=== PATIENT | female | born 1980 | race Caucasian/White ===

== ENCOUNTER 2017-03-02 16:25 | Emergency (ER) | payer MEDICAID ==
[2017-03-02 18:39] LABS: BILIRUBIN,URINE NEGATIVE (NEGATIVE)
[2017-03-02 18:41] LABS: UA w/ MICROSCOPIC CHARGE YES
[2017-03-02 19:00] LABS: UR CULTURE IF IND NOT INDICATED; WBC,URINE 0-3 /HPF (0-5)
[2017-03-02 19:14] LABS: BASOPHILS # (AUTO) 0.1 10^3/uL (0.0-0.1); EOSINOPHILS # (AUTO) 0.2 10^3/uL (0.0-0.7); EOSINOPHILS % (AUTO) 1.5 %; HCT - HEMATOCRIT 46.2 % (37.0-47.0); HGB - HEMOGLOBIN 15.8 g/dL (12.0-16.0); LYMPHOCYTES # (AUTO) 3.7 10^3/uL (1.5-3.5); LYMPHOCYTES % (AUTO) 28.9 %; MEAN CORPUSCULAR HEMOGLOBIN 30.5 pg (27.0-31.0); MEAN CORPUSCULAR HGB CONC 34.2 g/dL (32.0-36.0); MEAN CORPUSCULAR VOLUME 88.9 fL (81.0-99.0); MEAN PLATELET VOLUME 9.4 fL (7.9-10.8); MONOCYTES # (AUTO) 0.6 10^3/uL (0.0-1.0); MONOCYTES % (AUTO) 5.1 %; NEUTROPHILS # (AUTO) 8.1 10^3/uL (1.5-6.6); NEUTROPHILS % (AUTO) 63.5 %; NUCLEATED RED BLOOD CELLS AUTO 0.1 /100WBC; RED CELL DISTRIBUTION WIDTH 12.4 % (12.0-15.0); UNCORRECTED WHITE BLOOD COUNT 12.7 x10^3/uL; WHITE BLOOD COUNT 12.7 x10^3/uL (4.8-10.8)
[2017-03-02 19:30] LABS: ALBUMIN/GLOBULIN RATIO 1.4 (1.0-2.2); BILIRUBIN,TOTAL 0.6 mg/dL (0.2-1.0); CALCIUM 9.1 mg/dL (8.5-10.3); CREATININE 0.6 mg/dL (0.4-1.0); POTASSIUM 3.8 mmol/L (3.5-5.0); TOTAL PROTEIN 7.6 g/dL (6.7-8.2)
[2017-03-02] MEDS ORDERED: INSULIN REGULAR HUMAN 100 UNIT/1 ML 10 ML MDV SUBQ STA (19:45)
--- NOTE | 2017-03-02 20:02 | XRAY Preliminary Report ---
Exam: XR Chest 2 View PA/LAT IMPRESSION: 1. Bronchial wall thickening could represent bronchitis or reactive airways disease. 2. No consolidation. [facility] SITE ID: [id number]
--- NOTE | 2017-03-02 20:10 | ED Physician Documentation ---
History of Present Illness - Stated complaint Stated Complaint: DIZZINESS - Chief complaint Chief Complaint: Neuro - History obtained from History obtained from: Patient, Family - History of Present Illness Timing: How many weeks ago (2) Pain level max: 0 Pain level now: 0 Improved by: nothing Worsened by: nothing - Additonal information Additional information: Patient is a 36-year-old female who states that she has not been feeling well for the past 2 weeks. States that she feels like she is "underwater". States occasionally feels dizzy and lightheaded. She is a diabetic, but quit taking her medications several years ago because she could not afford them. States that her blood sugar is normally in the 300s. She denies any fevers, nausea, vomiting. Denies any focal weakness or numbness. No headache. Review of Systems Ten Systems: 10 systems reviewed and negative Constitutional: denies: Fever, Chills Ears: denies: Ear pain Nose: denies: Rhinorrhea / runny nose, Congestion Throat: denies: Sore throat Cardiac: denies: Chest pain / pressure Respiratory: denies: Cough : denies: Dysuria, Now EGA Skin: denies: Rash Musculoskeletal: denies: Neck pain, Back pain Neurologic: denies: Focal weakness, Numbness, Confused, Altered mental status, Headache PD PAST MEDICAL HISTORY - Past Medical History Past Medical History: Yes Endocrine/Autoimmune: Type 2 diabetes - Past Surgical History Past Surgical History: Yes 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 - Present Medications Home Medications: Ambulatory Orders Medication Instructions Recorded Confirmed Amox/Clav 875/125 [Augmentin] 1 each PO Q12H #14 tablet 08/31/16 Glipizide 5 mg PO DAILY #30 tablet 03/02/17 - Allergies Allergies/Adverse Reactions: Allergies Allergy/AdvReac Type Severity Reaction Status Date / Time acetaminophen [From Vicodin] Allergy Intermediate Hives Verified 03/02/17 16:50 hydrocodone bitartrate * Allergy Intermediate Hives Verified 03/02/17 16:50 [From Vicodin] oxycodone HCl * Allergy Intermediate Hives Verified 03/02/17 16:50 [From Percocet] - Social History Does the pt smoke?: Yes Smoking Status: Current every day smoker Does the pt drink ETOH?: No Does the pt have substance abuse?: Yes Substance Use and Type: Marijuana - Immunizations Immunizations are current?: Yes PD ED PE NORMAL - Vitals Vital signs reviewed: Yes - General General: Alert and oriented X 3, No acute distress, Well developed/nourished - HEENT HEENT: PERRL, EOMI, Ears normal, Moist mucous membranes, Other (no nystagmus) - Neck Neck: Supple, no meningeal sign - Cardiac Cardiac: RRR, Strong equal pulses - Respiratory Respiratory: No respiratory distress, Clear bilaterally - Abdomen Abdomen: Soft, Non tender, Non distended - Back Back: No CVA TTP - Derm Derm: Warm and dry, No rash - Extremities Extremities: No edema - Neuro Neuro: Alert and oriented X 3, 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, No motor deficit, No sensory deficit, Normal speech, Other (normal cerebellar tests) - Psych Psych: Normal mood, Normal affect Results - Vitals Vitals: Oxygen O2 Source Room air - Labs Labs: Laboratory Tests 03/02/17 03/02/17 03/02/17 18:20 19:06 19:06 WBC 12.7 H RBC 5.20 Hgb 15.8 Hct 46.2 MCV 88.9 MCH 30.5 MCHC 34.2 RDW 12.4 Plt Count 208 MPV 9.4 Neut # 8.1 H Lymph # 3.7 H [place] # 0.6 Eos # 0.2 Baso # 0.1 Absolute Nucleated RBC 0.01 Nucleated RBCs 0.1 Sodium 134 L Potassium 3.8 Chloride 99 L Carbon Dioxide 26 Anion Gap 9.0 BUN 13 Creatinine 0.6 Estimated GFR (MDRD) 112 Glucose 311 H POC Whole Bld Glucose Calcium 9.1 Total Bilirubin 0.6 AST 15 ALT 17 Alkaline Phosphatase 75 Total Protein 7.6 Albumin 4.4 Globulin 3.2 Albumin/Globulin Ratio 1.4 Lipase 30 Urine Color YELLOW Urine Clarity HAZY Urine pH 6.0 Ur Specific [place] 1.010 Urine Protein NEGATIVE Urine Glucose (UA) >=1000 H Urine Ketones 15 H Urine Occult Blood NEGATIVE Urine Nitrite NEGATIVE Urine Bilirubin NEGATIVE Urine Urobilinogen 0.2 (NORMAL) Ur Leukocyte Esterase NEGATIVE Urine RBC 0-5 Urine WBC 0-3 Ur Squamous Epith Cells MANY Squamous H Urine Bacteria Few Ur Microscopic Review INDICATED Urine Culture Comments NOT INDICATED 03/02/17 03/02/17 20:17 20:58 WBC RBC Hgb Hct MCV MCH MCHC RDW Plt Count MPV Neut # Lymph # [place] # Eos # Baso # Absolute Nucleated RBC Nucleated RBCs Sodium Potassium Chloride Carbon Dioxide Anion Gap BUN Creatinine Estimated GFR (MDRD) Glucose POC Whole Bld Glucose 341 H 313 H Calcium Total Bilirubin AST ALT Alkaline Phosphatase Total Protein Albumin Globulin Albumin/Globulin Ratio Lipase Urine Color Urine Clarity Urine pH Ur Specific [place] Urine Protein Urine Glucose (UA) Urine Ketones Urine Occult Blood Urine Nitrite Urine Bilirubin Urine Urobilinogen Ur Leukocyte Esterase Urine RBC Urine WBC Ur Squamous Epith Cells Urine Bacteria Ur Microscopic Review Urine Culture Comments PD MEDICAL DECISION MAKING - ED course Complexity details: reviewed results, re-evaluated patient, considered differential, d/w patient, d/w family ED course: Patient is a 36-year-old female who presents to the emergency department with a feeling of being "underwater". She also feels like sometimes she is off balance. She is found to be hyperglycemic without ketosis or acidosis. Given insulin and her blood sugar decreased. Will restart her on her diabetic medications see how this affects her symptoms. No evidence of tumor, stroke, vertigo. Normal neurological examinations. Normal cerebellar test. Normal gait. Patient and family counseled regarding signs and symptoms for which I believe and urgent re-evaluation would be necessary. Patient with good understanding of and agreement to plan and is comfortable going home at this time This document was made in part using voice recognition software. While efforts are made to proofread this document, sound alike and grammatical errors may occur. Departure - Departure Disposition: 01 Home, Self Care Clinical Impression: Hyperglycemia without ketosis Condition: Good Instructions: ED Hyperglycemia Diabetic Follow-Up: Nickie Jerome ARNP [Primary Care Provider] - Within 3 Days Prescriptions: Glipizide 5 mg PO DAILY #30 tablet Comments: Start the glipizide. It is very important that you follow-up with and to obtain better control of your glucose. You should be referred to a family life educator as well, there is one available at the hospital here. There are programs to help you afford her medications. Discharge Date/Time: 03/02/17 21:11
[2017-03-02] MEDS ORDERED: INSULIN REGULAR HUMAN 100 UNIT/1 ML 10 ML MDV ONE (20:18)
--- NOTE | 2017-03-02 20:44 | XRAY Report ---
EXAM: CHEST RADIOGRAPHY EXAM DATE: 03/02/2017 07:50 PM. CLINICAL HISTORY: Cough. COMPARISON: None. TECHNIQUE: 2 views. FINDINGS: Lungs/Pleura: No focal opacities evident. No pleural effusion. No pneumothorax. Normal volumes. Mild left hilar bronchial wall thickening. Mediastinum: Heart and mediastinal contours are unremarkable. Other: None. IMPRESSION: 1. Bronchial wall thickening could represent bronchitis or reactive airways disease. 2. No consolidation. [facility] Referring Provider Line: [phone] SITE ID: [id number]
[2017-03-02 21:12] VITALS: BP 123/70
== END 2017-03-02 21:11 | disposition home or self-care (01) ==
LOC: ED 16:25
DX: E11.65 Type 2 diabetes mellitus with hyperglycemia (principal); F17.200 Nicotine dependence, unspecified, uncomplicated
CPT/HCPCS: 36415; 71020; 80053; 81001; 83690; 85025; 99283; 99284; J1815; 81003; 87086

== ENCOUNTER 2017-06-20 13:08 | Emergency (ER) | payer OTHER, MEDICAID ==
[2017-06-20 13:51] VITALS: BP 143/81
--- NOTE | 2017-06-20 14:15 | ED Physician Documentation ---
PD HPI LOWER EXT INJURY - Stated complaint Stated Complaint: LEFT KNEE INJ - Chief complaint Chief Complaint: Ext Problem - History obtained from History obtained from: Patient, Family - History of Present Illness PD HPI LOW EXT INJURY LOCATION: Left, Knee Type of injury: Twist Where injury occurred: Work Timing - onset: How many hours ago (2) Timing - duration: Hours (2) Timing - details: Abrupt onset Pain level max: 8 Pain level now: 5 Improved by: Rest, Ice, Immobilization Worsened by: Moving, Palpating Associated symptoms: Swelling. 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 - Present Medications Home Medications: Ambulatory Orders Medication Instructions Recorded Confirmed Amox/Clav 875/125 [Augmentin] 1 each PO Q12H #14 tablet 08/31/16 Glipizide 5 mg PO DAILY #30 tablet 03/02/17 - Allergies Allergies/Adverse Reactions: Allergies Allergy/AdvReac Type Severity Reaction Status Date / Time acetaminophen [From Vicodin] Allergy Intermediate Hives Verified 03/02/17 16:50 hydrocodone bitartrate * Allergy Intermediate Hives Verified 03/02/17 16:50 [From Vicodin] oxycodone HCl * Allergy Intermediate Hives Verified 03/02/17 16:50 [From Percocet] oxycodone Allergy Hives Verified 06/20/17 13:52 - Social History Does the pt smoke?: Yes Smoking Status: Current every day smoker Does the pt drink ETOH?: No Does the pt have substance abuse?: Yes Substance Use and Type: Marijuana - Immunizations Immunizations are current?: Yes - POLST Patient has POLST: No PD ED PE NORMAL - Vitals Vital signs reviewed: Yes - General General: Alert and oriented X 3, No acute distress - Derm Derm: Warm and dry - Extremities Extremities: Other (L knee - TTP along the medial joint line. laxity with posterior drawer and MCL, LCL testing. NVI. No joint effusion. ) - Neuro Neuro: Alert and oriented X 3 Results - Vitals Vitals: Vital Signs - 24 hr 06/20/17 13:45 Temperature 36.7 C Heart Rate 107 H Respiratory 18 Rate Blood Pressure 143/81 H O2 Saturation 98 Oxygen O2 Source Room air - Rads (name of study) L knee xray Radiology: Prelim report reviewed, EMP read contemporaneously (No acute bony abnormality or joint effusion. Stable degenerative spurring of the lateral compartment. ) PD MEDICAL DECISION MAKING - ED course Complexity details: reviewed results, re-evaluated patient, considered differential, d/w patient ED course: Patient is a 36-year-old female who injured her knee today at work. Likely ligamentous sprain. Difficult exam secondary to pain. We will have her placed into an articulating knee brace from 0-45, crutches and follow-up with her doctor. Patient counseled regarding signs and symptoms for which I believe and urgent re-evaluation would be necessary. Patient with good understanding of and agreement to plan and is comfortable going home at this time This document was made in part using voice recognition software. While efforts are made to proofread this document, sound alike and grammatical errors may occur. Departure - Departure Disposition: 01 Home, Self Care Clinical Impression: Knee sprain Qualifiers: Encounter type: initial encounter Involved ligament of knee: unspecified ligament Laterality: left Qualified Code(s): S83.92XA - Sprain of unspecified site of left knee, initial encounter Condition: Good Instructions: ED Sprain Knee Follow-Up: Nickie Jerome ARNP [Primary Care Provider] - Within 1 week Comments: Wear the brace until released by your doctor. Return if you worsen. You may bear weight as tolerated. Forms: Activity restrictions Discharge Date/Time: 06/20/17 16:02
--- NOTE | 2017-06-20 15:32 | XRAY Report ---
EXAM: LEFT KNEE RADIOGRAPHY EXAM DATE: 06/20/2017 03:10 PM. CLINICAL HISTORY: Twisting injury. [place] a pop. Pain. COMPARISON: 06/18/2013. TECHNIQUE: 4 views. FINDINGS: Bones: Normal. No fractures or bone lesions. Joints: Stable spurring of the lateral compartment. No effusion. No subluxations. Soft Tissues: Normal. No soft tissue swelling. IMPRESSION: 1. No acute bony abnormality or joint effusion. 2. Stable degenerative spurring of the lateral compartment. [facility] Referring Provider Line: [phone] SITE ID: [id number]
== END 2017-06-20 16:02 | disposition home or self-care (01) ==
LOC: ED 13:08
DX: S83.92XA Sprain of unspecified site of left knee, initial encounter (principal); X50.1XXA Overexertion from prolonged static or awkward postures, initial encounter; Y93.02 Activity, running; Y92.89 Other specified places as the place of occurrence of the external cause; Y99.0 Civilian activity done for income or pay; E11.9 Type 2 diabetes mellitus without complications; Z79.84 Long term (current) use of oral hypoglycemic drugs; F17.200 Nicotine dependence, unspecified, uncomplicated
CPT/HCPCS: 99283

== ENCOUNTER 2017-08-01 15:52 | Outpatient (CLI) | payer OTHER ==
--- NOTE | 2017-08-02 10:21 | MRI Report ---
EXAM: LEFT KNEE MRI WITHOUT CONTRAST EXAM DATE: 08/01/2017 04:33 PM. CLINICAL HISTORY: Left knee pain going up and down stairs, buckling. History of meniscus tear and art hroscopy in 2005. COMPARISON: Radiographs 06/20/2017. TECHNIQUE: Multiplanar, multisequence T1-weighted and fluid-sensitive sequences of the knee without c ontrast. Other: None. FINDINGS: Cruciate Ligaments: The anterior and posterior cruciate ligaments appear intact. Medial Meniscus: Intact. No tear is identified. Lateral Meniscus: Intact. No tear is identified. Collateral Ligaments: The medial and fibular collateral ligaments appear intact. Bones and Articular Surfaces: Severe cartilage thinning, fissuring and irregularity at the central as pect of the patella with subchondral edema. Abnormal 2.1 x 1.5 x 0.4 cm ossification abutting the low er medial aspect of the patella within the patellofemoral joint space. This may represent an old avul trevin injury or a chronically displaced osteochondral fragment. Lateral tracking of the patella. Mild cartilage thinning and superficial irregularity in the medial and lateral compartments. Small foci of patchy subchondral edema at the lateral femoral condyle. Tricompartmental marginal osteophytes most pronounced in the lateral compartment. Extensor Mechanism: The patellar tendon and quadriceps insertion appear intact. IMPRESSION: 1. Abnormal well-corticated ossification abutting the lower medial margin of the patella which may re present old displaced osteochondral fragment or loose body versus old ununited avulsion fracture. 2. Moderate patellofemoral osteoarthritis. 3. Mild medial and lateral compartment osteoarthritis. [facility] MUSCULOSKELET[facility] SECTION Referring Provider Line: [phone] SITE ID: [id number]
== END 2017-08-01 15:53 | disposition home or self-care (01) ==
LOC: DI 15:52
PROVIDERS: ATTEND Family Medicine
DX: M17.12 Unilateral primary osteoarthritis, left knee (principal)

== ENCOUNTER 2017-10-18 04:11 | Emergency (ER) | payer MEDICAID ==
[2017-10-18] MEDS ORDERED: LORazepam 0.5 MG TABLET PO STA (04:24)
--- NOTE | 2017-10-18 04:27 | ED Physician Documentation ---
PD HPI CHEST PAIN - Stated complaint Stated Complaint: CHEST PAIN,NAUSEA - Chief complaint Chief Complaint: Cardiac - History obtained from History obtained from: Patient - History of Present Illness Timing - onset: Today Timing - onset during: Rest Timing - details: Gradual onset, Intermittant Quality: Aching, Sharp Location: Left chest, Left shoulder/arm Worsened by: No: Inspiration Associated symptoms: Nausea Similar symptoms before: No diagnosis Recently seen: Not recently seen - Additional information Additional information: Patient is a 37 year old female with a history of panic attacks who is presenting to the emergency department for chest pain. Patient states that it started at rest this evening and was in the left side of her chest near her armpit and it moved down into her right breast. Patient states she was nauseated with the event. Patient reports that that she has had panic attacks in the past but states that this was different. Patient drank 4 energy drinks during her shift tonight at work. Patient denies any recent travel, family history of blood clots or early cardiac disease. Review of Systems Ten Systems: 10 systems reviewed and negative Constitutional: denies: Fever, Chills Cardiac: reports: Chest pain / pressure. denies: Pedal edema Respiratory: denies: Dyspnea, Cough GI: reports: Nausea. 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 - Present Medications Home Medications: Ambulatory Orders Medication Instructions Recorded Confirmed Amox/Clav 875/125 [Augmentin] 1 each PO Q12H #14 tablet 08/31/16 Glipizide 5 mg PO DAILY #30 tablet 03/02/17 - Allergies Allergies/Adverse Reactions: Allergies Allergy/AdvReac Type Severity Reaction Status Date / Time acetaminophen [From Vicodin] Allergy Intermediate Hives Verified 10/18/17 04:22 hydrocodone bitartrate * Allergy Intermediate Hives Verified 10/18/17 04:22 [From Vicodin] oxycodone HCl * Allergy Intermediate Hives Verified 10/18/17 04:22 [From Percocet] oxycodone Allergy Hives Verified 10/18/17 04:22 - Social History Does the pt smoke?: Yes Smoking Status: Current every day smoker Does the pt drink ETOH?: No Does the pt have substance abuse?: Yes - Immunizations Immunizations are current?: Yes - POLST Patient has POLST: No PD ED PE NORMAL - Vitals Vital signs reviewed: Yes - General General: Alert and oriented X 3 - HEENT HEENT: Atraumatic - Cardiac Cardiac: RRR, No murmur - Respiratory Respiratory: No respiratory distress, Clear bilaterally - Abdomen Abdomen: Soft, Non tender, Non distended - Derm Derm: Normal color, Warm and dry, No rash - Extremities Extremities: No deformity, No edema, No calf tenderness / cord - Neuro Neuro: Alert and oriented X 3, No motor deficit Eye Opening: Spontaneous Motor: Obeys Commands - Psych Psych: Normal mood PD ED PE EXPANDED - General General: Alert, Anxious Results - Vitals Vitals: Vital Signs - 24 hr 10/18/17 10/18/17 04:19 04:38 Temperature 36.6 C Heart Rate 96 95 Respiratory 16 19 Rate Blood Pressure 153/107 H 146/91 H O2 Saturation 98 100 Oxygen O2 Source Room air - EKG (time done) 0424 Rate: Rate (enter#) (97) Rhythm: NSR [place]: Normal Intervals: Normal HI QRS: LVH Ischemia: Normal ST segments Compare to prior EKG: Changed from prior EKG - Labs Labs: Laboratory Tests 10/18/17 10/18/17 04:33 04:45 Troponin I < 0.04 Urine Color YELLOW Urine Clarity CLEAR Urine pH 7.0 Ur Specific [place] 1.015 Urine Protein NEGATIVE Urine Glucose (UA) >=1000 H Urine Ketones TRACE Urine Occult Blood LARGE H Urine Nitrite NEGATIVE Urine Bilirubin NEGATIVE Urine Urobilinogen 0.2 (NORMAL) Ur Leukocyte Esterase NEGATIVE Urine RBC TNTC H Urine WBC 0-3 Ur Squamous Epith Cells MOD Squamous H Urine Bacteria Rare Ur Microscopic Review INDICATED Urine Culture Comments NOT INDICATED Urine HCG, Qual NEGATIVE PD MEDICAL DECISION MAKING - ED course Complexity details: reviewed old records, reviewed results, re-evaluated patient , considered differential, d/w patient ED course: Patient was seen and examined at bedside. patient was in no distress. ekg was performed and was within normal limits. urine was collected as well as the troponin. Patient was treated with ativan 0.5mg. Patient's diagnostics were all within normal limits. Patient had a HEART score of 1 and PERC score of 0. Patient required no further inpatient work up at this time and was stable for discharge with outpatient follow up. Departure - Departure Disposition: 01 Home, Self Care Clinical Impression: Atypical chest pain Condition: Good Instructions: ED Chest Pain Atypical Unkn Cause Follow-Up: Donta Velasquez MD [Primary Care Provider] - Comments: Your diagnostics today were within normal limits. While it is difficult to say exactly what is causing your pain it is less likely cardiac in nature. You should refrain from excessive caffeine/energy drinks. You will also need to monitor your blood glucose a bit more closely. You should follow up with your doctor for further care and may return to the emergency department at any time for new, worsening or uncontrollable symptoms.
[2017-10-18 04:38] LABS: BILIRUBIN,URINE NEGATIVE (NEGATIVE); GLUCOSE, URINE (UA) >=1000 mg/dL (NEGATIVE); KETONES,URINE (UA) TRACE mg/dL (NEGATIVE); LEUKOCYTE ESTERASE, URINE NEGATIVE (NEGATIVE); NITRITE,URINE NEGATIVE (NEGATIVE); OCCULT BLOOD,URINE LARGE (NEGATIVE); PROTEIN,URINE NEGATIVE (NEGATIVE); UROBILINOGEN,URINE 0.2 (NORMAL) E.U./dL (NORMAL)
[2017-10-18 04:39] LABS: CLARITY,URINE CLEAR (CLEAR); HCG UR QUAL NEGATIVE
[2017-10-18 04:47] LABS: BACTERIA,URINE Rare /HPF (None Seen); RBC,URINE TNTC /HPF (0-5); SQUAMOUS EPITHELIAL CELL,UR MOD Squamous (<= Few)
[2017-10-18 05:23] VITALS: BP 129/83
== END 2017-10-18 05:25 | disposition home or self-care (01) ==
LOC: ED 04:11
DX: R07.89 Other chest pain (principal); E11.9 Type 2 diabetes mellitus without complications; F17.200 Nicotine dependence, unspecified, uncomplicated
CPT/HCPCS: 36415; 81001; 81025; 84484; 93005; 99283; 99284; A9270; 81003; 87086

== ENCOUNTER 2017-11-08 17:12 | Outpatient (CLI) | payer MEDICAID ==
[2017-11-08 17:37] LABS: BASOPHILS # (AUTO) 0.1 10^3/uL (0.0-0.1); BASOPHILS % (AUTO) 1.1 %; EOSINOPHILS # (AUTO) 0.2 10^3/uL (0.0-0.7); EOSINOPHILS % (AUTO) 1.6 %; HGB - HEMOGLOBIN 16.3 g/dL (12.0-16.0); LYMPHOCYTES # (AUTO) 3.5 10^3/uL (1.5-3.5); LYMPHOCYTES % (AUTO) 29.5 %; MEAN CORPUSCULAR HEMOGLOBIN 29.1 pg (27.0-31.0); MEAN CORPUSCULAR HGB CONC 32.9 g/dL (32.0-36.0); MEAN CORPUSCULAR VOLUME 88.5 fL (81.0-99.0); MEAN PLATELET VOLUME 8.8 fL (7.9-10.8); MONOCYTES # (AUTO) 0.8 10^3/uL (0.0-1.0); MONOCYTES % (AUTO) 6.4 %; NEUTROPHILS # (AUTO) 7.3 10^3/uL (1.5-6.6); NEUTROPHILS % (AUTO) 61.4 %; PLT - PLATELET COUNT 224 10^3/uL (130-450); RED BLOOD COUNT 5.58 10^6/uL (4.20-5.40); RED CELL DISTRIBUTION WIDTH 12.6 % (12.0-15.0)
[2017-11-08 17:51] LABS: ALBUMIN 4.4 g/dL (3.2-5.5); ALBUMIN/GLOBULIN RATIO 1.2 (1.0-2.2); BILIRUBIN,TOTAL 0.5 mg/dL (0.2-1.0); CREATININE 0.7 mg/dL (0.4-1.0)
[2017-11-08 18:18] LABS: HB2 TOTAL 18.3 g/dL; HEMOGLOBIN A1C 2.47 g/dL; HEMOGLOBIN A1C % 14.5 % (4.6-6.2)
== END 2017-11-08 17:13 | disposition home or self-care (01) ==
LOC: LAB 17:12
PROVIDERS: ATTEND Internal Medicine
DX: E11.9 Type 2 diabetes mellitus without complications (principal)
CPT/HCPCS: 36415; 80053; 82043; 83036; 84443; 85025

== ENCOUNTER 2019-02-25 18:32 | Emergency (ER) | payer MEDICAID ==
[2019-02-25] MEDS ORDERED: cephALEXin 250 MG CAPSULE PO STA (19:08)
[2019-02-25] MEDS ORDERED: SULFAMETH/TRIMETH DS 800/160 MG TABLET PO STA (19:08)
--- NOTE | 2019-02-25 19:10 | ED Physician Documentation ---
PD HPI LOWER EXT INJURY - Stated complaint Stated Complaint: L FOOT INJURY - Chief complaint Chief Complaint: Ext Problem - History obtained from History obtained from: Patient - History of Present Illness PD HPI LOW EXT INJURY LOCATION: Left, Toe (great toe) Type of injury: Fall (going over a chair) Timing - onset: Last night Timing - duration: Days (1) Timing - details: Gradual onset Pain level max: 5 Pain level now: 4 Improved by: Rest, Ice, Immobilization Worsened by: Moving, Palpating Associated symptoms: Swelling, Discolored (redness). 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 : None HEENT: None Psych: None Musculoskeletal: None Derm: None - Past Surgical History Past Surgical History: Yes Ortho: Arthroscopic surgery /UTILITY WORKER FILM PROCESSING: Dilation and currettage - Present Medications Home Medications: Ambulatory Orders Medication Instructions Recorded Confirmed Amox/Clav 875/125 [Augmentin] 1 each PO Q12H #14 tablet 08/31/16 Glipizide 5 mg PO DAILY #30 tablet 03/02/17 Cephalexin [Keflex] 500 mg PO Q6H #28 capsule 02/25/19 Sulfamethox/Trimeth 800/160 1 each PO BID #14 tablet 02/25/19 [Bactrim Ds 800/160] - Allergies Allergies/Adverse Reactions: Allergies Allergy/AdvReac Type Severity Reaction Status Date / Time acetaminophen [From Vicodin] Allergy Intermediate Hives Verified 10/18/17 04:22 hydrocodone bitartrate * Allergy Intermediate Hives Verified 10/18/17 04:22 [From Vicodin] oxycodone HCl * Allergy Intermediate Hives Verified 10/18/17 04:22 [From Percocet] oxycodone Allergy Hives Verified 10/18/17 04:22 - Social History Does the pt smoke?: Yes Smoking Status: Current every day smoker Does the pt drink ETOH?: No Does the pt have substance abuse?: Yes Substance Use and Type: Marijuana - Immunizations Immunizations are current?: Yes - POLST Patient has POLST: No PD ED PE NORMAL - Vitals Vital signs reviewed: Yes - General General: Alert and oriented X 3, No acute distress - HEENT HEENT: Moist mucous membranes - Neck Neck: Supple, no meningeal sign - Cardiac Cardiac: RRR - Derm Derm: Warm and dry - Extremities Extremities: Other (L foot - Erythema and swelling to the left great toe with a small pustule. There is erythema that expands approximately one third of the way up the foot on the dorsum of the foot. No pain with range of motion of the joints. Tenderness to palpation over the distal end of the first metatarsal. Otherwise normal examination of the foot and ankle) - Neuro Neuro: Alert and oriented X 3 Results - Vitals Vitals: Vital Signs - 24 hr 02/25/19 02/25/19 18:40 20:10 Temperature 36.5 C 36.8 C Heart Rate 85 80 Respiratory 18 18 Rate Blood Pressure 147/85 H 151/83 H O2 Saturation 99 99 Oxygen O2 Source Room air - Rads (name of study) L toes xray Radiology: Prelim report reviewed, EMP read contemporaneously, See rad report (normal) PD MEDICAL DECISION MAKING - ED course Complexity details: reviewed results, re-evaluated patient, considered differential, d/w patient, d/w family ED course: L great toe sprain, but more importantly cellulitis of the foot in a diabetic patient. Will place on antibiotics for home. Pt will follow-up with your doctor for further care. Patient counseled regarding signs and symptoms for which I believe and urgent re-evaluation would be necessary. Patient with good understanding of and agreement to plan and is comfortable going home at this time This document was made in part using voice recognition software. While efforts are made to proofread this document, sound alike and grammatical errors may occur. Departure - Departure Disposition: 01 Home, Self Care Clinical Impression: Cellulitis Qualifiers: Site of cellulitis: extremity Site of cellulitis of extremity: lower extremity Laterality: left Qualified Code(s): L03.116 - Cellulitis of left lower limb Toe sprain Qualifiers: Encounter type: initial encounter Qualified Code(s): S93.509A - Unspecified sprain of unspecified toe(s), initial encounter Condition: Good Instructions: ED Infec Skin Cellulitis Follow-Up: Singh Jacobs MD [Primary Care Provider] - Within 3 Days (for wound check) Prescriptions: Cephalexin [Keflex] 500 mg PO Q6H #28 capsule Sulfamethox/Trimeth 800/160 [Bactrim Ds 800/160] 1 each PO BID #14 tablet Comments: Take all antibiotics until gone. Return if you worsen. Follow-up with your doctor in 3 days for a wound check. This should improve over the next 24 hours. Discharge Date/Time: 02/25/19 20:12
--- NOTE | 2019-02-25 19:53 | XRAY Report ---
Reason: L 1st toe pain Procedure Date: 02/25/2019 Accession Number: [id number] / [id number] Procedure: XR - Toe(s) LT CPT Code: FULL RESULT: EXAM: LEFT GREAT TOE RADIOGRAPHY EXAM DATE: 02/25/2019 07:15 PM. CLINICAL HISTORY: Left 1st toe pain. COMPARISON: None. TECHNIQUE: 3 views. FINDINGS: Bones: Normal. No fracture or bone lesion. Joints: Normal. No subluxations. Soft Tissues: Unremarkable. IMPRESSION: Normal great toe radiography. [facility]
[2019-02-25 20:11] VITALS: BP 151/83
== END 2019-02-25 20:12 | disposition home or self-care (01) ==
LOC: ED 18:32
DX: S93.512A Sprain of interphalangeal joint of left great toe, initial encounter (principal); W18.09XA Striking against other object with subsequent fall, initial encounter; L03.032 Cellulitis of left toe; E11.9 Type 2 diabetes mellitus without complications; Z79.84 Long term (current) use of oral hypoglycemic drugs; F17.200 Nicotine dependence, unspecified, uncomplicated
CPT/HCPCS: 73660; 99283; 99284; A9270

== ENCOUNTER 2020-03-23 18:33 | Emergency (ER) | payer MEDICAID ==
[2020-03-23] MEDS ORDERED: cephALEXin 250 MG CAPSULE PO STA (19:12)
[2020-03-23] MEDS ORDERED: SULFAMETH/TRIMETH DS 800/160 MG TABLET PO STA (19:12)
--- NOTE | 2020-03-23 19:15 | ED Physician Documentation ---
History of Present Illness - Stated complaint Stated Complaint: RT FT PX - Chief complaint Chief Complaint: Ext Problem - History obtained from History obtained from: Patient - History of Present Illness Timing: How many days ago (3) Pain level max: 3 Pain level now: 3 - Additonal information Additional information: 39-year-old female states that she is a diabetic. She states that she has had a wart/corn on the plantar aspect of the right foot for the past several years. Started to become painful and swollen 2 days ago. Worse with walking, better with rest. No drainage. No fevers. 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 : None HEENT: None Psych: None Musculoskeletal: None Derm: None - Past Surgical History Past Surgical History: Yes Ortho: Arthroscopic surgery /REFRIGERATION PERSON: Dilation and currettage - Present Medications Home Medications: Ambulatory Orders Medication Instructions Recorded Confirmed Amox/Clav 875/125 [Augmentin] 1 each PO Q12H #14 tablet 08/31/16 Glipizide 5 mg PO DAILY #30 tablet 03/02/17 Cephalexin [Keflex] 500 mg PO Q6H #28 capsule 02/25/19 Sulfamethox/Trimeth 800/160 1 each PO BID #14 tablet 02/25/19 [Bactrim Ds 800/160] Cephalexin [Keflex] 500 mg PO Q6H #28 capsule 03/23/20 Sulfamethox/Trimeth 800/160 1 each PO BID #14 tablet 03/23/20 [Bactrim Ds 800/160] - Allergies Allergies/Adverse Reactions: Allergies Allergy/AdvReac Type Severity Reaction Status Date / Time acetaminophen [From Vicodin] Allergy Intermediate Hives Verified 03/23/20 18:39 hydrocodone bitartrate * Allergy Intermediate Hives Verified 03/23/20 18:39 [From Vicodin] oxycodone HCl * Allergy Intermediate Hives Verified 03/23/20 18:39 [From Percocet] oxycodone Allergy Hives Verified 03/23/20 18:39 - Social History Does the pt smoke?: Yes Smoking Status: Current every day smoker Does the pt drink ETOH?: No Does the pt have substance abuse?: Yes - Immunizations Immunizations are current?: Yes - POLST Patient has POLST: No PD ED PE NORMAL - Vitals Vital signs reviewed: Yes - General General: Alert and oriented X 3, No acute distress - HEENT HEENT: Moist mucous membranes - Neck Neck: Supple, no meningeal sign - Derm Derm: Warm and dry - Extremities Extremities: Other (R foot- small corn with white edges, TTP. no drainage.) - Neuro Neuro: Alert and oriented X 3 Results - Vitals Vitals: Vital Signs - 24 hr 03/23/20 03/23/20 03/23/20 18:40 18:46 19:23 Temperature 36.5 C 36.5 C 36.5 C Heart Rate 113 H 110 H 98 Respiratory 16 16 16 Rate Blood Pressure 171/91 H 171/91 H 155/82 H O2 Saturation 96 96 98 Oxygen O2 Source Room air PD MEDICAL DECISION MAKING - ED course Complexity details: considered differential, d/w patient ED course: Bedside ultrasound does not reveal any drainable abscess. Will place her on antibiotics. Patient is well-appearing, nontoxic. Afebrile. No cellulitis over the remainder of the foot. No evidence of osteomyelitis. No evidence of foreign body. Patient counseled regarding signs and symptoms for which I believe and urgent re-evaluation would be necessary. Patient with good understanding of and agreement to plan and is comfortable going home at this time This document was made in part using voice recognition software. While efforts are made to proofread this document, sound alike and grammatical errors may occur. Departure - Departure Disposition: 01 Home, Self Care Clinical Impression: Cellulitis Qualifiers: Site of cellulitis: extremity Site of cellulitis of extremity: lower extremity Laterality: right Qualified Code(s): L03.115 - Cellulitis of right lower limb Condition: Good Instructions: ED Infec Skin Cellulitis Follow-Up: your,doctor in 3 days for recheck [Other] Prescriptions: Sulfamethox/Trimeth 800/160 [Bactrim Ds 800/160] 1 each PO BID #14 tablet Cephalexin [Keflex] 500 mg PO Q6H #28 capsule Comments: Take all antibiotics until gone. Return if you worsen. Follow-up with your doctor in 3 days for wound check. You should soak your foot 3-4 times daily in warm water as well. Discharge Date/Time: 03/23/20 19:23
[2020-03-23 19:25] VITALS: BP 155/82
== END 2020-03-23 19:23 | disposition home or self-care (01) ==
LOC: ED 18:33
DX: L03.115 Cellulitis of right lower limb (principal); E11.9 Type 2 diabetes mellitus without complications; Z79.84 Long term (current) use of oral hypoglycemic drugs; F17.200 Nicotine dependence, unspecified, uncomplicated
CPT/HCPCS: 99282; 99284; A9270

== ENCOUNTER 2020-03-28 11:13 | Outpatient (CLI) | payer MEDICAID ==
[2020-03-28 11:26] LABS: BASOPHILS # (AUTO) 0.1 10^3/uL (0.0-0.1); EOSINOPHILS # (AUTO) 0.2 10^3/uL (0.0-0.7); EOSINOPHILS % (AUTO) 2.8 %; HGB - HEMOGLOBIN 15.1 g/dL (12.0-16.0); LYMPHOCYTES # (AUTO) 2.7 10^3/uL (1.5-3.5); LYMPHOCYTES % (AUTO) 34.8 %; MEAN CORPUSCULAR HEMOGLOBIN 30.4 pg (27.0-31.0); MEAN CORPUSCULAR HGB CONC 34.2 g/dL (32.0-36.0); MEAN CORPUSCULAR VOLUME 88.7 fL (81.0-99.0); MEAN PLATELET VOLUME 11.1 fL (7.9-10.8); MONOCYTES # (AUTO) 0.8 10^3/uL (0.0-1.0); MONOCYTES % (AUTO) 10.6 %; NEUTROPHILS # (AUTO) 3.9 10^3/uL (1.5-6.6); NEUTROPHILS % (AUTO) 50.4 %; PLT - PLATELET COUNT 247 10^3/uL (130-450); RED BLOOD COUNT 4.97 10^6/uL (4.20-5.40); RED CELL DISTRIBUTION WIDTH 12.5 % (12.0-15.0); WHITE BLOOD COUNT 7.8 x10^3/uL (4.8-10.8)
[2020-03-28 11:45] LABS: ALBUMIN 4.1 g/dL (3.2-5.5); ALBUMIN/GLOBULIN RATIO 1.3 (1.0-2.2); ALKALINE PHOSPHATASE 71 IU/L (42-121); ALT ALANINE AMINOTRANSFERASE 14 IU/L (10-60); AST ASPARTATE AMINOTRANSFERASE 13 IU/L (10-42); BILIRUBIN,TOTAL 0.5 mg/dL (0.2-1.0); BUN - BLOOD UREA NITROGEN 21 mg/dL (6-20); CALCIUM 9.6 mg/dL (8.5-10.3); CARBON DIOXIDE - CO2 25 mmol/L (21-32); CHLORIDE 96 mmol/L (101-111); CHOL/HDL RATIO 5.1 (<4.4); CHOLESTEROL 239 mg/dL; GLUCOSE 377 mg/dL (70-100); HDL CHOLESTEROL 47 mg/dL; LDL CHOLESTEROL,CALCULATED 166 mg/dL; LDL/HDL RATIO 3.5 (<4.4); SODIUM 135 mmol/L (135-145); TOTAL PROTEIN 7.3 g/dL (6.7-8.2); VLDL CHOLESTEROL 26 mg/dL
[2020-03-28 12:30] LABS: HEMOGLOBIN A1c% 13.1 % (4.27-6.07)
[2020-03-28 16:10] LABS: MICROALBUMIN,URINE 126.2 mg/dL (0-300.0)
[2020-03-28 16:11] LABS: CREATININE,URINE 134.1 mg/dL; MICROALBUM/CREATININE RATIO,UR 941.1 ug/mg (<30.0)
== END 2020-03-28 11:14 | disposition home or self-care (01) ==
LOC: LAB 11:13
PROVIDERS: ATTEND Physician Assistant
DX: E11.9 Type 2 diabetes mellitus without complications (principal); L03.90 Cellulitis, unspecified; Z79.899 Other long term (current) drug therapy
CPT/HCPCS: 36415; 80053; 80061; 82043; 82570; 83036; 83721; 84443; 85025

== ENCOUNTER 2020-04-19 11:43 | Emergency (ER) | payer MEDICAID ==
[2020-04-19 11:58] VITALS: BP 134/84
[2020-04-19 12:17] LABS: MUDS CUTOFF CONCENTRATIONS CUTOFF CONC BELOW:
[2020-04-19 12:19] LABS: BILIRUBIN,URINE NEGATIVE (NEGATIVE); GLUCOSE, URINE (UA) >=1000 mg/dL (NEGATIVE); KETONES,URINE (UA) 15 mg/dL (NEGATIVE); LEUKOCYTE ESTERASE, URINE NEGATIVE (NEGATIVE); NITRITE,URINE NEGATIVE (NEGATIVE); OCCULT BLOOD,URINE SMALL (NEGATIVE); PROTEIN,URINE 100 mg/dL (NEGATIVE); UROBILINOGEN,URINE 0.2 (NORMAL) E.U./dL (NORMAL)
[2020-04-19 12:22] LABS: CLARITY,URINE HAZY (CLEAR); HCG UR QUAL NEGATIVE
[2020-04-19 12:37] LABS: AMPHETAMINE SCREEN,URINE NEGATIVE (NEGATIVE); BACTERIA,URINE Many /HPF (None Seen); BENZODIAZEPINES SCREEN, URINE NEGATIVE (NEGATIVE); COCAINE SCREEN URINE NEGATIVE (NEGATIVE); METHADONE SCREEN, URINE NEGATIVE (NEGATIVE); METHAMPHETAMINES SCREEN, URINE NEGATIVE (NEGATIVE); OPIATE SCREEN, URINE NEGATIVE (NEGATIVE); OXYCODONE SCREEN, URINE NEGATIVE (NEGATIVE); PROPOXYPHENE SCREEN, URINE NEGATIVE (NEGATIVE); RBC,URINE 0-5 /HPF (0-5); SQUAMOUS EPITHELIAL CELL,UR MANY Squamous (<= Few); TRICYCLIC ANTIDEPRESSANT,URINE NEGATIVE (NEGATIVE)
--- NOTE | 2020-04-19 13:02 | ED Physician Documentation ---
PD HPI MHE - Stated complaint Stated Complaint: MHE - Chief complaint Chief Complaint: MHE - History obtained from History obtained from: Patient - History of Present Illness Primary symptom: Psychosis Timing - onset: How many weeks ago Pain level max: 0 Pain level now: 0 Contributing factors: Substance abuse - drugs (marijuana) Similar symptoms before: Diagnosis (bipolar) Recently seen: Not recently seen - Additional information Additional information: Patient reports the she feels like celebrities are talking directly to her on TV and the trailers for [employer] are about her life. 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 : None HEENT: None Psych: None Musculoskeletal: None Derm: None - Past Surgical History Past Surgical History: Yes Ortho: Arthroscopic surgery /AUTHORIZATION SPECIALIST: Dilation and currettage - Present Medications Home Medications: Ambulatory Orders Medication Instructions Recorded Confirmed Amox/Clav 875/125 [Augmentin] 1 each PO Q12H #14 tablet 08/31/16 Glipizide 5 mg PO DAILY #30 tablet 03/02/17 Cephalexin [Keflex] 500 mg PO Q6H #28 capsule 02/25/19 Sulfamethox/Trimeth 800/160 1 each PO BID #14 tablet 02/25/19 [Bactrim Ds 800/160] Cephalexin [Keflex] 500 mg PO Q6H #28 capsule 03/23/20 Sulfamethox/Trimeth 800/160 1 each PO BID #14 tablet 03/23/20 [Bactrim Ds 800/160] - Allergies Allergies/Adverse Reactions: Allergies Allergy/AdvReac Type Severity Reaction Status Date / Time acetaminophen [From Vicodin] Allergy Intermediate Hives Verified 03/23/20 18:39 hydrocodone bitartrate * Allergy Intermediate Hives Verified 03/23/20 18:39 [From Vicodin] oxycodone HCl * Allergy Intermediate Hives Verified 03/23/20 18:39 [From Percocet] oxycodone Allergy Hives Verified 03/23/20 18:39 metformin AdvReac Unknown Verified 04/19/20 11:59 Opiods Allergy Unknown Uncoded 04/19/20 11:59 - Social History Does the pt smoke?: Yes Smoking Status: Current every day smoker Does the pt drink ETOH?: No Does the pt have substance abuse?: Yes - Immunizations Immunizations are current?: Yes - POLST Patient has POLST: No PD ED PE NORMAL - Vitals Vital signs reviewed: Yes - General General: Alert and oriented X 3, No acute distress - HEENT HEENT: Moist mucous membranes - Neck Neck: Supple, no meningeal sign - Cardiac Cardiac: RRR - Respiratory Respiratory: No respiratory distress, Clear bilaterally - Abdomen Abdomen: Soft, Non tender, Non distended - Back Back: No spinal TTP - Derm Derm: Warm and dry - Extremities Extremities: No edema, No calf tenderness / cord - Neuro Neuro: Alert and oriented X 3 - Psych Psych: Normal mood, Normal affect Results - Vitals Vitals: Vital Signs - 24 hr 04/19/20 04/19/20 11:51 11:58 Temperature 37 C 37.0 C Heart Rate 107 H 107 H Respiratory 17 17 Rate Blood Pressure 134/84 H 134/84 H O2 Saturation 99 99 Oxygen O2 Source Room air - Labs Labs: Laboratory Tests 04/19/20 04/19/20 04/19/20 12:09 12:59 12:59 WBC 7.8 RBC 4.68 Hgb 14.1 Hct 41.4 MCV 88.5 MCH 30.1 MCHC 34.1 RDW 12.1 Plt Count 271 MPV 10.8 Neut # (Auto) 5.0 Lymph # (Auto) 2.3 Dewey # (Auto) 0.4 Eos # (Auto) 0.1 Baso # (Auto) 0.1 Absolute Nucleated RBC 0.00 Nucleated RBC % 0.0 Sodium 133 L Potassium 4.2 Chloride 95 L Carbon Dioxide 25 Anion Gap 13.0 BUN 14 Creatinine 0.7 Estimated GFR (MDRD) 93 Glucose 383 H POC Whole Bld Glucose Calcium 9.1 Total Bilirubin 0.9 AST 13 ALT 16 Alkaline Phosphatase 75 Total Protein 7.2 Albumin 3.7 Globulin 3.5 Albumin/Globulin Ratio 1.1 Lipase 22 TSH Urine Color YELLOW Urine Clarity HAZY Urine pH 6.0 Ur Specific Mccune 1.020 Urine Protein 100 H Urine Glucose (UA) >=1000 H Urine Ketones 15 H Urine Occult Blood SMALL H Urine Nitrite NEGATIVE Urine Bilirubin NEGATIVE Urine Urobilinogen 0.2 (NORMAL) Ur Leukocyte Esterase NEGATIVE Urine RBC 0-5 Urine WBC 0-3 Ur Squamous Epith Cells MANY Squamous H Urine Bacteria Many H Ur Microscopic Review INDICATED Urine Culture Comments NOT INDICATED Urine HCG, Qual NEGATIVE Salicylates < 6.0 Urine Opiates Screen NEGATIVE Ur Oxycodone Screen NEGATIVE Urine Methadone Screen NEGATIVE Ur Propoxyphene Screen NEGATIVE Acetaminophen < 10 L Ur Barbiturates Screen NEGATIVE Ur Tricyclics Screen NEGATIVE Ur Phencyclidine Scrn NEGATIVE Ur Amphetamine Screen NEGATIVE U Methamphetamines Scrn NEGATIVE U Benzodiazepines Scrn NEGATIVE Urine Cocaine Screen NEGATIVE U Cannabinoids Screen POSITIVE H Ethyl Alcohol < 5.0 SARS-CoV-2 (PCR) 04/19/20 04/19/20 04/19/20 12:59 13:57 15:11 WBC RBC Hgb Hct MCV MCH MCHC RDW Plt Count MPV Neut # (Auto) Lymph # (Auto) Dewey # (Auto) Eos # (Auto) Baso # (Auto) Absolute Nucleated RBC Nucleated RBC % Sodium Potassium Chloride Carbon Dioxide Anion Gap BUN Creatinine Estimated GFR (MDRD) Glucose POC Whole Bld Glucose 297 H Calcium Total Bilirubin AST ALT Alkaline Phosphatase Total Protein Albumin Globulin Albumin/Globulin Ratio Lipase TSH 0.95 Urine Color Urine Clarity Urine pH Ur Specific Mccune Urine Protein Urine Glucose (UA) Urine Ketones Urine Occult Blood Urine Nitrite Urine Bilirubin Urine Urobilinogen Ur Leukocyte Esterase Urine RBC Urine WBC Ur Squamous Epith Cells Urine Bacteria Ur Microscopic Review Urine Culture Comments Urine HCG, Qual Salicylates Urine Opiates Screen Ur Oxycodone Screen Urine Methadone Screen Ur Propoxyphene Screen Acetaminophen Ur Barbiturates Screen Ur Tricyclics Screen Ur Phencyclidine Scrn Ur Amphetamine Screen U Methamphetamines Scrn U Benzodiazepines Scrn Urine Cocaine Screen U Cannabinoids Screen Ethyl Alcohol SARS-CoV-2 (PCR) NOT DETECTED - Rads (name of study) Ct head Radiology: Prelim report reviewed, EMP read contemporaneously, See rad report (no acute abnormality) PD MEDICAL DECISION MAKING - ED course Complexity details: reviewed results, re-evaluated patient, considered differential, d/w patient ED course: 39-year-old female with a history of bipolar disorder, appears to be having psychotic features, possible schizophrenia versus schizoaffective disorder? She is medically clear for psychiatric care. No significant findings on laboratory testing or head CT. Insulin given for her hyperglycemia. Social work co nsulted. Patient is voluntary for inpatient psychiatric admission. Dr. Schaefer at [facility] graciously accepts in transfer. COBRA forms completed. This document was made in part using voice recognition software. While efforts are made to proofread this document, sound alike and grammatical errors may occur. Departure - Departure Disposition: 65 Psych Hosp/Unit DC/Xfer Clinical Impression: Psychosis Qualifiers: Psychosis type: unspecified psychosis type Qualified Code(s): F29 - Unspecified psychosis not due to a substance or known physiological condition Condition: Stable
--- NOTE | 2020-04-19 13:11 | CT Report ---
PROCEDURE: HEAD WO INDICATIONS: aloc TECHNIQUE: Noncontrast 4.5 mm thick angled axial sections acquired from the foramen magnum to the vertex. For r adiation dose reduction, the following was used: automated exposure control, adjustment of mA and/or kV according to patient size. COMPARISON: None. FINDINGS: Image quality: Mild image degradation secondary to beam hardening artifact at the skull base and temp oral region. CSF spaces: Basal cisterns are patent. No extra-axial fluid collections. Ventricles are normal in size and shape. Brain: No midline shift. No intracranial masses or hemorrhage. Molina-white matter interface is norm al. Faint, punctate hyperdensities along the posterolateral margin of the left temporal lobe (image 9 , series 3) are artifactual. Skull and face: Calvarium and visualized facial bones are intact, without suspicious lesions. Sinuses: Visualized sinuses and mastoids are clear. IMPRESSION: CT head without acute intracranial abnormalities. No evidence for mass or mass effect. Reviewed by: Eloy Yeboah MD on 04/19/2020 12:10 PM [facility] Approved by: Eloy Yeboah MD on 04/19/2020 12:10 PM [facility] Station ID: [id number]
[2020-04-19 13:13] LABS: BASOPHILS # (AUTO) 0.1 10^3/uL (0.0-0.1); BASOPHILS % (AUTO) 0.8 %; EOSINOPHILS # (AUTO) 0.1 10^3/uL (0.0-0.7); EOSINOPHILS % (AUTO) 1.5 %; HGB - HEMOGLOBIN 14.1 g/dL (12.0-16.0); LYMPHOCYTES # (AUTO) 2.3 10^3/uL (1.5-3.5); LYMPHOCYTES % (AUTO) 28.9 %; MEAN CORPUSCULAR HEMOGLOBIN 30.1 pg (27.0-31.0); MEAN CORPUSCULAR HGB CONC 34.1 g/dL (32.0-36.0); MEAN CORPUSCULAR VOLUME 88.5 fL (81.0-99.0); MEAN PLATELET VOLUME 10.8 fL (7.9-10.8); MONOCYTES # (AUTO) 0.4 10^3/uL (0.0-1.0); MONOCYTES % (AUTO) 5.1 %; NEUTROPHILS % (AUTO) 63.4 %; PLT - PLATELET COUNT 271 10^3/uL (130-450); RED BLOOD COUNT 4.68 10^6/uL (4.20-5.40); RED CELL DISTRIBUTION WIDTH 12.1 % (12.0-15.0); WHITE BLOOD COUNT 7.8 x10^3/uL (4.8-10.8)
[2020-04-19 13:21] LABS: ACETAMINOPHEN < 10 ug/mL (10-30); ALBUMIN 3.7 g/dL (3.2-5.5); ALBUMIN/GLOBULIN RATIO 1.1 (1.0-2.2); ALKALINE PHOSPHATASE 75 IU/L (42-121); ALT ALANINE AMINOTRANSFERASE 16 IU/L (10-60); AST ASPARTATE AMINOTRANSFERASE 13 IU/L (10-42); BILIRUBIN,TOTAL 0.9 mg/dL (0.2-1.0); BUN - BLOOD UREA NITROGEN 14 mg/dL (6-20); CALCIUM 9.1 mg/dL (8.5-10.3); CARBON DIOXIDE - CO2 25 mmol/L (21-32); CHLORIDE 95 mmol/L (101-111); CREATININE 0.7 mg/dL (0.4-1.0); GLUCOSE 383 mg/dL (70-100); LIPASE 22 U/L (22-51); SALICYLATE < 6.0 mg/dL; SODIUM 133 mmol/L (135-145); TOTAL PROTEIN 7.2 g/dL (6.7-8.2)
[2020-04-19] MEDS ORDERED: INSULIN REGULAR HUMAN 100 UNIT/1 ML 10 ML MDV SUBQ STA (13:38)
--- NOTE | 2020-04-19 17:49 | ED Physician Documentation ---
ED Addendum - Addendum Addendum: 04/19/20 17:48 Patient had been arranged to go to [facility] for psychiatric care after signout from Dr. Camara. I was told by the social human services assistants that the patient was now unwilling to go because we had given her the wrong diet and because she was upset about her mom not being able to come and go due to current visitation policies. Social work does not think she needs to be involuntarily detained and there is no indication for that.
== END 2020-04-19 18:09 | disposition left against medical advice (07) ==
LOC: ED 11:43
DX: F12.150 Cannabis abuse with psychotic disorder with delusions (principal); F31.9 Bipolar disorder, unspecified; E11.9 Type 2 diabetes mellitus without complications; Z79.84 Long term (current) use of oral hypoglycemic drugs; F17.200 Nicotine dependence, unspecified, uncomplicated; Z20.828 Contact with and (suspected) exposure to other viral communicable diseases
CPT/HCPCS: 36415; 70450; 80053; 80306; 80307; 80320; 80329; 81001; 81025; 83690; 84443; 85025; 87635; 99283; 99284; J1815; 81003; 87086

== ENCOUNTER 2020-12-03 12:11 | Emergency (ER) | payer MEDICAID ==
[2020-12-03] MEDS ORDERED: IBUPROFEN 600 MG TABLET PO STA (16:24)
[2020-12-03] MEDS ORDERED: BUFFERED LIDOCAINE 10 ML SYRINGE IU ONE (16:40)
[2020-12-03] MEDS ORDERED: SULFAMETH/TRIMETH DS 800/160 MG TABLET PO STA (19:04)
--- NOTE | 2020-12-03 19:05 | ED Physician Documentation ---
PD HPI SKIN - Stated complaint Stated Complaint: FEMALE - Chief complaint Chief Complaint: Wound - History obtained from History obtained from: Patient - Additional information Additional information: Patient comes emergency department for chief complaint of swelling and pain in her vaginal area. She states that this has been going on for the last several days has been getting worse and worse. Patient denies any drainage. No vaginal discharge or bleeding. No dysuria. No difficulty with defecation. She states it mainly hurts to wipe when she urinates. Patient denies symptoms like this be fore. No other complaints at this time. Review of Systems Ten Systems: 10 systems reviewed and negative Constitutional: reports: Reviewed and negative Eyes: reports: Reviewed and negative Ears: reports: Reviewed and negative Nose: reports: Reviewed and negative Throat: reports: Reviewed and negative Cardiac: reports: Reviewed and negative Respiratory: reports: Reviewed and negative GI: reports: Reviewed and negative : reports: Other (Painful Swelling and lesion) Skin: reports: Reviewed and negative Musculoskeletal: reports: Reviewed and negative Neurologic: reports: Reviewed and negative Psychiatric: reports: Reviewed and negative Endocrine: reports: Reviewed and negative Immunocompromised: reports: Reviewed and negative PD PAST MEDICAL HISTORY - Past Medical History Past Medical History: Yes Cardiovascular: None Respiratory: None Neuro: None Endocrine/Autoimmune: Type 2 diabetes GI: None 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 TIME OPERATOR: 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 : None HEENT: None Psych: None Musculoskeletal: None Derm: None - Past Surgical History Past Surgical History: Yes Ortho: Arthroscopic surgery /REAL TIME OPERATOR: Dilation and currettage - Present Medications Home Medications: Ambulatory Orders Medication Instructions Recorded Confirmed Amox/Clav 875/125 [Augmentin] 1 each PO Q12H #14 tablet 08/31/16 glipiZIDE [Glipizide] 5 mg PO DAILY #30 tablet 03/02/17 Sulfamethox/Trimeth 800/160 1 each PO BID #14 tablet 02/25/19 [Bactrim Ds 800/160] cephALEXin [Keflex] 500 mg PO Q6H #28 capsule 02/25/19 Sulfamethox/Trimeth 800/160 1 each PO BID #14 tablet 03/23/20 [Bactrim Ds 800/160] cephALEXin [Keflex] 500 mg PO Q6H #28 capsule 03/23/20 Sulfamethox/Trimeth 800/160 1 each PO BID #14 tablet 12/03/20 [Bactrim Ds 800/160] - Allergies Allergies/Adverse Reactions: Allergies Allergy/AdvReac Type Severity Reaction Status Date / Time hydrocodone bitartrate * Allergy Intermediate Hives Verified 12/03/20 12:24 [From Vicodin] Opioids - Morphine Analogues Allergy Intermediate Hives Verified 12/03/20 18:43 oxycodone HCl * Allergy Intermediate Hives Verified 12/03/20 12:24 [From Percocet] metformin AdvReac Unknown Verified 12/03/20 12:24 - Social History Does the pt smoke?: Yes Smoking Status: Current every day smoker Does the pt drink ETOH?: No Does the pt have substance abuse?: Yes - Immunizations Immunizations are current?: Yes - POLST Patient has POLST: No PD ED PE NORMAL - Vitals Vital signs reviewed: Yes - General General: Alert and oriented X 3, No acute distress - HEENT HEENT: Atraumatic, PERRL, EOMI, Moist mucous membranes - Neck Neck: Supple, no meningeal sign - Respiratory Respiratory: No respiratory distress - Female Female : Other (Abscess with 3 cm radius of erythema located just to the right of the vaginal introitus. No perianal involvement. No vulvar or labial invol vement. No drainage.) - Derm Derm: Warm and dry, No rash - Extremities Extremities: No deformity - Neuro Neuro: Alert and oriented X 3 - Psych Psych: Normal mood, Normal affect Results - Vitals Vitals: Vital Signs - 24 hr 12/03/20 12/03/20 12:20 19:17 Temperature 36.3 C L 36.5 C Heart Rate 115 H 88 Respiratory 18 14 Rate Blood Pressure 151/97 H 138/88 H O2 Saturation 100 100 Oxygen O2 Source Room air Procedures - Abscess I&D (location) Perineal Preparation: Betadine, Lidocaine 1% Incision: Incised with scalpel, Purulent drainage, Irrigated, Other (Word catheter placed) Other: Pt tolerated well, Antibiotic prescribed PD MEDICAL DECISION MAKING - ED course Complexity details: considered differential, d/w patient ED course: Abscess was incised and drained as above with Word catheter placed. Patient wanted only ibuprofen for pain and was given a dose of Bactrim, as well. She has been given a prescription for Bactrim and advised regarding the Word catheter. We have discussed the usual indications for return and the need for follow-up in women's health. Departure - Departure Disposition: Home, Self Care Clinical Impression: Perineal abscess Condition: Stable Instructions: Bartholin Cyst Abscess, ED Abscess IandD Prescriptions: Sulfamethox/Trimeth 800/160 [Bactrim Ds 800/160] 1 each PO BID #14 tablet Comments: Your findings are most consistent with an abscess around your vaginal area that most likely originated with either a gland or a hair follicle. The location is not indicative of a Bartholin gland cyst or abscess, but we have given you instructions related to this because the care will be similar to the care of a Bartholin gland abscess that is been lanced. Some pus was expressed from the abscess cavity and the abscess cavity has been rinsed out with saline solution. We have placed a rubber Word catheter, which is meant to keep the wound open and draining until the wound edges retracted and the wound is able to stay open on its own. At this point in time, the catheter will fall out on its own, usually 3 or 4 days after placement. You should take the antibiotics every day as directed to help get rid of the infection. You may take ibuprofen as needed for the pain. You may wash your self as usual though just take care around the catheter not to develop dislodged prematurely. You may sit as tolerated though it may be easier to use the donut pillow. Please follow-up with [facility] for recheck if needed. If in 5 or 6 days you do not notice significant improvement in symptoms, you will need to have the area rechecked Discharge Date/Time: 12/03/20 19:18
[2020-12-03 19:19] VITALS: BP 138/88
== END 2020-12-03 19:18 | disposition home or self-care (01) ==
LOC: ED 12:11
DX: L02.215 Cutaneous abscess of perineum (principal); E11.9 Type 2 diabetes mellitus without complications; Z79.84 Long term (current) use of oral hypoglycemic drugs; F17.200 Nicotine dependence, unspecified, uncomplicated
CPT/HCPCS: 56405; 99282; 99284; A9270

== ENCOUNTER 2020-12-05 14:22 | Outpatient (CLI) | payer MEDICAID | END 2020-12-05 14:23 | disposition critical access hospital (66) | LOC: EMS 14:22 | DX: R10.30 Lower abdominal pain, unspecified (principal); R22.2 Localized swelling, mass and lump, trunk | CPT/HCPCS: A0425; A0429; A0999 ==

== ENCOUNTER 2020-12-05 14:40 | Emergency (ER) | payer MEDICAID ==
[2020-12-05 15:20] LABS: BASOPHILS % (AUTO) 0.6 %; EOSINOPHILS % (AUTO) 0.5 %; HCT - HEMATOCRIT 31.6 % (37.0-47.0); HGB - HEMOGLOBIN 10.6 g/dL (12.0-16.0); LYMPHOCYTES % (AUTO) 4.6 %; MEAN CORPUSCULAR HGB CONC 33.5 g/dL (32.0-36.0); MEAN CORPUSCULAR VOLUME 86.6 fL (81.0-99.0); MEAN PLATELET VOLUME 11.1 fL (7.9-10.8); NEUTROPHILS % (AUTO) 87.3 %; PLT - PLATELET COUNT 236 10^3/uL (130-450); RED BLOOD COUNT 3.65 10^6/uL (4.20-5.40); RED CELL DISTRIBUTION WIDTH 12.4 % (12.0-15.0); WHITE BLOOD COUNT 21.9 x10^3/uL (4.8-10.8)
[2020-12-05] MEDS ORDERED: KETOROLAC 30 MG/ML VIAL IVP STA (15:22)
--- NOTE | 2020-12-05 15:23 | ED Physician Documentation ---
PD HPI WOUND RECHECK - Stated complaint Stated Complaint: Thigh swelling - Chief complaint Chief Complaint: Wound - Histroy obtained from History obtained from: Patient - Additional information Additional information: She developed vaginal pain 5 days ago. Was seen here 2 days ago for Bartholin cyst which was incised and drained with a Word catheter placed. Since then she feels like she is not improving and has swelling in that general area with chills. Review of Systems Ten Systems: 10 systems reviewed and negative Constitutional: reports: Chills, Myalgias, Fatigue Neurologic: reports: Headache PD PAST MEDICAL HISTORY - Past Medical History Cardiovascular: None Respiratory: None Neuro: None Endocrine/Autoimmune: Type 2 diabetes GI: None TRAPPER ANIMAL: None : None HEENT: None Psych: None Musculoskeletal: None Derm: None - Past Surgical History Past Surgical History: Yes Ortho: Arthroscopic surgery /TRAPPER ANIMAL: Dilation and currettage - Present Medications Home Medications: Ambulatory Orders Medication Instructions Recorded Confirmed Sulfamethox/Trimeth 800/160 1 each PO BID #14 tablet 12/03/20 12/05/20 [Bactrim Ds 800/160] Ibuprofen [Motrin] 1 tab PO BID 12/05/20 12/05/20 - Allergies Allergies/Adverse Reactions: Allergies Allergy/AdvReac Type Severity Reaction Status Date / Time hydrocodone bitartrate * Allergy Intermediate Hives Verified 12/05/20 14:49 [From Vicodin] Opioids - Morphine Analogues Allergy Intermediate Hives Verified 12/05/20 14:49 oxycodone HCl * Allergy Intermediate Hives Verified 12/05/20 14:49 [From Percocet] metformin AdvReac Unknown Verified 12/05/20 14:49 - Social History Does the pt smoke?: Yes Smoking Status: Current every day smoker Does the pt drink ETOH?: No Does the pt have substance abuse?: Yes - Immunizations Immunizations are current?: Yes - POLST Patient has POLST: No PD ED PE NORMAL - Vitals Vital signs reviewed: Yes - General General: Alert and oriented X 3, No acute distress - HEENT HEENT: PERRL, EOMI - Neck Neck: Supple, no meningeal sign, No bony TTP - Cardiac Cardiac: RRR, No murmur - Respiratory Respiratory: No respiratory distress, Clear bilaterally - Abdomen Abdomen: Soft, Non tender - Female Female : Other (Exam done with Peyton CASTELLANOS present and chaperoning. There is a Word catheter coming out of the inferior right buttock. There is swelling that extends throughout the right buttock and up to the right vulva. Quite tender in that area. No active drainage.) - Back Back: No CVA TTP, No spinal TTP - Extremities Extremities: No edema, No calf tenderness / cord - Neuro Neuro: Alert and oriented X 3, Normal speech - Psych Psych: Normal mood, Normal affect Results - Vitals Vitals: Vital Signs - 24 hr 12/05/20 12/05/20 12/05/20 14:40 16:04 16:21 Temperature 37.7 C Heart Rate 102 H 96 101 H Respiratory 16 16 18 Rate Blood Pressure 117/44 L 138/78 H 138/78 H O2 Saturation 97 100 98 12/05/20 17:37 Temperature Heart Rate Respiratory 16 Rate Blood Pressure 105/64 O2 Saturation 95 Oxygen O2 Source Room air - Labs Labs: Laboratory Tests 12/05/20 12/05/20 12/05/20 15:05 15:05 15:05 WBC 21.9 H RBC 3.65 L Hgb 10.6 L Hct 31.6 L MCV 86.6 MCH 29.0 MCHC 33.5 RDW 12.4 Plt Count 236 MPV 11.1 H Neut # (Auto) Not Reportable Lymph # (Auto) Not Reportable [place] # (Auto) Not Reportable Eos # (Auto) Not Reportable Baso # (Auto) Not Reportable Absolute Nucleated RBC Not Reportable Total Counted 100 Band Neuts % (Manual) 6 Abnorm Lymph % (Manual) 0 Nucleated RBC % Not Reportable Neutrophils # (Manual) 20.4 H Lymphocytes # (Manual) 0.9 L Monocytes # (Manual) 0.7 Eosinophils # (Manual) 0.0 Basophils # (Manual) 0.0 Differential Comment MANUAL DIFFERENTIAL WBC Morphology NORMAL APPEARANCE Platelet Estimate NORMAL (130-450,000) Platelet Morphology NORMAL APPEARANCE RBC Morph Micro Appear NORMAL APPEARANCE Sodium 124 L Potassium 4.5 Chloride 90 L Carbon Dioxide 23 Anion Gap 11.0 BUN 26 H Creatinine 1.3 H Estimated GFR (MDRD) 45 L Glucose 456 H Lactic Acid Calcium 8.2 L Serum HCG, Qual NEGATIVE Nasal Adenovirus (PCR) Nasal B. parapertussis DNA (PCR) Nasal Coronavir 229E PCR Nasal Coronavir HKU1 PCR Nasal Coronavir NL63 PCR Nasal Coronavir OC43 PCR Nasal Enterovir/Rhinovir PCR Nasal Influenza B PCR Nasal Influenza A PCR Nasal Parainfluen 1 PCR Nasal Parainfluen 2 PCR Nasal Parainfluen 3 PCR Nasal Parainfluen 4 PCR Nasal RSV (PCR) Nasal B.pertussis DNA PCR Nasal C.pneumoniae (PCR) Luis Human Metapneumo PCR Nasal M.pneumoniae (PCR) Nasal SARS-CoV-2 (PCR) 12/05/20 12/05/20 15:47 16:11 WBC RBC Hgb Hct MCV MCH MCHC RDW Plt Count MPV Neut # (Auto) Lymph # (Auto) [place] # (Auto) Eos # (Auto) Baso # (Auto) Absolute Nucleated RBC Total Counted Band Neuts % (Manual) Abnorm Lymph % (Manual) Nucleated RBC % Neutrophils # (Manual) Lymphocytes # (Manual) Monocytes # (Manual) Eosinophils # (Manual) Basophils # (Manual) Differential Comment WBC Morphology Platelet Estimate Platelet Morphology RBC Morph Micro Appear Sodium Potassium Chloride Carbon Dioxide Anion Gap BUN Creatinine Estimated GFR (MDRD) Glucose Lactic Acid 1.3 Calcium Serum HCG, Qual Nasal Adenovirus (PCR) NOT DETECTED Nasal B. parapertussis DNA (PCR) NOT DETECTED Nasal Coronavir 229E PCR NOT DETECTED Nasal Coronavir HKU1 PCR NOT DETECTED Nasal Coronavir NL63 PCR NOT DETECTED Nasal Coronavir OC43 PCR NOT DETECTED Nasal Enterovir/Rhinovir PCR NOT DETECTED Nasal Influenza B PCR NOT DETECTED Nasal Influenza A PCR NOT DETECTED Nasal Parainfluen 1 PCR NOT DETECTED Nasal Parainfluen 2 PCR NOT DETECTED Nasal Parainfluen 3 PCR NOT DETECTED Nasal Parainfluen 4 PCR NOT DETECTED Nasal RSV (PCR) NOT DETECTED Nasal B.pertussis DNA PCR NOT DETECTED Nasal C.pneumoniae (PCR) NOT DETECTED Luis Human Metapneumo PCR NOT DETECTED Nasal M.pneumoniae (PCR) NOT DETECTED Nasal SARS-CoV-2 (PCR) NOT DETECTED PD MEDICAL DECISION MAKING - ED course ED course: 40-year-old woman presents with progressive pain and swelling in the area of a prior I&D. She is found to have significant leukocytosis, hyperglycemia, acute kidney injury. CT was done to evaluate for potential necrotizing soft tissue infection and on my initial view of the CT she probably has exactly that. Blood cultures were ordered as well as Zosyn, clindamycin, vancomycin. I spoke with our on-call surgeon, Dr. Cline at approximately 4:08 PM and he will be in to see the patient. The surgeon expeditiously came in and saw the patient, the OR here does not have current capacity and recommends transfer to [place] for further evaluation and treatment. He assisted with obtaining an accepting physician there, Dr. Cancino. CT Pelvis: IMPRESSION: 1. Extensive cellulitis involving right perineum extending to medial right upper thigh. No discrete drainable abscess collection is identified on the current study. 2. Extensive perineal subcutaneous emphysema which may be due to recent abscess drainage procedure suggest clinical correlation. 3. No pelvic free fluid or free air. No abnormal bowel wall thickening. No bladder wall thickening. Nonspecific borderline prominent right inguinal lymph node as above. - Critical Care Time(min): 45 Time Includes: Direct patient care, Review records, Reassess patient, Document care, Coordinate care, Medical consult Data interpretation: Labs Procedures included in critical care time: Peripheral IV Departure - Departure Disposition: 02 Transfer Acute Care Hosp Clinical Impression: Necrotizing fasciitis, CONOR (acute kidney injury) Uncontrolled diabetes mellitus Qualifiers: Diabetes mellitus type: type 2 Glycemic state: with hypoglycemia Coma presence: without coma Qualified Code(s): E11.649 - Type 2 diabetes mellitus with hypoglycemia without coma Condition: Critical
[2020-12-05 15:26] LABS: ABNORMAL LYMPHS % (MANUAL) 0 %
[2020-12-05 15:32] LABS: CALCIUM 8.2 mg/dL (8.5-10.3); CREATININE 1.3 mg/dL (0.4-1.0); POTASSIUM 4.5 mmol/L (3.5-5.0)
[2020-12-05] MEDS ORDERED: PIPERACILLIN/TAZOBACTAM 3.375 GM in SODIUM CHLORIDE 0.9% MINIBAG 100 ML IV STA (15:35)
[2020-12-05] MEDS ORDERED: CLINDAMYCIN 900 MG/50 ML 50 ML IV ONE (15:35)
[2020-12-05] MEDS ORDERED: SODIUM CHLORIDE 0.9% 1,000 ML IV STA (15:35)
[2020-12-05] MEDS ORDERED: VANCOMYCIN INJ 1.5 GM in SODIUM CHLORIDE 0.9% 500 ML IV STA (15:35)
[2020-12-05] MEDS ORDERED: IOVERSOL 320 100 ML VIAL IVP ONE ×2 (15:42→17:41)
[2020-12-05] MEDS ORDERED: ONDANSETRON 4 MG/2 ML VIAL IVP STA (15:55)
[2020-12-05] MEDS ORDERED: fentaNYL 100 MCG/2 ML VIAL IVP STA (15:55)
[2020-12-05 16:06] LABS: BAND NEUTROPHILS % (MANUAL) 6 %; LYMPHOCYTES # (MANUAL) 0.9 10^3/uL (1.5-3.5); LYMPHOCYTES % (MANUAL) 4 %; MONOCYTES # (MANUAL) 0.7 10^3/uL (0.0-1.0); NEUTROPHILS # (MANUAL) 20.4 10^3/uL (1.5-6.6); PLATELET MORPHOLOGY NORMAL APPEARANCE (NORMAL); RBC MORPHOLOGY (MULTIPLE) NORMAL APPEARANCE (NORMAL)
[2020-12-05 16:07] LABS: DIFFERENTIAL COMMENT MANUAL DIFFERENTIAL; PLATELET ESTIMATE, MANUAL NORMAL (130-450,000) (NORMAL); WBC MORPHOLOGY (MULTIPLE) NORMAL APPEARANCE (NORMAL)
[2020-12-05] MEDS ORDERED: INSULIN REGULAR HUMAN 100 UNIT/1 ML 10 ML MDV IVP STA (16:15)
[2020-12-05 16:29] LABS: HCG,QUALITATIVE BLOOD NEGATIVE
--- NOTE | 2020-12-05 16:31 | CT Report ---
PROCEDURE: PELVIS W INDICATIONS: Pelvic/buttock infection CONTRAST: IV CONTRAST: Optiray 320 ml: 100 PO CONTRAST: *NO PO CONTRAST TECHNIQUE: After the administration of IV contrast, 5 mm thick sections acquired from the iliac crests to the sy mphysis. 5 mm thick coronal and sagittal reformats were acquired. For radiation dose reduction, the following was used: automated exposure control, adjustment of mA and/or kV according to patient siz e. COMPARISON: None. FINDINGS: Image quality: Excellent. Peritoneum and bowel: Contrast enhanced bowel loops demonstrate normal wall thickness and caliber. No free fluid or air. Genitourinary: Bladder wall thickness is normal. Uterus and bilateral adnexa shows no gross abnorma lity. Nodes and vessels: Iliac or pelvic lymphadenopathy. Mildly prominent bilateral inguinal nodes are see n measures up to 8 mm in short axis diameter in right inguinal region. Iliac vessels demonstrate norm al size and enhancement. Bones: No suspicious bony lesions. Miscellaneous: No inguinal hernias. There is extensive subcutaneous emphysema within right peritone um which may represent postsurgical changes. Extensive subcutaneous fat stranding and overlying soft tissue swelling involving right perineum and medial upper thigh is seen suggestive of extensive cellu litis. No discrete drainable abscess collection is seen on the current study. IMPRESSION: 1. Extensive cellulitis involving right perineum extending to medial right upper thigh. No discrete d rainable abscess collection is identified on the current study. 2. Extensive perineal subcutaneous emphysema which may be due to recent abscess drainage procedure zamora ggest clinical correlation. 3. No pelvic free fluid or free air. No abnormal bowel wall thickening. No bladder wall thickening. N onspecific borderline prominent right inguinal lymph node as above. Reviewed by: Jovani Hale MD on 12/05/2020 4:29 PM PDT Approved by: Jovani Hale MD on 12/05/2020 4:29 PM PDT Station ID: [id number]
--- NOTE | 2020-12-05 16:50 | CONSULTATION NOTE ---
Referring Provider Name of Referring Provider:: arturo Consult Date: 12/05/20 Chief Complaint - Chief Complaint Chief Complaint: infection History of Present Illness - History of Present Illness HPI Comment/Other: Patient presented to the ER approximately 2 days prior with complaints of swelling and pain on her right vulva that been present for 2-3 days prior to evaluation. Patient was diagnosed with a potential Bartholin cyst which was incised and started on oral antibiotics with catheter placement. However this time she returned to the emergency room with worsening pain swelling. Her work- up in the emergency room consisted of a CT scan and labs which revealed the following that were pertinent positives/negative: #1 White blood cell count 22 #2 sodium 124 #3 creatinine 1.3 #4 glucose >400 #5 CT scan showing extensive soft tissue edema and multiple gas-filled regions of the right perineum. #6 Normal lactate Pt had clx sent and started on appropriate antibiotics Pt was seen and examined within 15minutes of phone call discussion with Dr. Ledezma. 11point ROS positive for CHILLS/MYAGLIA/HEADACHE/PERINEAL PAIN At this time there was no immediate OR available at [facility]. I contacted [facility] for transfer and arrange this through [facility]. She has a soft tissue necrotic infection with uncontrolled diabetes and requires emergent debridement. I discussed this with the patient as well as the emergency room physician and the accepting surgeon at [facility]. 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 : reports: None HEENT: reports: None Psych: reports: None Musculoskeletal: reports: None Derm: reports: None MRSA Hx?: No - Past Surgical History Ortho: reports: Arthroscopic surgery /FIRE TECHNOLOGY INSTRUCTOR: reports: Dilation and currettage - POLST Patient has POLST: No Meds/Allgy - Home Medications Home Medications: Ambulatory Orders Medication Instructions Recorded Confirmed Sulfamethox/Trimeth 800/160 1 each PO BID #14 tablet 12/03/20 12/05/20 [Bactrim Ds 800/160] Ibuprofen [Motrin] 1 tab PO BID 12/05/20 12/05/20 - Allergies Allergies/Adverse Reactions: Allergies Allergy/AdvReac Type Severity Reaction Status Date / Time hydrocodone bitartrate * Allergy Intermediate Hives Verified 12/05/20 14:49 [From Vicodin] Opioids - Morphine Analogues Allergy Intermediate Hives Verified 12/05/20 14:49 oxycodone HCl * Allergy Intermediate Hives Verified 12/05/20 14:49 [From Percocet] metformin AdvReac Unknown Verified 12/05/20 14:49 Exam - Vital Signs Vital Signs: Vital Signs x48h Temp Pulse Resp BP Pulse Ox 12/05/20 16:21 101 H 18 138/78 H 98 12/05/20 16:04 96 16 138/78 H 100 12/05/20 14:40 37.7 C 102 H 16 117/44 L 97 - Physical Exam General Appearance: positive: Mild distress Eyes Bilateral: positive: Normal inspection, PERRL ENT: positive: No signs of dehydration Neck: positive: Nml inspection, Trachea midline Respiratory: positive: No respiratory distress Cardiovascular: positive: Regular rate & rhythm, Tachycardia Peripheral Pulses: positive: 2+ Abdomen: positive: Non-tender Skin: positive: Color nml Extremities: positive: Full ROM, Nml appearance Neurologic/Psychiatric: positive: Oriented x3 Comments/Other: Right labia and perineum with induration and exquisite tenderness, no draining. slight erythema Conclusion and Plan - Lab Results Laboratory Results 12/05/20 15:47: Lactic Acid 1.3 12/05/20 15:05: Serum HCG, Qual NEGATIVE 12/05/20 15:05: Sodium 124 L, Potassium 4.5, Chloride 90 L, Carbon Dioxide 23, Anion Gap 11.0, BUN 26 H, Creatinine 1.3 H, Estimated GFR (MDRD) 45 L, Glucose 456 H, Calcium 8.2 L 12/05/20 15:05: WBC 21.9 H, RBC 3.65 L, Hgb 10.6 L, Hct 31.6 L, MCV 86.6, MCH 29.0, MCHC 33.5, RDW 12.4, Plt Count 236, MPV 11.1 H, Neut # (Auto) Not Reportable, Lymph # (Auto) Not Reportable, [place] # (Auto) Not Reportable, Eos # (Auto) Not Reportable, Baso # (Auto) Not Reportable, Absolute Nucleated RBC Not Reportable, Total Counted 100, Band Neuts % (Manual) 6, Abnorm Lymph % (Manual) 0, Nucleated RBC % Not Reportable, Neutrophils # (Manual) 20.4 H, Lymphocytes # (Manual) 0.9 L, Monocytes # (Manual) 0.7, Eosinophils # (Manual) 0.0, Basophils # (Manual) 0.0, Differential Comment MANUAL DIFFERENTIAL, WBC Morphology NORMAL APPEARANCE, Platelet Estimate NORMAL (130-450,000), Platelet Morphology NORMAL APPEARANCE, RBC Morph Micro Appear NORMAL APPEARANCE - Diagnostic Imaging Results Diagnostic Imaging Results: positive: Final report reviewed, See rad report, Read independently - Consultation Note Consultation Note: Necrotizing soft tissue infection with SIRS. [place] [facility] [place]
[2020-12-05 17:15] LABS: B. PARAPERTUSSIS- RESP PCR PAN NOT DETECTED; B. PERTUSSIS- RESP PCR PANEL NOT DETECTED; C. PNEUMONIAE- RESP PCR PANEL NOT DETECTED; CORONAVIRUS 229E-RESP PCR NOT DETECTED; CORONAVIRUS HKU1-RESP PCR NOT DETECTED; CORONAVIRUS NL63-RESP PCR NOT DETECTED; CORONAVIRUS OC43-RESP PCR NOT DETECTED; HUMAN METAPNEUMOVIRUS NOT DETECTED; INFLUENZA A- RESP PCR PANEL NOT DETECTED; INFLUENZA B - RESP PCR PANEL NOT DETECTED; M. PNEUMONIAE- RESP PCR PANEL NOT DETECTED; PARAINFLUENZA VIRUS 1 NOT DETECTED; PARAINFLUENZA VIRUS 2 NOT DETECTED; PARAINFLUENZA VIRUS 3 NOT DETECTED; PARAINFLUENZA VIRUS 4 NOT DETECTED; RHINOVIRUS/ENTEROVIRUS NOT DETECTED; RSV- RESP PCR PANEL NOT DETECTED; SARS-CoV-2 -RESP PCR PANEL NOT DETECTED
[2020-12-05 17:40] VITALS: BP 105/64
== END 2020-12-05 17:58 | disposition short-term general hospital (02) ==
LOC: EDUNIT# → ED 14:40
DX: M72.6 Necrotizing fasciitis (principal); R65.11 Systemic inflammatory response syndrome (SIRS) of non-infectious origin with acute organ dysfunction; N17.9 Acute kidney failure, unspecified; F17.200 Nicotine dependence, unspecified, uncomplicated; E11.649 Type 2 diabetes mellitus with hypoglycemia without coma; Z20.822 Contact with and (suspected) exposure to COVID-19
CPT/HCPCS: 0202U; 36415; 72193; 80048; 83605; 84703; 85025; 87040; 96365; 96366; 96368; 96375; 99285; 99291; J1815; J3370; Q9967

== ENCOUNTER 2020-12-17 12:07 | Emergency (ER) | payer MEDICAID ==
--- NOTE | 2020-12-17 13:33 | ED Physician Documentation ---
History of Present Illness - Stated complaint Stated Complaint: FEMALE - Chief complaint Chief Complaint: Wound - History obtained from History obtained from: Patient - History of Present Illness Timing: Today Pain level max: 0 Pain level now: 0 - Additonal information Additional information: Patient is a 40-year-old female who was recently treated for necrotizing fasciitis. She states that the seal on her wound VAC has come loose and she now hears a whistling sound She had 4 surgeries while at [facility] in [place]. She is having no fevers. No chills. Nothing makes it better or worse. She states she is not currently on antibiotics. Review of Systems Ten Systems: 10 systems reviewed and negative Constitutional: denies: Fever, Chills Nose: denies: Rhinorrhea / runny nose, Congestion GI: denies: Vomiting, Diarrhea Skin: denies: Rash Musculoskeletal: denies: Neck pain, Back pain Neurologic: denies: Headache PD PAST MEDICAL HISTORY - Past Medical History Past Medical History: Yes Cardiovascular: None Respiratory: None Neuro: None Endocrine/Autoimmune: Type 2 diabetes GI: None YARD SUPERVISOR: None : None HEENT: None Psych: None Musculoskeletal: None Derm: None - Past Surgical History Past Surgical History: Yes Ortho: Arthroscopic surgery /YARD SUPERVISOR: Dilation and currettage - Present Medications Home Medications: Ambulatory Orders Medication Instructions Recorded Confirmed Ibuprofen [Motrin] 1 tab PO BID 12/05/20 12/17/20 Docusate Sodium [Dss] 250 mg PO DAILY PRN 12/17/20 12/17/20 Ferrous Sulfate 325 mg PO DAILY 12/17/20 12/17/20 Insulin Glargine [Lantus Solostar] 12 - 16 unit SQ BID 12/17/20 12/17/20 Insulin Lispro [Humalog Kwikpen 3 - 6 unit SQ AC 12/17/20 12/17/20 U-100] - Allergies Allergies/Adverse Reactions: Allergies Allergy/AdvReac Type Severity Reaction Status Date / Time hydrocodone bitartrate * Allergy Intermediate Hives Verified 12/17/20 12:30 [From Vicodin] Opioids - Morphine Analogues Allergy Intermediate Hives Verified 12/17/20 12:30 oxycodone HCl * Allergy Intermediate Hives Verified 12/17/20 12:30 [From Percocet] metformin AdvReac Unknown Verified 12/17/20 12:30 - Social History Does the pt smoke?: Yes Smoking Status: Current every day smoker Does the pt drink ETOH?: No Does the pt have substance abuse?: Yes Substance Use and Type: Marijuana - Immunizations Immunizations are current?: Yes - POLST Patient has POLST: No PD ED PE NORMAL - Vitals Vital signs reviewed: Yes - General General: Alert and oriented X 3, No acute distress - HEENT HEENT: Moist mucous membranes - Neck Neck: Supple, no meningeal sign - Cardiac Cardiac: RRR, Strong equal pulses - Respiratory Respiratory: No respiratory distress, Clear bilaterally - Abdomen Abdomen: Soft, Non tender, Non distended - Derm Derm: Warm and dry - Extremities Extremities: Other (large wound to the R labia with wound vac in place. no drainage. minimal erythema. ) - Neuro Neuro: Alert and oriented X 3 - Psych Psych: Normal mood, Normal affect Results - Vitals Vitals: Vital Signs - 24 hr 12/17/20 12/17/20 12/17/20 12:23 14:37 16:54 Temperature 36.8 C 36.9 C 36.8 C Heart Rate 107 H 88 86 Respiratory 18 16 18 Rate Blood Pressure 170/96 H 160/68 H 156/73 H O2 Saturation 97 96 98 Oxygen O2 Source Room air PD MEDICAL DECISION MAKING - ED course Complexity details: reviewed results, re-evaluated patient, considered differential, d/w patient, d/w retirement consultant ED course: Patient is a 40-year-old female with a wound VAC to the right labia after necrotizing fasciitis. Consulted gynecology, Dr. Reyna. She came and evaluated the patient. Social work was also consulted. We were able to eventually obtain authorization an appointment for wound care tomorrow. Her insurance was able to be adjusted to be able to see a primary care provider [place]. As that will not be arranged for several weeks, Dr. Reyna will take the patient as a primary patient. She will follow her wound care. The wound VAC was also changed in the emergency department. This was done by Madiha Waller. Patient will follow up with Dr. Reyna as an outpatient and the wound care clinic for further care. Patient counseled regarding signs and symptoms for which I believe and urgent re-evaluation would be necessary. Patient with good understanding of and agreement to plan and is comfortable going home at this time This document was made in part using voice recognition software. While efforts are made to proofread this document, sound alike and grammatical errors may occur. Departure - Departure Disposition: 01 Home, Self Care Clinical Impression: Encounter for management of wound VAC Condition: Good Instructions: ED Wound Care Follow-Up: Aria Reyna MD [Provider Admit Priv/Credential] - Within 1 week Comments: You have an appointment at the wound care clinic tomorrow at 1130. The phone number is [phone]. Dr. Reyna will be handling your care until a PCP can be established. Please follow-up closely with her as well. Return if you worsen. Discharge Date/Time: 12/17/20 16:55
[2020-12-17 16:55] VITALS: BP 156/73
--- NOTE | 2020-12-21 14:36 | CONSULTATION NOTE ---
Referring Provider Name of Referring Provider:: Dr. Camara Consult Date: 12/17/20 Chief Complaint - Chief Complaint Chief Complaint: wound vac dysfunction History of Present Illness - History of Present Illness HPI Comment/Other: ID: Patient is a 40 yo here with wound vac malfunction. HPI: Patient had been diagnosed with necrotizing fasciitis of the vulvo-inguinal area on approximately 12/05/20. She was transported to [place] where she underwent 4 wound debridements and had been in-patient with IV antibiotics. No current antibiotics. There has been some disorganization with her postop care as she was told she would have Home Health set up for her for Q3 day dressing changes. She was assigned to [facility], but was told she needed a referral from her PCP and that they were too understaffed for new patients at this time. This is further complicated by the absence of a PCP. She has Derrek and ritesh garrett able to find a provider on [place]. She was assigned to Dr. Onofre Jj in [place]. Dr Jj is not able to see her until 12/31/20. As such, she has not had any aftercare since her discharge from [place]. She reports she also has DM diagnosed at age 18. No recent oversight of her blood sugars other than during her inpatient stay. She is unable to recall an insult that led to the necrotizing fasciitis. Has a swelling immediately outside the labia majora that was drained. It worsened within the next 24 hours prompting tranport. Today she felt air near her labia and suspects that her wound vac is malfunctioning. No fever/chills/ pain/drainage. She is planning on obtaining a She Wee device to avoid saturating hte wound VAC overlay with urine as this has threatened the seal. Records from [place] are not available at the time of this writing. PMH: Diabetes diagnosed at age 17 with BG 900+ Psoriasis/arthritis Myopia PSH: Debridement of vulvar inguinal area x4 2020 D&C for incomplete SAB 2003 Meniscectomy 2006 [place] teeth extraction OB HX: with SAB x4; no pole on US. 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 (Avoiding opioids due to partner's 2/2 overdose) Safe at home FH: Mother with DM and CVD with pacemaker Father: 2/2 HIV PCM: ovarian cancer History - Past Medical History Cardiovascular: reports: None Respiratory: reports: None Neuro: reports: None Endocrine/Autoimmune: reports: Type 2 diabetes GI: reports: None COUNTY ASSESSOR: reports: None : reports: None HEENT: reports: None Psych: reports: None Musculoskeletal: reports: None Derm: reports: None MRSA Hx?: No - Past Surgical History Ortho: reports: Arthroscopic surgery /COUNTY ASSESSOR: reports: Dilation and currettage - POLST Patient has POLST: No Meds/Allgy - Home Medications Home Medications: Ambulatory Orders Medication Instructions Recorded Confirmed Ibuprofen [Motrin] 1 tab PO BID 12/05/20 12/20/20 Docusate Sodium [Dss] 250 mg PO DAILY PRN 12/17/20 12/20/20 Ferrous Sulfate 325 mg PO DAILY 12/17/20 12/20/20 Insulin Glargine [Lantus Solostar] 12 - 16 unit SQ BID 12/17/20 12/20/20 Insulin Lispro [Humalog Kwikpen 3 - 6 unit SQ AC 12/17/20 12/20/20 U-100] traMADol [Ultram] 50 mg PO DAILY 12/18/20 12/20/20 - Allergies Allergies/Adverse Reactions: Allergies Allergy/AdvReac Type Severity Reaction Status Date / Time hydrocodone bitartrate * Allergy Intermediate Hives Verified 12/18/20 19:07 [From Vicodin] oxycodone HCl * Allergy Intermediate Hives Verified 12/18/20 19:07 [From Percocet] metformin AdvReac Unknown Verified 12/18/20 19:07 Review of Systems - Other Findings Other Findings: As per HPI, otherwise remaining systems are negative Exam - Vital Signs Reviewed Vital Signs: Yes Vital Signs: 98.2 86 156/73 18 98 - Physical Exam General Appearance: positive: No acute distress Respiratory: positive: No respiratory distress Cardiovascular: positive: Other (RR) Abdomen: positive: Non-tender, No distention Skin: positive: Color nml, Warm, Dry Extremities: positive: Non-tender Neurologic/Psychiatric: positive: Oriented x3, Other (alert, appropriate affect) Comments/Other: COUNTY ASSESSOR: Wound vac in place in right lateral aspect of vulva. Foam is compressed with no evidence of active leakage. The edge of teguderm dressing extends to labial edge and has lost adhesiveness 2/2 moisture. No active air leak observed. No active fluid drainage in tubing. Surrounding tissue is non-erythematous and non-tender to palp. No foul odor. Conclusion/Plan - Diagnosis Diagnosis: S/p debridement with complex wound. Wound VAC in place. Hx necrotizing fasciitis. - Other Other Results/Comments: Patient is a 40 to with recent admission and multiple debridements of vulvar- inguinal area for nec fasc here with c/f wound VAC dysfunction. WOUND: -Suction mechanism appears to be in place with no active leakage. -Area near labial edge with lost adhesiveness 2/2 moisture. Can replace with strips of Teguderm but patient is overdue for complete wound assessment/management/dressing change -Recommend assessment from skilled wound pediatric clinical dietician given complexity of wound and high risk nature of initial insult -ED Attending arranging for assessment from mission support specialist while patient is present in ED. Social Work in process of changing insurance so that patient can be seen by Primary Care [place] -Insurance will not changeover until January 11. -Please refer to for more information I had an extensive discussion with Isauro Jewell, manager fiber of [employer] -Was informed that patient can be seen in Wound Clinic tomorrow and will be granted retro-authorization -I was instructed to submit referral accordingly and did so through [facility] RN -Was informed that Home Health can be arranged through [facility] . Referral to be submitted via fax to [phone] -I have information to connect with Mr Jewell directly if further assistance is needed -Will arrange for referral with in the am. Will continue to work with establishing primary care provider Will fu with patient in clinic accordingly Thank you for including me in the care of this patient.
== END 2020-12-17 16:55 | disposition home or self-care (01) ==
LOC: ED 12:07
DX: Z46.89 Encounter for fitting and adjustment of other specified devices (principal); Z87.39 Personal history of other diseases of the musculoskeletal system and connective tissue; E11.9 Type 2 diabetes mellitus without complications; Z79.4 Long term (current) use of insulin; F17.200 Nicotine dependence, unspecified, uncomplicated
CPT/HCPCS: 99281; 99284

== ENCOUNTER 2020-12-18 18:52 | Outpatient (CLI) | payer MEDICAID | END 2020-12-18 18:53 | disposition critical access hospital (66) | LOC: EMS 18:52 | DX: Z46.89 Encounter for fitting and adjustment of other specified devices (principal) | CPT/HCPCS: A0425; A0429; A0999 ==

== ENCOUNTER 2020-12-18 19:06 | Emergency (ER) | payer MEDICAID ==
--- NOTE | 2020-12-18 20:31 | ED Physician Documentation ---
History of Present Illness - Stated complaint Stated Complaint: DRESSING CHANGE - Chief complaint Chief Complaint: Ext Problem - History obtained from History obtained from: Patient - Additonal information Additional information: 40-year-old woman with recent inpatient stay at [facility] for necrotizing fasciitis. Her wound VAC developed a leak tonight and she cannot change it herself. 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 : None HEENT: None Psych: None Musculoskeletal: None Derm: None - Past Surgical History Past Surgical History: Yes Ortho: Arthroscopic surgery /SHEET METAL DUCT WORKER SUPERVISOR: Dilation and currettage - Present Medications Home Medications: Ambulatory Orders Medication Instructions Recorded Confirmed Ibuprofen [Motrin] 1 tab PO BID 12/05/20 12/18/20 Docusate Sodium [Dss] 250 mg PO DAILY PRN 12/17/20 12/18/20 Ferrous Sulfate 325 mg PO DAILY 12/17/20 12/18/20 Insulin Glargine [Lantus Solostar] 12 - 16 unit SQ BID 12/17/20 12/18/20 Insulin Lispro [Humalog Kwikpen 3 - 6 unit SQ AC 12/17/20 12/18/20 U-100] traMADol [Ultram] 50 mg PO DAILY 12/18/20 12/18/20 - Allergies Allergies/Adverse Reactions: Allergies Allergy/AdvReac Type Severity Reaction Status Date / Time hydrocodone bitartrate * Allergy Intermediate Hives Verified 12/18/20 19:07 [From Vicodin] Opioids - Morphine Analogues Allergy Intermediate Hives Verified 12/18/20 19:07 oxycodone HCl * Allergy Intermediate Hives Verified 12/18/20 19:07 [From Percocet] metformin AdvReac Unknown Verified 12/18/20 19:07 - Social History Does the pt smoke?: Yes Smoking Status: Current every day smoker Does the pt drink ETOH?: No Does the pt have substance abuse?: Yes - Immunizations Immunizations are current?: Yes - POLST Patient has POLST: No PD ED PE NORMAL - Vitals Vital signs reviewed: Yes - General General: Alert and oriented X 3, No acute distress - Extremities Extremities: No edema, No calf tenderness / cord - Neuro Neuro: Alert and oriented X 3, Normal speech Results - Vitals Vitals: Vital Signs - 24 hr 12/18/20 12/18/20 19:07 19:17 Temperature 37.0 C 37 C Heart Rate 89 89 Respiratory 18 18 Rate Blood Pressure 167/99 H 167/99 H O2 Saturation 98 98 Oxygen O2 Source Room air PD MEDICAL DECISION MAKING - ED course ED course: The RN was able to change and seal the wound VAC with good suction. I will email the social research assistant on tomorrow to reach out to her as she may need SNF. Departure - Departure Disposition: 01 Home, Self Care Clinical Impression: Encounter for management of wound VAC Condition: Good Record reviewed to determine appropriate education?: Yes Comments: Mayte Valiente is our social research assistant that is on tomorrow. I am emailing her to reach out to you to see what else we can do to help with wound care, including even up to SNF placement. Return as needed for new or worsening symptoms.
[2020-12-18 21:02] VITALS: BP 155/89
== END 2020-12-18 21:01 | disposition home or self-care (01) ==
LOC: EDUNIT# → ED 19:06
DX: Z46.89 Encounter for fitting and adjustment of other specified devices (principal); Z87.39 Personal history of other diseases of the musculoskeletal system and connective tissue; E11.9 Type 2 diabetes mellitus without complications; Z79.4 Long term (current) use of insulin; F17.200 Nicotine dependence, unspecified, uncomplicated
CPT/HCPCS: 99282; 99283

== ENCOUNTER 2020-12-20 19:01 | Inpatient (IN) | payer MEDICAID ==
[2020-12-20 20:06] LABS: BASOPHILS # (AUTO) 0.1 10^3/uL (0.0-0.1); BASOPHILS % (AUTO) 0.7 %; EOSINOPHILS # (AUTO) 0.3 10^3/uL (0.0-0.7); EOSINOPHILS % (AUTO) 2.6 %; HCT - HEMATOCRIT 27.5 % (37.0-47.0); HGB - HEMOGLOBIN 9.1 g/dL (12.0-16.0); LYMPHOCYTES % (AUTO) 20.4 %; MEAN CORPUSCULAR HEMOGLOBIN 30.4 pg (27.0-31.0); MEAN CORPUSCULAR HGB CONC 33.1 g/dL (32.0-36.0); MEAN PLATELET VOLUME 9.1 fL (7.9-10.8); MONOCYTES # (AUTO) 0.8 10^3/uL (0.0-1.0); NEUTROPHILS # (AUTO) 6.7 10^3/uL (1.5-6.6); PLT - PLATELET COUNT 512 10^3/uL (130-450); RED BLOOD COUNT 2.99 10^6/uL (4.20-5.40); RED CELL DISTRIBUTION WIDTH 14.3 % (12.0-15.0); WHITE BLOOD COUNT 9.8 x10^3/uL (4.8-10.8)
--- NOTE | 2020-12-20 20:10 | ED Physician Documentation ---
History of Present Illness - Stated complaint Stated Complaint: WOUND LEAKAGE - Chief complaint Chief Complaint: General - History obtained from History obtained from: Patient - Additonal information Additional information: 40-year-old woman originally diagnosed with necrotizing fasciitis late last month and was sent down to [facility] where she had multiple debridements. She was sent home with some wound care, but no PCP or formal wound care orders. She been in this emergency department 3 times over 4 days for wound care issues, mostly wound VAC seal failures. I had the social contact worker call her yesterday, but the patient was sleeping and did not return the call after a voicemail was left by the social contact worker. Today she is worried because there is some purulent drainage in the wound VAC. No increase in pain or fevers. 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 : None HEENT: None Psych: None Musculoskeletal: None Derm: None - Past Surgical History Past Surgical History: Yes Ortho: Arthroscopic surgery /PLASTIC DOLLS MOLD FILLER: Dilation and currettage - Present Medications Home Medications: Ambulatory Orders Medication Instructions Recorded Confirmed Ibuprofen [Motrin] 1 tab PO BID 12/05/20 12/20/20 Docusate Sodium [Dss] 250 mg PO DAILY PRN 12/17/20 12/20/20 Ferrous Sulfate 325 mg PO DAILY 12/17/20 12/20/20 Insulin Glargine [Lantus Solostar] 12 - 16 unit SQ BID 12/17/20 12/20/20 Insulin Lispro [Humalog Kwikpen 3 - 6 unit SQ AC 12/17/20 12/20/20 U-100] traMADol [Ultram] 50 mg PO DAILY 12/18/20 12/20/20 - Allergies Allergies/Adverse Reactions: Allergies Allergy/AdvReac Type Severity Reaction Status Date / Time hydrocodone bitartrate * Allergy Intermediate Hives Verified 12/18/20 19:07 [From Vicodin] oxycodone HCl * Allergy Intermediate Hives Verified 12/18/20 19:07 [From Percocet] metformin AdvReac Unknown Verified 12/18/20 19:07 - Social History Does the pt smoke?: Yes Smoking Status: Current every day smoker Does the pt drink ETOH?: No Does the pt have substance abuse?: Yes - Immunizations Immunizations are current?: Yes - POLST Patient has POLST: No PD ED PE NORMAL - Vitals Vital signs reviewed: Yes - General General: Alert and oriented X 3, No acute distress - HEENT HEENT: PERRL, EOMI - Neck Neck: Supple, no meningeal sign, No bony TTP - Abdomen Abdomen: Soft, Non tender - Female Female : Noise Abatement Engineer present (MILE RN), Other (The wound VAC was taken down, on the medial side there was already a failure of the seal. There is some fibrinous exudate especially posteriorly.) - Back Back: No CVA TTP, No spinal TTP - Derm Derm: Normal color, Warm and dry - Extremities Extremities: No edema, No calf tenderness / cord - Neuro Neuro: Alert and oriented X 3, Normal speech Results - Vitals Vitals: Vital Signs - 24 hr 12/20/20 12/20/20 12/20/20 19:04 19:08 21:08 Temperature 37.1 C 37.1 C Heart Rate 103 H 103 H 99 Respiratory 16 16 16 Rate Blood Pressure 183/93 H 183/93 H 160/89 H O2 Saturation 96 96 97 Oxygen O2 Source Room air - Labs Labs: Laboratory Tests 12/20/20 12/20/20 19:59 19:59 WBC 9.8 RBC 2.99 L Hgb 9.1 L Hct 27.5 L MCV 92.0 MCH 30.4 MCHC 33.1 RDW 14.3 Plt Count 512 H MPV 9.1 Neut # (Auto) 6.7 H Lymph # (Auto) 2.0 Gregory # (Auto) 0.8 Eos # (Auto) 0.3 Baso # (Auto) 0.1 Absolute Nucleated RBC 0.00 Nucleated RBC % 0.0 Sodium 135 Potassium 4.4 Chloride 102 Carbon Dioxide 25 Anion Gap 8.0 BUN 30 H Creatinine 0.8 Estimated GFR (MDRD) 79 L Glucose 275 H Calcium 8.7 PD MEDICAL DECISION MAKING - ED course ED course: 40-year-old woman presents with concerns for wound infection status post an STI with debridements. The surgeon did come and look at her and felt that she was infected again and would likely need to go to the OR tomorrow for debridement and recommends broad-spectrum antibiotics for NSTI coverage in the interim. Defers to Dr. Khoury for admission who was hesitant albeit agreeable. Departure - Departure Disposition: 66 [facility] DC/[facility] Clinical Impression: Necrotizing fasciitis Condition: Serious
[2020-12-20 20:12] LABS: CALCIUM 8.7 mg/dL (8.5-10.3); CREATININE 0.8 mg/dL (0.4-1.0); POTASSIUM 4.4 mmol/L (3.5-5.0)
[2020-12-20] MEDS ORDERED: VANCOMYCIN INJ 2 GM in SODIUM CHLORIDE 0.9% 500 ML IV STA (21:15)
[2020-12-20] MEDS ORDERED: PIPERACILLIN/TAZOBACTAM 3.375 GM in SODIUM CHLORIDE 0.9% MINIBAG 100 ML IV STA (21:15)
[2020-12-20] MEDS: CLINDAMYCIN 900 MG/50 ML 50 ML IV SCH (21:41)
[2020-12-20] MEDS ORDERED: VANCOMYCIN 1 GM VIAL ONE (22:20)
[2020-12-20] MEDS ORDERED: ONDANSETRON ODT 4 MG TABLET TL PRN (22:38)
[2020-12-20] MEDS ORDERED: ONDANSETRON 4 MG/2 ML VIAL IVP PRN (22:38)
[2020-12-20] MEDS ORDERED: oxyCODONE 5 MG TABLET PO PRN (22:38)
[2020-12-20] MEDS ORDERED: LACTATED RINGERS 1,000 ML IV SCH (23:00)
[2020-12-20 23:11] LABS: B. PARAPERTUSSIS- RESP PCR PAN NOT DETECTED; B. PERTUSSIS- RESP PCR PANEL NOT DETECTED; C. PNEUMONIAE- RESP PCR PANEL NOT DETECTED; CORONAVIRUS 229E-RESP PCR NOT DETECTED; CORONAVIRUS HKU1-RESP PCR NOT DETECTED; CORONAVIRUS NL63-RESP PCR NOT DETECTED; CORONAVIRUS OC43-RESP PCR NOT DETECTED; HUMAN METAPNEUMOVIRUS NOT DETECTED; INFLUENZA A- RESP PCR PANEL NOT DETECTED; INFLUENZA B - RESP PCR PANEL NOT DETECTED; M. PNEUMONIAE- RESP PCR PANEL NOT DETECTED; PARAINFLUENZA VIRUS 1 NOT DETECTED; PARAINFLUENZA VIRUS 2 NOT DETECTED; PARAINFLUENZA VIRUS 3 NOT DETECTED; PARAINFLUENZA VIRUS 4 NOT DETECTED; RHINOVIRUS/ENTEROVIRUS NOT DETECTED; RSV- RESP PCR PANEL NOT DETECTED; SARS-CoV-2 -RESP PCR PANEL NOT DETECTED
--- NOTE | 2020-12-20 23:51 | HISTORY & PHYSICAL EXAMINATION ---
Chief Complaint - Chief Complaint Chief Complaint: From wound and perineum/labia History of Present Illness - Admitted From Admitted From:: Home via private vehicle - History Obtained From Records Reviewed: [facility] History obtained from: Dr. Ledezma and patient Exam Limitations: None - History of Present Illness HPI Comment/Other: This unfortunate female had pain and swelling of her right vulva approximately November 30. She was seen in the emergency room December 03 and was diagnosed with a Bartholin cyst which was incised, started on oral antibiotics with catheter placement. She returned to the emergency room December 05 with worsening pain and swelling, and CT scan and labs showed a white cell count of 22,000, a glucose gr eater than 400, and a CT scan showing extensive soft tissue edema and multiple gas-filled regions of the right perineum. She was felt to have necrotizing fasciitis and transferred to [facility]. She is described as having 4 surgeries at [facility], and discharged with a wound VAC. The patient has had several visits to the emergency room because the wound VAC is coming loose. With those visits in the emergency room December 17 and December 18, there is no fever or chills. Although social work has tried to contact the patient to see if they could smooth out referrals and wound care follow-up, patient did not return phone calls. The patient returns today because there is yellow drainage from the wo und VAC. She denies fever, chills, new or worsening perineal pain. Appetite has been okay. In the emergency room temperature was 37.1. Heart rate 103. Respiration rate 16. Blood pressure 183/93. She is 96% saturated on room air. Physical exam showed an alert oriented female, with a soft nontender abdomen, with a large extensive skin and labial deficits that is labeled as 20 cm. The wound VAC is not adequately sealing this area. There is surrounding redness, heat. Random glucose was 275. BUN/creatinine potassium were normal. White cell count is normal at 9.8. When she was initially seen for necrotizing fasciitis she was 21.9. Extensive consultation was performed by general surgery, Dr. Andrew. He feels that in order for this wound to heal, she will need an ileostomy to divert stool and will need an indwelling Schaffer catheter. He would like a medicine service to admit the patient and he will consult. He will follow up with his complex wound patient while in the hospital. History - Past Medical History Cardiovascular: reports: None Respiratory: reports: None Neuro: reports: None Endocrine/Autoimmune: reports: Type 2 diabetes (dx age 18. On lantus 12 am, 16 pm, humalog SS. Severe PN) GI: reports: None MUSTANGER: reports: Other (, extensive condyloma acuminatum tx 2017 of vulva, abdom, R thigh, L thigh) : reports: None HEENT: reports: None Psych: reports: Other (hallucination/delusion w ER visit 04/2020) Musculoskeletal: reports: None Derm: reports: None MRSA Hx?: No - Past Surgical History Ortho: reports: Arthroscopic surgery (L knee meniscus) /MUSTANGER: reports: Dilation and currettage - Family & Social History Family History Comment/Other: Mom 73 w CAD, HTN, HPL, stoke, has a pacer. Dad age 59 of HIV. no siblings. no children Living arrangement: At home Living Situation: With family (she lives w mom and takes care of her) Social History Notes: Lives w mom. Smoked 1 ppd for 7 years but the hospitalization now down to 3-4 cigs/day. No alcohol abuse hx. Cannibus daily. No other recreational substances. 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 - Substance History Use: Uses substance without health or social issues: Tobacco - POLST Patient has POLST: No POLST Status: Full Code Meds/Allgy - Home Medications Home Medications: Ambulatory Orders Medication Instructions Recorded Confirmed Ibuprofen [Motrin] 1 tab PO BID 12/05/20 12/20/20 Docusate Sodium [Dss] 250 mg PO DAILY PRN 12/17/20 12/20/20 Ferrous Sulfate 325 mg PO DAILY 12/17/20 12/20/20 Insulin Glargine [Lantus Solostar] 12 - 16 unit SQ BID 12/17/20 12/20/20 Insulin Lispro [Humalog Kwikpen 3 - 6 unit SQ AC 12/17/20 12/20/20 U-100] traMADol [Ultram] 50 mg PO DAILY 12/18/20 12/20/20 - Allergies Allergies/Adverse Reactions: Allergies Allergy/AdvReac Type Severity Reaction Status Date / Time hydrocodone bitartrate * Allergy Intermediate Hives Verified 12/18/20 19:07 [From Vicodin] oxycodone HCl * Allergy Intermediate Hives Verified 12/18/20 19:07 [From Percocet] metformin AdvReac Unknown Verified 12/18/20 19:07 Review of Systems - Constitutional Constitutional: reports: Fatigue, Poor appetite. denies: Fever, Chills - Eyes Eyes: denies: Pain, Vision loss, Dipolpia - Ears, Nose & Throat Ears, Nose & Throat: denies: Ear pain, Hearing loss, Hearing aids, Sore throat, Hoarseness - Cardiovascular Cariovascular: reports: Edema (legs since she had the 4 surgeries. Really likes SCD to compress them), Decr. exercise tolerance (since surgeries). denies: Irregular heart rate, Palpitations, Chest pain, Exertional dyspnea - Respiratory Respiratory: denies: Cough, Sputum production, Wheezing, Hemoptysis, Orthopnea, SOB at rest - Gastrointestinal Gastrointestinal: reports: Change in bowel habits (since they gave her daily stool softeners), Nausea. denies: Abdominal pain, Abdominal distention, Constipation, Diarrhea, Black stools, Bloody stools, Vomiting - Genitourinary Genitourinary: reports: Incontinence. denies: Dysuria, Frequency, Urgency - Musculoskeletal Musculoskeletal: reports: Muscle aches. denies: Muscle pain, Back pain - Integumentary Integumentary: denies: Rash - Neurological Neurological: reports: Pre-existing deficit (severe neuropathy). denies: General weakness, Focal weakness, Headache, Dizziness, Memory problems - Psychiatric Psychiatric: reports: Depression, Anxiety - Endocrine Endocrine: reports: Intolerance to cold. denies: Polyuria, Polydypsia, Polyphagia Prior Level of Functionality: Prior to her illness she was completely independent with activities of daily living. Drive a car. Paid goals. Took care of her mom. Clean house. Cook. Since the surgery she needs a lot of help mainly to keep that wound VAC in place. So movement is limited. But still able to get up and take care of her self. Exam - Vital Signs Reviewed Vital Signs: Yes Vital Signs: Vital Signs x48h Temp Pulse Resp BP Pulse Ox 12/20/20 21:08 99 16 160/89 H 97 12/20/20 19:08 37.1 C 103 H 16 183/93 H 96 12/20/20 19:04 37.1 C 103 H 16 183/93 H 96 - Physical Exam General Appearance: positive: No acute distress, Alert, Other (She has brought her own pillow, hat, blanket to be comfortable. She is so cold here.) Eyes Bilateral: positive: PERRL, EOMI ENT: positive: Pharynx nml, Other (Frenulum piercing.) Neck: positive: No JVD. negative: Stiff neck Respiratory: positive: No respiratory distress. negative: Wheezes, Rales, Rhonchi Cardiovascular: positive: Regular rate & rhythm, No murmur. negative: Gallop/S4 , Friction rub Peripheral Pulses: positive: 1+ Abdomen: positive: Non-tender, No organomegaly, Nml bowel sounds, No distention Skin: positive: No rash, Warm Extremities: positive: Full ROM, Pedal edema (Both legs appear to have the appearance of lymphedema that is minimal around the thighs and increases in density by the time he gets to the shins. But no skin breakdown, redness, bruising.) Neurologic/Psychiatric: positive: Oriented x3, CN's nml (2-12), Motor nml. negative: Sensation nml Conclusion/Plan - Problem List (1) Wound cellulitis after surgery Conclusion/Plan: This is in the area of previous necrotizing fasciitis. General surgery does not feel she has necrotizing fasciitis at this time but the wound has become infected again. It is also difficult to keep the wound clean and dry due to defecation and urination. Photos in the EMR provided by nursing. The plan is to admit her inpatient to our service. General surgery will consult. He plans on taking her to the operating room tomorrow for debridement of the infected area, possible colostomy for diversion.We will also continue Zosyn and vancomycin for IV antibiotics to control the cellulitis Patient was able to repeat back to me in her own words what general surgery described, and she says that if this will get her healed she is willing to do it. She feels relieved that the problem is going to be addressed. (2) Pain Conclusion/Plan: She is very specific about what she would like for her pain. After being at [facility] she says that Dilaudid IV for severe pain worked the best, and tramadol p.o. for moderate pain. She states that she is allergic to hydrocodone and oxycodone. Medications we ordered at her request. (3) Type 2 diabetes mellitus, uncontrolled, with neuropathy Conclusion/Plan: A1c in the last year has been as high as 13%. At home she takes 12 units of Lantus in the morning, 16 units at night. She then does Humalog sliding scale. At this time I will giving her only 10 units Lantus since she will be n.p.o. after midnight. No Lantus tomorrow morning with sliding scale until after she is operated on and can start eating. (4) Anemia Conclusion/Plan: Back dietary causes. This woman was in the hospital for quite some time and really does not like the food there, and since she has been home she has been able to start eating better. She also may have acute blood loss anemia from the postoperative setting. She gives no symptoms of GI bleed. Plan: Multivitamin and iron after surgery as well as Vitamin C Qualifiers: Anemia type: unspecified type Qualified Code(s): D64.9 - Anemia, unspecified - Lab Results Lab results reviewed: Yes Fish Bones: 12/20/20 19:59 12/20/20 19:59 Core Measures - Anticipated LOS I expect patient to be DC'd or transferred within 96 hours.: Yes - DVT/VTE - Prophylaxis VTE/DVT Device ordered at admit?: Yes
[2020-12-21] MEDS ORDERED: traMADol 50 MG TABLET PO PRN (00:33)
[2020-12-21] MEDS: ACETAMINOPHEN 325 MG TABLET PO PRN (00:37)
[2020-12-21] MEDS: SODIUM CHLORIDE FLUSH 0.9% 10 ML SYRINGE IVP SCH ×4 (00:40→17:14)
[2020-12-21] MEDS: PIPERACILLIN/TAZOBACTAM 3.375 GM in SODIUM CHLORIDE 0.9% MINIBAG 100 ML IV SCH ×4 (03:30→21:32)
[2020-12-21] MEDS: HYDROmorphone 0.5 MG/0.5 ML SYRINGE IVP PRN ×3 (04:48→21:32)
[2020-12-21] MEDS: CLINDAMYCIN 900 MG/50 ML 50 ML IV SCH (05:46)
[2020-12-21] MEDS ORDERED: INSULIN ASPART 300 UNIT/3 ML PEN SUBQ SCH (08:00)
[2020-12-21 08:41] LABS: BASOPHILS # (AUTO) 0.1 10^3/uL (0.0-0.1); BASOPHILS % (AUTO) 0.8 %; EOSINOPHILS # (AUTO) 0.3 10^3/uL (0.0-0.7); EOSINOPHILS % (AUTO) 3.2 %; HCT - HEMATOCRIT 24.7 % (37.0-47.0); HGB - HEMOGLOBIN 8.1 g/dL (12.0-16.0); LYMPHOCYTES # (AUTO) 2.4 10^3/uL (1.5-3.5); LYMPHOCYTES % (AUTO) 26.8 %; MEAN CORPUSCULAR HEMOGLOBIN 29.9 pg (27.0-31.0); MEAN CORPUSCULAR HGB CONC 32.8 g/dL (32.0-36.0); MEAN CORPUSCULAR VOLUME 91.1 fL (81.0-99.0); MEAN PLATELET VOLUME 9.2 fL (7.9-10.8); MONOCYTES # (AUTO) 0.7 10^3/uL (0.0-1.0); NEUTROPHILS # (AUTO) 5.4 10^3/uL (1.5-6.6); NEUTROPHILS % (AUTO) 60.9 %; PLT - PLATELET COUNT 438 10^3/uL (130-450); RED BLOOD COUNT 2.71 10^6/uL (4.20-5.40); RED CELL DISTRIBUTION WIDTH 14.5 % (12.0-15.0); WHITE BLOOD COUNT 8.8 x10^3/uL (4.8-10.8)
[2020-12-21 08:50] LABS: CALCIUM 8.1 mg/dL (8.5-10.3); CREATININE 0.7 mg/dL (0.4-1.0); MAGNESIUM 1.6 mg/dL (1.7-2.8); POTASSIUM 4.3 mmol/L (3.5-5.0)
[2020-12-21] MEDS ORDERED: VANCOMYCIN INJ 1.25 GM in SODIUM CHLORIDE 0.9% 250 ML IV SCH (09:00)
[2020-12-21] MEDS: INSULIN REGULAR HUMAN 300 UNIT/3 ML VIAL SUBQ SCH ×2 (09:05→11:38)
--- NOTE | 2020-12-21 10:03 | ANESTHESIA ---
Pre-Anesthesia VS, & Labs - Diagnosis wound infection, labia - Procedure I and D of labia, possible wound vac placement Vital Signs: Temp Pulse Resp BP Pulse Ox 36.9 C 89 18 127/71 98 12/21/20 08:00 12/21/20 08:00 12/21/20 08:00 12/21/20 08:00 12/21/20 08:00 Height: 5 ft 5 in Weight (kg): 71 kg Body Mass Index: 26.0 BMI Classification: Overweight - NPO >8 hours - Is Patient ?: No (patient states no potential as had not had sex in 4 years) - Lab Results Current Lab Results: Laboratory Tests 12/21/20 08:37: POC Whole Bld Glucose 187 H 12/21/20 08:36: Sodium 136, Potassium 4.3, Chloride 105, Carbon Dioxide 24, Anion Gap 7.0, BUN 21 H, Creatinine 0.7, Estimated GFR (MDRD) 92, Glucose 196 H, Calcium 8.1 L, Magnesium 1.6 L 12/21/20 08:36: WBC 8.8, RBC 2.71 L, Hgb 8.1 L, Hct 24.7 L, MCV 91.1, MCH 29.9, MCHC 32.8, RDW 14.5, Plt Count 438, MPV 9.2, Neut # (Auto) 5.4, Lymph # (Auto) 2.4, Towns # (Auto) 0.7, Eos # (Auto) 0.3, Baso # (Auto) 0.1, Absolute Nucleated RBC 0.00, Nucleated RBC % 0.0 12/20/20 19:59: Sodium 135, Potassium 4.4, Chloride 102, Carbon Dioxide 25, Anion Gap 8.0, BUN 30 H, Creatinine 0.8, Estimated GFR (MDRD) 79 L, Glucose 275 H, Calcium 8.7 12/20/20 19:59: WBC 9.8, RBC 2.99 L, Hgb 9.1 L, Hct 27.5 L, MCV 92.0, MCH 30.4, MCHC 33.1, RDW 14.3, Plt Count 512 H, MPV 9.1, Neut # (Auto) 6.7 H, Lymph # (Auto) 2.0, Towns # (Auto) 0.8, Eos # (Auto) 0.3, Baso # (Auto) 0.1, Absolute Nucleated RBC 0.00, Nucleated RBC % 0.0 Fish Bones: 12/21/20 08:36 12/21/20 08:36 Home Medications and Allergies Active Medications Acetaminophen (Acetaminophen 325 Mg Tablet) 650 mg PO Q4HR PRN PRN Reason: Pain 1 to 4 Last Admin: 12/21/20 00:37 Dose: 650 mg Documented by: Hydromorphone HCl (Hydromorphone 0.5 Mg/0.5 Ml Syringe) 0.5 mg IVP Q2H PRN PRN Reason: PAIN Last Admin: 12/21/20 04:48 Dose: 0.5 mg Documented by: Clindamycin Phosphate (Cleocin 900 Mg/50 Ml) 50 mls @ 50 mls/hr IV Q8HR [facility] Last Infusion: 12/21/20 06:52 Dose: Infused Documented by: Lactated Ringer's (Lr) 1,000 mls @ 100 mls/hr IV .Q10H [facility] Last Infusion: 12/21/20 09:31 Dose: 0 mls/hr Documented by: Piperacillin Sod/Tazobactam (Sod 3.375 gm/ Sodium Chloride) 100 mls @ 200 mls/hr IV Q6H [facility] Last Admin: 12/21/20 09:15 Dose: 200 mls/hr Documented by: Vancomycin HCl 1 gm/Vancomycin HCl 250 mg/ Sodium Chloride 250 mls @ 167 mls/hr IV Q12H [facility] Insulin Glargine (Insulin Glargine 300 Unit/3 Ml Pen) 10 unit SUBQ QPM [facility] Insulin Human Regular (Insulin Regular Human 300 Unit/3 Ml Vial) 1 - 5 unit SUBQ Q6HR [facility]; Protocol Last Admin: 12/21/20 09:05 Dose: 2 unit Documented by: Ondansetron HCl (Ondansetron Odt 4 Mg Tablet) 4 mg TL Q6HR PRN PRN Reason: Nausea / Vomiting Ondansetron HCl (Ondansetron 4 Mg/2 Ml Vial) 4 mg IVP Q6HR PRN PRN Reason: Nausea / Vomiting Sodium Chloride (Sodium Chloride Flush 0.9% 10 Ml Syringe) 10 ml IVP PRN PRN PRN Reason: NEEDED PER PROVIDER ORDERS Sodium Chloride (Sodium Chloride Flush 0.9% 10 Ml Syringe) 10 ml IVP 0100,0900,1700 [facility] Last Admin: 12/21/20 09:15 Dose: 10 ml Documented by: Tramadol HCl (Tramadol 50 Mg Tablet) 50 mg PO Q4HR PRN PRN Reason: PAIN Ibuprofen [Motrin] 1 tab PO BID 12/05/20 Docusate Sodium [Dss] 250 mg PO DAILY PRN 12/17/20 Ferrous Sulfate 325 mg PO DAILY 12/17/20 Insulin Glargine [Lantus Solostar] 12 - 16 unit SQ BID 12/17/20 Insulin Lispro [Humalog Kwikpen U-100] 3 - 6 unit SQ AC 12/17/20 traMADol [Ultram] 50 mg PO DAILY 12/18/20 Allergies/Adverse Reactions: Allergies Allergy/AdvReac Type Severity Reaction Status Date / Time hydrocodone bitartrate * Allergy Intermediate Hives Verified 12/18/20 19:07 [From Vicodin] oxycodone HCl * Allergy Intermediate Hives Verified 12/18/20 19:07 [From Percocet] metformin AdvReac Unknown Verified 12/18/20 19:07 Anes History & Medical History - Anesthetic History Anesthesia Complications: reports: No previous complications - Medical History Cardiovascular: reports: None Pulmonary: reports: None Gastrointestinal: reports: None Urinary: reports: None Neuro: reports: None Musculoskeletal: reports: None Endocrine/Autoimmune: reports: Type 2 diabetes Blood Disorders: reports: None Skin: reports: None Smoking Status: Current every day smoker - Surgical History Gynecologic: reports: Dilation and currettage Orthopedic: reports: Arthroscopic surgery Exam General: Alert, Oriented x3 Dental: WNL Mouth Opening: Greater than 4 Fingerbreadths Neck Mobility: Normal Mallampati classification: II Thyromental Distance: greater than 6 cm Respiratory: Lungs clear Cardiovascular: Regular rate Plan Anesthesia Type: General Consent for Procedure(s) Verified and Reviewed: Yes Code Status: Attempt Resuscitation ASA classification: 3-Severe systemic disease (poorly controlled DM) Is this case an emergency?: Yes
[2020-12-21] MEDS: VANCOMYCIN INJ 1 GM, VANCOMYCIN INJ 250 MG in SODIUM CHLORIDE 0.9% 250 ML IV SCH ×2 (10:28→22:14)
--- NOTE | 2020-12-21 10:52 | CONSULTATION NOTE ---
Surgery Consult - Admit Date Hospital Admission Date: 12/20/20 - Consult Date Consult Date: 12/21/20 Requesting Provider: Dr. Richard Fragoso - Chief Complaint Chief Complaint: Perineal Wound/Hx Necrotizing Fasciitis - Home Meds/Allergies Home Medications: Patient History Medication Instructions Recorded Confirmed Ibuprofen [Motrin] 1 tab PO BID 12/05/20 12/20/20 Docusate Sodium [Dss] 250 mg PO DAILY PRN 12/17/20 12/20/20 Ferrous Sulfate 325 mg PO DAILY 12/17/20 12/20/20 Insulin Glargine [Lantus Solostar] 12 - 16 unit SQ BID 12/17/20 12/20/20 Insulin Lispro [Humalog Kwikpen 3 - 6 unit SQ AC 12/17/20 12/20/20 U-100] traMADol [Ultram] 50 mg PO DAILY 12/18/20 12/20/20 Allergies/Adverse Reactions: Allergies Allergy/AdvReac Type Severity Reaction Status Date / Time hydrocodone bitartrate * Allergy Intermediate Hives Verified 12/18/20 19:07 [From Vicodin] oxycodone HCl * Allergy Intermediate Hives Verified 12/18/20 19:07 [From Percocet] metformin AdvReac Unknown Verified 12/18/20 19:07 - Vital Signs Vital Signs: Last Vital Signs Temp 36.9 C 12/21/20 08:00 Pulse 89 12/21/20 08:00 Resp 18 12/21/20 08:00 BP 127/71 12/21/20 08:00 Pulse Ox 98 12/21/20 08:00 Intake & Output: Intake & Output 12/18/20 12/19/20 12/20/20 12/21/20 23:59 23:59 23:59 23:59 Intake Total 150 1635 Output Total 700 Balance 150 935 - Lab Results Result Diagrams: 12/22/20 05:09 12/22/20 05:09 - Consultation Note Consultation Note: Subjective 40-year-old female with history of necrotizing fasciitis of the perineum involving the labia and buttock who was transferred for higher level of care. Outpatient follow-up and wound care has been suboptimal. Recurrent difficulties with wound VAC that had been placed. Presented to ER with significant drainage. Concern for persistent infectious process. Objective Afebrile hemodynamically acceptable General Appearance: positive: No acute distress Eyes Bilateral: positive: Normal inspection ENT: positive: ENT inspection nml Neck: positive: Nml inspection Respiratory: positive: Chest non-tender, No respiratory distress, Breath sounds nml. negative: Wheezes, Rales, Rhonchi Cardiovascular: positive: Regular rate & rhythm Abdomen: positive: No distention, Other. negative: Guarding, Rebound Extremities: positive: Non-tender, Full ROM, Nml appearance Neurologic/Psychiatric: positive: Oriented x3, CN's nml (2-12) Perineal wound with purulent drainage and clear evidence of continued suppurative process. Impression/Plan 40-year-old female with necrotizing fasciitis incompletely resected. Proceed with exam under anesthesia, wide local excision, reattempt at wound VAC placement. Patient was advised there might be indication to proceed with fecal diversion given the proximity of the wound to the anus. Diabetic will need cont inued close fingerstick monitoring and blood glucose control. Antibiotics based on intraoperative cultures. Please note that voice recognition software was used to transcribe this note and inadvertent errors might persist in spite of review and editing. I am obliged to you for your attention. I am thankful to you for allowing me to participate with you in this care of this patient.
--- NOTE | 2020-12-21 10:55 | PHARMACY PROGRESS NOTE ---
- Best Possible Medication History Admit Date and Time: 12/20/20 2238 Processed by: Nursing Medication History completed: Yes Patient Interview: Completed Secondary Source(s): Pharmacy records, Insurance records As the person ultimately responsible for medication therapy, providers are able to order a medication from an existing home medication list in [facility] via the "Reconcile Routine" prior to Confirmation of that medication by net application support specialist. Such practice is discouraged except when the physician, in their clinical judgment, deems that a medical need exists for a medication without regard to previous use.
[2020-12-21] MEDS: SODIUM CHLORIDE 0.9% 1,000 ML IV SCH ×2 (11:41→21:32)
--- NOTE | 2020-12-21 13:21 | PROVIDER PROGRESS NOTE ---
Subjective - Prog Note Date Prog Note Date: 12/21/20 - Subjective Subjective: She reports that her pain is well controlled. Denies nausea or vomiting. She does feel quite hungry. Current Medications - Current Medications Current Medications: Active Medications Acetaminophen (Acetaminophen 325 Mg Tablet) 650 mg PO Q4HR PRN PRN Reason: Pain 1 to 4 Last Admin: 12/21/20 00:37 Dose: 650 mg Documented by: Hydromorphone HCl (Hydromorphone 0.5 Mg/0.5 Ml Syringe) 0.5 mg IVP Q2H PRN PRN Reason: PAIN Last Admin: 12/21/20 12:45 Dose: 0.5 mg Documented by: Piperacillin Sod/Tazobactam (Sod 3.375 gm/ Sodium Chloride) 100 mls @ 200 mls/hr IV Q6H [facility] Last Infusion: 12/21/20 10:28 Dose: Infused Documented by: Vancomycin HCl 1 gm/Vancomycin HCl 250 mg/ Sodium Chloride 250 mls @ 167 mls/hr IV Q12H [facility] Last Infusion: 12/21/20 12:02 Dose: Infused Documented by: Sodium Chloride (Normal Saline 0.9%) 1,000 mls @ 100 mls/hr IV .Q10H [facility] Last Admin: 12/21/20 11:41 Dose: 100 mls/hr Documented by: Insulin Glargine (Insulin Glargine 300 Unit/3 Ml Pen) 10 unit SUBQ QPM [facility] Insulin Human Regular (Insulin Regular Human 300 Unit/3 Ml Vial) 1 - 5 unit SUBQ Q6HR [facility]; Protocol Last Admin: 12/21/20 11:38 Dose: 1 unit Documented by: Ondansetron HCl (Ondansetron Odt 4 Mg Tablet) 4 mg TL Q6HR PRN PRN Reason: Nausea / Vomiting Ondansetron HCl (Ondansetron 4 Mg/2 Ml Vial) 4 mg IVP Q6HR PRN PRN Reason: Nausea / Vomiting Sodium Chloride (Sodium Chloride Flush 0.9% 10 Ml Syringe) 10 ml IVP PRN PRN PRN Reason: NEEDED PER PROVIDER ORDERS Sodium Chloride (Sodium Chloride Flush 0.9% 10 Ml Syringe) 10 ml IVP 0100,0900,1700 [facility] Last Admin: 12/21/20 09:15 Dose: 10 ml Documented by: Tramadol HCl (Tramadol 50 Mg Tablet) 50 mg PO Q4HR PRN PRN Reason: PAIN Ibuprofen [Motrin] 1 tab PO BID 12/05/20 Docusate Sodium [Dss] 250 mg PO DAILY PRN 12/17/20 Ferrous Sulfate 325 mg PO DAILY 12/17/20 Insulin Glargine [Lantus Solostar] 12 - 16 unit SQ BID 12/17/20 Insulin Lispro [Humalog Kwikpen U-100] 3 - 6 unit SQ AC 12/17/20 traMADol [Ultram] 50 mg PO DAILY 12/18/20 Objective - Vital Signs/Intake & Output Reviewed Vital Signs: Yes Vital Signs: Vital Signs x48h Temp Pulse Pulse Resp BP Pulse Ox 12/21/20 08:00 36.9 C 89 18 127/71 98 12/21/20 05:32 37.1 C 99 16 97 Intake & Output: Intake & Output 12/18/20 12/19/20 12/20/20 12/21/20 23:59 23:59 23:59 23:59 Intake Total 150 1885 Output Total 1300 Balance 150 585 - Objective General Appearance: positive: No acute distress, Alert, Mild distress Eyes Bilateral: positive: Conjunctivae nml ENT: positive: ENT inspection nml Neck: positive: Nml inspection Respiratory: positive: No respiratory distress. negative: Wheezes, Rales Cardiovascular: positive: Regular rate & rhythm, No murmur. negative: Tachycardia Abdomen: positive: Non-tender, No distention Skin: positive: Other (Dressing is in place over the wound in her right groin. With the dressing removed, there is exposed muscle and tissue. There is surrounding cellulitis and purulent drainage. This is just lateral to the labia.) Extremities: positive: Pedal edema (She has +1 edema in her bilateral feet) Neurologic/Psychiatric: negative: Disoriented to person, Disoriented to place - Lab Results Fish Bones: 12/21/20 08:36 12/21/20 08:36 Other Labs: Lab Results x24hrs 12/21/20 12/21/20 12/21/20 Range/Units 11:27 08:37 08:36 WBC (4.8-10.8) x10^3/uL RBC (4.20-5.40) 10^6/uL Hgb (12.0-16.0) g/dL Hct (37.0-47.0) % MCV (81.0-99.0) fL MCH (27.0-31.0) pg MCHC (32.0-36.0) g/dL RDW (12.0-15.0) % Plt Count (130-450) 10^3/uL MPV (7.9-10.8) fL Neut # (Auto) (1.5-6.6) 10^3/uL Lymph # (Auto) (1.5-3.5) 10^3/uL [place] # (Auto) (0.0-1.0) 10^3/uL Eos # (Auto) (0.0-0.7) 10^3/uL Baso # (Auto) (0.0-0.1) 10^3/uL Absolute Nucleated RBC x10^3/uL Nucleated RBC % /100WBC Sodium 136 (135-145) mmol/L Potassium 4.3 (3.5-5.0) mmol/L Chloride 105 (101-111) mmol/L Carbon Dioxide 24 (21-32) mmol/L Anion Gap 7.0 (6-13) BUN 21 H (6-20) mg/dL Creatinine 0.7 (0.4-1.0) mg/dL Estimated GFR (MDRD) 92 (>89) Glucose 196 H (70-100) mg/dL POC Whole Bld Glucose 166 H 187 H (70 - 100) mg/dL Calcium 8.1 L (8.5-10.3) mg/dL Magnesium 1.6 L (1.7-2.8) mg/dL Nasal Adenovirus (PCR) Nasal B. parapertussis DNA (PCR) Nasal Coronavir 229E PCR Nasal Coronavir HKU1 PCR Nasal Coronavir NL63 PCR Nasal Coronavir OC43 PCR Nasal Enterovir/Rhinovir PCR Nasal Influenza B PCR Nasal Influenza A PCR Nasal Parainfluen 1 PCR Nasal Parainfluen 2 PCR Nasal Parainfluen 3 PCR Nasal Parainfluen 4 PCR Nasal RSV (PCR) Nasal B.pertussis DNA PCR Nasal C.pneumoniae (PCR) Luis Human Metapneumo PCR Nasal M.pneumoniae (PCR) Nasal SARS-CoV-2 (PCR) 12/21/20 12/20/20 12/20/20 Range/Units 08:36 22:14 19:59 WBC 8.8 (4.8-10.8) x10^3/uL RBC 2.71 L (4.20-5.40) 10^6/uL Hgb 8.1 L (12.0-16.0) g/dL Hct 24.7 L (37.0-47.0) % MCV 91.1 (81.0-99.0) fL MCH 29.9 (27.0-31.0) pg MCHC 32.8 (32.0-36.0) g/dL RDW 14.5 (12.0-15.0) % Plt Count 438 (130-450) 10^3/uL MPV 9.2 (7.9-10.8) fL Neut # (Auto) 5.4 (1.5-6.6) 10^3/uL Lymph # (Auto) 2.4 (1.5-3.5) 10^3/uL [place] # (Auto) 0.7 (0.0-1.0) 10^3/uL Eos # (Auto) 0.3 (0.0-0.7) 10^3/uL Baso # (Auto) 0.1 (0.0-0.1) 10^3/uL Absolute Nucleated RBC 0.00 x10^3/uL Nucleated RBC % 0.0 /100WBC Sodium 135 (135-145) mmol/L Potassium 4.4 (3.5-5.0) mmol/L Chloride 102 (101-111) mmol/L Carbon Dioxide 25 (21-32) mmol/L Anion Gap 8.0 (6-13) BUN 30 H (6-20) mg/dL Creatinine 0.8 (0.4-1.0) mg/dL Estimated GFR (MDRD) 79 L (>89) Glucose 275 H (70-100) mg/dL POC Whole Bld Glucose (70 - 100) mg/dL Calcium 8.7 (8.5-10.3) mg/dL Magnesium (1.7-2.8) mg/dL Nasal Adenovirus (PCR) NOT DETECTED Nasal B. parapertussis DNA (PCR) NOT DETECTED Nasal Coronavir 229E PCR NOT DETECTED Nasal Coronavir HKU1 PCR NOT DETECTED Nasal Coronavir NL63 PCR NOT DETECTED Nasal Coronavir OC43 PCR NOT DETECTED Nasal Enterovir/Rhinovir PCR NOT DETECTED Nasal Influenza B PCR NOT DETECTED Nasal Influenza A PCR NOT DETECTED Nasal Parainfluen 1 PCR NOT DETECTED Nasal Parainfluen 2 PCR NOT DETECTED Nasal Parainfluen 3 PCR NOT DETECTED Nasal Parainfluen 4 PCR NOT DETECTED Nasal RSV (PCR) NOT DETECTED Nasal B.pertussis DNA PCR NOT DETECTED Nasal C.pneumoniae (PCR) NOT DETECTED Luis Human Metapneumo PCR NOT DETECTED Nasal M.pneumoniae (PCR) NOT DETECTED Nasal SARS-CoV-2 (PCR) NOT DETECTED 12/20/20 Range/Units 19:59 WBC 9.8 (4.8-10.8) x10^3/uL RBC 2.99 L (4.20-5.40) 10^6/uL Hgb 9.1 L (12.0-16.0) g/dL Hct 27.5 L (37.0-47.0) % MCV 92.0 (81.0-99.0) fL MCH 30.4 (27.0-31.0) pg MCHC 33.1 (32.0-36.0) g/dL RDW 14.3 (12.0-15.0) % Plt Count 512 H (130-450) 10^3/uL MPV 9.1 (7.9-10.8) fL Neut # (Auto) 6.7 H (1.5-6.6) 10^3/uL Lymph # (Auto) 2.0 (1.5-3.5) 10^3/uL [place] # (Auto) 0.8 (0.0-1.0) 10^3/uL Eos # (Auto) 0.3 (0.0-0.7) 10^3/uL Baso # (Auto) 0.1 (0.0-0.1) 10^3/uL Absolute Nucleated RBC 0.00 x10^3/uL Nucleated RBC % 0.0 /100WBC Sodium (135-145) mmol/L Potassium (3.5-5.0) mmol/L Chloride (101-111) mmol/L Carbon Dioxide (21-32) mmol/L Anion Gap (6-13) BUN (6-20) mg/dL Creatinine (0.4-1.0) mg/dL Estimated GFR (MDRD) (>89) Glucose (70-100) mg/dL POC Whole Bld Glucose (70 - 100) mg/dL Calcium (8.5-10.3) mg/dL Magnesium (1.7-2.8) mg/dL Nasal Adenovirus (PCR) Nasal B. parapertussis DNA (PCR) Nasal Coronavir 229E PCR Nasal Coronavir HKU1 PCR Nasal Coronavir NL63 PCR Nasal Coronavir OC43 PCR Nasal Enterovir/Rhinovir PCR Nasal Influenza B PCR Nasal Influenza A PCR Nasal Parainfluen 1 PCR Nasal Parainfluen 2 PCR Nasal Parainfluen 3 PCR Nasal Parainfluen 4 PCR Nasal RSV (PCR) Nasal B.pertussis DNA PCR Nasal C.pneumoniae (PCR) Luis Human Metapneumo PCR Nasal M.pneumoniae (PCR) Nasal SARS-CoV-2 (PCR) ABX Reporting Has patient been on IV antibiotics over the past 48 hours?: Yes Assessment/Plan - Problem List (1) Wound cellulitis after surgery Impression: This wound does appear infected given the surrounding cellulitis and purulent drainage. We do not feel that she has necrotizing fasciitis at this time. She also does not appear septic. We will keep her on vancomycin and Zosyn. The plan will be to take her to the OR for debridement and new wound VAC placement. We did consider colostomy for diversion but given she has not received adequate wound care since discharge from [place], I feel that we should hold off on this for the time being. I also spoke with ELECTROCARDIOGRAPH OPERATOR will also feel that we should attempt wound care before going to diverting colostomy. I did discuss this with general surgery who are in agreement. She will likely need a few days of IV antibiotics and we will look to discharge her with a wound VAC and have her follow-up with the [facility] clinic for a wound care. (2) Anemia Impression: Her anemia is likely multifactorial. This is likely postoperative anemia as well as anemia related to her acute illness. We will check iron studies to evaluate for iron deficiency. At this point time, there is no indication for transfusion. We will continue to monitor. (3) Type 2 diabetes mellitus, uncontrolled, with neuropathy Impression: Her A1c is 11.6%. Her blood glucose has been controlled since this hospitalization. She will need tight glycemic control to help assist with wound healing and to decrease her risk of worsening infection. We will ask the nurses educator to see her tomorrow and she would benefit from outpatient follow-up with them as well. We will continue her evening dose of Lantus given should be n.p.o. at midnight for intervention tomorrow. Continue sliding scale.
[2020-12-21 13:32] LABS: ESTIMATED AVERAGE GLUCOSE 286 mg/dL (70-100); HEMOGLOBIN A1c% 11.6 % (4.27-6.07)
[2020-12-21] MEDS: INSULIN ASPART 300 UNIT/3 ML PEN SUBQ SCH ×2 (17:14→21:35)
[2020-12-21] MEDS ORDERED: INSULIN GLARGINE 300 UNIT/3 ML PEN SUBQ SCH (21:00)
[2020-12-22] MEDS: HYDROmorphone 0.5 MG/0.5 ML SYRINGE IVP PRN ×7 (00:19→23:31)
[2020-12-22] MEDS: PIPERACILLIN/TAZOBACTAM 3.375 GM in SODIUM CHLORIDE 0.9% MINIBAG 100 ML IV SCH ×4 (03:54→21:02)
[2020-12-22] MEDS: SODIUM CHLORIDE FLUSH 0.9% 10 ML SYRINGE IVP SCH ×3 (03:57→17:15)
[2020-12-22 05:53] LABS: BASOPHILS # (AUTO) 0.1 10^3/uL (0.0-0.1); BASOPHILS % (AUTO) 1.3 %; EOSINOPHILS # (AUTO) 0.3 10^3/uL (0.0-0.7); EOSINOPHILS % (AUTO) 4.5 %; HCT - HEMATOCRIT 25.6 % (37.0-47.0); LYMPHOCYTES # (AUTO) 2.5 10^3/uL (1.5-3.5); LYMPHOCYTES % (AUTO) 32.7 %; MEAN CORPUSCULAR HEMOGLOBIN 29.4 pg (27.0-31.0); MEAN CORPUSCULAR HGB CONC 31.3 g/dL (32.0-36.0); MEAN CORPUSCULAR VOLUME 94.1 fL (81.0-99.0); MEAN PLATELET VOLUME 10.8 fL (7.9-10.8); MONOCYTES # (AUTO) 0.6 10^3/uL (0.0-1.0); MONOCYTES % (AUTO) 7.3 %; NEUTROPHILS # (AUTO) 4.1 10^3/uL (1.5-6.6); NEUTROPHILS % (AUTO) 53.9 %; PLT - PLATELET COUNT 360 10^3/uL (130-450); RED BLOOD COUNT 2.72 10^6/uL (4.20-5.40); RED CELL DISTRIBUTION WIDTH 14.5 % (12.0-15.0); WHITE BLOOD COUNT 7.6 x10^3/uL (4.8-10.8)
[2020-12-22 06:14] LABS: CALCIUM 7.9 mg/dL (8.5-10.3); CREATININE 0.7 mg/dL (0.4-1.0); MAGNESIUM 1.8 mg/dL (1.7-2.8); POTASSIUM 4.1 mmol/L (3.5-5.0)
--- NOTE | 2020-12-22 07:31 | PROVIDER PROGRESS NOTE ---
Subjective - Prog Note Date Prog Note Date: 12/22/20 - Subjective Subjective: She reports her pain is controlled at this time. She is hungry and looking forward to going to surgery today so she can eat after. Current Medications - Current Medications Current Medications: Active Medications Acetaminophen (Acetaminophen 325 Mg Tablet) 650 mg PO Q4HR PRN PRN Reason: Pain 1 to 4 Last Admin: 12/21/20 00:37 Dose: 650 mg Documented by: Atropine Sulfate (Atropine Abboject 1 Mg/10 Ml Syringe) 0.5 mg IVP Q5M PRN PRN Reason: Bradycardia Stop: 12/23/20 16:59 Fentanyl (Fentanyl 100 Mcg/2 Ml Vial) 25 - 50 mcg IVP Q5M PRN PRN Reason: BREAKTHROUGH PAIN (2nd Choice) Stop: 12/23/20 16:59 Hydromorphone HCl (Hydromorphone 0.5 Mg/0.5 Ml Syringe) 0.5 mg IVP Q2H PRN PRN Reason: PAIN Last Admin: 12/22/20 10:52 Dose: 0.5 mg Documented by: Hydromorphone HCl (Hydromorphone 0.5 Mg/0.5 Ml Syringe) 0.2 - 0.6 mg IVP Q5M PRN PRN Reason: PAIN (First Choice) Stop: 12/23/20 16:59 Piperacillin Sod/Tazobactam (Sod 3.375 gm/ Sodium Chloride) 100 mls @ 200 mls/hr IV Q6H [facility] Last Admin: 12/22/20 15:56 Dose: Not Given Documented by: Vancomycin HCl 1 gm/Vancomycin HCl 250 mg/ Sodium Chloride 250 mls @ 167 mls/hr IV Q12H [facility] Last Infusion: 12/22/20 14:00 Dose: Infused Documented by: Sodium Chloride (Normal Saline 0.9%) 1,000 mls @ 100 mls/hr IV .Q10H [facility] Last Admin: 12/22/20 10:56 Dose: 100 mls/hr Documented by: Lactated Ringer's (Lr) 1,000 mls @ 100 mls/hr IV .Q10H [facility] Stop: 12/23/20 02:59 Insulin Glargine (Insulin Glargine 300 Unit/3 Ml Pen) 10 unit SUBQ QPM [facility] Last Admin: 12/21/20 21:33 Dose: 10 unit Documented by: Insulin Human Regular (Insulin Regular Human 300 Unit/3 Ml Vial) 1 - 9 unit SUBQ Q6HR [facility]; Protocol Last Admin: 12/22/20 13:37 Dose: Not Given Documented by: Morphine Sulfate (Morphine 2 Mg/Ml Carpuject) 2 - 4 mg IVP Q5M PRN PRN Reason: PAIN (3rd Choice) Stop: 12/23/20 16:59 Naloxone HCl (Naloxone 0.4 Mg/Ml Vial) 0.1 mg IVP Q2M PRN PRN Reason: RESP RATE <8 Stop: 12/23/20 16:59 Ondansetron HCl (Ondansetron Odt 4 Mg Tablet) 4 mg TL Q6HR PRN PRN Reason: Nausea / Vomiting Ondansetron HCl (Ondansetron 4 Mg/2 Ml Vial) 4 mg IVP Q6HR PRN PRN Reason: Nausea / Vomiting Ondansetron HCl (Ondansetron 4 Mg/2 Ml Vial) 4 mg IVP ONCE PRN PRN Reason: N/V (First Choice) Stop: 12/23/20 16:59 Sodium Chloride (Sodium Chloride Flush 0.9% 10 Ml Syringe) 10 ml IVP PRN PRN PRN Reason: NEEDED PER PROVIDER ORDERS Sodium Chloride (Sodium Chloride Flush 0.9% 10 Ml Syringe) 10 ml IVP 0100,0900,1700 [facility] Last Admin: 12/22/20 09:10 Dose: Not Given Documented by: Tramadol HCl (Tramadol 50 Mg Tablet) 50 mg PO Q4HR PRN PRN Reason: PAIN Ibuprofen [Motrin] 1 tab PO BID 12/05/20 Docusate Sodium [Dss] 250 mg PO DAILY PRN 12/17/20 Ferrous Sulfate 325 mg PO DAILY 12/17/20 Insulin Glargine [Lantus Solostar] 12 - 16 unit SQ BID 12/17/20 Insulin Lispro [Humalog Kwikpen U-100] 3 - 6 unit SQ AC 12/17/20 traMADol [Ultram] 50 mg PO DAILY 12/18/20 Objective - Vital Signs/Intake & Output Reviewed Vital Signs: Yes Vital Signs: Vital Signs x48h Temp Pulse Resp BP Pulse Ox 12/22/20 00:23 36.6 C 90 20 142/74 H 98 Intake & Output: Intake & Output 12/19/20 12/20/20 12/21/20 12/22/20 23:59 23:59 23:59 23:59 Intake Total 150 4293.334 100 Output Total 2700 1200 Balance 150 1593.334 -1100 - Objective General Appearance: positive: No acute distress, Alert Eyes Bilateral: positive: Normal inspection, Conjunctivae nml ENT: positive: ENT inspection nml Neck: positive: Nml inspection Respiratory: positive: No respiratory distress Skin: positive: Other (Dressing is in place over the wound in her right groin. There is exposed tendon and muscle after removal of the dressing. There is still surrounding erythema and occasional purulent drainage.) Neurologic/Psychiatric: negative: Disoriented to person, Disoriented to place - Lab Results Fish Bones: 12/22/20 05:09 12/22/20 05:09 Other Labs: Lab Results x24hrs 12/22/20 12/22/20 12/22/20 Range/Units 05:09 05:09 05:09 WBC 7.6 (4.8-10.8) x10^3/uL RBC 2.72 L (4.20-5.40) 10^6/uL Hgb 8.0 L (12.0-16.0) g/dL Hct 25.6 L (37.0-47.0) % MCV 94.1 (81.0-99.0) fL MCH 29.4 (27.0-31.0) pg MCHC 31.3 L (32.0-36.0) g/dL RDW 14.5 (12.0-15.0) % Plt Count 360 (130-450) 10^3/uL MPV 10.8 (7.9-10.8) fL Neut # (Auto) 4.1 (1.5-6.6) 10^3/uL Lymph # (Auto) 2.5 (1.5-3.5) 10^3/uL [place] # (Auto) 0.6 (0.0-1.0) 10^3/uL Eos # (Auto) 0.3 (0.0-0.7) 10^3/uL Baso # (Auto) 0.1 (0.0-0.1) 10^3/uL Absolute Nucleated RBC 0.00 x10^3/uL Nucleated RBC % 0.0 /100WBC Sodium 134 L (135-145) mmol/L Potassium 4.1 (3.5-5.0) mmol/L Chloride 104 (101-111) mmol/L Carbon Dioxide 25 (21-32) mmol/L Anion Gap 5.0 L (6-13) BUN 17 (6-20) mg/dL Creatinine 0.7 (0.4-1.0) mg/dL Estimated GFR (MDRD) 92 (>89) Glucose 191 H (70-100) mg/dL POC Whole Bld Glucose (70 - 100) mg/dL Estimat Average Glucose (70-100) mg/dL Hemoglobin A1c % (4.27-6.07) % Calcium 7.9 L (8.5-10.3) mg/dL Magnesium 1.8 (1.7-2.8) mg/dL Iron 33 (28-170) ug/dL TIBC 220 L (250-450) ug/dL % Saturation 15 L (20-50) % Transferrin 157 L (192-382) mg/dL Ferritin 156.8 (11.0-306.8) ng/mL 12/21/20 12/21/20 12/21/20 Range/Units 21:02 16:42 11:27 WBC (4.8-10.8) x10^3/uL RBC (4.20-5.40) 10^6/uL Hgb (12.0-16.0) g/dL Hct (37.0-47.0) % MCV (81.0-99.0) fL MCH (27.0-31.0) pg MCHC (32.0-36.0) g/dL RDW (12.0-15.0) % Plt Count (130-450) 10^3/uL MPV (7.9-10.8) fL Neut # (Auto) (1.5-6.6) 10^3/uL Lymph # (Auto) (1.5-3.5) 10^3/uL [place] # (Auto) (0.0-1.0) 10^3/uL Eos # (Auto) (0.0-0.7) 10^3/uL Baso # (Auto) (0.0-0.1) 10^3/uL Absolute Nucleated RBC x10^3/uL Nucleated RBC % /100WBC Sodium (135-145) mmol/L Potassium (3.5-5.0) mmol/L Chloride (101-111) mmol/L Carbon Dioxide (21-32) mmol/L Anion Gap (6-13) BUN (6-20) mg/dL Creatinine (0.4-1.0) mg/dL Estimated GFR (MDRD) (>89) Glucose (70-100) mg/dL POC Whole Bld Glucose 248 H 206 H 166 H (70 - 100) mg/dL Estimat Average Glucose (70-100) mg/dL Hemoglobin A1c % (4.27-6.07) % Calcium (8.5-10.3) mg/dL Magnesium (1.7-2.8) mg/dL Iron (28-170) ug/dL TIBC (250-450) ug/dL % Saturation (20-50) % Transferrin (192-382) mg/dL Ferritin (11.0-306.8) ng/mL 12/21/20 12/21/20 12/21/20 Range/Units 08:37 08:36 08:36 WBC 8.8 (4.8-10.8) x10^3/uL RBC 2.71 L (4.20-5.40) 10^6/uL Hgb 8.1 L (12.0-16.0) g/dL Hct 24.7 L (37.0-47.0) % MCV 91.1 (81.0-99.0) fL MCH 29.9 (27.0-31.0) pg MCHC 32.8 (32.0-36.0) g/dL RDW 14.5 (12.0-15.0) % Plt Count 438 (130-450) 10^3/uL MPV 9.2 (7.9-10.8) fL Neut # (Auto) 5.4 (1.5-6.6) 10^3/uL Lymph # (Auto) 2.4 (1.5-3.5) 10^3/uL [place] # (Auto) 0.7 (0.0-1.0) 10^3/uL Eos # (Auto) 0.3 (0.0-0.7) 10^3/uL Baso # (Auto) 0.1 (0.0-0.1) 10^3/uL Absolute Nucleated RBC 0.00 x10^3/uL Nucleated RBC % 0.0 /100WBC Sodium 136 (135-145) mmol/L Potassium 4.3 (3.5-5.0) mmol/L Chloride 105 (101-111) mmol/L Carbon Dioxide 24 (21-32) mmol/L Anion Gap 7.0 (6-13) BUN 21 H (6-20) mg/dL Creatinine 0.7 (0.4-1.0) mg/dL Estimated GFR (MDRD) 92 (>89) Glucose 196 H (70-100) mg/dL POC Whole Bld Glucose 187 H (70 - 100) mg/dL Estimat Average Glucose (70-100) mg/dL Hemoglobin A1c % (4.27-6.07) % Calcium 8.1 L (8.5-10.3) mg/dL Magnesium 1.6 L (1.7-2.8) mg/dL Iron (28-170) ug/dL TIBC (250-450) ug/dL % Saturation (20-50) % Transferrin (192-382) mg/dL Ferritin (11.0-306.8) ng/mL 12/21/20 Range/Units 04:30 WBC (4.8-10.8) x10^3/uL RBC (4.20-5.40) 10^6/uL Hgb (12.0-16.0) g/dL Hct (37.0-47.0) % MCV (81.0-99.0) fL MCH (27.0-31.0) pg MCHC (32.0-36.0) g/dL RDW (12.0-15.0) % Plt Count (130-450) 10^3/uL MPV (7.9-10.8) fL Neut # (Auto) (1.5-6.6) 10^3/uL Lymph # (Auto) (1.5-3.5) 10^3/uL [place] # (Auto) (0.0-1.0) 10^3/uL Eos # (Auto) (0.0-0.7) 10^3/uL Baso # (Auto) (0.0-0.1) 10^3/uL Absolute Nucleated RBC x10^3/uL Nucleated RBC % /100WBC Sodium (135-145) mmol/L Potassium (3.5-5.0) mmol/L Chloride (101-111) mmol/L Carbon Dioxide (21-32) mmol/L Anion Gap (6-13) BUN (6-20) mg/dL Creatinine (0.4-1.0) mg/dL Estimated GFR (MDRD) (>89) Glucose (70-100) mg/dL POC Whole Bld Glucose (70 - 100) mg/dL Estimat Average Glucose 286 H (70-100) mg/dL Hemoglobin A1c % 11.6 H (4.27-6.07) % Calcium (8.5-10.3) mg/dL Magnesium (1.7-2.8) mg/dL Iron (28-170) ug/dL TIBC (250-450) ug/dL % Saturation (20-50) % Transferrin (192-382) mg/dL Ferritin (11.0-306.8) ng/mL ABX Reporting Has patient been on IV antibiotics over the past 48 hours?: Yes Assessment/Plan - Problem List (1) Wound cellulitis after surgery Impression: The wound does appear improved with IV antibiotics. She will require debridement with general surgeons as planned for today. We have low suspicion for necrotizing fasciitis at this time and she does not appear septic. We will keep her on vancomycin and Zosyn and the plan is for wound VAC to be placed in the OR. She will likely need another 24 to 48 hours of IV antibiotics before she can be discharged and follow-up with wound care. (2) Anemia Impression: Her iron studies were suggestive of anemia of chronic disease. Her hemoglobin has been stable without evidence of bleeding. We will continue to monitor. No indication for transfusion at this time. (3) Type 2 diabetes mellitus, uncontrolled, with neuropathy Impression: Her blood glucose has been elevated in the 200s. We will increase her Lantus to her home dose of 12 units twice daily given she will be eating postoperatively. We will place her on a carb controlled diet and sliding scale.
[2020-12-22] MEDS: INSULIN REGULAR HUMAN 300 UNIT/3 ML VIAL SUBQ SCH ×4 (09:09→21:13)
[2020-12-22] MEDS: VANCOMYCIN INJ 1 GM, VANCOMYCIN INJ 250 MG in SODIUM CHLORIDE 0.9% 250 ML IV SCH ×2 (10:37→21:16)
[2020-12-22] MEDS: SODIUM CHLORIDE 0.9% 1,000 ML IV SCH ×2 (10:56→17:15)
[2020-12-22] MEDS ORDERED: PROPOFOL 200 MG/20 ML VIAL IVP ONE (15:08)
[2020-12-22] MEDS ORDERED: LIDOCAINE-MPF 2% 5 ML VIAL ONE (15:08)
[2020-12-22] MEDS ORDERED: MIDAZOLAM 2 MG/2 ML VIAL ONE (15:08)
[2020-12-22] MEDS ORDERED: fentaNYL 100 MCG/2 ML VIAL ONE (15:08)
[2020-12-22] MEDS ORDERED: BUPIVACAINE 0.5%-EPI 1:200000 PF 30 ML VIAL ONE (15:09)
[2020-12-22] MEDS ORDERED: LIDOCAINE-MPF 1% 30 ML VIAL ONE (15:09)
[2020-12-22] MEDS ORDERED: HYDROmorphone 1 MG/ML CARPUJECT ONE (16:31)
[2020-12-22] MEDS ORDERED: LACTATED RINGERS 1,000 ML IV ONE (16:55)
[2020-12-22] MEDS ORDERED: ONDANSETRON 4 MG/2 ML VIAL IVP PRN (16:59)
[2020-12-22] MEDS ORDERED: HYDROmorphone 0.5 MG/0.5 ML SYRINGE IVP PRN (16:59)
[2020-12-22] MEDS ORDERED: NALOXONE 0.4 MG/ML VIAL IVP PRN (16:59)
[2020-12-22] MEDS ORDERED: MORPHINE 2 MG/ML CARPUJECT IVP PRN (16:59)
[2020-12-22] MEDS ORDERED: ATROPINE ABBOJECT 1 MG/10 ML SYRINGE IVP PRN (16:59)
[2020-12-22] MEDS ORDERED: fentaNYL 100 MCG/2 ML VIAL IVP PRN (16:59)
[2020-12-22] MEDS ORDERED: LACTATED RINGERS 1,000 ML IV SCH (17:00)
[2020-12-22] MEDS: HYDROmorphone 1 MG/ML CARPUJECT ONE ×2 (17:05→17:10)
--- NOTE | 2020-12-22 17:10 | ANESTHESIA POST OP EVALUATION ---
Anesthesia Post Eval - Post Anesthesia Eval Vitals: Last Vital Signs Temp 36.5 C 12/22/20 17:05 Pulse 74 12/22/20 17:05 Resp 13 12/22/20 17:05 BP 169/83 H 12/22/20 17:05 Pulse Ox 100 12/22/20 17:05 CV Function Including HR & BP: Stable Pain Control: Satisfactory Nausea & Vomiting: Negative Mental Status: Baseline Respiratory Status: Airway Patent Hydration Status: Satisfactory Anesthesia Complications: None
--- NOTE | 2020-12-22 17:14 | OPERATIVE REPORT ---
Operative Report - General Admit Date: 12/20/20 Procedure Date: 12/22/20 Planned Procedure: 1. Exam under esthesia 2. Wide local excision 3. Pulse lavage with debridement 4. Wound VAC placement 5. Tissue culture Pre-Op Diagnosis: Necrotizing fasciitis; wound complication; persistent skin and soft tissue Procedure Performed: 1. Exam under esthesia 2. Wide local excision 3. Pulse lavage with debridement 4. Wound VAC placement 5. Tissue culture Post Op Diagnosis: Same; debrided to viable bleeding edges. - Procedure Note Primary Surgeon: Kamran Secondary Surgeon: Lurdes Anesthesia Provider: Herbert Anesthesia Technique: General LMA Pathology: 1. Skin and subcutaneous tissue for culture and sensitivity 2. Skin and subcutaneous tissue for pathology Estimated Blood Loss (mL): 20 Drain/Tube Type: Other (Wound VAC with 3 sponges within the wound bed stapled in place and single "tongue" of sponge leading to suction button over the thigh.) Indications: See EMR Findings: 1. Indurated tissue within the inferior aspect, posterior buttock performed for wide local excision of additional 5 cm to normal healthy tissue. No other areas of fluctuance appreciated. 2. Anorectal exam without any fistulous communication. 3. Healthy bleeding edges. Wound VAC placed with 3 sponges of various sizes within the wound bed seal achieved with stoma paste around the wound edges. 4. Disimpacted the rectum. Schaffer catheter remained in place. Complications: NONE - Other Other Information/Narrative: OPERATIVE REPORT: Patient was taken to the operating room placed supine on the operating table. Patient was positioned in lithotomy. Schaffer catheter was in place. General anesthesia was induced. Informed consent was already obtained. Timeout was called and agreed to by all of the room. Patient was already on scheduled antibiotics. Side and site was already confirmed and marked preoperatively. Historic dressing was removed. Wound was prepped with Betadine. We proceeded with exam under anesthesia. The patient was digitally disimpacted carefully to avoid any trauma, which patient tolerated well. Having aided in additional descent, additional maneuvers were made to further digitally disimpact the patient, which allowed for anorectal exam. Patient tolerated the procedure well for which there was no complication. No areas of trauma. No bleeding noted. Findings are as per below: Anorectal exam: Inspection: External Hemorrhoids -none Fissure in ano -none Erythema (perianal) -diffuse favoring the right Other -large skin and soft tissue defect involving Rt perirectal region extending posterior to the level of the coccyx and anteriorly to pubis Palpation: Fluctuance -positive Palpable cord -none Scar tissue -extensive Induration -extensive Digital Rectal Exam: Rectal Tone -appropriate Fluctuance -none within the perirectal space Sphincter -intact Masses -none Anoscopy: Hemorrhoids - Grade II Bleeding -none Distal proctitis -none Other -no evidence of internal opening for fistula There was no evidence of any fistulous communication from anus as a etiology for patient's presenting symptomatology and necrotizing fasciitis At this time, having undergone the examined anesthesia we proceeded as intended with the followin. Wide local excision 2. Pulse lavage with debridement 3. Wound VAC placement 4. Tissue culture We proceeded to perform wide local excision of this large skin and soft tissue defect from the patient's historic necrotizing fasciitis. Reportedly the patient had presented to the hospital with a right vulvar lesion was drained and returned with significant worsening and was transferred for higher level of care. Patient underwent multiple interventions in the interim. Patient was discharged with wound VAC. Patient had persistent purulence and failure of outpatient wound VAC therapy. Patient was admitted for IV antibiotics and further debridement of obvious infected tissue. All margins were necessarily excised to healthy bleeding tissue to include at least 2 cm around the historic wound and 3 cm posteriorly; this area was indurated and suppurative. This was sent for both permanent pathology as well as culture. Once this was complete pleated we achieved hemostasis without any complication. We thereafter pulse lavage the entirety of the wound with several liters of warm sterile saline. Thereafter, we proceeded to dress the wound, with multiple pieces of black foam. Intraoperative findings are as follows: 1. Indurated tissue within the inferior aspect, posterior buttock performed for wide local excision of additional 5 cm to normal healthy tissue. No other areas of fluctuance appreciated. 2. Anorectal exam without any fistulous communication. 3. Healthy bleeding edges. Wound VAC placed with 3 sponges of various sizes within the wound bed seal achieved with stoma paste around the wound edges. 4. Disimpacted the rectum. Schaffer catheter remained in place. Wound VAC was intact with no leak, tongue a sponge was used to offset the suction button to the right inguinal region, there was undermining at the top aspect of the wound revealing tendon tissue. Patient tolerated procedure well which is no complication. Plan would be to return to the operating room for additional debridement. Please note that voice recognition software was used to transcribe this note and inadvertent errors might persist in spite of review and editing. I am obliged to you for your attention. I am thankful to you for allowing me to participate with you in this care of this patient.
--- NOTE | 2020-12-22 17:20 | PROVIDER PROGRESS NOTE ---
Progress Note BRIEF Operative Report - General Admit Date: 12/20/20 Procedure Date: 12/22/20 Planned Procedure: 1. Exam under esthesia 2. Wide local excision 3. Pulse lavage with debridement 4. Wound VAC placement 5. Tissue culture Pre-Op Diagnosis: Necrotizing fasciitis; wound complication; persistent skin and soft tissue Procedure Performed: 1. Exam under esthesia 2. Wide local excision 3. Pulse lavage with debridement 4. Wound VAC placement 5. Tissue culture Post Op Diagnosis: Same; debrided to viable bleeding edges. - Procedure Note Primary Surgeon: Kamran Secondary Surgeon: Lurdes Anesthesia Provider: Herbert Anesthesia Technique: General LMA Pathology: 1. Skin and subcutaneous tissue for culture and sensitivity 2. Skin and subcutaneous tissue for pathology Estimated Blood Loss (mL): 20 Drain/Tube Type: Other (Wound VAC with 3 sponges within the wound bed stapled in place and single "tongue" of sponge leading to suction button over the thigh.) Indications: See EMR Findings: 1. Indurated tissue within the inferior aspect, posterior buttock performed for wide local excision of additional 5 cm to normal healthy tissue. No other areas of fluctuance appreciated. 2. Anorectal exam without any fistulous communication. 3. Healthy bleeding edges. Wound VAC placed with 3 sponges of various sizes within the wound bed seal achieved with stoma paste around the wound edges. 4. Disimpacted the rectum. Schaffer catheter remained in place. 5. Wound dimensions, 19cm X 8cm X 4cm Complications: NONE
[2020-12-22] MEDS: SODIUM CHLORIDE FLUSH 0.9% 10 ML SYRINGE IVP PRN (19:05)
[2020-12-22] MEDS: SODIUM CHLORIDE 0.9% 500 ML IV PRN (21:02)
[2020-12-22] MEDS: INSULIN GLARGINE 300 UNIT/3 ML PEN SUBQ SCH (21:13)
[2020-12-23] MEDS: HYDROmorphone 0.5 MG/0.5 ML SYRINGE IVP PRN ×7 (01:51→21:52)
[2020-12-23] MEDS: SODIUM CHLORIDE FLUSH 0.9% 10 ML SYRINGE IVP SCH ×3 (01:55→17:12)
[2020-12-23] MEDS: PIPERACILLIN/TAZOBACTAM 3.375 GM in SODIUM CHLORIDE 0.9% MINIBAG 100 ML IV SCH ×4 (03:17→21:58)
[2020-12-23 05:31] LABS: BASOPHILS # (AUTO) 0.1 10^3/uL (0.0-0.1); BASOPHILS % (AUTO) 0.8 %; EOSINOPHILS # (AUTO) 0.3 10^3/uL (0.0-0.7); HGB - HEMOGLOBIN 8.4 g/dL (12.0-16.0); LYMPHOCYTES % (AUTO) 22.5 %; MEAN CORPUSCULAR HEMOGLOBIN 30.4 pg (27.0-31.0); MEAN CORPUSCULAR HGB CONC 33.6 g/dL (32.0-36.0); MEAN CORPUSCULAR VOLUME 90.6 fL (81.0-99.0); MEAN PLATELET VOLUME 9.7 fL (7.9-10.8); MONOCYTES # (AUTO) 0.5 10^3/uL (0.0-1.0); MONOCYTES % (AUTO) 5.6 %; NEUTROPHILS # (AUTO) 6.1 10^3/uL (1.5-6.6); NEUTROPHILS % (AUTO) 67.9 %; PLT - PLATELET COUNT 415 10^3/uL (130-450); RED BLOOD COUNT 2.76 10^6/uL (4.20-5.40)
[2020-12-23 05:42] LABS: CALCIUM 7.8 mg/dL (8.5-10.3); CREATININE 0.6 mg/dL (0.4-1.0); MAGNESIUM 1.7 mg/dL (1.7-2.8); POTASSIUM 3.6 mmol/L (3.5-5.0)
[2020-12-23] MEDS: INSULIN REGULAR HUMAN 300 UNIT/3 ML VIAL SUBQ SCH (06:47)
[2020-12-23] MEDS: INSULIN GLARGINE 300 UNIT/3 ML PEN SUBQ SCH ×2 (08:56→21:54)
[2020-12-23] MEDS: DOCUSATE SODIUM 250 MG CAPSULE PO SCH (08:56)
[2020-12-23] MEDS: polyethylene glycoL 3350 17 GM PACKET PO SCH (09:01)
[2020-12-23 09:55] LABS: VANCOMYCIN,TROUGH 19.7 ug/mL (10.0-20.0)
[2020-12-23] MEDS: VANCOMYCIN INJ 1 GM, VANCOMYCIN INJ 250 MG in SODIUM CHLORIDE 0.9% 250 ML IV SCH ×2 (11:12→22:35)
[2020-12-23] MEDS: CHOLECALCIFEROL 25 MCG TABLET PO SCH (11:16)
[2020-12-23] MEDS: ASCORBIC ACID CHEW 500 MG TABLET PO SCH (11:16)
[2020-12-23] MEDS: ZINC SULFATE 220 MG CAPSULE PO SCH (11:16)
[2020-12-23] MEDS: INSULIN ASPART 300 UNIT/3 ML PEN SUBQ SCH ×4 (11:58→21:55)
[2020-12-23] MEDS ORDERED: INSULIN ASPART 300 UNIT/3 ML PEN SUBQ SCH (12:00)
--- NOTE | 2020-12-23 19:13 | PROVIDER PROGRESS NOTE ---
Assessment/Plan - Problem List (1) Wound cellulitis after surgery Assessment/Plan: The wound is improving with IV antibiotics. She will require repeat debridement with general surgeons, unknown which day. We have low suspicion for necrotizing fasciitis at this time and she does not appear septic. Continue iv vancomycin and Zosyn and the OR. she can be discharged and follow-up with wound care. (2) Anemia Qualifiers: Anemia type: unspecified type Qualified Code(s): D64.9 - Anemia, unspecified Assessment/Plan: Her iron studies were suggestive of anemia of chronic disease. Her hemoglobin has been stable without evidence of bleeding. We will continue to monitor. No indication for transfusion at this time. (3) Type 2 diabetes mellitus, uncontrolled, with neuropathy Assessment/Plan: Her blood glucose has been elevated in the 200s. We will increase her Lantus to her home dose of 12 units twice daily given she will be eating postoperatively. We will place her on a carb controlled diet and sliding scale. - Current Meds Current Meds: Current Medications Generic Name Dose Route Start Last Admin Trade Name Dorothy PRN Reason Stop Dose Admin Acetaminophen 650 mg 12/20/20 22:38 12/21/20 00:37 Acetaminophen 325 Mg Tablet PO 650 mg Q4HR PRN Administration Pain 1 to 4 Ascorbic Acid 500 mg 12/23/20 11:00 12/23/20 11:16 Ascorbic Acid Chew 500 Mg Tablet PO 500 mg DAILY KAREN Administration Cholecalciferol 50 mcg 12/23/20 11:00 12/23/20 11:16 Cholecalciferol 25 Mcg Tablet PO 50 mcg DAILY KAREN Administration Docusate Sodium 250 - 500 mg 12/23/20 09:00 12/23/20 08:56 Docusate Sodium 250 Mg Capsule PO 250 mg DAILY KAREN Administration Hydromorphone HCl 0.5 mg 12/21/20 00:33 12/23/20 18:12 Hydromorphone 0.5 Mg/0.5 Ml Syringe IVP 0.5 mg Q2H PRN Administration PAIN Piperacillin Sod/Tazobactam 100 mls @ 200 mls/hr 12/21/20 03:00 12/23/20 14:45 Sod 3.375 gm/ Sodium Chloride IV Infused Q6H KAREN Infusion Vancomycin HCl 1 gm/ 250 mls @ 167 mls/hr 12/21/20 10:00 12/23/20 12:45 Vancomycin HCl 250 mg/ Sodium IV Infused Chloride Q12H KAREN Infusion Sodium Chloride 500 mls @ 20 mls/hr 12/22/20 20:33 12/22/20 21:02 Normal Saline 0.9% IV 20 mls/hr Q24H PRN Administration TKO RATE Insulin Aspart 3 unit 12/23/20 17:00 12/23/20 17:13 Insulin Aspart 300 Unit/3 Ml Pen SUBQ 3 unit TIDWM KAREN Administration Insulin Glargine 12 unit 12/22/20 21:00 12/23/20 08:56 Insulin Glargine 300 Unit/3 Ml Pen SUBQ 12 unit BID KAREN Administration Polyethylene Glycol 17 gm 12/23/20 09:00 12/23/20 09:01 Polyethylene Glycol 3350 17 Gm Packet PO Not Given DAILY KAREN Sodium Chloride 10 ml 12/20/20 22:38 12/22/20 19:05 Sodium Chloride Flush 0.9% 10 Ml Syringe IVP 10 ml PRN PRN Administration NEEDED PER PROVIDER ORDERS Sodium Chloride 10 ml 12/21/20 01:00 12/23/20 17:12 Sodium Chloride Flush 0.9% 10 Ml Syringe IVP Not Given 0100,0900,1700 KAREN Zinc Sulfate 220 mg 12/23/20 11:00 12/23/20 11:16 Zinc Sulfate 220 Mg Capsule PO 220 mg DAILY KAREN Administration - Lab Result Fish Bone Diagrams: 12/26/20 04:35 12/26/20 04:35 - Additional Planning My Orders: My Active Orders 12/23/20 11:00 Ascorbic Acid Chew [Vitamin C] 500 mg PO DAILY Cholecalciferol [Vitamin D3] 50 mcg PO DAILY Zinc Sulfate 220 mg PO DAILY 12/23/20 Lunch Carb-controlled Diet [DIET] 12/23/20 17:00 Insulin Aspart [NovoLOG] 3 unit SUBQ TIDWM 12/23/20 21:00 Insulin Aspart [NovoLOG] 1 - 9 unit SUBQ 0800,1200,1700,2100 Subjective - Subjective Patient Reports: Feeling Better, Resting Comfortably, Other (Concerned about what her neck surgery will be in which day, concerned about her elevated glucose levels) Objective Vital Signs: Vital Signs - 24 hr 12/22/20 12/23/20 12/23/20 21:09 01:48 05:17 Temperature 37.1 C 37.2 C 37.0 C Heart Rate [ 92 96 90 Brachial] Respiratory 16 17 16 Rate Blood Pressure 162/73 H 165/87 H 164/81 H [Right Brachial artery] O2 Saturation 94 92 98 12/23/20 12/23/20 11:30 15:39 Temperature 36.8 C 36.8 C Heart Rate [ 89 95 Brachial] Respiratory 20 16 Rate Blood Pressure 154/65 H 146/83 H [Right Brachial artery] O2 Saturation 98 97 Oxygen O2 Source Room air I&O (Last 24 Hrs): Intake and Output Totals x24h 12/21/20 12/22/20 12/23/20 23:59 23:59 23:59 Intake Total 4293.334 3010 1270 Output Total 2700 2100 3100 Balance 1593.334 910 -1830 General: Alert, Oriented x3 HEENT: Mucous membr. moist/pink Neck: Supple, No JVD Neuro: Alert, Non Focal Cardiovascular: Regular rate Respiratory: No respiratory distress Abdomen: Soft Extremities: No edema - Results Results: Laboratory Results WBC 9.0 x10^3/uL (4.8-10.8) 12/23/20 04:40 RBC 2.76 10^6/uL (4.20-5.40) L 12/23/20 04:40 Hgb 8.4 g/dL (12.0-16.0) L 12/23/20 04:40 Hct 25.0 % (37.0-47.0) L 12/23/20 04:40 MCV 90.6 fL (81.0-99.0) 12/23/20 04:40 MCH 30.4 pg (27.0-31.0) 12/23/20 04:40 MCHC 33.6 g/dL (32.0-36.0) 12/23/20 04:40 RDW 14.0 % (12.0-15.0) 12/23/20 04:40 Plt Count 415 10^3/uL (130-450) 12/23/20 04:40 MPV 9.7 fL (7.9-10.8) 12/23/20 04:40 Neut # (Auto) 6.1 10^3/uL (1.5-6.6) 12/23/20 04:40 Lymph # (Auto) 2.0 10^3/uL (1.5-3.5) 12/23/20 04:40 [place] # (Auto) 0.5 10^3/uL (0.0-1.0) 12/23/20 04:40 Eos # (Auto) 0.3 10^3/uL (0.0-0.7) 12/23/20 04:40 Baso # (Auto) 0.1 10^3/uL (0.0-0.1) 12/23/20 04:40 Absolute Nucleated RBC 0.00 x10^3/uL 12/23/20 04:40 Nucleated RBC % 0.0 /100WBC 12/23/20 04:40 Sodium 134 mmol/L (135-145) L 12/23/20 04:40 Potassium 3.6 mmol/L (3.5-5.0) 12/23/20 04:40 Chloride 102 mmol/L (101-111) 12/23/20 04:40 Carbon Dioxide 25 mmol/L (21-32) 12/23/20 04:40 Anion Gap 7.0 (6-13) 12/23/20 04:40 BUN 13 mg/dL (6-20) 12/23/20 04:40 Creatinine 0.6 mg/dL (0.4-1.0) 12/23/20 04:40 Estimated GFR (MDRD) 110 (>89) 12/23/20 04:40 Glucose 146 mg/dL (70-100) H 12/23/20 04:40 POC Whole Bld Glucose 219 mg/dL (70 - 100) H 12/23/20 16:45 Estimat Average Glucose 286 mg/dL (70-100) H 12/21/20 04:30 Hemoglobin A1c % 11.6 % (4.27-6.07) H 12/21/20 04:30 Calcium 7.8 mg/dL (8.5-10.3) L 12/23/20 04:40 Magnesium 1.7 mg/dL (1.7-2.8) 12/23/20 04:40 Iron 33 ug/dL (28-170) 12/22/20 05:09 TIBC 220 ug/dL (250-450) L 12/22/20 05:09 % Saturation 15 % (20-50) L 12/22/20 05:09 Transferrin 157 mg/dL (192-382) L 12/22/20 05:09 Ferritin 156.8 ng/mL (11.0-306.8) 12/22/20 05:09 Nasal Adenovirus (PCR) NOT DETECTED 12/20/20 22:14 Nasal B. parapertussis DNA (PCR) NOT DETECTED 12/20/20 22:14 Nasal Coronavir 229E PCR NOT DETECTED 12/20/20 22:14 Nasal Coronavir HKU1 PCR NOT DETECTED 12/20/20 22:14 Nasal Coronavir NL63 PCR NOT DETECTED 12/20/20 22:14 Nasal Coronavir OC43 PCR NOT DETECTED 12/20/20 22:14 Nasal Enterovir/Rhinovir PCR NOT DETECTED 12/20/20 22:14 Nasal Influenza B PCR NOT DETECTED 12/20/20 22:14 Nasal Influenza A PCR NOT DETECTED 12/20/20 22:14 Nasal Parainfluen 1 PCR NOT DETECTED 12/20/20 22:14 Nasal Parainfluen 2 PCR NOT DETECTED 12/20/20 22:14 Nasal Parainfluen 3 PCR NOT DETECTED 12/20/20 22:14 Nasal Parainfluen 4 PCR NOT DETECTED 12/20/20 22:14 Nasal RSV (PCR) NOT DETECTED 12/20/20 22:14 Nasal B.pertussis DNA PCR NOT DETECTED 12/20/20 22:14 Nasal C.pneumoniae (PCR) NOT DETECTED 12/20/20 22:14 Luis Human Metapneumo PCR NOT DETECTED 12/20/20 22:14 Nasal M.pneumoniae (PCR) NOT DETECTED 12/20/20 22:14 Nasal SARS-CoV-2 (PCR) NOT DETECTED 12/20/20 22:14 Last Dose Date UNK 12/23/20 09:40 Last Dose Time UNK 12/23/20 09:40 Vancomycin Trough 19.7 ug/mL (10.0-20.0) 12/23/20 09:40 Blood Type A NEGATIVE 12/22/20 10:35 Blood Type Recheck A NEGATIVE 12/22/20 05:09 Antibody Screen NEGATIVE 12/22/20 10:35
[2020-12-23] MEDS: SODIUM CHLORIDE 0.9% 500 ML IV PRN (22:01)
[2020-12-24] MEDS: SODIUM CHLORIDE FLUSH 0.9% 10 ML SYRINGE IVP SCH ×3 (00:21→17:13)
[2020-12-24] MEDS: HYDROmorphone 0.5 MG/0.5 ML SYRINGE IVP PRN ×9 (00:21→21:21)
[2020-12-24] MEDS: PIPERACILLIN/TAZOBACTAM 3.375 GM in SODIUM CHLORIDE 0.9% MINIBAG 100 ML IV SCH ×4 (02:45→21:20)
[2020-12-24 05:52] LABS: BASOPHILS # (AUTO) 0.1 10^3/uL (0.0-0.1); BASOPHILS % (AUTO) 1.2 %; EOSINOPHILS # (AUTO) 0.5 10^3/uL (0.0-0.7); EOSINOPHILS % (AUTO) 6.3 %; HCT - HEMATOCRIT 25.3 % (37.0-47.0); HGB - HEMOGLOBIN 8.3 g/dL (12.0-16.0); LYMPHOCYTES # (AUTO) 2.1 10^3/uL (1.5-3.5); LYMPHOCYTES % (AUTO) 26.5 %; MEAN CORPUSCULAR HEMOGLOBIN 29.6 pg (27.0-31.0); MEAN CORPUSCULAR HGB CONC 32.8 g/dL (32.0-36.0); MEAN CORPUSCULAR VOLUME 90.4 fL (81.0-99.0); MEAN PLATELET VOLUME 9.2 fL (7.9-10.8); MONOCYTES # (AUTO) 0.7 10^3/uL (0.0-1.0); MONOCYTES % (AUTO) 8.4 %; NEUTROPHILS # (AUTO) 4.4 10^3/uL (1.5-6.6); NEUTROPHILS % (AUTO) 57.3 %; PLT - PLATELET COUNT 374 10^3/uL (130-450); RED CELL DISTRIBUTION WIDTH 13.8 % (12.0-15.0); WHITE BLOOD COUNT 7.7 x10^3/uL (4.8-10.8)
[2020-12-24 06:02] LABS: CALCIUM 8.1 mg/dL (8.5-10.3); CREATININE 0.7 mg/dL (0.4-1.0); MAGNESIUM 1.8 mg/dL (1.7-2.8); POTASSIUM 3.9 mmol/L (3.5-5.0)
[2020-12-24] MEDS: INSULIN ASPART 300 UNIT/3 ML PEN SUBQ SCH ×6 (08:00→21:25)
[2020-12-24] MEDS: INSULIN GLARGINE 300 UNIT/3 ML PEN SUBQ SCH ×2 (08:02→21:24)
[2020-12-24] MEDS: ZINC SULFATE 220 MG CAPSULE PO SCH (08:03)
[2020-12-24] MEDS: ASCORBIC ACID CHEW 500 MG TABLET PO SCH (08:03)
[2020-12-24] MEDS: CHOLECALCIFEROL 25 MCG TABLET PO SCH (08:03)
[2020-12-24] MEDS: DOCUSATE SODIUM 250 MG CAPSULE PO SCH (08:47)
[2020-12-24] MEDS: polyethylene glycoL 3350 17 GM PACKET PO SCH (09:23)
[2020-12-24] MEDS: VANCOMYCIN INJ 1 GM, VANCOMYCIN INJ 250 MG in SODIUM CHLORIDE 0.9% 250 ML IV SCH ×2 (09:24→22:07)
[2020-12-24] MEDS ORDERED: INSULIN REGULAR HUMAN 300 UNIT/3 ML VIAL SUBQ SCH (12:00)
--- NOTE | 2020-12-24 21:03 | PROVIDER PROGRESS NOTE ---
Assessment/Plan - Problem List (1) Wound cellulitis after surgery Assessment/Plan: Is to by general surgery, Dr. Andrew, appreciate assistance. Plans for surgery today were removed to tomorrow due to scheduling and availability. Patient is otherwise clinically stable with no fever, leukocytosis, or evidence of worsening infection. Plan is for return to surgery tomorrow for further debridement of wound. (2) Anemia Qualifiers: Anemia type: unspecified type Qualified Code(s): D64.9 - Anemia, unspecified Assessment/Plan: Patient carries diagnosis of anemia of chronic disease. H&H stable with no evidence of active bleeding with the exception of modest amount of wound VAC drainage, to be expected with current wound. No evidence of hemodynamic compromise or symptoms. Continue to monitor H&H. (3) Type 2 diabetes mellitus Qualifiers: Diabetes mellitus skilled nursing insulin use: unspecified skilled nursing insulin use status Diabetes mellitus complication status: with other specified complication Qualified Code(s): E11.69 - Type 2 diabetes mellitus with other specified complication Assessment/Plan: Blood sugar is well controlled. Discussed at length carb controlled diet as patient has expressed frustration that she has been told to take more responsibility of her dietary choices while our food services have been providing which she considers to be suboptimal diabetic meals such as high proportion of pasta and rice. Reiterated with patient that I do commend her for doing an excellent job and we understand that blood sugars will fluctuate in the setting of infection and acce pted her criticism that we need to improve our dietary choices and will pass this along as feedback. - Current Meds Current Meds: Current Medications Generic Name Dose Route Start Last Admin Trade Name Dorothy PRN Reason Stop Dose Admin Acetaminophen 650 mg 12/20/20 22:38 12/21/20 00:37 Acetaminophen 325 Mg Tablet PO 650 mg Q4HR PRN Administration Pain 1 to 4 Ascorbic Acid 500 mg 12/23/20 11:00 12/24/20 08:03 Ascorbic Acid Chew 500 Mg Tablet PO 500 mg DAILY KAREN Administration Cholecalciferol 50 mcg 12/23/20 11:00 12/24/20 08:03 Cholecalciferol 25 Mcg Tablet PO 50 mcg DAILY KAREN Administration Docusate Sodium 250 - 500 mg 12/23/20 09:00 12/24/20 08:47 Docusate Sodium 250 Mg Capsule PO 250 mg DAILY KAREN Administration Hydromorphone HCl 0.5 mg 12/21/20 00:33 12/24/20 17:50 Hydromorphone 0.5 Mg/0.5 Ml Syringe IVP 0.5 mg Q2H PRN Administration PAIN Piperacillin Sod/Tazobactam 100 mls @ 200 mls/hr 12/21/20 03:00 12/24/20 15:45 Sod 3.375 gm/ Sodium Chloride IV Infused Q6H KAREN Infusion Vancomycin HCl 1 gm/ 250 mls @ 167 mls/hr 12/21/20 10:00 12/24/20 11:13 Vancomycin HCl 250 mg/ Sodium IV Infused Chloride Q12H KAREN Infusion Sodium Chloride 500 mls @ 20 mls/hr 12/22/20 20:33 12/23/20 22:01 Normal Saline 0.9% IV 20 mls/hr Q24H PRN Administration TKO RATE Insulin Aspart 3 unit 12/23/20 17:00 12/24/20 17:10 Insulin Aspart 300 Unit/3 Ml Pen SUBQ 3 unit TIDWM KAREN Administration Insulin Aspart 1 - 9 unit 12/24/20 17:00 12/24/20 17:13 Insulin Aspart 300 Unit/3 Ml Pen SUBQ Not Given 0800,1200,1700,2100 [facility] Protocol Insulin Glargine 12 unit 12/22/20 21:00 12/24/20 08:02 Insulin Glargine 300 Unit/3 Ml Pen SUBQ 12 unit BID KAREN Administration Polyethylene Glycol 17 gm 12/23/20 09:00 12/24/20 09:23 Polyethylene Glycol 3350 17 Gm Packet PO Not Given DAILY KRAEN Sodium Chloride 10 ml 12/20/20 22:38 12/22/20 19:05 Sodium Chloride Flush 0.9% 10 Ml Syringe IVP 10 ml PRN PRN Administration NEEDED PER PROVIDER ORDERS Sodium Chloride 10 ml 12/21/20 01:00 12/24/20 17:13 Sodium Chloride Flush 0.9% 10 Ml Syringe IVP Not Given 0100,0900,1700 KAREN Zinc Sulfate 220 mg 12/23/20 11:00 12/24/20 08:03 Zinc Sulfate 220 Mg Capsule PO 220 mg DAILY KAREN Administration - Lab Result Lab results reviewed: Yes Fish Bone Diagrams: 12/24/20 05:35 12/24/20 05:35 - Diagnostic Imaging Results Diagnostic Imaging Results: Final report reviewed - Additional Planning Condition/Complexity: Stable Consult/Specialty: Surgery Plan Discussed with:: Patient Time Spent: 15-30 minutes Subjective - Subjective Patient Reports: Resting Comfortably, No Complaints Objective Vital Signs: Vital Signs - 24 hr 12/23/20 12/24/20 12/24/20 21:22 03:25 06:00 Temperature 37 C 36.7 C 36.8 C Heart Rate [ 96 83 95 Brachial] Respiratory 16 18 16 Rate Blood Pressure 155/88 H 147/74 H 144/81 H [Right Brachial artery] O2 Saturation 97 97 97 12/24/20 12/24/20 07:43 16:00 Temperature 36.9 C 36.8 C Heart Rate [ 91 92 Brachial] Respiratory 18 18 Rate Blood Pressure 150/75 H 158/74 H [Right Brachial artery] O2 Saturation 96 98 Oxygen O2 Source Room air I&O (Last 24 Hrs): Intake and Output Totals x24h 12/22/20 12/23/20 12/24/20 23:59 23:59 23:59 Intake Total 3010 1170.058 7115 Output Total 2100 4150 1400 Balance 910 -2280.333 -120 General: Alert, Oriented x3 - Results Results: Laboratory Results WBC 7.7 x10^3/uL (4.8-10.8) 12/24/20 05:35 RBC 2.80 10^6/uL (4.20-5.40) L 12/24/20 05:35 Hgb 8.3 g/dL (12.0-16.0) L 12/24/20 05:35 Hct 25.3 % (37.0-47.0) L 12/24/20 05:35 MCV 90.4 fL (81.0-99.0) 12/24/20 05:35 MCH 29.6 pg (27.0-31.0) 12/24/20 05:35 MCHC 32.8 g/dL (32.0-36.0) 12/24/20 05:35 RDW 13.8 % (12.0-15.0) 12/24/20 05:35 Plt Count 374 10^3/uL (130-450) 12/24/20 05:35 MPV 9.2 fL (7.9-10.8) 12/24/20 05:35 Neut # (Auto) 4.4 10^3/uL (1.5-6.6) 12/24/20 05:35 Lymph # (Auto) 2.1 10^3/uL (1.5-3.5) 12/24/20 05:35 [place] # (Auto) 0.7 10^3/uL (0.0-1.0) 12/24/20 05:35 Eos # (Auto) 0.5 10^3/uL (0.0-0.7) 12/24/20 05:35 Baso # (Auto) 0.1 10^3/uL (0.0-0.1) 12/24/20 05:35 Absolute Nucleated RBC 0.00 x10^3/uL 12/24/20 05:35 Nucleated RBC % 0.0 /100WBC 12/24/20 05:35 Sodium 133 mmol/L (135-145) L 12/24/20 05:35 Potassium 3.9 mmol/L (3.5-5.0) 12/24/20 05:35 Chloride 98 mmol/L (101-111) L 12/24/20 05:35 Carbon Dioxide 27 mmol/L (21-32) 12/24/20 05:35 Anion Gap 8.0 (6-13) 12/24/20 05:35 BUN 21 mg/dL (6-20) H 12/24/20 05:35 Creatinine 0.7 mg/dL (0.4-1.0) 12/24/20 05:35 Estimated GFR (MDRD) 92 (>89) 12/24/20 05:35 Glucose 188 mg/dL (70-100) H 12/24/20 05:35 POC Whole Bld Glucose 166 mg/dL (70 - 100) H 12/24/20 20:31 Estimat Average Glucose 286 mg/dL (70-100) H 12/21/20 04:30 Hemoglobin A1c % 11.6 % (4.27-6.07) H 12/21/20 04:30 Calcium 8.1 mg/dL (8.5-10.3) L 12/24/20 05:35 Magnesium 1.8 mg/dL (1.7-2.8) 12/24/20 05:35 Iron 33 ug/dL (28-170) 12/22/20 05:09 TIBC 220 ug/dL (250-450) L 12/22/20 05:09 % Saturation 15 % (20-50) L 12/22/20 05:09 Transferrin 157 mg/dL (192-382) L 12/22/20 05:09 Ferritin 156.8 ng/mL (11.0-306.8) 12/22/20 05:09 Nasal Adenovirus (PCR) NOT DETECTED 12/20/20 22:14 Nasal B. parapertussis DNA (PCR) NOT DETECTED 12/20/20 22:14 Nasal Coronavir 229E PCR NOT DETECTED 12/20/20 22:14 Nasal Coronavir HKU1 PCR NOT DETECTED 12/20/20 22:14 Nasal Coronavir NL63 PCR NOT DETECTED 12/20/20 22:14 Nasal Coronavir OC43 PCR NOT DETECTED 12/20/20 22:14 Nasal Enterovir/Rhinovir PCR NOT DETECTED 12/20/20 22:14 Nasal Influenza B PCR NOT DETECTED 12/20/20 22:14 Nasal Influenza A PCR NOT DETECTED 12/20/20 22:14 Nasal Parainfluen 1 PCR NOT DETECTED 12/20/20 22:14 Nasal Parainfluen 2 PCR NOT DETECTED 12/20/20 22:14 Nasal Parainfluen 3 PCR NOT DETECTED 12/20/20 22:14 Nasal Parainfluen 4 PCR NOT DETECTED 12/20/20 22:14 Nasal RSV (PCR) NOT DETECTED 12/20/20 22:14 Nasal B.pertussis DNA PCR NOT DETECTED 12/20/20 22:14 Nasal C.pneumoniae (PCR) NOT DETECTED 12/20/20 22:14 Luis Human Metapneumo PCR NOT DETECTED 12/20/20 22:14 Nasal M.pneumoniae (PCR) NOT DETECTED 12/20/20 22:14 Nasal SARS-CoV-2 (PCR) NOT DETECTED 12/20/20 22:14 Last Dose Date UNK 12/23/20 09:40 Last Dose Time UNK 12/23/20 09:40 Vancomycin Trough 19.7 ug/mL (10.0-20.0) 12/23/20 09:40 Blood Type A NEGATIVE 12/22/20 10:35 Blood Type Recheck A NEGATIVE 12/22/20 05:09 Antibody Screen NEGATIVE 12/22/20 10:35 ABX Reporting Has patient been on IV antibiotics over the past 48 hours?: Yes Current Medications - Current Medications Current Medications: Current Medications Generic Name Dose Route Start Last Admin Trade Name Freq PRN Reason Stop Dose Admin Acetaminophen 650 mg 12/20/20 22:38 12/21/20 00:37 Acetaminophen 325 Mg Tablet PO 650 mg Q4HR PRN Administration Pain 1 to 4 Ascorbic Acid 500 mg 12/23/20 11:00 12/24/20 08:03 Ascorbic Acid Chew 500 Mg Tablet PO 500 mg DAILY KAREN Administration Cholecalciferol 50 mcg 12/23/20 11:00 12/24/20 08:03 Cholecalciferol 25 Mcg Tablet PO 50 mcg DAILY KAREN Administration Docusate Sodium 250 - 500 mg 12/23/20 09:00 12/24/20 08:47 Docusate Sodium 250 Mg Capsule PO 250 mg DAILY KAREN Administration Hydromorphone HCl 0.5 mg 12/21/20 00:33 12/24/20 17:50 Hydromorphone 0.5 Mg/0.5 Ml Syringe IVP 0.5 mg Q2H PRN Administration PAIN Piperacillin Sod/Tazobactam 100 mls @ 200 mls/hr 12/21/20 03:00 12/24/20 15:45 Sod 3.375 gm/ Sodium Chloride IV Infused Q6H KAREN Infusion Vancomycin HCl 1 gm/ 250 mls @ 167 mls/hr 12/21/20 10:00 12/24/20 11:13 Vancomycin HCl 250 mg/ Sodium IV Infused Chloride Q12H KAREN Infusion Sodium Chloride 500 mls @ 20 mls/hr 12/22/20 20:33 12/23/20 22:01 Normal Saline 0.9% IV 20 mls/hr Q24H PRN Administration TKO RATE Insulin Aspart 3 unit 12/23/20 17:00 12/24/20 17:10 Insulin Aspart 300 Unit/3 Ml Pen SUBQ 3 unit TIDWM [facility] Administration Insulin Aspart 1 - 9 unit 12/24/20 17:00 12/24/20 17:13 Insulin Aspart 300 Unit/3 Ml Pen SUBQ Not Given 0800,1200,1700,2100 [facility] Protocol Insulin Glargine 12 unit 12/22/20 21:00 12/24/20 08:02 Insulin Glargine 300 Unit/3 Ml Pen SUBQ 12 unit BID KAREN Administration Polyethylene Glycol 17 gm 12/23/20 09:00 12/24/20 09:23 Polyethylene Glycol 3350 17 Gm Packet PO Not Given DAILY KAREN Sodium Chloride 10 ml 12/20/20 22:38 12/22/20 19:05 Sodium Chloride Flush 0.9% 10 Ml Syringe IVP 10 ml PRN PRN Administration NEEDED PER PROVIDER ORDERS Sodium Chloride 10 ml 12/21/20 01:00 12/24/20 17:13 Sodium Chloride Flush 0.9% 10 Ml Syringe IVP Not Given 0100,0900,1700 KAREN Zinc Sulfate 220 mg 12/23/20 11:00 12/24/20 08:03 Zinc Sulfate 220 Mg Capsule PO 220 mg DAILY KAREN Administration
[2020-12-25] MEDS: HYDROmorphone 0.5 MG/0.5 ML SYRINGE IVP PRN ×7 (00:16→22:19)
[2020-12-25] MEDS: SODIUM CHLORIDE FLUSH 0.9% 10 ML SYRINGE IVP SCH ×3 (01:28→16:42)
[2020-12-25] MEDS: PIPERACILLIN/TAZOBACTAM 3.375 GM in SODIUM CHLORIDE 0.9% MINIBAG 100 ML IV SCH ×4 (03:31→21:04)
[2020-12-25] MEDS: SODIUM CHLORIDE FLUSH 0.9% 10 ML SYRINGE IVP PRN (04:55)
[2020-12-25 05:27] LABS: BASOPHILS # (AUTO) 0.1 10^3/uL (0.0-0.1); EOSINOPHILS # (AUTO) 0.5 10^3/uL (0.0-0.7); EOSINOPHILS % (AUTO) 6.6 %; HCT - HEMATOCRIT 25.1 % (37.0-47.0); HGB - HEMOGLOBIN 8.2 g/dL (12.0-16.0); LYMPHOCYTES # (AUTO) 2.2 10^3/uL (1.5-3.5); LYMPHOCYTES % (AUTO) 27.7 %; MEAN CORPUSCULAR HEMOGLOBIN 29.8 pg (27.0-31.0); MEAN CORPUSCULAR HGB CONC 32.7 g/dL (32.0-36.0); MEAN CORPUSCULAR VOLUME 91.3 fL (81.0-99.0); MEAN PLATELET VOLUME 9.9 fL (7.9-10.8); MONOCYTES # (AUTO) 0.5 10^3/uL (0.0-1.0); MONOCYTES % (AUTO) 6.9 %; NEUTROPHILS # (AUTO) 4.5 10^3/uL (1.5-6.6); NEUTROPHILS % (AUTO) 57.5 %; PLT - PLATELET COUNT 338 10^3/uL (130-450); RED BLOOD COUNT 2.75 10^6/uL (4.20-5.40); WHITE BLOOD COUNT 7.8 x10^3/uL (4.8-10.8)
[2020-12-25 05:35] LABS: CALCIUM 8.3 mg/dL (8.5-10.3); MAGNESIUM 1.8 mg/dL (1.7-2.8); POTASSIUM 4.1 mmol/L (3.5-5.0)
--- NOTE | 2020-12-25 10:33 | ANESTHESIA ---
Pre-Anesthesia VS, & Labs - Diagnosis necrotizing fasciitis, wound complication - Procedure wound vac change Vital Signs: Temp Pulse Resp BP Pulse Ox 36.9 C 90 18 156/81 H 92 12/25/20 07:40 12/25/20 07:40 12/25/20 07:40 12/25/20 07:40 12/25/20 07:40 Height: 5 ft 5 in Weight (kg): 71 kg Body Mass Index: 26.0 BMI Classification: Overweight - NPO >8 hours - Is Patient ?: No - Lab Results Current Lab Results: Laboratory Tests 12/25/20 07:47: POC Whole Bld Glucose 192 H 12/25/20 04:30: Sodium 135, Potassium 4.1, Chloride 102, Carbon Dioxide 27, Anion Gap 6.0, BUN 28 H, Creatinine 1.0, Estimated GFR (MDRD) 61 L, Glucose 208 H, Calcium 8.3 L, Magnesium 1.8 12/25/20 04:30: WBC 7.8, RBC 2.75 L, Hgb 8.2 L, Hct 25.1 L, MCV 91.3, MCH 29.8, MCHC 32.7, RDW 14.0, Plt Count 338, MPV 9.9, Neut # (Auto) 4.5, Lymph # (Auto) 2.2, [place] # (Auto) 0.5, Eos # (Auto) 0.5, Baso # (Auto) 0.1, Absolute Nucleated RBC 0.00, Nucleated RBC % 0.0 12/24/20 20:31: POC Whole Bld Glucose 166 H 12/24/20 16:46: POC Whole Bld Glucose 90 12/24/20 11:55: POC Whole Bld Glucose 202 H 12/24/20 07:44: POC Whole Bld Glucose 179 H 12/24/20 05:35: Sodium 133 L, Potassium 3.9, Chloride 98 L, Carbon Dioxide 27, Anion Gap 8.0, BUN 21 H, Creatinine 0.7, Estimated GFR (MDRD) 92, Glucose 188 H, Calcium 8.1 L, Magnesium 1.8 12/24/20 05:35: WBC 7.7, RBC 2.80 L, Hgb 8.3 L, Hct 25.3 L, MCV 90.4, MCH 29.6, MCHC 32.8, RDW 13.8, Plt Count 374, MPV 9.2, Neut # (Auto) 4.4, Lymph # (Auto) 2.1, [place] # (Auto) 0.7, Eos # (Auto) 0.5, Baso # (Auto) 0.1, Absolute Nucleated RBC 0.00, Nucleated RBC % 0.0 12/23/20 20:44: POC Whole Bld Glucose 266 H 12/23/20 16:45: POC Whole Bld Glucose 219 H 12/23/20 11:22: POC Whole Bld Glucose 223 H 12/23/20 09:40: Last Dose Date UNK, Last Dose Time UNK, Vancomycin Trough 19.7 12/23/20 06:46: POC Whole Bld Glucose 124 H 12/23/20 04:40: Sodium 134 L, Potassium 3.6, Chloride 102, Carbon Dioxide 25, Anion Gap 7.0, BUN 13, Creatinine 0.6, Estimated GFR (MDRD) 110, Glucose 146 H, Calcium 7.8 L, Magnesium 1.7 12/23/20 04:40: WBC 9.0, RBC 2.76 L, Hgb 8.4 L, Hct 25.0 L, MCV 90.6, MCH 30.4, MCHC 33.6, RDW 14.0, Plt Count 415, MPV 9.7, Neut # (Auto) 6.1, Lymph # (Auto) 2.0, [place] # (Auto) 0.5, Eos # (Auto) 0.3, Baso # (Auto) 0.1, Absolute Nucleated RBC 0.00, Nucleated RBC % 0.0 12/22/20 20:32: POC Whole Bld Glucose 158 H 12/22/20 17:48: POC Whole Bld Glucose 154 H 12/22/20 11:29: POC Whole Bld Glucose 149 H 12/22/20 10:35: Blood Type A NEGATIVE, Antibody Screen NEGATIVE 12/22/20 08:32: POC Whole Bld Glucose 192 H 12/22/20 05:09: Blood Type Recheck A NEGATIVE 12/22/20 05:09: Ferritin 156.8 12/22/20 05:09: Sodium 134 L, Potassium 4.1, Chloride 104, Carbon Dioxide 25, Anion Gap 5.0 L, BUN 17, Creatinine 0.7, Estimated GFR (MDRD) 92, Glucose 191 H, Calcium 7.9 L, Magnesium 1.8, Iron 33, TIBC 220 L, % Saturation 15 L, Transferrin 157 L 12/22/20 05:09: WBC 7.6, RBC 2.72 L, Hgb 8.0 L, Hct 25.6 L, MCV 94.1, MCH 29.4, MCHC 31.3 L, RDW 14.5, Plt Count 360, MPV 10.8, Neut # (Auto) 4.1, Lymph # (Auto) 2.5, [place] # (Auto) 0.6, Eos # (Auto) 0.3, Baso # (Auto) 0.1, Absolute Nucleated RBC 0.00, Nucleated RBC % 0.0 12/21/20 21:02: POC Whole Bld Glucose 248 H 12/21/20 16:42: POC Whole Bld Glucose 206 H 12/21/20 11:27: POC Whole Bld Glucose 166 H 12/21/20 08:37: POC Whole Bld Glucose 187 H 12/21/20 08:36: Sodium 136, Potassium 4.3, Chloride 105, Carbon Dioxide 24, Anion Gap 7.0, BUN 21 H, Creatinine 0.7, Estimated GFR (MDRD) 92, Glucose 196 H, Calcium 8.1 L, Magnesium 1.6 L 12/21/20 08:36: WBC 8.8, RBC 2.71 L, Hgb 8.1 L, Hct 24.7 L, MCV 91.1, MCH 29.9, MCHC 32.8, RDW 14.5, Plt Count 438, MPV 9.2, Neut # (Auto) 5.4, Lymph # (Auto) 2.4, [place] # (Auto) 0.7, Eos # (Auto) 0.3, Baso # (Auto) 0.1, Absolute Nucleated RBC 0.00, Nucleated RBC % 0.0 12/21/20 04:30: Estimat Average Glucose 286 H, Hemoglobin A1c % 11.6 H 12/20/20 19:59: Sodium 135, Potassium 4.4, Chloride 102, Carbon Dioxide 25, Anion Gap 8.0, BUN 30 H, Creatinine 0.8, Estimated GFR (MDRD) 79 L, Glucose 275 H, Calcium 8.7 12/20/20 19:59: WBC 9.8, RBC 2.99 L, Hgb 9.1 L, Hct 27.5 L, MCV 92.0, MCH 30.4, MCHC 33.1, RDW 14.3, Plt Count 512 H, MPV 9.1, Neut # (Auto) 6.7 H, Lymph # (Auto) 2.0, [place] # (Auto) 0.8, Eos # (Auto) 0.3, Baso # (Auto) 0.1, Absolute Nucleated RBC 0.00, Nucleated RBC % 0.0 Fish Bones: 12/25/20 04:30 12/25/20 04:30 Home Medications and Allergies Active Medications Acetaminophen (Acetaminophen 325 Mg Tablet) 650 mg PO Q4HR PRN PRN Reason: Pain 1 to 4 Last Admin: 12/21/20 00:37 Dose: 650 mg Documented by: Ascorbic Acid (Ascorbic Acid Chew 500 Mg Tablet) 500 mg PO DAILY [facility] Last Admin: 12/24/20 08:03 Dose: 500 mg Documented by: Cholecalciferol (Cholecalciferol 25 Mcg Tablet) 50 mcg PO DAILY [facility] Last Admin: 12/24/20 08:03 Dose: 50 mcg Documented by: Docusate Sodium (Docusate Sodium 250 Mg Capsule) 250 - 500 mg PO DAILY [facility] Last Admin: 12/24/20 08:47 Dose: 250 mg Documented by: Hydromorphone HCl (Hydromorphone 0.5 Mg/0.5 Ml Syringe) 0.5 mg IVP Q2H PRN PRN Reason: PAIN Last Admin: 12/25/20 08:16 Dose: 0.5 mg Documented by: Piperacillin Sod/Tazobactam (Sod 3.375 gm/ Sodium Chloride) 100 mls @ 200 mls/ hr IV Q6H [facility] Last Infusion: 12/25/20 07:30 Dose: Infused Documented by: Vancomycin HCl 1 gm/Vancomycin HCl 250 mg/ Sodium Chloride 250 mls @ 167 mls/hr IV Q12H [facility] Last Infusion: 12/24/20 23:37 Dose: Infused Documented by: Sodium Chloride (Normal Saline 0.9%) 500 mls @ 20 mls/hr IV Q24H PRN PRN Reason: TKO RATE Last Admin: 12/23/20 22:01 Dose: 20 mls/hr Documented by: Insulin Aspart (Insulin Aspart 300 Unit/3 Ml Pen) 3 unit SUBQ TIDWM [facility] Last Admin: 12/24/20 17:10 Dose: 3 unit Documented by: Insulin Aspart (Insulin Aspart 300 Unit/3 Ml Pen) 1 - 9 unit SUBQ 0800,1200,1700,2100 [facility]; Protocol Last Admin: 12/24/20 21:25 Dose: 1 unit Documented by: Insulin Glargine (Insulin Glargine 300 Unit/3 Ml Pen) 12 unit SUBQ BID [facility] Last Admin: 12/24/20 21:24 Dose: 12 unit Documented by: Ondansetron HCl (Ondansetron Odt 4 Mg Tablet) 4 mg TL Q6HR PRN PRN Reason: Nausea / Vomiting Ondansetron HCl (Ondansetron 4 Mg/2 Ml Vial) 4 mg IVP Q6HR PRN PRN Reason: Nausea / Vomiting Polyethylene Glycol (Polyethylene Glycol 3350 17 Gm Packet) 17 gm PO DAILY [facility] Last Admin: 12/24/20 09:23 Dose: Not Given Documented by: Sodium Chloride (Sodium Chloride Flush 0.9% 10 Ml Syringe) 10 ml IVP PRN PRN PRN Reason: NEEDED PER PROVIDER ORDERS Last Admin: 12/25/20 04:55 Dose: 10 ml Documented by: Sodium Chloride (Sodium Chloride Flush 0.9% 10 Ml Syringe) 10 ml IVP 0100 ,0900,1700 [facility] Last Admin: 12/25/20 01:28 Dose: Not Given Documented by: Tramadol HCl (Tramadol 50 Mg Tablet) 50 mg PO Q4HR PRN PRN Reason: PAIN Zinc Sulfate (Zinc Sulfate 220 Mg Capsule) 220 mg PO DAILY [facility] Last Admin: 12/24/20 08:03 Dose: 220 mg Documented by: Ibuprofen [Motrin] 1 tab PO BID 12/05/20 Docusate Sodium [Dss] 250 mg PO DAILY PRN 12/17/20 Ferrous Sulfate 325 mg PO DAILY 12/17/20 Insulin Glargine [Lantus Solostar] 12 - 16 unit SQ BID 12/17/20 Insulin Lispro [Humalog Kwikpen U-100] 3 - 6 unit SQ AC 12/17/20 traMADol [Ultram] 50 mg PO DAILY 12/18/20 Allergies/Adverse Reactions: Allergies Allergy/AdvReac Type Severity Reaction Status Date / Time hydrocodone bitartrate * Allergy Intermediate Hives Verified 12/18/20 19:07 [From Vicodin] oxycodone HCl * Allergy Intermediate Hives Verified 12/18/20 19:07 [From Percocet] metformin AdvReac Unknown Verified 12/18/20 19:07 Anes History & Medical History - Anesthetic History Family history of Anesthesia Complications: Denies Family history of Malignant Hyperthermia: Denies - Medical History Cardiovascular: reports: None Pulmonary: reports: None Gastrointestinal: reports: None Urinary: reports: None Neuro: reports: None Musculoskeletal: reports: None Endocrine/Autoimmune: reports: Type 2 diabetes Blood Disorders: reports: None Skin: reports: None Smoking Status: Current every day smoker - Surgical History Gynecologic: reports: Dilation and currettage Orthopedic: reports: Arthroscopic surgery Exam General: Alert, Oriented x3, Cooperative Dental: WNL Mouth Openin Fingerbreadth Neck Mobility: Normal Mallampati classification: II Thyromental Distance: 4-6 cm Respiratory: Lungs clear, Normal breath sounds, No respiratory distress Cardiovascular: Regular rate Neurological: Normal speech Mental/Cognitive Status: Alert/Oriented X3, Normal for patient Cognitive Status: Within normal limits Plan Anesthesia Type: General, MAC, Total IV Consent for Procedure(s) Verified and Reviewed: Yes Code Status: Attempt Resuscitation ASA classification: 3-Severe systemic disease (poorly controlled DM) Is this case an emergency?: Yes
[2020-12-25] MEDS ORDERED: MIDAZOLAM 2 MG/2 ML VIAL ONE (10:46)
[2020-12-25] MEDS ORDERED: KETAMINE 500 MG/10 ML VIAL ONE (10:46)
[2020-12-25] MEDS ORDERED: SODIUM CHLORIDE 0.9% 10 ML VIAL IVP ONE (10:47)
[2020-12-25] MEDS ORDERED: GLYCOPYRROLATE 1 MG/5 ML VIAL ONE (10:48)
[2020-12-25] MEDS: VANCOMYCIN INJ 1 GM, VANCOMYCIN INJ 250 MG in SODIUM CHLORIDE 0.9% 250 ML IV SCH ×2 (10:55→22:19)
[2020-12-25] MEDS: INSULIN ASPART 300 UNIT/3 ML PEN SUBQ SCH ×7 (11:29→21:11)
[2020-12-25] MEDS: ASCORBIC ACID CHEW 500 MG TABLET PO SCH (11:30)
[2020-12-25] MEDS: CHOLECALCIFEROL 25 MCG TABLET PO SCH (11:31)
[2020-12-25] MEDS: INSULIN GLARGINE 300 UNIT/3 ML PEN SUBQ SCH ×2 (11:31→21:11)
[2020-12-25] MEDS: DOCUSATE SODIUM 250 MG CAPSULE PO SCH (11:31)
[2020-12-25] MEDS: polyethylene glycoL 3350 17 GM PACKET PO SCH (11:31)
[2020-12-25] MEDS: ZINC SULFATE 220 MG CAPSULE PO SCH (11:32)
[2020-12-25] MEDS ORDERED: LIDOCAINE-MPF 2% 5 ML VIAL ONE (12:26)
--- NOTE | 2020-12-25 12:26 | PROVIDER PROGRESS NOTE ---
Progress Note Subjective 40-year-old female with necrotizing fasciitis of the perineum. Repeated trips to the operating room. Represented with suppurative and persistent purulence. Underwent repeat wide local excision. Objective Afebrile hemodynamically acceptable General Appearance: positive: No acute distress Eyes Bilateral: positive: Normal inspection ENT: positive: ENT inspection nml Neck: positive: Nml inspection Respiratory: positive: Chest non-tender, No respiratory distress, Breath sounds nml. negative: Wheezes, Rales, Rhonchi Cardiovascular: positive: Regular rate & rhythm Abdomen: positive: No distention, Other. negative: Guarding, Rebound Extremities: positive: Non-tender, Full ROM, Nml appearance Neurologic/Psychiatric: positive: Oriented x3, CN's nml (2-12) Wound VAC in place Impression/Plan Continue antibiotics for Enterococcus infection of the perineum. Defer loop colostomy for diversion at this time. Proceed with n.p.o. and exam under anesthesia with washout and wide local excision. Replace wound VAC. Patient likely home tomorrow. DC planning and continued home wound VAC therapy. Please note that voice recognition software was used to transcribe this note and inadvertent errors might persist in spite of review and editing. I am obliged to you for your attention. I am thankful to you for allowing me to participate with you in this care of this patient.
[2020-12-25] MEDS ORDERED: PROPOFOL 200 MG/20 ML VIAL IVP ONE ×4 (12:31→13:49)
[2020-12-25] MEDS ORDERED: BUPIVACAINE 0.5% PF 30 ML VIAL ONE (12:41)
[2020-12-25] MEDS ORDERED: LIDOCAINE 2%-EPI 1:100000 20 ML MDV ONE (12:41)
[2020-12-25] MEDS ORDERED: ONDANSETRON 4 MG/2 ML VIAL IVP PRN (12:45)
[2020-12-25] MEDS ORDERED: METOCLOPRAMIDE 10 MG/2 ML VIAL IVP PRN (12:45)
[2020-12-25] MEDS ORDERED: HYDROmorphone 0.5 MG/0.5 ML SYRINGE IVP PRN (12:45)
[2020-12-25] MEDS ORDERED: ePHEDrine 50 MG/ML VIAL IVP PRN (12:45)
[2020-12-25] MEDS ORDERED: MORPHINE 2 MG/ML CARPUJECT IVP PRN (12:45)
[2020-12-25] MEDS ORDERED: ATROPINE ABBOJECT 1 MG/10 ML SYRINGE IVP PRN (12:45)
[2020-12-25] MEDS ORDERED: fentaNYL 100 MCG/2 ML VIAL IVP PRN (12:45)
[2020-12-25] MEDS ORDERED: NALOXONE 0.4 MG/ML VIAL IVP PRN (12:45)
[2020-12-25] MEDS ORDERED: BUPIVACAINE 0.5% PF 30 ML VIAL INFIL ONE (12:51)
[2020-12-25] MEDS ORDERED: LIDOCAINE 2%-EPI 1:100000 20 ML MDV SUBQ ONE (12:55)
[2020-12-25] MEDS ORDERED: LACTATED RINGERS 1,000 ML IV SCH (13:00)
[2020-12-25] MEDS ORDERED: fentaNYL 100 MCG/2 ML VIAL ONE (13:09)
[2020-12-25] MEDS ORDERED: METOPROLOL 5 MG/5 ML VIAL IVP ONE (13:14)
[2020-12-25] MEDS ORDERED: LACTATED RINGERS 1,000 ML IV ONE ×2 (14:04→14:45)
--- NOTE | 2020-12-25 14:51 | PROVIDER PROGRESS NOTE ---
Progress Note BRIEF OP NOTE: Planned Procedure: 1. Exam under esthesia 2. Wide local excision 3. Pulse lavage with debridement 4. Wound VAC placement 5. Tissue culture Pre-Op Diagnosis: Necrotizing fasciitis; wound complication; persistent skin and soft tissue Procedure Performed: 1. Exam under anesthsia 2. Wide local excision 3. Pulse lavage with debridement 4. Wound VAC placement 5. Tissue culture 6. Complex Wound Closure 7. Pudental block Post Op Diagnosis: Same; debrided to viable bleeding edges. - Procedure Note Primary Surgeon: Kamran Secondary Surgeon: Lurdes Anesthesia Provider: Herbert Anesthesia Technique: General LMA Pathology: 1. Skin and subcutaneous tissue for culture and sensitivity 2. Skin and subcutaneous tissue for pathology
--- NOTE | 2020-12-25 14:51 | OPERATIVE REPORT ---
Operative Report - General Admit Date: 12/20/20 Procedure Date: 12/25/20 Planned Procedure: 1. Exam under esthesia 2. Wide local excision 3. Pulse lavage with debridement 4. Wound VAC placement 5. Tissue culture Pre-Op Diagnosis: Necrotizing fasciitis; wound complication; persistent skin and soft tissue Procedure Performed: 1. Exam under anesthsia 2. Wide local excision 3. Pulse lavage with debridement 4. Wound VAC placement 5. Tissue culture 6. Complex Wound Closure 7. Pudental block Post Op Diagnosis: Same; debrided to viable bleeding edges; partial closure - Procedure Note Primary Surgeon: Kamran Secondary Surgeon: Lurdes Anesthesia Provider: Og Anesthesia Technique: Local, MAC Pathology: Pathology: 1. Skin and subcutaneous tissue for culture and sensitivity 2. Skin and subcutaneous tissue for pathology Estimated Blood Loss (mL): 25 Drain/Tube Type: Other (1. Wound VAC to -125 mmHg continuous 2. Packing strips to posterior aspect of right partially closed gluteal wound) Indications: See EMR Findings: Intraoperative findings are as follows: 1. Anorectal exam without any fistulous communication. 2. Healthy bleeding edges. Wound VAC placed the wound bed seal achieved with stoma paste around the wound edges. 3. Posterior aspect of the gluteal wound was closed with vertical mattresses of 0 PDS after aggressively debriding the underlying tissue sharply and with Bovie scratch pad for mechanical debridement. 4. Schaffer catheter remained in place. 5. Posterior apex of the gluteal wound was packed with packing strip in order to maintain drainage in the interim's till reevaluation in the operating room 6. Please note that the gluteal wound was historically at the time of my first encounter with this patient near 50 to 70% tissue loss on the right (Negligible with regard to today's excision) with complete tissue loss of the right perineum as well as the inguinal portion of the right perivulvar tissue Complications: NONE - Other Other Information/Narrative: OPERATIVE REPORT: Patient was taken to the operating room placed supine on the operating table. Patient was positioned in lithotomy. Schaffer catheter was in place. Monitored anesthesia care was induced. Informed consent was already obtained. Timeout was called and agreed to by all of the room. Patient was already on scheduled antibiotics. Side and site was already confirmed and marked preoperatively. Historic dressing was removed. Wound was prepped with Betadine. We proceeded with exam under anesthesia. Findings are as per below: Anorectal exam: Inspection: External Hemorrhoids -none Fissure in ano -none Erythema (perianal) -diffuse favoring the right, however improved Other -large skin and soft tissue defect involving Rt perirectal region extending posterior to the level of the coccyx and anteriorly to pubis Palpation: Fluctuance -none Palpable cord -none Scar tissue -extensive Induration -improved Digital Rectal Exam: Rectal Tone -appropriate Fluctuance -none within the perirectal space Sphincter -intact Masses -none Anoscopy: Hemorrhoids - Grade II Bleeding -none Distal proctitis -none Other -no evidence of internal opening for fistula There was no evidence of any fistulous communication from anus as a etiology for patient's presenting symptomatology and necrotizing fasciitis At this time, having undergone the examined anesthesia we proceeded as intended with the followin. Wide local excision 2. Pulse lavage with debridement 3. Wound VAC placement 4. Tissue culture We proceeded to perform wide local excision of this large skin and soft tissue defect from the patient's historic necrotizing fasciitis. Reportedly the patient had presented to the hospital with a right vulvar lesion was drained and returned with significant worsening and was transferred for higher level of care. Patient underwent multiple interventions in the interim. Patient was discharged with wound VAC from referral center. Patient had persistent purulence and failure of outpatient wound VAC therapy during this admission; seen in the emergency room (there was no definitive follow up). Patient was admitted for IV antibiotics and further debridement of obvious infected tissue. She underwent local debridement several days prior with wound vac placement. Today we reexplored. The majority of the tissue including the perivulvar margins were healthy and intact. Less indurated. Posteriorly at the level of the buttock there was still significant induration. This area was additionally debrided for greater than 5 cm of tissue. Again this was a massive skin and soft tissue defect that she represented with after discharge from outside facility. Wound was additionally debrided historically to healthy bleeding edges. Additional debridement as per above was performed. Upon reevaluation it appeared that this wound could potentially be candidate for partial closure. A great deal of time was spent talking to the patient about the possibility of necessary fecal diversion. The only way we could consider maintenance of intestinal continuity was by avoiding the portion of the wound adjacent to the anus. This would only be achieved by partial closure of this area and diverting the VAC anteriorly in the perineum. Thus my plan today was to proceed as follows; in addition to of the above listed plan: 1. Partial closure of the posterior aspect of the gluteal wound 2. Packing of the apex of the gluteal wound 3. Outpatient follow-up with continued antibiotics and reevaluation for penultimate closure of this aspect of the wound 4. Maintain Schaffer catheter as an outpatient 5. Apply stoma paste especially along the vulva in the inferior aspect of the perivulvar wound to assist with healing. We thereafter pulse lavage the entirety of the wound with several liters of warm sterile saline. Hemostasis was achieved without complication using electrocautery. Thereafter, we proceeded to dress the wound, with multiple pieces of black foam. Intraoperative findings are as follows: 1. Anorectal exam without any fistulous communication. 2. Healthy bleeding edges. Wound VAC placed the wound bed seal achieved with stoma paste around the wound edges. 3. Posterior aspect of the gluteal wound was closed with vertical mattresses of 0 PDS after aggressively debriding the underlying tissue sharply and with Bovie scratch pad for mechanical debridement. 4. Schaffer catheter remained in place. 5. Posterior apex of the gluteal wound was packed with packing strip in order to maintain drainage in the interim's till reevaluation in the operating room Wound VAC was intact with no leak, tongue a sponge was used to offset the suction button to the right inguinal region, there was undermining at the top aspect of the wound revealing tendon tissue. Patient tolerated procedure well which is no complication. Plan would be to return to the operating room for additional debridement. Please note that voice recognition software was used to transcribe this note and inadvertent errors might persist in spite of review and editing. I am obliged to you for your attention. I am thankful to you for allowing me to participate with you in this care of this patient.
--- NOTE | 2020-12-25 15:27 | ANESTHESIA POST OP EVALUATION ---
Anesthesia Post Eval - Post Anesthesia Eval Vitals: Last Vital Signs Temp 36.6 C 12/25/20 15:00 Pulse 81 12/25/20 15:00 Resp 16 12/25/20 15:00 BP 168/90 H 12/25/20 15:00 Pulse Ox 93 12/25/20 15:00 CV Function Including HR & BP: Stable Pain Control: Satisfactory Nausea & Vomiting: Negative Mental Status: Baseline Respiratory Status: Airway Patent Hydration Status: Satisfactory Anesthesia Complications: None
--- NOTE | 2020-12-25 20:20 | PROVIDER PROGRESS NOTE ---
Assessment/Plan - Problem List (1) Wound cellulitis after surgery Assessment/Plan: Post op day 0, second trip to OR on admission, for Further debridement. Currently, doing fairly well postoperatively. Passing gas. Feels like she is about to have bowel movement soon. Tolerating p.o. Pain relatively well controlled, patient requesting to transition to tramadol in preparation for anticipated discharge tomorrow. She does have some concerns and fears with regards to discharge planning: States that she is currently living with her mom but her mom is not in a great state provide much help so essentially we need to assume she is on her own. So far has not had much luck apparently with Home wound care. Would be a good candidate for outpatient wound care if transportation can be arranged however this is currently a limitation for her as they do not want a car and has had problems with paratransit. If this can be resolved, consider discharge with home health nursing with outpatient wound care follow-up and also Follow-up with Dr. Andrew for possible outpatient revision of wound VAC next week. (2) Anemia Qualifiers: Anemia type: unspecified type Qualified Code(s): D64.9 - Anemia, unspecified Assessment/Plan: Patient carries diagnosis of anemia of chronic disease. H&H stable with no evidence of active bleeding with the exception of modest amount of wound VAC drainage, to be expected with current wound. No evidence of hemodynamic compromise or symptoms. Continue to monitor H&H. 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 Pt optimistic will have better control at home given improved control of her diet. - Current Meds Current Meds: Current Medications Generic Name Dose Route Start Last Admin Trade Name Freq PRN Reason Stop Dose Admin Acetaminophen 650 mg 12/20/20 22:38 12/21/20 00:37 Acetaminophen 325 Mg Tablet PO 650 mg Q4HR PRN Administration Pain 1 to 4 Ascorbic Acid 500 mg 12/23/20 11:00 12/25/20 11:30 Ascorbic Acid Chew 500 Mg Tablet PO Not Given DAILY [facility] Cholecalciferol 50 mcg 12/23/20 11:00 12/25/20 11:31 Cholecalciferol 25 Mcg Tablet PO Not Given DAILY [facility] Docusate Sodium 250 - 500 mg 12/23/20 09:00 12/25/20 11:31 Docusate Sodium 250 Mg Capsule PO Not Given DAILY [facility] Hydromorphone HCl 0.5 mg 12/21/20 00:33 12/25/20 18:41 Hydromorphone 0.5 Mg/0.5 Ml Syringe IVP 0.5 mg Q2H PRN Administration PAIN Piperacillin Sod/Tazobactam 100 mls @ 200 mls/hr 12/21/20 03:00 12/25/20 16:41 Sod 3.375 gm/ Sodium Chloride IV Infused Q6H KAREN Infusion Vancomycin HCl 1 gm/ 250 mls @ 167 mls/hr 12/21/20 10:00 12/25/20 12:57 Vancomycin HCl 250 mg/ Sodium IV Infused Chloride Q12H KAREN Infusion Sodium Chloride 500 mls @ 20 mls/hr 12/22/20 20:33 12/25/20 14:02 Normal Saline 0.9% IV Infused Q24H PRN Infusion TKO RATE Insulin Aspart 3 unit 12/23/20 17:00 12/25/20 17:57 Insulin Aspart 300 Unit/3 Ml Pen SUBQ 3 unit TIDWM [facility] Administration Insulin Aspart 1 - 9 unit 12/24/20 17:00 12/25/20 17:57 Insulin Aspart 300 Unit/3 Ml Pen SUBQ 3 unit 0800,1200,1700,2100 [facility] Administration Protocol Insulin Glargine 12 unit 12/22/20 21:00 12/25/20 11:31 Insulin Glargine 300 Unit/3 Ml Pen SUBQ Not Given BID [facility] Polyethylene Glycol 17 gm 12/23/20 09:00 12/25/20 11:31 Polyethylene Glycol 3350 17 Gm Packet PO Not Given DAILY [facility] Sodium Chloride 10 ml 12/20/20 22:38 12/25/20 04:55 Sodium Chloride Flush 0.9% 10 Ml Syringe IVP 10 ml PRN PRN Administration NEEDED PER PROVIDER ORDERS Sodium Chloride 10 ml 12/21/20 01:00 12/25/20 16:42 Sodium Chloride Flush 0.9% 10 Ml Syringe IVP Not Given 0100,0900,1700 [facility] Zinc Sulfate 220 mg 12/23/20 11:00 12/25/20 11:32 Zinc Sulfate 220 Mg Capsule PO Not Given DAILY [facility]AR[facility] - Lab Result Lab results reviewed: Yes Fish Bone Diagrams: 12/25/20 04:30 12/25/20 04:30 Subjective - Subjective Patient Reports: Resting Comfortably, Abdominal Pain Objective Vital Signs: Vital Signs - 24 hr 12/25/20 12/25/20 12/25/20 00:00 07:40 11:33 Temperature 37.4 C 36.9 C 36.9 C Heart Rate Heart Rate [ 94 90 80 Brachial] Respiratory 16 18 15 Rate Blood Pressure Blood Pressure 161/80 H [Left Brachial artery] Blood Pressure 156/81 H 158/86 H [Right Brachial artery] O2 Saturation 95 92 96 12/25/20 12/25/20 12/25/20 14:05 14:10 14:15 Temperature 36.7 C 36.7 C 36.7 C Heart Rate 84 85 86 Heart Rate [ Brachial] Respiratory 20 16 20 Rate Blood Pressure 152/84 H 182/97 H 190/96 H Blood Pressure [Left Brachial artery] Blood Pressure [Right Brachial artery] O2 Saturation 100 100 100 12/25/20 12/25/20 12/25/20 14:20 14:25 14:30 Temperature 36.7 C 36.7 C Heart Rate 84 83 83 Heart Rate [ Brachial] Respiratory 15 14 18 Rate Blood Pressure 191/99 H 179/93 H 184/92 H Blood Pressure [Left Brachial artery] Blood Pressure [Right Brachial artery] O2 Saturation 100 94 94 12/25/20 12/25/20 12/25/20 14:35 14:45 15:00 Temperature 36.7 C 36.6 C 36.6 C Heart Rate 89 Heart Rate [ 80 81 Brachial] Respiratory 14 16 16 Rate Blood Pressure 184/93 H Blood Pressure [Left Brachial artery] Blood Pressure 193/89 H 168/90 H [Right Brachial artery] O2 Saturation 93 96 93 12/25/20 12/25/20 12/25/20 15:46 16:01 16:31 Temperature 36.6 C 36.6 C 36.7 C Heart Rate Heart Rate [ 89 85 88 Brachial] Respiratory 20 18 18 Rate Blood Pressure Blood Pressure [Left Brachial artery] Blood Pressure 169/85 H 173/78 H 176/76 H [Right Brachial artery] O2 Saturation 98 97 99 12/25/20 12/25/20 17:25 17:52 Temperature 36.7 C Heart Rate Heart Rate [ 89 89 Brachial] Respiratory 19 Rate Blood Pressure Blood Pressure [Left Brachial artery] Blood Pressure 156/88 H 163/77 H [Right Brachial artery] O2 Saturation 99 Oxygen O2 Source Room air I&O (Last 24 Hrs): Intake and Output Totals x24h 12/23/20 12/24/20 12/25/20 23:59 23:59 23:59 Intake Total 9527.491 8471 1290 Output Total 4150 2250 1425 Balance -2280.333 420 -135 General: Alert, Oriented x3 HEENT: Atraumatic Neck: No JVD, No thyromegaly Neuro: Alert Cardiovascular: Regular rate, Normal S1, Normal S2 Respiratory: Chest non-tender, No respiratory distress, Breath sounds nml Abdomen: Normal bowel sounds Extremities: No clubbing, No edema Skin: No rashes - Results Results: Laboratory Results WBC 7.8 x10^3/uL (4.8-10.8) 12/25/20 04:30 RBC 2.75 10^6/uL (4.20-5.40) L 12/25/20 04:30 Hgb 8.2 g/dL (12.0-16.0) L 12/25/20 04:30 Hct 25.1 % (37.0-47.0) L 12/25/20 04:30 MCV 91.3 fL (81.0-99.0) 12/25/20 04:30 MCH 29.8 pg (27.0-31.0) 12/25/20 04:30 MCHC 32.7 g/dL (32.0-36.0) 12/25/20 04:30 RDW 14.0 % (12.0-15.0) 12/25/20 04:30 Plt Count 338 10^3/uL (130-450) 12/25/20 04:30 MPV 9.9 fL (7.9-10.8) 12/25/20 04:30 Neut # (Auto) 4.5 10^3/uL (1.5-6.6) 12/25/20 04:30 Lymph # (Auto) 2.2 10^3/uL (1.5-3.5) 12/25/20 04:30 [place] # (Auto) 0.5 10^3/uL (0.0-1.0) 12/25/20 04:30 Eos # (Auto) 0.5 10^3/uL (0.0-0.7) 12/25/20 04:30 Baso # (Auto) 0.1 10^3/uL (0.0-0.1) 12/25/20 04:30 Absolute Nucleated RBC 0.00 x10^3/uL 12/25/20 04:30 Nucleated RBC % 0.0 /100WBC 12/25/20 04:30 Sodium 135 mmol/L (135-145) 12/25/20 04:30 Potassium 4.1 mmol/L (3.5-5.0) 12/25/20 04:30 Chloride 102 mmol/L (101-111) 12/25/20 04:30 Carbon Dioxide 27 mmol/L (21-32) 12/25/20 04:30 Anion Gap 6.0 (6-13) 12/25/20 04:30 BUN 28 mg/dL (6-20) H 12/25/20 04:30 Creatinine 1.0 mg/dL (0.4-1.0) 12/25/20 04:30 Estimated GFR (MDRD) 61 (>89) L 12/25/20 04:30 Glucose 208 mg/dL (70-100) H 12/25/20 04:30 POC Whole Bld Glucose 192 mg/dL (70 - 100) H 12/25/20 16:50 Estimat Average Glucose 286 mg/dL (70-100) H 12/21/20 04:30 Hemoglobin A1c % 11.6 % (4.27-6.07) H 12/21/20 04:30 Calcium 8.3 mg/dL (8.5-10.3) L 12/25/20 04:30 Magnesium 1.8 mg/dL (1.7-2.8) 12/25/20 04:30 Iron 33 ug/dL (28-170) 12/22/20 05:09 TIBC 220 ug/dL (250-450) L 12/22/20 05:09 % Saturation 15 % (20-50) L 12/22/20 05:09 Transferrin 157 mg/dL (192-382) L 12/22/20 05:09 Ferritin 156.8 ng/mL (11.0-306.8) 12/22/20 05:09 Nasal Adenovirus (PCR) NOT DETECTED 12/20/20 22:14 Nasal B. parapertussis DNA (PCR) NOT DETECTED 12/20/20 22:14 Nasal Coronavir 229E PCR NOT DETECTED 12/20/20 22:14 Nasal Coronavir HKU1 PCR NOT DETECTED 12/20/20 22:14 Nasal Coronavir NL63 PCR NOT DETECTED 12/20/20 22:14 Nasal Coronavir OC43 PCR NOT DETECTED 12/20/20 22:14 Nasal Enterovir/Rhinovir PCR NOT DETECTED 12/20/20 22:14 Nasal Influenza B PCR NOT DETECTED 12/20/20 22:14 Nasal Influenza A PCR NOT DETECTED 12/20/20 22:14 Nasal Parainfluen 1 PCR NOT DETECTED 12/20/20 22:14 Nasal Parainfluen 2 PCR NOT DETECTED 12/20/20 22:14 Nasal Parainfluen 3 PCR NOT DETECTED 12/20/20 22:14 Nasal Parainfluen 4 PCR NOT DETECTED 12/20/20 22:14 Nasal RSV (PCR) NOT DETECTED 12/20/20 22:14 Nasal B.pertussis DNA PCR NOT DETECTED 12/20/20 22:14 Nasal C.pneumoniae (PCR) NOT DETECTED 12/20/20 22:14 Luis Human Metapneumo PCR NOT DETECTED 12/20/20 22:14 Nasal M.pneumoniae (PCR) NOT DETECTED 12/20/20 22:14 Nasal SARS-CoV-2 (PCR) NOT DETECTED 12/20/20 22:14 Last Dose Date K 12/23/20 09:40 Last Dose Time K 12/23/20 09:40 Vancomycin Trough 19.7 ug/mL (10.0-20.0) 12/23/20 09:40 Blood Type A NEGATIVE 12/22/20 10:35 Blood Type Recheck A NEGATIVE 12/22/20 05:09 Antibody Screen NEGATIVE 12/22/20 10:35 ABX Reporting Has patient been on IV antibiotics over the past 48 hours?: Yes Current Medications - Current Medications Current Medications: Current Medications Generic Name Dose Route Start Last Admin Trade Name Freq PRN Reason Stop Dose Admin Acetaminophen 650 mg 12/20/20 22:38 12/21/20 00:37 Acetaminophen 325 Mg Tablet PO 650 mg Q4HR PRN Administration Pain 1 to 4 Ascorbic Acid 500 mg 12/23/20 11:00 12/25/20 11:30 Ascorbic Acid Chew 500 Mg Tablet PO Not Given DAILY [facility] Cholecalciferol 50 mcg 12/23/20 11:00 12/25/20 11:31 Cholecalciferol 25 Mcg Tablet PO Not Given DAILY [facility] Docusate Sodium 250 - 500 mg 12/23/20 09:00 12/25/20 11:31 Docusate Sodium 250 Mg Capsule PO Not Given DAILY [facility] Hydromorphone HCl 0.5 mg 12/21/20 00:33 12/25/20 18:41 Hydromorphone 0.5 Mg/0.5 Ml Syringe IVP 0.5 mg Q2H PRN Administration PAIN Piperacillin Sod/Tazobactam 100 mls @ 200 mls/hr 12/21/20 03:00 12/25/20 1 6:41 Sod 3.375 gm/ Sodium Chloride IV Infused Q6H [facility] Infusion Vancomycin HCl 1 gm/ 250 mls @ 167 mls/hr 12/21/20 10:00 12/25/20 12:57 Vancomycin HCl 250 mg/ Sodium IV Infused Chloride Q12H [facility] Infusion Sodium Chloride 500 mls @ 20 mls/hr 12/22/20 20:33 12/25/20 14:02 Normal Saline 0.9% IV Infused Q24H PRN Infusion TKO RATE Insulin Aspart 3 unit 12/23/20 17:00 12/25/20 17:57 Insulin Aspart 300 Unit/3 Ml Pen SUBQ 3 unit TIDWM [facility] Administration Insulin Aspart 1 - 9 unit 12/24/20 17:00 12/25/20 17:57 Insulin Aspart 300 Unit/3 Ml Pen SUBQ 3 unit 0800,1200,1700,2100 [facility] Administration Protocol Insulin Glargine 12 unit 12/22/20 21:00 12/25/20 11:31 Insulin Glargine 300 Unit/3 Ml Pen SUBQ Not Given BID [facility] Polyethylene Glycol 17 gm 12/23/20 09:00 12/25/20 11:31 Polyethylene Glycol 3350 17 Gm Packet PO Not Given DAILY [facility] Sodium Chloride 10 ml 12/20/20 22:38 12/25/20 04:55 Sodium Chloride Flush 0.9% 10 Ml Syringe IVP 10 ml PRN PRN Administration NEEDED PER PROVIDER ORDERS Sodium Chloride 10 ml 12/21/20 01:00 12/25/20 16:42 Sodium Chloride Flush 0.9% 10 Ml Syringe IVP Not Given 0100,0900,1700 [facility] Tramadol HCl 50 mg 12/21/20 00:33 12/25/20 20:22 Tramadol 50 Mg Tablet PO 50 mg Q4HR PRN Administration PAIN Zinc Sulfate 220 mg 12/23/20 11:00 12/25/20 11:32 Zinc Sulfate 220 Mg Capsule PO Not Given DAILY [facility]
[2020-12-26] MEDS: SODIUM CHLORIDE FLUSH 0.9% 10 ML SYRINGE IVP SCH ×3 (00:12→17:42)
[2020-12-26] MEDS: HYDROmorphone 0.5 MG/0.5 ML SYRINGE IVP PRN ×5 (00:13→10:07)
[2020-12-26] MEDS: PIPERACILLIN/TAZOBACTAM 3.375 GM in SODIUM CHLORIDE 0.9% MINIBAG 100 ML IV SCH ×4 (02:26→21:03)
[2020-12-26] MEDS: SODIUM CHLORIDE FLUSH 0.9% 10 ML SYRINGE IVP PRN ×4 (04:48→14:45)
[2020-12-26 04:56] LABS: BASOPHILS # (AUTO) 0.1 10^3/uL (0.0-0.1); BASOPHILS % (AUTO) 0.7 %; EOSINOPHILS # (AUTO) 0.5 10^3/uL (0.0-0.7); EOSINOPHILS % (AUTO) 4.7 %; HCT - HEMATOCRIT 25.8 % (37.0-47.0); HGB - HEMOGLOBIN 8.7 g/dL (12.0-16.0); LYMPHOCYTES # (AUTO) 2.2 10^3/uL (1.5-3.5); LYMPHOCYTES % (AUTO) 21.3 %; MEAN CORPUSCULAR HEMOGLOBIN 29.9 pg (27.0-31.0); MEAN CORPUSCULAR HGB CONC 33.7 g/dL (32.0-36.0); MEAN CORPUSCULAR VOLUME 88.7 fL (81.0-99.0); MEAN PLATELET VOLUME 9.7 fL (7.9-10.8); MONOCYTES # (AUTO) 0.6 10^3/uL (0.0-1.0); MONOCYTES % (AUTO) 6.3 %; NEUTROPHILS # (AUTO) 6.8 10^3/uL (1.5-6.6); NEUTROPHILS % (AUTO) 66.7 %; PLT - PLATELET COUNT 354 10^3/uL (130-450); RED BLOOD COUNT 2.91 10^6/uL (4.20-5.40); RED CELL DISTRIBUTION WIDTH 13.6 % (12.0-15.0); WHITE BLOOD COUNT 10.2 x10^3/uL (4.8-10.8)
[2020-12-26 05:06] LABS: CALCIUM 8.6 mg/dL (8.5-10.3); MAGNESIUM 1.7 mg/dL (1.7-2.8); POTASSIUM 3.9 mmol/L (3.5-5.0)
[2020-12-26] MEDS: INSULIN ASPART 300 UNIT/3 ML PEN SUBQ SCH ×7 (08:06→21:05)
[2020-12-26] MEDS: INSULIN GLARGINE 300 UNIT/3 ML PEN SUBQ SCH ×2 (08:09→21:04)
[2020-12-26] MEDS: CHOLECALCIFEROL 25 MCG TABLET PO SCH (08:14)
[2020-12-26] MEDS: ZINC SULFATE 220 MG CAPSULE PO SCH (08:15)
[2020-12-26] MEDS: ACETAMINOPHEN 325 MG TABLET PO PRN (08:15)
[2020-12-26] MEDS: DOCUSATE SODIUM 250 MG CAPSULE PO SCH (08:16)
[2020-12-26] MEDS: polyethylene glycoL 3350 17 GM PACKET PO SCH ×2 (08:17→08:23)
[2020-12-26] MEDS: ASCORBIC ACID CHEW 500 MG TABLET PO SCH (08:21)
--- NOTE | 2020-12-26 09:09 | Discharge Plan ---
Discharge Plan Problem Reviewed?: Yes Diet: Diabetic Activity Restrictions: Activity as Tolerated Follow-Up Care: [facility] - Wound/Ostomy No Smoking: If you smoke, Please STOP! Call for help. <Erendira Tafoya - Last Filed: 12/27/20 09:27> Problem Reviewed?: Yes Diet: Diabetic Activity Restrictions: Activity as Tolerated Shower Restrictions: Yes Driving Restrictions: Yes (no driving while taking narcotic pain medications) No Smoking: If you smoke, Please STOP! Call for help. <Bayron Andrew - Last Filed: 12/27/20 13:11> Disposition: 01 Home, Self Care Condition: Stable Prescriptions: HYDROmorphone [Dilaudid] 1 - 2 mg PO Q6HR PRN #30 tablet PRN Reason: Severe Pain L. Acidophilus/Pectin, [place] [Acidophilus Capsule] 1 each PO DAILY #7 cap Ciprofloxacin HCl 1 tablet PO BID 14 Days #28 tablet Docusate Sodium 250Mg Capsule [Colace 250Mg Capsule] 250 - 500 mg PO DAILY #30 cap Fluconazole [Diflucan] 100 mg PO DAILY 14 Days #14 tablet metroNIDAZOLE [Flagyl] 500 mg PO BID 14 Days #42 tablet Nystatin Cream [Mycostatin Cream] 1 applic TOP BID #1 tu Instruction Topics: Closure Wound Vacuum Assisted Health Concerns: You were hospitalized for managing an infection and needed iv antibiotics and surgery and pain meds. You are being discharged with the wound vac, new prescription for pain medications and 1 more week of several antibiotics plus a probiotic. Please follow the scheduled appointments for further management of the wound, that have been explained to you by our quality improvement manager. Resume all your usual medications and diet, as you did before hospitalization. The Insulin doses were advised to be increased slightly while you have an infection. All prescriptions were electronically sent to your [facility] pharmacy. Plan of Treatment: As above. Care Goals: Improvement in symptoms and stabilization are the goals. Assessment: The patient understands and is agreeable with the plan. Additional Instructions or Follow Up instructions: If you get a fever, or have new or worsening symptoms, call your PCP or the Surgical Clinic at [phone], for advice, or come to the ER. Impression/Plan 1. Dilaudid every 4-6 hours as needed for pain 2. Take Colace twice daily and MiraLAX daily as per above while taking narcotics and if no bowel function 3. Avoid nonsteroidals and continue with acetaminophen 650 mg every 6 hours not to exceed 4 g daily 4. Patient to return for OR wound VAC change and debridement and additional partial closure. This is December 30 at 1:30 PM. 5. Patient to call or return to the hospital through ER for fevers, nausea, vomiting, abdominal pain or any other worrisome symptoms or concerns. 6. Patient not to return to any work capacity until seen in clinic. 7. No heavy lifting, pushing, or pulling. Stairs are allowed, no strenuous/exer tional activities. 5-10lbs weight carrying limit (i.e. gallon of milk) 8. Call or proceed to clinic/ER for fevers, severe pain, nausea, vomiting, inability to pass flatus/stool, bleeding, wound redness/discharge, weakness, excessively loose stool/diarrhea, or for any other reasonably worrisome symptom or concern. 9. Soft diet, no raw vegetables, avoid high fiber foods. 10. No driving while taking narcotic pain medications. 11. Patient not allowed to drive self today or within 24 hours of surgery. 12. Patient to continue wound VAC therapy and leave packing strips in place in the posterior right buttock 13. Patient to be discharged with Schaffer catheter in place. Follow-up with: Aria Reyna MD [Primary Care Provider] - Bayron Andrew MD [Provider Admit Priv/Credential] -
[2020-12-26] MEDS: IBUPROFEN 600 MG TABLET PO SCH ×3 (10:07→19:37)
[2020-12-26] MEDS: VANCOMYCIN INJ 1 GM, VANCOMYCIN INJ 250 MG in SODIUM CHLORIDE 0.9% 250 ML IV SCH ×2 (10:44→22:13)
[2020-12-26] MEDS: HYDROmorphone 2 MG TABLET PO PRN ×2 (13:18→19:37)
[2020-12-26] MEDS: LOSARTAN 50 MG TABLET PO SCH (13:18)
[2020-12-26] MEDS ORDERED: HYDROmorphone 0.5 MG/0.5 ML SYRINGE IVP ONE (16:50)
[2020-12-26] MEDS: LACTOBACILLUS RHAMNOSUS GG CAPSULE PO SCH (17:40)
--- NOTE | 2020-12-26 19:36 | PROVIDER PROGRESS NOTE ---
Assessment/Plan - Problem List (1) Wound cellulitis after surgery Assessment/Plan: Post op day 1, second trip to OR on admission, for Further debridement. Currently, doing fairly well postoperatively. Passing gas. Had BM today in am Tolerating p.o. Had packing changed today by Dr Kamran Ye is d/c in am and f/u w/ outpt surgery by Dr Andrew Tuesday of next week [facility] Tuesday next week Outpt abx selection per Dr Andrew (2) Anemia Qualifiers: Anemia type: unspecified type Qualified Code(s): D64.9 - Anemia, unspecified Assessment/Plan: Patient carries diagnosis of anemia of chronic disease. H&H stable with no evidence of active bleeding with the exception of modest amount of wound VAC drainage, to be expected with current wound. No evidence of hemodynamic compromise or symptoms of anemia. Continue to monitor H&H. (3) Type 2 diabetes mellitus Qualifiers: Diabetes mellitus usp insulin use: unspecified manager terminal insulin use status Diabetes mellitus complication status: with other specified complication Qualified Code(s): E11.69 - Type 2 diabetes mellitus with other specified complication Assessment/Plan: BS elevated Novolog changed from 3 to 5 U TIDWM Lantus changed from 12 U BID to 14 U BID Cont diabetic diet Monitor BS - Current Meds Current Meds: Current Medications Generic Name Dose Route Start Last Admin Trade Name Freq PRN Reason Stop Dose Admin Acetaminophen 650 mg 12/20/20 22:38 12/26/20 08:15 Acetaminophen 325 Mg Tablet PO 650 mg Q4HR PRN Administration Pain 1 to 4 Ascorbic Acid 500 mg 12/23/20 11:00 12/26/20 08:21 Ascorbic Acid Chew 500 Mg Tablet PO 500 mg DAILY KAREN Administration Cholecalciferol 50 mcg 12/23/20 11:00 12/26/20 08:14 Cholecalciferol 25 Mcg Tablet PO 50 mcg DAILY KAREN Administration Docusate Sodium 250 - 500 mg 12/23/20 09:00 12/26/20 08:16 Docusate Sodium 250 Mg Capsule PO 250 mg DAILY KAREN Administration Hydromorphone HCl 2 mg 12/26/20 08:22 12/26/20 13:18 Hydromorphone 2 Mg Tablet PO 2 mg Q6HR PRN Administration Severe Pain Piperacillin Sod/Tazobactam 100 mls @ 200 mls/hr 12/21/20 03:00 12/26/20 15:16 Sod 3.375 gm/ Sodium Chloride IV Infused Q6H KAREN Infusion Vancomycin HCl 1 gm/ 250 mls @ 167 mls/hr 12/21/20 10:00 12/26/20 15:12 Vancomycin HCl 250 mg/ Sodium IV Infused Chloride Q12H KAREN Infusion Sodium Chloride 500 mls @ 20 mls/hr 12/22/20 20:33 12/25/20 14:02 Normal Saline 0.9% IV Infused Q24H PRN Infusion TKO RATE Ibuprofen 600 mg 12/26/20 09:00 12/26/20 13:18 Ibuprofen 600 Mg Tablet PO 600 mg Q6HR KAREN Administration Insulin Aspart 1 - 9 unit 12/24/20 17:00 12/26/20 17:41 Insulin Aspart 300 Unit/3 Ml Pen SUBQ 7 unit 0800,1200,1700,2100 KAREN Administration Protocol Insulin Aspart 5 unit 12/26/20 17:00 12/26/20 17:41 Insulin Aspart 300 Unit/3 Ml Pen SUBQ 5 unit TIDWM KAREN Administration Lactobacillus Rhamnosus 1 cap 12/26/20 17:00 12/26/20 17:40 Lactobacillus Rhamnosus Gg Capsule PO 1 cap DAILY KAREN Administration Losartan Potassium 50 mg 12/26/20 12:00 12/26/20 13:18 Losartan 50 Mg Tablet PO 50 mg DAILY KAREN Administration Polyethylene Glycol 17 gm 12/23/20 09:00 12/26/20 08:23 Polyethylene Glycol 3350 17 Gm Packet PO Not Given DAILY KAREN Sodium Chloride 10 ml 12/20/20 22:38 12/26/20 14:45 Sodium Chloride Flush 0.9% 10 Ml Syringe IVP 10 ml PRN PRN Administration NEEDED PER PROVIDER ORDERS Sodium Chloride 10 ml 12/21/20 01:00 12/26/20 17:42 Sodium Chloride Flush 0.9% 10 Ml Syringe IVP 10 ml 0100,0900,1700 KAREN Administration Tramadol HCl 50 mg 12/21/20 00:33 12/25/20 20:22 Tramadol 50 Mg Tablet PO 50 mg Q4HR PRN Administration PAIN Zinc Sulfate 220 mg 12/23/20 11:00 12/26/20 08:15 Zinc Sulfate 220 Mg Capsule PO 220 mg DAILY KAREN Administration - Lab Result Lab results reviewed: Yes Fish Bone Diagrams: 12/26/20 04:35 07/16/21 04:35 - Additional Planning Plan Discussed with:: Patient Subjective - Subjective Patient Reports: Feeling Better, Resting Comfortably, No Complaints Objective Vital Signs: Vital Signs - 24 hr 12/25/20 12/25/20 12/26/20 21:00 23:30 04:55 Temperature 37.1 C 37.1 C 37.2 C Heart Rate [ 98 100 102 H Brachial] Respiratory 18 20 20 Rate Blood Pressure 176/85 H 169/82 H 158/88 H [Right Brachial artery] O2 Saturation 99 94 93 12/26/20 12/26/20 12/26/20 07:50 11:40 17:00 Temperature 36.8 C 36.9 C 36.7 C Heart Rate [ 102 H 95 94 Brachial] Respiratory 18 20 16 Rate Blood Pressure 168/81 H 141/77 H 156/75 H [Right Brachial artery] O2 Saturation 94 94 95 Oxygen O2 Source Room air I&O (Last 24 Hrs): Intake and Output Totals x24h 12/24/20 12/25/20 12/26/20 23:59 23:59 23:59 Intake Total 1830 1690 2650 Output Total 2250 2175 4100 Balance -420 -485 -1450 General: Alert, Oriented x3, Cooperative HEENT: Atraumatic Neck: Supple Neuro: Alert Cardiovascular: Regular rate, Normal S1, Normal S2 Respiratory: Chest non-tender, No respiratory distress, Breath sounds nml Abdomen: Normal bowel sounds, Soft Extremities: No edema Skin: No rashes - Results Results: Laboratory Results WBC 10.2 x10^3/uL (4.8-10.8) 12/26/20 04:35 RBC 2.91 10^6/uL (4.20-5.40) L 12/26/20 04:35 Hgb 8.7 g/dL (12.0-16.0) L 12/26/20 04:35 Hct 25.8 % (37.0-47.0) L 12/26/20 04:35 MCV 88.7 fL (81.0-99.0) 12/26/20 04:35 MCH 29.9 pg (27.0-31.0) 12/26/20 04:35 MCHC 33.7 g/dL (32.0-36.0) 12/26/20 04:35 RDW 13.6 % (12.0-15.0) 12/26/20 04:35 Plt Count 354 10^3/uL (130-450) 12/26/20 04:35 MPV 9.7 fL (7.9-10.8) 12/26/20 04:35 Neut # (Auto) 6.8 10^3/uL (1.5-6.6) H 12/26/20 04:35 Lymph # (Auto) 2.2 10^3/uL (1.5-3.5) 12/26/20 04:35 Sampson # (Auto) 0.6 10^3/uL (0.0-1.0) 12/26/20 04:35 Eos # (Auto) 0.5 10^3/uL (0.0-0.7) 12/26/20 04:35 Baso # (Auto) 0.1 10^3/uL (0.0-0.1) 12/26/20 04:35 Absolute Nucleated RBC 0.00 x10^3/uL 12/26/20 04:35 Nucleated RBC % 0.0 /100WBC 12/26/20 04:35 Sodium 132 mmol/L (135-145) L 12/26/20 04:35 Potassium 3.9 mmol/L (3.5-5.0) 12/26/20 04:35 Chloride 99 mmol/L (101-111) L 12/26/20 04:35 Carbon Dioxide 27 mmol/L (21-32) 12/26/20 04:35 Anion Gap 6.0 (6-13) 12/26/20 04:35 BUN 24 mg/dL (6-20) H 12/26/20 04:35 Creatinine 1.0 mg/dL (0.4-1.0) 12/26/20 04:35 Estimated GFR (MDRD) 61 (>89) L 12/26/20 04:35 Glucose 253 mg/dL (70-100) H 12/26/20 04:35 POC Whole Bld Glucose 282 mg/dL (70 - 100) H 12/26/20 17:39 Estimat Average Glucose 286 mg/dL (70-100) H 12/21/20 04:30 Hemoglobin A1c % 11.6 % (4.27-6.07) H 12/21/20 04:30 Calcium 8.6 mg/dL (8.5-10.3) 12/26/20 04:35 Magnesium 1.7 mg/dL (1.7-2.8) 12/26/20 04:35 Iron 33 ug/dL (28-170) 12/22/20 05:09 TIBC 220 ug/dL (250-450) L 12/22/20 05:09 % Saturation 15 % (20-50) L 12/22/20 05:09 Transferrin 157 mg/dL (192-382) L 12/22/20 05:09 Ferritin 156.8 ng/mL (11.0-306.8) 12/22/20 05:09 Nasal Adenovirus (PCR) NOT DETECTED 12/20/20 22:14 Nasal B. parapertussis DNA (PCR) NOT DETECTED 12/20/20 22:14 Nasal Coronavir 229E PCR NOT DETECTED 12/20/20 22:14 Nasal Coronavir HKU1 PCR NOT DETECTED 12/20/20 22:14 Nasal Coronavir NL63 PCR NOT DETECTED 12/20/20 22:14 Nasal Coronavir OC43 PCR NOT DETECTED 12/20/20 22:14 Nasal Enterovir/Rhinovir PCR NOT DETECTED 12/20/20 22:14 Nasal Influenza B PCR NOT DETECTED 12/20/20 22:14 Nasal Influenza A PCR NOT DETECTED 12/20/20 22:14 Nasal Parainfluen 1 PCR NOT DETECTED 12/20/20 22:14 Nasal Parainfluen 2 PCR NOT DETECTED 12/20/20 22:14 Nasal Parainfluen 3 PCR NOT DETECTED 12/20/20 22:14 Nasal Parainfluen 4 PCR NOT DETECTED 12/20/20 22:14 Nasal RSV (PCR) NOT DETECTED 12/20/20 22:14 Nasal B.pertussis DNA PCR NOT DETECTED 12/20/20 22:14 Nasal C.pneumoniae (PCR) NOT DETECTED 12/20/20 22:14 Luis Human Metapneumo PCR NOT DETECTED 12/20/20 22:14 Nasal M.pneumoniae (PCR) NOT DETECTED 12/20/20 22:14 Nasal SARS-CoV-2 (PCR) NOT DETECTED 12/20/20 22:14 Last Dose Date K 12/23/20 09:40 Last Dose Time K 12/23/20 09:40 Vancomycin Trough 19.7 ug/mL (10.0-20.0) 12/23/20 09:40 Blood Type A NEGATIVE 12/22/20 10:35 Blood Type Recheck A NEGATIVE 12/22/20 05:09 Antibody Screen NEGATIVE 12/22/20 10:35 ABX Reporting Has patient been on IV antibiotics over the past 48 hours?: Yes Current Medications - Current Medications Current Medications: Current Medications Generic Name Dose Route Start Last Admin Trade Name Freq PRN Reason Stop Dose Admin Acetaminophen 650 mg 12/20/20 22:38 12/26/20 08:15 Acetaminophen 325 Mg Tablet PO 650 mg Q4HR PRN Administration Pain 1 to 4 Ascorbic Acid 500 mg 12/23/20 11:00 12/26/20 08:21 Ascorbic Acid Chew 500 Mg Tablet PO 500 mg DAILY KAREN Administration Cholecalciferol 50 mcg 12/23/20 11:00 12/26/20 08:14 Cholecalciferol 25 Mcg Tablet PO 50 mcg DAILY KAREN Administration Docusate Sodium 250 - 500 mg 12/23/20 09:00 12/26/20 08:16 Docusate Sodium 250 Mg Capsule PO 250 mg DAILY KAREN Administration Hydromorphone HCl 2 mg 12/26/20 08:22 12/26/20 19:37 Hydromorphone 2 Mg Tablet PO 2 mg Q6HR PRN Administration Severe Pain Piperacillin Sod/Tazobactam 100 mls @ 200 mls/hr 12/21/20 03:00 12/26/20 15:16 Sod 3.375 gm/ Sodium Chloride IV Infused Q6H KAREN Infusion Vancomycin HCl 1 gm/ 250 mls @ 167 mls/hr 12/21/20 10:00 12/26/20 15:12 Vancomycin HCl 250 mg/ Sodium IV Infused Chloride Q12H KAREN Infusion Sodium Chloride 500 mls @ 20 mls/hr 12/22/20 20:33 12/25/20 14:02 Normal Saline 0.9% IV Infused Q24H PRN Infusion TKO RATE Ibuprofen 600 mg 12/26/20 09:00 12/26/20 19:37 Ibuprofen 600 Mg Tablet PO 600 mg Q6HR KAREN Administration Insulin Aspart 1 - 9 unit 12/24/20 17:00 12/26/20 17:41 Insulin Aspart 300 Unit/3 Ml Pen SUBQ 7 unit 0800,1200,1700,2100 KAREN Administration Protocol Insulin Aspart 5 unit 12/26/20 17:00 12/26/20 17:41 Insulin Aspart 300 Unit/3 Ml Pen SUBQ 5 unit TIDWM KAREN Administration Lactobacillus Rhamnosus 1 cap 12/26/20 17:00 12/26/20 17:40 Lactobacillus Rhamnosus Gg Capsule PO 1 cap DAILY KAREN Administration Losartan Potassium 50 mg 12/26/20 12:00 12/26/20 13:18 Losartan 50 Mg Tablet PO 50 mg DAILY KAREN Administration Polyethylene Glycol 17 gm 12/23/20 09:00 12/26/20 08:23 Polyethylene Glycol 3350 17 Gm Packet PO Not Given DAILY KAREN Sodium Chloride 10 ml 12/20/20 22:38 12/26/20 14:45 Sodium Chloride Flush 0.9% 10 Ml Syringe IVP 10 ml PRN PRN Administration NEEDED PER PROVIDER ORDERS Sodium Chloride 10 ml 12/21/20 01:00 12/26/20 17:42 Sodium Chloride Flush 0.9% 10 Ml Syringe IVP 10 ml 0100,0900,1700 KAREN Administration Tramadol HCl 50 mg 12/21/20 00:33 12/25/20 20:22 Tramadol 50 Mg Tablet PO 50 mg Q4HR PRN Administration PAIN Zinc Sulfate 220 mg 12/23/20 11:00 12/26/20 08:15 Zinc Sulfate 220 Mg Capsule PO 220 mg DAILY KAREN Administration
[2020-12-26] MEDS: NYSTATIN CREAM 15 GM TUBE TOP SCH (21:06)
[2020-12-27] MEDS: IBUPROFEN 600 MG TABLET PO SCH ×2 (02:19→09:00)
[2020-12-27] MEDS: HYDROmorphone 2 MG TABLET PO PRN ×2 (02:20→09:00)
[2020-12-27] MEDS: SODIUM CHLORIDE FLUSH 0.9% 10 ML SYRINGE IVP SCH ×2 (07:42→10:08)
[2020-12-27] MEDS: PIPERACILLIN/TAZOBACTAM 3.375 GM in SODIUM CHLORIDE 0.9% MINIBAG 100 ML IV SCH ×2 (07:45→10:09)
[2020-12-27] MEDS: ASCORBIC ACID CHEW 500 MG TABLET PO SCH (09:00)
[2020-12-27] MEDS: DOCUSATE SODIUM 250 MG CAPSULE PO SCH (09:00)
[2020-12-27] MEDS: LOSARTAN 50 MG TABLET PO SCH (09:00)
[2020-12-27] MEDS: polyethylene glycoL 3350 17 GM PACKET PO SCH (09:08)
[2020-12-27] MEDS: INSULIN ASPART 300 UNIT/3 ML PEN SUBQ SCH ×2 (09:25)
[2020-12-27] MEDS: LACTOBACILLUS RHAMNOSUS GG CAPSULE PO SCH (09:30)
[2020-12-27] MEDS: CHOLECALCIFEROL 25 MCG TABLET PO SCH (09:30)
[2020-12-27] MEDS: ZINC SULFATE 220 MG CAPSULE PO SCH (09:30)
[2020-12-27] MEDS: INSULIN GLARGINE 300 UNIT/3 ML PEN SUBQ SCH (09:32)
[2020-12-27] MEDS: NYSTATIN CREAM 15 GM TUBE TOP SCH (10:07)
[2020-12-27] MEDS: VANCOMYCIN INJ 1 GM, VANCOMYCIN INJ 250 MG in SODIUM CHLORIDE 0.9% 250 ML IV SCH (10:30)
--- NOTE | 2020-12-27 13:12 | DISCHARGE SUMMARY ---
Discharge Summary Admit Date: 12/20/20 Discharge Date: 12/27/20 Discharging Provider: Kamran Code Status: Attempt Resuscitation Condition at Discharge: Stable Discharge Disposition: 01 Home, Self Care - DIAGNOSES Admission Diagnoses: 1. Refractory diabetes 2. Necrotizing fasciitis of the right buttock and perineum 3. Persistent suppurative skin and subcutaneous infection 4. Active cellulitis 5. Wound complication 6. Large skin and subcutaneous tissue defect reflecting 60-70% of the right buttock and perineum Discharge Diagnoses with Status of Each Condition: 1. Refractory diabetes - TREATED 2. Necrotizing fasciitis of the right buttock and perineum - TREATED 3. Persistent suppurative skin and subcutaneous infection - TREATED 4. Active cellulitis - TREATED 5. Wound complication - TREATED 6. Large skin and subcutaneous tissue defect reflecting 60-70% of the right buttock and perineum - ONGOING - HPI History of Present Illness: 40-year-old female with diabetes with the following interval history: 1. Right vulvar/perivulvar discomfort since November 30 2. Emergency room visit on December 03 for presumptive Bartholin cyst, incised 3. December 05, return visit to emergency room with SIRS and sepsis concerning for subcutaneous emphysema 4. Transferred to [place] with presumptive diagnosis of necrotizing fasciitis 5. For debridements in the interim at [place] after which the patient was discharged with outpatient wound VAC therapy Patient had limited direction as far as follow-up and in spite of social work and their best efforts patient had wound VAC system failures and presents today with separation and purulent drainage of her already extensively debrided wound with extensive tissue loss amounting to nearly 70% of her right buttock and perivulvar space his unfortunate female had pain and swelling of her right vulva approximately November 30. She was seen in the emergency room December 03 and was diagnosed with a Bartholin cyst which was incised, started on oral antibiotics with catheter placement She is tachycardic. The wound had significant erythema, and patient presented with significant hyperglycemia. 40-year-old female with history of necrotizing fasciitis of the perineum involving the labia and buttock who was transferred for higher level of care. Outpatient follow-up and wound care has been suboptimal. Recurrent difficulties with wound VAC that had been placed. Presented to ER with significant drainage. Concern for persistent infectious process. Discussed with hospitalist and comanagement with their team is primary. Anticipated operative debridement in the near future. Patient also was advised of the possibility of need for fecal diversion. - CONSULTS | PROCEDURES Consultations: Surgery/Hospitalist Procedures: First of Two Operative Interventions: Pre-Op Diagnosis: Necrotizing fasciitis; wound complication; persistent skin and soft tissue Procedure Performed: 1. Exam under esthesia 2. Wide local excision 3. Pulse lavage with debridement 4. Wound VAC placement 5. Tissue culture Post Op Diagnosis: Same; debrided to viable bleeding edges. Second of Two Operative Interventions: Pre-Op Diagnosis: Necrotizing fasciitis; wound complication; persistent skin and soft tissue Procedure Performed: 1. Exam under anesthsia 2. Wide local excision 3. Pulse lavage with debridement 4. Wound VAC placement 5. Tissue culture 6. Complex Wound Closure 7. Pudental block Post Op Diagnosis: Same; debrided to viable bleeding edges; partial closure - HOSPITAL COURSE Hospital Course: 40-year-old female with necrotizing fasciitis incompletely resected. Proceed with exam under anesthesia, wide local excision, reattempt at wound VAC placement. Patient was advised there might be indication to proceed with fecal diversion given the proximity of the wound to the anus. Diabetic management will need continued close fingerstick monitoring and blood glucose control. Antibiotics based on intraoperative cultures. Patient underwent above listed procedure without any complication. Patient underwent operative intervention as listed in the electronic medical record. Tolerated procedure well for which there was no complication. Patient admitted with suppurative remnant skin and soft tissue infection of the right buttock and perineum. This was operatively debrided in place for wound VAC. Given the proximity to the anus significant consideration was given to proceeding with fecal diversion. Patient was amendable. However given this was first failure after outpatient challenge with VAC therapy and after initial discharge from referral center, we opted to defer this as a "last resort". Patient was managed for IV antibiotics based on cultures. Patient was also managed for diabetes and hyperglycemia per the hospital service. Schaffer catheter was maintained for the entirety of this hospitalization for urinary diversion. Patient returned to the operating room per above and was felt appropriate for partial closure of the posterior aspect of the wound. This was placed for packing strips in anticipation of possible continued wound care to to perform additional delayed primary closure as an outpatient. Patient was transitioned to oral antibiotics. Patient was maintained for Schaffer catheter. Patient was managed and transitioned from IV Dilaudid to oral Dilaudid. And the following discharge instructions and plan were advised (see below). Patient was afebrile hemodynamically acceptable normal for white count without any concerns for sepsis or other complication. Postoperatively the patient was managed for postoperative analgesia and resumption of bowel function. Tolerated oral intake without any complication. Denied nausea denied vomiting. Was advanced for diet without any complication. Patient was maintained on a bowel regimen. Patient was tolerating oral analgesia, p.o. nutrition with soft diet, with positive resumption of bowel function. Afebrile hemodynamically acceptable. Electrolytes repleted throughout and blood counts as a relates to risks of anemia in the perioperative setting and leukocytosis as an inflammatory marker were all stable without any concerns. Discharge instructions given. Analgesia with Dilaudid provided at time of discharge. Patient plan for follow-up and will be notified of pathology once returned. Plan 1. Dilaudid every 4-6 hours as needed for pain 2. Take Colace twice daily and MiraLAX daily as per above while taking narcotics and if no bowel function 3. Avoid nonsteroidals and continue with acetaminophen 650 mg every 6 hours not to exceed 4 g daily 4. Patient to return for OR wound VAC change and debridement and additional partial closure. This is December 30 at 1:30 PM. 5. Patient to call or return to the hospital through ER for fevers, nausea, vomiting, abdominal pain or any other worrisome symptoms or concerns. 6. Patient not to return to any work capacity until seen in clinic. 7. No heavy lifting, pushing, or pulling. Stairs are allowed, no strenuous/exertional activities. 5-10lbs weight carrying limit (i.e. gallon of milk) 8. Call or proceed to clinic/ER for fevers, severe pain, nausea, vomiting, inability to pass flatus/stool, bleeding, wound redness/discharge, weakness, excessively loose stool/diarrhea, or for any other reasonably worrisome symptom or concern. 9. Soft diet, no raw vegetables, avoid high fiber foods. 10. No driving while taking narcotic pain medications. 11. Patient not allowed to drive self today or within 24 hours of surgery. 12. Patient to continue wound VAC therapy and leave packing strips in place in the posterior right buttock 13. Patient to be discharged with Schaffer catheter in place. - ALLERGIES Allergies/Adverse Reactions: Allergies Allergy/AdvReac Type Severity Reaction Status Date / Time hydrocodone bitartrate * Allergy Intermediate Hives Verified 12/18/20 19:07 [From Vicodin] oxycodone HCl * Allergy Intermediate Hives Verified 12/18/20 19:07 [From Percocet] metformin AdvReac Unknown Verified 12/18/20 19:07 - MEDICATIONS Home Medications: Ambulatory Orders Medication Instructions Recorded Confirmed Docusate Sodium [Dss] 250 mg PO DAILY PRN 12/17/20 12/29/20 Insulin Glargine [Lantus Solostar] 16 unit SQ QPM 12/17/20 12/29/20 Insulin Lispro [Humalog Kwikpen 3 unit SQ AC 12/17/20 12/29/20 U-100] Ciprofloxacin HCl 1 tablet PO BID 14 Days #28 tablet 12/26/20 12/29/20 Fluconazole [Diflucan] 100 mg PO DAILY 14 Days #14 tablet 12/26/20 12/29/20 metroNIDAZOLE [Flagyl] 500 mg PO BID 14 Days #42 tablet 12/26/20 12/29/20 Ascorbic Acid Chew [Vitamin C] 500 mg PO DAILY tablet 12/27/20 12/29/20 Cholecalciferol [Vitamin D3] 50 mcg PO DAILY tablet 12/27/20 12/29/20 L. Acidophilus/Pectin, [place] 1 each PO DAILY #7 cap 12/27/20 12/29/20 [Acidophilus Capsule] Nystatin Cream [Mycostatin Cream] 1 applic TOP BID #1 tu 12/27/20 12/29/20 Losartan [Cozaar] 50 mg PO DAILY #30 tablet 12/28/20 12/29/20 Docusate Sodium 250Mg Capsule 1 tab PO DAILY 12/29/20 12/29/20 [Colace 250Mg Capsule] HYDROmorphone [Dilaudid] 1 tab ORAL Q6H PRN 12/29/20 12/29/20 Ibuprofen [Motrin] 400 mg PO BID 12/29/20 12/29/20 Insulin Aspart [NovoLOG] 1 unit SUBQ 0800,1200,1700,2100 12/29/20 12/29/20 Insulin Glargine [Lantus Solostar] 14 unit SUBQ AC 12/29/20 12/29/20 - PHYSICAL EXAM AT DISCHARGE Physical Exam Other/Comments: Afebrile hemodynamically acceptable General Appearance: positive: No acute distress Eyes Bilateral: positive: Normal inspection ENT: positive: ENT inspection nml Neck: positive: Nml inspection Respiratory: positive: Chest non-tender, No respiratory distress, Breath sounds nml. negative: Wheezes, Rales, Rhonchi Cardiovascular: positive: Regular rate & rhythm Abdomen: positive: No distention, Other. negative: Guarding, Rebound Extremities: positive: Non-tender, Full ROM, Nml appearance Neurologic/Psychiatric: positive: Oriented x3, CN's nml (2-12) Perineal with wound VAC in place over the right perivulvar region. Repacked the posterior right gluteal wound without complication. Switched the hospital wound vac system to the patient's portable unit without complication. - LABS Result Diagrams: 12/26/20 04:35 12/26/20 04:35 - SEPSIS Current Stage of Sepsis: Sepsis - FOLLOW UP Follow Up: OR next tuesday - TIME SPENT Time Spent in Discharge (Minutes): 90
[2020-12-27 13:52] VITALS: BP 140/74
== END 2020-12-27 14:30 | disposition home or self-care (01) | DRG 464 ==
LOC: ED 19:01 → MS3 22:38 → OBS 12-27 00:08
PROVIDERS: ADMIT Specialist; ATTEND Surgery
PROC: 0JD93ZZ Extraction of Buttock Subcutaneous Tissue and Fascia, Percutaneous Approach (ICD-10-PCS; 2020-12-22)
PROC: 0JDB3ZZ Extraction of Perineum Subcutaneous Tissue and Fascia, Percutaneous Approach (ICD-10-PCS; 2020-12-22)
PROC: 0JB90ZZ Excision of Buttock Subcutaneous Tissue and Fascia, Open Approach (ICD-10-PCS; principal; 2020-12-22 14:45)
PROC: 0JB90ZZ Excision of Buttock Subcutaneous Tissue and Fascia, Open Approach (ICD-10-PCS; 2020-12-25)
PROC: 0YQ Anatomical Regions, Lower Extremities, Repair (ICD-10-PCS; 2020-12-25)
PROC: 0JD93ZZ Extraction of Buttock Subcutaneous Tissue and Fascia, Percutaneous Approach (ICD-10-PCS; 2020-12-25)
PROC: 0JDB3ZZ Extraction of Perineum Subcutaneous Tissue and Fascia, Percutaneous Approach (ICD-10-PCS; 2020-12-25)
DX: M72.6 Necrotizing fasciitis (principal); L03.317 Cellulitis of buttock; L03.315 Cellulitis of perineum; E11.65 Type 2 diabetes mellitus with hyperglycemia; E11.42 Type 2 diabetes mellitus with diabetic polyneuropathy; Z79.4 Long term (current) use of insulin; R00.0 Tachycardia, unspecified; F17.210 Nicotine dependence, cigarettes, uncomplicated; R60.0 Localized edema; D64.9 Anemia, unspecified
CPT/HCPCS: 0202U; 36415; 80048; 80202; 82728; 83036; 83540; 83735; 84466; 85025; 86850; 86900; 86901; 87070; 87077; 87181; 87205; 96365; 96366; 96368; 99283; 99285; A9270; J1170; J1815; J3370; J7120

== ENCOUNTER 2020-12-30 13:09 | Day surgery (SDC) | payer MEDICAID ==
[~2020-12-30 13:09] MED LIST: CIPROFLOXACIN 400 MG/200 ML 400 MG/200 ML BAG IV ONE; metroNIDAZOLE 500 MG/100 ML 500 MG/100 ML BAG ONE
[2020-12-30 14:14] LABS: HCG UR QUAL NEGATIVE
[2020-12-30] MEDS ORDERED: PROPOFOL 200 MG/20 ML VIAL IVP ONE (14:14)
[2020-12-30] MEDS ORDERED: fentaNYL 100 MCG/2 ML VIAL ONE (14:15)
[2020-12-30] MEDS ORDERED: MIDAZOLAM 2 MG/2 ML VIAL ONE (14:15)
[2020-12-30] MEDS ORDERED: LACTATED RINGERS 1,000 ML IV ONE ×2 (14:20→15:49)
--- NOTE | 2020-12-30 14:22 | SURGERY HX AND PHYSICAL(T) ---
Surgical History & Physical - Chief Complaint/HPI Chief Complaint: Right buttock wound with right perineal necrotizing fasciitis History of Present Illness: 40-year-old female presenting for wound care . Recent history to include presentation for perineal/perianal fluctuance initially drained. Patient represented with worsening symptomatology and concerns for necrotizing fasciitis. Patient underwent multiple operative debridements at [facility]. Discharged with wound VAC therapy. Patient ultimately represented to would be emergency room with wound VAC dysfunction and signs of persistent skin and soft tissue infectious process. Patient admitted to the hospital and underwent several operative interventions for reexploration/exam under anesthesia; wide local debridement, washout, and wound VAC placement. She also underwent most recently partial closure. Patient is a known diabetic. Patient presents today for continued local wound care. - PMH/PSH/Social Hx Does the pt have a hx of MRSA?: No Neurological History: None Eyes, Ears, Nose, Throat: Other Cardiovascular: Hypertension Respiratory: None Skin: Psoriasis Endocrine/Autoimmune: Type 2 diabetes Gastrointestinal: None [employer]: Other Urinary: Indwelling catheter Musculoskeletal: Osteoarthritis Blood Disorders: None Psychiatric: Other Orthopedic: Arthroscopic surgery Smoking Status: Current every day smoker Does the pt drink ETOH?: No Does the pt have substance abuse?: Yes Substance Use and Type: Marijuana - Home Meds and Allergies Home Medications: Docusate Sodium [Dss] 250 mg PO DAILY PRN 12/17/20 Insulin Glargine [Lantus Solostar] 16 unit SQ QPM 12/17/20 Insulin Lispro [Humalog Kwikpen U-100] 3 unit SQ AC 12/17/20 Docusate Sodium 250Mg Capsule [Colace 250Mg Capsule] 1 tab PO DAILY 12/29/20 HYDROmorphone [Dilaudid] 1 tab ORAL Q6H PRN 12/29/20 Ibuprofen [Motrin] 400 mg PO BID 12/29/20 Insulin Aspart [NovoLOG] 1 unit SUBQ 0800,1200,1700,2100 12/29/20 Insulin Glargine [Lantus Solostar] 14 unit SUBQ AC 12/29/20 Allergies/Adverse Reactions: Allergies Allergy/AdvReac Type Severity Reaction Status Date / Time hydrocodone bitartrate * Allergy Intermediate Hives Verified 12/18/20 19:07 [From Vicodin] oxycodone HCl * Allergy Intermediate Hives Verified 12/18/20 19:07 [From Percocet] metformin AdvReac Unknown Verified 12/18/20 19:07 - Review of Systems Constitutional: No: Fever, Malaise Gentinourinary: Other (Schaffer catheter in place) - Vital Signs Heart Rate: 88 Blood Pressure: 141/62 Temperature: 36.4 C Respiratory Rate: 12 O2 Saturation: 100 Weight (kg): 72 kg Height: 1.65 m - Physical Exam Comments/Other: General Appearance: positive: No acute distress Eyes Bilateral: positive: Normal inspection ENT: positive: ENT inspection nml Neck: positive: Nml inspection Respiratory: positive: Chest non-tender, No respiratory distress, Breath sounds nml. negative: Wheezes, Rales, Rhonchi Cardiovascular: positive: Regular rate & rhythm Abdomen: positive: No distention, Other. negative: Guarding, Rebound Extremities: positive: Non-tender, Full ROM, Nml appearance Neurologic/Psychiatric: positive: Oriented x3, CN's nml (2-12) - Patient Review Patient Review: Problems were reviewed with the patient during this visit. Medications were reviewed with the patient during this visit. Allergies were reviewed this patient during this visit. Pertinent Tests Reviewed: All pertitent test for this patient were reviewed. - Assessment & Plan Assessment and Plan: 40-year-old female with history of necrotizing fasciitis of the perineum and perianal region who presents today with persistent skin and subcutaneous tissue defect, continues with local wound VAC therapy. Partial closure last operative intervention. Schaffer catheter remains in place. Plan going forward intraoperative is as follows: 1. Exam under anesthesia 2. Wide local debridement 3. Washout 4. Wound VAC reapplication 5. Possible further delayed primary closure 6. Pudendal block 7. Possible replacement of Schaffer catheter. Risk and benefit discussed questions answered informed consent obtained
--- NOTE | 2020-12-30 14:24 | ANESTHESIA ---
Pre-Anesthesia VS, & Labs - Diagnosis open wound perineum - Procedure I&D perineum wound and placement of wound vac Vital Signs: Temp Pulse Resp BP Pulse Ox 36.4 C L 88 12 141/62 H 100 12/30/20 14:22 12/30/20 14:22 12/30/20 14:22 12/30/20 14:22 12/30/20 14:22 Height: 5 ft 5 in Weight (kg): 72 kg Body Mass Index: 26.4 BMI Classification: Overweight - NPO >8 hours - Is Patient ?: No Home Medications and Allergies Home Medications: Ambulatory Orders Docusate Sodium 250Mg Capsule [Colace 250Mg Capsule] 1 tab PO DAILY 12/29/20 HYDROmorphone [Dilaudid] 1 tab ORAL Q6H PRN 12/29/20 Ibuprofen [Motrin] 400 mg PO BID 12/29/20 Insulin Aspart [NovoLOG] 1 unit SUBQ 0800,1200,1700,2100 12/29/20 Insulin Glargine [Lantus Solostar] 14 unit SUBQ AC 12/29/20 Docusate Sodium [Dss] 250 mg PO DAILY PRN 12/17/20 Insulin Glargine [Lantus Solostar] 16 unit SQ QPM 12/17/20 Insulin Lispro [Humalog Kwikpen U-100] 3 unit SQ AC 12/17/20 Docusate Sodium 250Mg Capsule [Colace 250Mg Capsule] 1 tab PO DAILY 12/29/20 HYDROmorphone [Dilaudid] 1 tab ORAL Q6H PRN 12/29/20 Ibuprofen [Motrin] 400 mg PO BID 12/29/20 Insulin Aspart [NovoLOG] 1 unit SUBQ 0800,1200,1700,2100 12/29/20 Insulin Glargine [Lantus Solostar] 14 unit SUBQ AC 12/29/20 Allergies/Adverse Reactions: Allergies Allergy/AdvReac Type Severity Reaction Status Date / Time hydrocodone bitartrate * Allergy Intermediate Hives Verified 12/18/20 19:07 [From Vicodin] oxycodone HCl * Allergy Intermediate Hives Verified 12/18/20 19:07 [From Percocet] metformin AdvReac Unknown Verified 12/18/20 19:07 Anes History & Medical History - Anesthetic History Anesthesia Complications: reports: No previous complications - Medical History Cardiovascular: reports: Hypertension Pulmonary: reports: None Gastrointestinal: reports: None Urinary: reports: Indwelling catheter Neuro: reports: None Musculoskeletal: reports: Osteoarthritis Endocrine/Autoimmune: reports: Type 2 diabetes Blood Disorders: reports: None Skin: reports: Psoriasis Smoking Status: Current every day smoker - Surgical History Gynecologic: reports: Dilation and currettage Orthopedic: reports: Arthroscopic surgery Exam General: Alert, Oriented x3, Cooperative, No acute distress Dental: Poor dentition Mouth Openin Fingerbreadth Neck Mobility: Normal Mallampati classification: II Thyromental Distance: 4-6 cm Mental/Cognitive Status: Alert/Oriented X3, Normal for patient Plan Anesthesia Type: MAC Consent for Procedure(s) Verified and Reviewed: Yes Code Status: Attempt Resuscitation ASA classification: 3-Severe systemic disease Is this case an emergency?: No
[2020-12-30] MEDS ORDERED: HYDROmorphone 1 MG/ML CARPUJECT ONE ×2 (14:55→16:04)
[2020-12-30] MEDS ORDERED: ONDANSETRON 4 MG/2 ML VIAL ONE (14:57)
[2020-12-30] MEDS ORDERED: BUPIVACAINE 0.5% PF 30 ML VIAL INFIL ONE (15:05)
[2020-12-30] MEDS ORDERED: BUPIVACAINE 0.5% PF 30 ML VIAL ONE (15:06)
[2020-12-30] MEDS ORDERED: LIDOCAINE 2%-EPI 1:100000 20 ML MDV SUBQ ONE (15:06)
[2020-12-30] MEDS ORDERED: LIDOCAINE 2%-EPI 1:100000 20 ML MDV ONE (15:06)
[2020-12-30] MEDS ORDERED: BACITRACIN ZINC OINT 1 PACKET TOP ONE (15:33)
[2020-12-30] MEDS ORDERED: fentaNYL 100 MCG/2 ML VIAL IVP PRN (15:53)
[2020-12-30] MEDS ORDERED: HYDROmorphone 0.5 MG/0.5 ML SYRINGE IVP PRN ×2 (15:53→17:32)
[2020-12-30] MEDS ORDERED: NALOXONE 0.4 MG/ML VIAL IVP PRN (15:53)
[2020-12-30] MEDS ORDERED: ATROPINE ABBOJECT 1 MG/10 ML SYRINGE IVP PRN (15:53)
[2020-12-30] MEDS ORDERED: MORPHINE 2 MG/ML CARPUJECT IVP PRN (15:53)
[2020-12-30] MEDS ORDERED: ONDANSETRON 4 MG/2 ML VIAL IVP PRN ×2 (15:53→17:32)
[2020-12-30] MEDS ORDERED: LACTATED RINGERS 1,000 ML IV SCH (16:00)
--- NOTE | 2020-12-30 16:35 | ANESTHESIA POST OP EVALUATION ---
Anesthesia Post Eval - Post Anesthesia Eval Vitals: Last Vital Signs Temp 36.8 C 12/30/20 16:26 Pulse 94 12/30/20 16:26 Resp 16 12/30/20 16:26 BP 143/64 H 12/30/20 16:26 Pulse Ox 97 12/30/20 16:26 CV Function Including HR & BP: Stable Pain Control: Satisfactory Nausea & Vomiting: Negative Mental Status: Baseline Respiratory Status: Airway Patent Hydration Status: Satisfactory Anesthesia Complications: None
--- NOTE | 2020-12-30 17:37 | OPERATIVE REPORT ---
Operative Report - General Procedure Date: 12/30/20 Planned Procedure: Planned Procedure: 1. Exam under esthesia 2. Wide local excision 3. Pulse lavage with debridement 4. Wound VAC placement 5. Partial closure Pre-Op Diagnosis: Necrotizing fasciitis; wound complication; persistent skin and soft tissue Procedure Performed: Procedure Performed: 1. Exam under anesthsia 2. Wide local excision 3. Pulse lavage with debridement 4. Wound VAC placement 5. Tissue culture 6. Complex Wound Closure 7. Pudental block Post Op Diagnosis: Same; debrided to viable bleeding edges. - Procedure Note Primary Surgeon: Kamran Secondary Surgeon: Lurdes Anesthesia Provider: Herbert Anesthesia Technique: General LMA, Local Pathology: 1. Skin and subcutaneous tissue for pathology Indications: See EMR Findings: See below Complications: Right Perineal/Perivulvar 11cm X 7cm X 3cm (DEEP) Superficial opening (same wound post-partial closure) 6cm X 3cm - Other Other Information/Narrative: OPERATIVE REPORT: Patient was taken to the operating room placed supine on the operating table. Patient was positioned in lithotomy. Schaffer catheter was in place. General LMA was induced. Informed consent was already obtained. Timeout was called and agreed to by all of the room. Patient was already on scheduled antibiotics; perioperative abx were dosed as well. Side and site was already confirmed and marked preoperatively. Historic dressing was removed. Wound was prepped with Betadine. We proceeded with exam under anesthesia. Findings are as per below: Anorectal exam: Inspection: External Hemorrhoids -none Fissure in ano -none Erythema (perianal) -diffuse favoring the right, MUCH improved Other -large skin and soft tissue defect involving Rt perineum and Perivulvar skin and soft tissue Palpation: Fluctuance -none Palpable cord -none Scar tissue -extensive Induration -improved Digital Rectal Exam: Rectal Tone -appropriate Fluctuance -none within the perirectal space Sphincter -intact Masses -none Anoscopy: Hemorrhoids - Grade II Bleeding -none Distal proctitis -none Other -no evidence of internal opening for fistula There was no evidence of any fistulous communication from anus as a etiology for patient's presenting symptomatology and necrotizing fasciitis At this time, having undergone the examined anesthesia we proceeded as intended with the followin. Pulse lavage with debridement 2. Wound evaluation 3. Additional partial closure 4. Wound Vac Placement Please see prior operative notes and EMR. Reportedly the patient had presented to the hospital with a right vulvar lesion was drained and returned with significant worsening and was transferred for higher level of care. Patient underwent multiple interventions in the interim. Patient was discharged with wound VAC from referral center. Patient had persistent purulence and failure of outpatient wound VAC therapy during this admission; seen in the emergency room (there was no definitive follow up). Patient was admitted for IV antibiotics and further debridement of obvious infected tissue. She underwent local debridement several days prior with wound vac placement. Thereafter the patient was reexplored/reevaluated; additional tissue was debrided. Patient was considered for fecal diversion; however given her reticence, felt was made to partial closure of the buttock wound to assist given that this was the one area of the wound that had proved challenging with regard to wound VAC placement given its proximity to the anus. Thus we had partially closed the buttock wound with multiple interrupted's of vertical mattress #1 PDS. This was packed as an outpatient. Patient presents today for reevaluation. Wound appears to be healing well. No dehiscence or concerns for fluctuance or worsening infectious process. The majority of the tissue including the perivulvar margins were healthy and intact. Less indurated. Posteriorly at the level of the buttock there was no appreciable induration. Again this was a massive skin and soft tissue defect that she has re-presented with after discharge from outside facility. Wound was additionally debrided historically to healthy bleeding edges. Additional minimal debridement performed sharply as well as with mechanical debridement with Bovie scratch pad. Upon reevaluation it appeared that this wound could potentially be candidate for further partial closure. We thereafter pulse lavage the entirety of the wound with several liters of warm sterile saline. Hemostasis was achieved without complication using electrocaut susy. We reinforced the gluteal wound and closed the remnant of the most caudal apex. These were all performed with PDS given that these should be absorbable however have the necessary tensile strength to afford the appropriate durability. This was performed for the entirety of the gluteal wound extending from the level of the coccyx all the way to the mid perineum. At this time the dimensions of the perivulvar wound was as follows: Right Perineal/perivulvar wound 11cm X 7cm X 3cm (DEEP) We thereafter proceeded to close this aspect of the wound apically at its cranial and caudal aspects with similar vertical mattress sutures of 0 PDS. The final dimensions of the opening were as follows: Superficial opening (same wound post-partial closure) 6cm X 3cm We thereafter proceeded to place wound VAC sponge within the defect. Wound VAC was intact with no leak, tongue a sponge was used to offset the suction button to the right inguinal region, there was undermining at the top aspect of the wound revealing tendon tissue. Patient tolerated procedure well which is no complication. Plan would be to return to the operating room for additional debridement, And/or continued local wound care through the MAC clinic. You will need outpatient general surgery follow-up as well. We also decided to remove the Schaffer catheter pending a trial of void. Please note that voice recognition software was used to transcribe this note and inadvertent errors might persist in spite of review and editing. I am obliged to you for your attention. I am thankful to you for allowing me to participate with you in this care of this patient.
--- NOTE | 2020-12-30 17:39 | PROVIDER PROGRESS NOTE ---
Progress Note BRIEF OP NOTE: Planned Procedure: 1. Exam under esthesia 2. Wide local excision 3. Pulse lavage with debridement 4. Wound VAC placement 5. Partial closure Pre-Op Diagnosis: Necrotizing fasciitis; wound complication; persistent skin and soft tissue Procedure Performed: 1. Exam under anesthsia 2. Wide local excision 3. Pulse lavage with debridement 4. Wound VAC placement 5. Tissue culture 6. Complex Wound Closure 7. Pudental block Post Op Diagnosis: Same; debrided to viable bleeding edges. - Procedure Note Primary Surgeon: Kamran Secondary Surgeon: Lurdes Anesthesia Provider: Herbert Anesthesia Technique: General LMA Pathology: 1. Skin and subcutaneous tissue for pathology Wound dimensions: Right Perineal 11cm X 7cm X 3cm (DEEP) Superficial opening (same wound post-partial closure) 6cm X 3cm
[2020-12-30 17:43] VITALS: BP 142/66
== END 2020-12-30 13:10 | disposition home or self-care (01) ==
LOC: SDS 13:09
PROVIDERS: ATTEND Surgery
PROC: 0DJD8ZZ Inspection of Lower Intestinal Tract, Via Natural or Artificial Opening Endoscopic (ICD-10-PCS; 2020-12-30)
PROC: 0JBB3ZZ Excision of Perineum Subcutaneous Tissue and Fascia, Percutaneous Approach (ICD-10-PCS; principal; 2020-12-30 14:30)
DX: T81.89XA Other complications of procedures, not elsewhere classified, initial encounter (principal); M72.6 Necrotizing fasciitis; Y83.8 Other surgical procedures as the cause of abnormal reaction of the patient, or of later complication, without mention of misadventure at the time of the procedure; E11.9 Type 2 diabetes mellitus without complications; I10 Essential (primary) hypertension; K64.1 Second degree hemorrhoids; F17.200 Nicotine dependence, unspecified, uncomplicated; Z79.4 Long term (current) use of insulin; Z79.899 Other long term (current) drug therapy; Z72.89 Other problems related to lifestyle
CPT/HCPCS: 11004; 46600; 81025; A9270; J1170; J7120

== ENCOUNTER 2021-09-07 16:07 | Observation (INO) | payer MEDICAID ==
[2021-09-07 16:27] LABS: BASOPHILS # (AUTO) 0.1 10^3/uL (0.0-0.1); BASOPHILS % (AUTO) 0.7 %; EOSINOPHILS # (AUTO) 0.3 10^3/uL (0.0-0.7); HGB - HEMOGLOBIN 11.9 g/dL (12.0-16.0); LYMPHOCYTES # (AUTO) 2.9 10^3/uL (1.5-3.5); LYMPHOCYTES % (AUTO) 26.3 %; MEAN CORPUSCULAR HEMOGLOBIN 29.6 pg (27.0-31.0); MEAN CORPUSCULAR VOLUME 84.6 fL (81.0-99.0); MEAN PLATELET VOLUME 10.5 fL (7.9-10.8); MONOCYTES # (AUTO) 0.6 10^3/uL (0.0-1.0); MONOCYTES % (AUTO) 5.5 %; NEUTROPHILS # (AUTO) 7.1 10^3/uL (1.5-6.6); PLT - PLATELET COUNT 358 10^3/uL (130-450); RED BLOOD COUNT 4.02 10^6/uL (4.20-5.40); WHITE BLOOD COUNT 11.1 x10^3/uL (4.8-10.8)
--- NOTE | 2021-09-07 16:28 | ED Physician Documentation ---
PD HPI FOCAL NEURO - Stated complaint Stated Complaint: CODE STROKE - History obtained from History obtained from: Patient, EMS - Additional information Additional information: 41-year-old woman with poorly controlled diabetes and history of perineal necrotizing fasciitis presents for evaluation for potential stroke. 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 At 2:58 PM while there she developed a sensation where everything looked particularly bright and then developed numbness in the left perioral area, left first through third fingers, and word finding difficulties. There is no significant headache associated with this, but she had some mild pain above her eyebrows that she felt was from squinting too hard. In her right eye she felt like her right visual field was obscured and fuzzy. Symptoms are pretty much gone now although she still feels weird. Per EMS she has improved significantly in route. Review of Systems Ten Systems: 10 systems reviewed and negative Constitutional: denies: Fever, Chills Ears: reports: Reviewed and negative Nose: reports: Reviewed and negative Cardiac: reports: Reviewed and negative PD PAST MEDICAL HISTORY - Past Medical History Cardiovascular: Hypertension Respiratory: None Neuro: None Endocrine/Autoimmune: Type 2 diabetes GI: None AREA CLEANER: Other : Indwelling catheter HEENT: Other Psych: Other Musculoskeletal: Osteoarthritis Derm: Psoriasis - Past Surgical History Past Surgical History: Yes Ortho: Arthroscopic surgery /AREA CLEANER: Dilation and currettage - Present Medications Home Medications: Ambulatory Orders Medication Instructions Recorded Confirmed Insulin Glargine [Lantus Solostar] 16 unit SQ QPM 12/17/20 03/04/21 Insulin Lispro [Humalog Kwikpen 3 unit SQ AC 12/17/20 03/04/21 U-100] Ascorbic Acid [Vitamin C] 500 mg PO DAILY tablet 12/27/20 03/04/21 Cholecalciferol [Vitamin D3] 50 mcg PO DAILY tablet 12/27/20 03/04/21 L. Acidophilus/Pectin, [place] 1 each PO DAILY #7 cap 12/27/20 03/04/21 [Acidophilus Capsule] Losartan [Cozaar] 50 mg PO DAILY #30 tablet 12/28/20 03/04/21 Ibuprofen [Motrin] 400 mg PO BID PRN 12/29/20 03/04/21 Insulin Aspart [NovoLOG] 1 unit SUBQ 0800,1200,1700,2100 12/29/20 03/04/21 Insulin Glargine [Lantus Solostar] 14 unit SUBQ AC 12/29/20 03/04/21 Ciprofloxacin HCl 1 tablet PO BID 5 Days #10 tablet 02/27/21 - Allergies Allergies/Adverse Reactions: Allergies Allergy/AdvReac Type Severity Reaction Status Date / Time hydrocodone bitartrate * Allergy Intermediate Hives Verified 09/07/21 16:24 [From Vicodin] oxycodone HCl * Allergy Intermediate Hives Verified 09/07/21 16:24 [From Percocet] metformin AdvReac Unknown Verified 09/07/21 16:24 - Social History Does the pt smoke?: Yes Smoking Status: Current every day smoker Does the pt drink ETOH?: No Does the pt have substance abuse?: Yes - Immunizations Immunizations are current?: Yes - POLST Patient has POLST: No POLST Status: Full Code PD ED PE NORMAL - Vitals Vital signs reviewed: Yes - General General: Alert and oriented X 3, No acute distress, Well developed/nourished - HEENT HEENT: PERRL, EOMI - Neck Neck: Supple, no meningeal sign, No bony TTP - Cardiac Cardiac: RRR, No murmur - Respiratory Respiratory: No respiratory distress, Clear bilaterally - Abdomen Abdomen: Normal bowel sounds, Soft, Non tender - Back Back: No CVA TTP, No spinal TTP - Derm Derm: Normal color, Warm and dry - Extremities Extremities: No edema, No calf tenderness / cord - Neuro Neuro: Alert and oriented X 3, No motor deficit, No sensory deficit, Normal speech Eye Opening: Spontaneous Motor: Obeys Commands Verbal: Oriented GCS Score: 15 NIHSS - Time Time: 16:20 - Level of Consciousness Level of consciousness: (0) Alert, Keenly responsive LOC Questions: (0) Answers both Q's correct LOC Commands: (0) Performs both correctly - Gaze Best Gaze: (0) Normal - Visual Visual: (0) No loss - Facial Palsy Facial Palsy: (0) Normal, symmetrical movement - Motor Arms (both separate) Motor Arm (right): (0) No drift Motor Arm (left): (0) No drift - Motor Legs (both separate) Motor Leg (right): (0) No drift Motor Leg (left): (0) No drift - Limb Ataxia Limb Ataxia: (0) Absent - Sensory Sensory: (0) Normal - Best Language Best Language: (0) No aphasia - Dysarthria Dysarthria: (0) Normal - Extinction and Inattention (formally neg Extinction and inattention: (0) No abnormality - Total Score/Results Total Score/Result: 0 Results - Vitals Vitals: Vital Signs - 24 hr 09/07/21 09/07/21 09/07/21 16:24 16:29 17:02 Temperature 36.8 C 36.8 C 36.6 C Heart Rate 110 H 110 H 99 Respiratory 16 16 12 Rate Blood Pressure 198/99 H 198/99 H 182/102 H O2 Saturation 100 100 100 09/07/21 09/07/21 09/07/21 17:08 17:18 17:31 Temperature Heart Rate 94 97 96 Respiratory 16 18 16 Rate Blood Pressure 188/106 H 186/102 H 122/108 H O2 Saturation 98 96 09/07/21 09/07/21 09/07/21 17:40 17:50 18:00 Temperature Heart Rate 94 87 83 Respiratory 19 Rate Blood Pressure 169/98 H 138/87 H 139/88 H O2 Saturation 98 98 98 09/07/21 09/07/21 18:12 18:13 Temperature 84 C H Heart Rate 84 Respiratory Rate Blood Pressure 149/85 H O2 Saturation 98 Oxygen O2 Source Room air - EKG (time done) 1637 Rate: Rate (enter#) (97) Rhythm: NSR [place]: Normal Intervals: Normal DC QRS: Normal Ischemia: Normal ST segments - Labs Labs: Laboratory Tests 09/07/21 09/07/21 09/07/21 16:14 16:14 16:14 WBC 11.1 H RBC 4.02 L Hgb 11.9 L Hct 34.0 L MCV 84.6 MCH 29.6 MCHC 35.0 RDW 12.0 Plt Count 358 MPV 10.5 Neut # (Auto) 7.1 H Lymph # (Auto) 2.9 [place] # (Auto) 0.6 Eos # (Auto) 0.3 Baso # (Auto) 0.1 Absolute Nucleated RBC 0.00 Nucleated RBC % 0.0 PT 10.0 INR 0.9 Sodium Potassium Chloride Carbon Dioxide Anion Gap BUN Creatinine Estimated GFR (MDRD) Glucose Calcium Total Bilirubin AST ALT Alkaline Phosphatase Total Protein Albumin Globulin Albumin/Globulin Ratio Serum HCG, Qual NEGATIVE 09/07/21 16:46 WBC RBC Hgb Hct MCV MCH MCHC RDW Plt Count MPV Neut # (Auto) Lymph # (Auto) [place] # (Auto) Eos # (Auto) Baso # (Auto) Absolute Nucleated RBC Nucleated RBC % PT INR Sodium 129 L Potassium 4.1 Chloride 96 L Carbon Dioxide 26 Anion Gap 7.0 BUN 24 H Creatinine 1.3 H Estimated GFR (MDRD) 45 L Glucose 397 H Calcium 8.5 Total Bilirubin 0.3 AST 13 ALT 18 Alkaline Phosphatase 79 Total Protein 5.8 L Albumin 2.7 L Globulin 3.1 Albumin/Globulin Ratio 0.9 L Serum HCG, Qual - Rads (name of study) CT Head Radiology: EMP read contemporaneously (No acute findings. Mild chronic white matter small vessel ischemic change and volume loss) CTA Head/neck Radiology: EMP read contemporaneously (CT angiography of the head and neck was notable for intracranial atherosclerosis producing mild narrowing, no extra cranial carotid stenosis.) PD MEDICAL DECISION MAKING - ED course ED course: 41-year-old woman presents for evaluation of strokelike symptoms which are all but recall resolved on arrival. I spoke with Dr. Stevens, telestroke neurologist who will see her. Plain CT negative. Dr. Stevens did recommend starting something for blood pressure in the interim in case they did decide on TPA. Dr. Stevens saw the patient and feels this is most likely complicated migraine. Recommends admission for MRI brain, if positive For stroke then eventually Echo with bubble, Although we discussed that I do not have this availability in the hospital now and she did not think it would be urgent. Of note, the telestroke neurologist still discussed TPA with her and the patient refused. Spoke with Dr. Tafoya for For observation at 5:34 PM for TIA versus complex migraine. Departure - Departure Disposition: ED Place in Observation Clinical Impression: TIA (transient ischemic attack) Condition: Stable
[2021-09-07] MEDS ORDERED: IOVERSOL 320 100 ML VIAL IVP ONE ×2 (16:41→16:50)
[2021-09-07] MEDS ORDERED: NICARDIPINE HCL 25 MG in SODIUM CHLORIDE 0.9% 240 ML IV STA (16:41)
--- NOTE | 2021-09-07 16:44 | CT Report ---
PROCEDURE: Head W/O Stroke Protocol INDICATIONS: CVA sx TECHNIQUE: Noncontrast 4.5 mm thick angled axial sections acquired from the foramen magnum to the vertex, with c oronal reformats. For radiation dose reduction, the following was used: automated exposure control, adjustment of mA and/or kV according to patient size. COMPARISON: FINDINGS: Image quality: Excellent. CSF spaces: Basal cisterns are patent. No extra-axial fluid collections. Ventricles are mildly pro minent in size suggestive of cerebral volume loss. Brain: No intracranial hemorrhage, mass, or mass effect. [place]-white matter interface appears preser scarlett. There are a few scattered periarticular matter hypodensities which are nonspecific but suggestiv e of mild chronic white matter vessel ischemic changes. Skull and face: Calvarium and visualized facial bones are intact, without suspicious lesions. Sinuses: Visualized sinuses and mastoids are clear. IMPRESSION: 1. No acute intracranial hemorrhage or other imaging contraindications to TPA. A phone call was made to the emergency room to discuss results on 08/30/2021 at 3:39 PM and the findin gs were discussed with Dr. Ledezma at 4:42 PM. 2. Mild chronic white matter small vessel ischemic changes and cerebral volume loss. This study fulfills neurological imaging criteria for inclusion or exclusion of acute stroke therapie s based on available published neurological imaging guidelines. Reviewed by: Mariano Falcon MD on 09/07/2021 4:43 PM PDT Approved by: Mariano Falcon MD on 09/07/2021 4:43 PM PDT Station ID: [id number]
[2021-09-07 16:45] LABS: INR 0.9 (0.8-1.2)
[2021-09-07] MEDS ORDERED: NICARDIPINE HCL 25 MG/10 ML VIAL IV ONE (16:56)
[2021-09-07 17:07] LABS: ALBUMIN 2.7 g/dL (3.2-5.5); ALBUMIN/GLOBULIN RATIO 0.9 (1.0-2.2); BILIRUBIN,TOTAL 0.3 mg/dL (0.2-1.0); CALCIUM 8.5 mg/dL (8.5-10.3); CREATININE 1.3 mg/dL (0.4-1.0); POTASSIUM 4.1 mmol/L (3.5-5.0); TOTAL PROTEIN 5.8 g/dL (6.7-8.2)
[2021-09-07 17:15] LABS: HCG,QUALITATIVE BLOOD NEGATIVE
[2021-09-07] MEDS ORDERED: LABETALOL 20 MG/4 ML SYRINGE IVP STA (17:18)
[2021-09-07] MEDS ORDERED: ASPIRIN CHEW 81 MG TABLET PO STA (17:18)
[2021-09-07] MEDS ORDERED: INSULIN 70/30 HUMAN 100 UNIT/1 ML 10 ML MDV SUBQ STA ×2 (17:19→20:04)
--- NOTE | 2021-09-07 17:35 | CT Report ---
PROCEDURE: ANGIO HEAD W/WO INDICATIONS: CVA sx CONTRAST: IV CONTRAST: Optiray 320 ml: 80 PO CONTRAST: *NO PO CONTRAST TECHNIQUE: Precontrast 4.5 mm thick angled axial sections acquired from the foramen magnum to the vertex. Afte r the administration of intravenous contrast, 1 mm thick sections acquired through the [place] of [place] is. Postcontrast 4.5 mm thick sections then re-acquired from the foramen magnum to the vertex. 3-di mensional [id number] (MIP) and/or volume rendering reformats were acquired of the c entral intracranial vasculature. For radiation dose reduction, the following was used: automated ex posure control, adjustment of mA and/or kV according to patient size. COMPARISON: None FINDINGS: Image quality: Excellent. Anterior circulation: Intracranial internal carotid arteries are patent with mild narrowing. The fl ow within the paired anterior cerebral arteries is normal and symmetric. The flow within the middle cerebral arteries is patent with mild narrowing in the M1 and M2 segments. The anterior communicating artery is seen. No aneurysms are seen. Posterior circulation: Left V4 segment and atherosclerotic mild narrowing. Basilar artery unremarkabl e. Flow within the posterior cerebral arteries is normal and symmetric. No aneurysms are seen. CSF spaces: Ventricles are normal in size and shape. Basal cisterns are patent. No extra-axial flu id collections. Brain: No midline shift. No intracranial bleeds or masses. [place]-white matter interface appears int act. Skull and face: Calvarium and facial bones appear intact, without suspicious lesions. Sinuses: Visualized sinuses and mastoids are clear. IMPRESSION: No hemodynamically significant stenosis or occlusion of the major intracranial vessels. Intracranial atherosclerosis involving the bilateral carotid siphons and M1/M2 segments, as well as t he left V4 segment, producing mild narrowing. Reviewed by: Pedro Diallo MD on 09/07/2021 5:33 PM PDT Approved by: Pedro Diallo MD on 09/07/2021 5:33 PM PDT Station ID: [id number]
--- NOTE | 2021-09-07 17:36 | CT Report ---
PROCEDURE: ANGIO NECK W INDICATIONS: CVA sx CONTRAST: IV CONTRAST: Optiray 320 ml: 80 PO CONTRAST: *NO PO CONTRAST TECHNIQUE: After the administration of intravenous contrast, 1.5 mm axial sections acquired from the aortic arch to the [place]. Coronal 3-D maximum intensity projection (MIP) and/or volume rendering ref ormats were then performed. For radiation dose reduction, the following was used: automated exposur e control, adjustment of mA and/or kV according to patient size. COMPARISON: None. FINDINGS: Image quality: Excellent. Carotid system: The great vessels demonstrate a conventional anatomy as they arise from the aortic a rc. The origins of the common carotid arteries appear patent. The common carotid arteries demonstr ate normal calibers and courses. The bifurcation regions appear normal bilaterally. The internal ca rotid arteries demonstrate normal caliber and course. Posterior circulation: The origins of the vertebral arteries appear patent. The more superior porti ons of the vertebral arteries demonstrate normal course and caliber. They join to form a normal appe aring basilar artery. Soft tissues: Visualized neck soft tissues demonstrate no suspicious abnormalities. The thyroid is normal in size and there are no incidental findings. Bones: No suspicious bony lesions. Visualized cervical spine appears normally aligned. IMPRESSION: No hemodynamically significant stenosis or occlusion of the major extracranial arterial circulation. The estimate of stenosis included in the report of the imaging study was calculated using the NASCET method CLINICAL RECOMMENDATION STATEMENTS: In patients <35 years with an ITN detected on CT, MRI, or extrathyroidal ultrasound, the Committee re commends further evaluation with dedicated thyroid ultrasound if the nodule is "e1 cm and has no susp icious imaging features, and if the patient has normal life expectancy. In patients "e35 years with an ITN detected on CT, MRI, or extrathyroidal ultrasound, the Committee r ecommends further evaluation with dedicated thyroid ultrasound if the nodule is "e1.5 cm and has no s uspicious imaging features, and if the patient has normal life expectancy. (ACR, 2014) Reviewed by: Pedro Diallo MD on 09/07/2021 5:34 PM PDT Approved by: Pedro Diallo MD on 09/07/2021 5:34 PM PDT Station ID: [id number]
[2021-09-07] MEDS ORDERED: SODIUM CHLORIDE FLUSH 0.9% 10 ML SYRINGE IVP PRN (20:30)
[2021-09-07] MEDS ORDERED: ACETAMINOPHEN 325 MG TABLET PO PRN (20:30)
[2021-09-07] MEDS ORDERED: ONDANSETRON 4 MG/2 ML VIAL IVP PRN (20:30)
--- NOTE | 2021-09-07 20:39 | HISTORY & PHYSICAL EXAMINATION ---
Chief Complaint - Chief Complaint Chief Complaint: varying/ nonspecific neurological symptoms History of Present Illness - Admitted From Admitted From:: [facility] ED - History Obtained From Records Reviewed: yes History obtained from: patient and ED physician H&P - History of Present Illness HPI Comment/Other: "41-year-old woman with poorly controlled diabetes and history of perineal necrotizing fasciitis presents for evaluation for potential stroke. She was chasing some "overly aggressive ducks" out of her neighborhood and went to meet their woodworking belt sander. At 2:58 PM while there she developed a sensation where everything looked particularly bright and then developed numbness in the left perioral area, left first through third fingers, and word finding difficulties. There is no significant headache associated with this, but she had some mild pain above her eyebrows that she felt was from squinting too hard. In her right eye she felt like her right visual field was obscured and fuzzy. Symptoms are pretty much gone now although she still feels weird. Per EMS she has improved significantly in route." The HPI above was obtained from the ED physician Dr. Webster's H&P and consistent with what patient reported. Furthermore she adds that prior to this incident she had been smoking a new strain of marijuana as Sativa. Usually she uses Indica. She has been experiencing generalized tingling pain all over her body for which she takes Benadryl which seems to help. She was admitted for further work-up to include an MRI of the brain. History - Past Medical History Cardiovascular: reports: Hypertension Respiratory: reports: None Neuro: reports: None Endocrine/Autoimmune: reports: Type 2 diabetes GI: reports: None AGILE TESTER: reports: Other : reports: Indwelling catheter HEENT: reports: Other Psych: reports: Other Musculoskeletal: reports: Osteoarthritis Derm: reports: Psoriasis MRSA Hx?: No - Past Surgical History Ortho: reports: Arthroscopic surgery /AGILE TESTER: reports: Dilation and currettage - Family & Social History Family History Comment/Other: Mom 73 w CAD, HTN, HPL, stoke, has a pacer. Dad age 59 of HIV. no siblings. no children Living Situation: With family (she lives w mom and takes care of her) Social History Notes: Lives w mom. Smoked 1 ppd for 7 years but the hospitalization now down to 3-4 cigs/day. No alcohol abuse hx. Cannibus daily. No other recreational substances. 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 Acidophilus/Pectin, [place] 1 each PO DAILY #7 cap 12/27/20 03/04/21 [Acidophilus Capsule] Losartan [Cozaar] 50 mg PO DAILY #30 tablet 12/28/20 03/04/21 Ibuprofen [Motrin] 400 mg PO BID PRN 12/29/20 03/04/21 Insulin Aspart [NovoLOG] 1 unit SUBQ 0800,1200,1700,2100 12/29/20 03/04/21 Insulin Glargine [Lantus Solostar] 14 unit SUBQ AC 12/29/20 03/04/21 Ciprofloxacin HCl 1 tablet PO BID 5 Days #10 tablet 02/27/21 - Allergies Allergies/Adverse Reactions: Allergies Allergy/AdvReac Type Severity Reaction Status Date / Time hydrocodone bitartrate * Allergy Intermediate Hives Verified 09/07/21 16:24 [From Vicodin] oxycodone HCl * Allergy Intermediate Hives Verified 09/07/21 16:24 [From Percocet] metformin AdvReac Unknown Verified 09/07/21 16:24 Review of Systems - Constitutional Constitutional: denies: Fatigue, Fever, Chills - Eyes Eyes: reports: Field loss, Corrective lenses. denies: Pain - Ears, Nose & Throat Ears, Nose & Throat: denies: Ear pain, Vertigo, Sore throat - Cardiovascular Cariovascular: denies: Irregular heart rate, Palpitations, Chest pain, Edema - Respiratory Respiratory: denies: Cough, Sputum production, Wheezing, SOB at rest - Gastrointestinal Gastrointestinal: denies: Abdominal pain, Abdominal distention, Constipation, Nausea, Vomiting, Coffee grounds emesis, Reflux/heartburn - Genitourinary Genitourinary: denies: Dysuria, Frequency, Urgency, Hematuria - Musculoskeletal Musculoskeletal: denies: Muscle pain, Back pain, Muscle aches - Integumentary Integumentary: denies: Rash, Pruritis, Lesions, Dryness - Neurological Neurological: reports: Numbness. denies: General weakness, Focal weakness, Di zziness - Psychiatric Psychiatric: denies: Depression, Anxiety - Endocrine Endocrine: denies: Polyuria, Polydypsia - Hematologic/Lymphatic Hematologic/Lymphatic: denies: Anemia, Bruising, Petechiae Prior Level of Functionality: She is normally independent of activities of daily living Exam - Vital Signs Vital Signs: Vital Signs x48h Temp Pulse Resp BP Pulse Ox 09/07/21 20:30 88 15 184/87 H 99 09/07/21 20:00 89 18 173/94 H 98 09/07/21 19:30 90 20 153/89 H 93 09/07/21 19:17 81 13 163/79 H 100 09/07/21 18:59 82 14 161/81 H 100 09/07/21 18:30 82 14 161/81 H 100 09/07/21 18:13 84 09/07/21 18:12 84 149/85 H 98 09/07/21 18:00 83 19 139/88 H 98 09/07/21 17:50 87 138/87 H 98 09/07/21 17:40 94 169/98 H 98 09/07/21 17:31 96 16 122/108 H 96 09/07/21 17:18 97 18 186/102 H 98 09/07/21 17:08 94 16 188/106 H 09/07/21 17:02 36.6 C 99 12 182/102 H 100 09/07/21 16:29 36.8 C 110 H 16 198/99 H 100 09/07/21 16:24 36.8 C 110 H 16 198/99 H 100 - Physical Exam General Appearance: positive: No acute distress, Alert Eyes Bilateral: positive: PERRL, EOMI ENT: positive: No signs of dehydration Neck: positive: No JVD, Trachea midline Respiratory: positive: Chest non-tender, No respiratory distress, Breath sounds nml. negative: Wheezes, Rales, Rhonchi Cardiovascular: positive: Regular rate & rhythm, No murmur Abdomen: positive: Non-tender, No organomegaly, Nml bowel sounds, No distention. negative: Guarding, Rebound Back: positive: Nml inspection Skin: positive: No rash, Warm, Dry Extremities: positive: Non-tender, Full ROM, Nml appearance, No pedal edema Neurologic/Psychiatric: positive: Oriented x3, CN's nml (2-12), Motor nml, S ensation nml, Mood/affect nml. negative: Facial droop, Slurred/abnml speech Conclusion/Plan - Problem List (1) TIA (transient ischemic attack) Conclusion/Plan: CT brain without contrast was unremarkable for any acute intracranial process. MRI brain ordered for the morning. We will check lipid profile. Neurochecks every shift. Patient was given a full dose of aspirin x1. We will continue baby aspirin daily. (2) Diabetes mellitus Conclusion/Plan: Poorly controlled. Blood glucose was 397. We will check hemoglobin A1c. On Lantus 14 units subcu before every meal and 16 units subcu every afternoon. Accu-Cheks before every meal and at bedtime. Sliding scale insulin. Carb controlled diet. Qualifiers: Diabetes mellitus type: type 2 (3) CONOR (acute kidney injury) Conclusion/Plan: Creatinine was 1.3. IV hydration with normal saline at 100 mL/h ordered. (4) Hypertension Conclusion/Plan: Patient was given labetalol IV in the ED. We will order hydralazine 10 mg every 4 hours as needed for systolic blood pressure greater than 160. She is on losartan 50mg po daily. We will continue. - Lab Results Fish Bones: 09/07/21 16:14 09/07/21 16:46 Core Measures - Anticipated LOS I expect patient to be DC'd or transferred within 96 hours.: Yes - DVT/VTE - Prophylaxis VTE/DVT Device ordered at admit?: Yes VTE/DVT Prophylaxis med ordered at admit?: Yes
[2021-09-08] MEDS ORDERED: hydrALAZINE INJ 20 MG/ML VIAL IVP PRN (00:25)
[2021-09-08] MEDS: SODIUM CHLORIDE FLUSH 0.9% 10 ML SYRINGE IVP SCH ×2 (01:26→08:25)
[2021-09-08 05:38] LABS: BASOPHILS # (AUTO) 0.1 10^3/uL (0.0-0.1); BASOPHILS % (AUTO) 0.7 %; EOSINOPHILS # (AUTO) 0.4 10^3/uL (0.0-0.7); EOSINOPHILS % (AUTO) 3.9 %; HCT - HEMATOCRIT 30.1 % (37.0-47.0); HGB - HEMOGLOBIN 10.4 g/dL (12.0-16.0); LYMPHOCYTES # (AUTO) 3.5 10^3/uL (1.5-3.5); MEAN CORPUSCULAR HEMOGLOBIN 29.3 pg (27.0-31.0); MEAN CORPUSCULAR HGB CONC 34.6 g/dL (32.0-36.0); MEAN CORPUSCULAR VOLUME 84.8 fL (81.0-99.0); MEAN PLATELET VOLUME 10.3 fL (7.9-10.8); MONOCYTES # (AUTO) 0.5 10^3/uL (0.0-1.0); MONOCYTES % (AUTO) 5.3 %; NEUTROPHILS # (AUTO) 4.6 10^3/uL (1.5-6.6); NEUTROPHILS % (AUTO) 50.9 %; PLT - PLATELET COUNT 297 10^3/uL (130-450); RED BLOOD COUNT 3.55 10^6/uL (4.20-5.40); RED CELL DISTRIBUTION WIDTH 12.2 % (12.0-15.0)
[2021-09-08 05:43] LABS: CALCIUM 8.4 mg/dL (8.5-10.3); CREATININE 1.3 mg/dL (0.4-1.0); POTASSIUM 3.4 mmol/L (3.5-5.0)
[2021-09-08 05:52] LABS: CHOL/HDL RATIO 8.6 (<4.4); CHOLESTEROL 369 mg/dL; HDL CHOLESTEROL 43 mg/dL; LDL CHOLESTEROL,CALCULATED 258 mg/dL; TRIGLYCERIDES 341 mg/dL; VLDL CHOLESTEROL 68 mg/dL
[2021-09-08] MEDS ORDERED: POTASSIUM CHLORIDE 20 MEQ TABLET PO ONE (07:27)
[2021-09-08] MEDS ORDERED: SODIUM CHLORIDE 0.9% 1,000 ML IV SCH (07:29)
[2021-09-08] MEDS: INSULIN ASPART 300 UNIT/3 ML PEN SUBQ SCH ×2 (08:17→12:58)
[2021-09-08] MEDS ORDERED: INSULIN GLARGINE 300 UNIT/3 ML PEN SUBQ SCH (09:00)
[2021-09-08] MEDS ORDERED: ASPIRIN EC 81 MG TABLET PO SCH (09:00)
[2021-09-08] MEDS ORDERED: LOSARTAN 50 MG TABLET PO SCH (09:00)
[2021-09-08] MEDS: GABAPENTIN 100 MG CAPSULE PO SCH ×2 (10:29→14:53)
[2021-09-08 11:03] LABS: ESTIMATED AVERAGE GLUCOSE 364 mg/dL (70-100); HEMOGLOBIN A1c% 14.3 % (4.27-6.07)
[2021-09-08 11:22] LABS: MUDS CUTOFF CONCENTRATIONS CUTOFF CONC BELOW:
[2021-09-08 11:36] LABS: AMPHETAMINE SCREEN,URINE NEGATIVE (NEGATIVE); BARBITURATE SCREEN,UR NEGATIVE (NEGATIVE); BENZODIAZEPINES SCREEN, URINE NEGATIVE (NEGATIVE); COCAINE SCREEN URINE NEGATIVE (NEGATIVE); METHADONE SCREEN, URINE NEGATIVE (NEGATIVE); METHAMPHETAMINES SCREEN, URINE NEGATIVE (NEGATIVE); OPIATE SCREEN, URINE NEGATIVE (NEGATIVE); OXYCODONE SCREEN, URINE NEGATIVE (NEGATIVE); PROPOXYPHENE SCREEN, URINE NEGATIVE (NEGATIVE); THC CANNABINOID SCREEN, URINE POSITIVE (NEGATIVE); TRICYCLIC ANTIDEPRESSANT,URINE NEGATIVE (NEGATIVE)
--- NOTE | 2021-09-08 13:48 | PHARMACY PROGRESS NOTE ---
- Best Possible Medication History Admit Date and Time: 09/07/212029 Processed by: Pharmacy Medication History completed: Yes Patient Interview: Completed Secondary Source(s): Physician records, Insurance records Patient reports she has not used any insulin since fall of last year. Her recent PCP visit notes mention Lantus 14 units in the morning and 16 units in the evening along with a Humalog pen at mealtimes, but the patient has not been do ing this for several months. She has a new prescription for sumatriptan but she has not picked up this medication yet. As the person ultimately responsible for medication therapy, providers are able to order a medication from an existing home medication list in [facility] via the "Reconcile Routine" prior to Confirmation of that medication by wind farm support specialist. Such practice is discouraged except when the physician, in their clinical judgment, deems that a medical need exists for a medication without regard to previous use.
--- NOTE | 2021-09-08 13:53 | MRI Report ---
PROCEDURE: Brain W/O INDICATIONS: Dysarthria TECHNIQUE: Noncontrast axial T1 spin echo, axial T2 fast spin echo, sagittal and axial FLAIR, coronal T2 fast sp in echo, axial gradient echo, axial diffusion and ADC through the brain. COMPARISON: None. FINDINGS: No restricted diffusion to indicate recent ischemia. The major intracranial vascular flow related sig nal voids are maintained. No unexpected intracranial susceptibility. No mass effect or midline shift. Remote lacunar infarct in the left centrum semiovale. Mild global cerebral volume loss and moderate chronic microvascular ischemic changes. Paranasal sinuses and mastoid air cells are predominantly diana ar. No gross orbital abnormality. IMPRESSION: No acute infarct or other acute intracranial finding. Remote small lacunar infarct in the left centrum semiovale. Mild global cerebral volume loss and moderate chronic vascular ischemic changes. Reviewed by: Pedro Diallo MD on 09/08/2021 1:52 PM PDT Approved by: Pedro Diallo MD on 09/08/2021 1:52 PM PDT Station ID: [id number]
[2021-09-08 14:06] LABS: CALCIUM 8.3 mg/dL (8.5-10.3); CREATININE 1.2 mg/dL (0.4-1.0)
--- NOTE | 2021-09-08 16:00 | Discharge Plan ---
Discharge Plan Problem Reviewed?: Yes Disposition: Home, Self Care Condition: Stable Prescriptions: Blood-Glucose Meter [Glucometer] 1 each QID #1 each Blood Sugar Diagnostic [Glucometer Strips] 1 each QID #100 strip Lancets 1 each QID #100 each Insulin Glargine [Lantus Solostar] 8 unit SUBQ BID #3 pe Atorvastatin [Lipitor] 40 mg PO QPM #30 tablet Gabapentin [Neurontin] 100 mg PO TID #90 cap Insulin Aspart [NovoLOG] 3 - 11 unit SUBQ 0800,1200,1700,2100 #5 pe Diet: Diabetic Activity Restrictions: Activity as Tolerated Shower Restrictions: No (fall precaution) Instruction Topics: Hypoglycemia, Hyperglycemia, Diabetes Type 2 Coping, Diabetes Electrical Prospector Complications, TIA, Atorvastatin tablets Health Concerns: uncontrolled diabetes, HLD, TIA, medical noncompliant Plan of Treatment: Your A1C is 14.3. You are prescribed Insulin and device to check your glucose level. You are found to have hyperlipidemia, you are prescribed Lipitor. Strongly advise for you to keep your medical compliance. Your MRI of brain reveal no acute stroke. you have no acute focal neurological deficits. You are Prescribed gabapentin for control of your neuropathy Care Goals: Stabilization and improvement of your medical conditions Assessment: I and nurse Discussed the care plan with you, Answered your questions. Additional Instructions or Follow Up instructions: You may follow-up with your PCP in 1 week, follow-up gate supervisor as outp atient. should your symptoms return or worse, you may present to the ER or call 911 for help No Smoking: If you smoke, Please STOP! Call for help. Follow-up with: Regina Hunt ARNP [Primary Care Provider] -
--- NOTE | 2021-09-08 16:22 | DISCHARGE SUMMARY ---
Discharge Summary Admit Date: 09/07/21 Discharge Date: 09/08/21 Discharging Provider: Ivan Zepeda Primary Care Provider: Regina Hunt Condition at Discharge: Stable Discharge Disposition: 01 Home, Self Care Discharge Facility Name: home - DIAGNOSES Discharge Diagnoses with Status of Each Condition: (1) TIA (transient ischemic attack) Pt denies any more focal neurological deficit and it was resolved. MRI and CT/CTA of head, CTA of neck were no acute process. resume home aspirin, add lipitor because pt has elevated cholesterol level (2) poor controlled Diabetes mellitus pt's A1C is 14.3. pharmacy report pt did not refill her insulin prescript for quit long time. Now pt is prescribed long and short acting insulin, and devices for diabetes management. pt refused to have diabetes education at hospital. she state she got enough education when she was diagnosis of diabetes at her ago 18 (3) CONOR (acute kidney injury) improved. creatinine is 1.2. pt Follow-up with her PCP, to recheck BMP in 1 week. (4) Hypertension Stable, patient may resume her home medications (5)HLD Patient has elevated cholesterol level in the test, pt is prescribed Lipitor. (6)peripheral neuropathy Patient has poor controlled diabetes. she complained of peripheral abnormal sensation and neuropathy. pt is prescribed Gabapentin (7)medical noncompliant pt stated she might have insulin and device at home, but pt was not sure. she did not use insulin at home now. pt is prescribed all device to check glucose level, and long and short acting insulin. pt had diabetes education at hospital but she refused. director social was consulted to help pt to have PCP appointment. I was very politely to update pt's all image studies results and care plan to her, and answer her questions. - HPI History of Present Illness: refer from Dr. Jack's HPI on 09/07/21 "41-year-old woman with poorly controlled diabetes and history of perineal necrotizing fasciitis presents for evaluation for potential stroke. She was chasing some "overly aggressive ducks" out of her neighborhood and went to meet their fibre technologist. At 2:58 PM while there she developed a sensation where everything looked particularly bright and then developed numbness in the left perioral area, left first through third fingers, and word finding difficulties. There is no significant headache associated with this, but she had some mild pain above her eyebrows that she felt was from squinting too hard. In her right eye she felt like her right visual field was obscured and fuzzy. Symptoms are pretty much gone now although she still feels weird. Per EMS she has improved signif icantly in route." The HPI above was obtained from the ED physician Dr. Webster's H&P and consistent with what patient reported. Furthermore she adds that prior to this incident she had been smoking a new strain of marijuana as Sativa. Usually she uses Indica. She has been experiencing generalized tingling pain all over her body for which she takes Benadryl which seems to help. She was admitted for further work-up to include an MRI of the brain. - ALLERGIES Allergies/Adverse Reactions: Allergies Allergy/AdvReac Type Severity Reaction Status Date / Time hydrocodone bitartrate * Allergy Intermediate Hives Verified 09/07/21 16:24 [From Vicodin] oxycodone HCl * Allergy Intermediate Hives Verified 09/07/21 16:24 [From Percocet] metformin AdvReac Unknown Verified 09/07/21 16:24 - MEDICATIONS Home Medications: Ambulatory Orders Medication Instructions Recorded Confirmed Ibuprofen [Motrin] 400 mg PO BID PRN 12/29/20 09/08/21 Ascorbic Acid [Vitamin C] 500 mg PO QPM 09/08/21 09/08/21 Aspirin [Aspirin EC] 81 mg PO DAILY 09/08/21 09/08/21 Atorvastatin [Lipitor] 40 mg PO QPM #30 tablet 09/08/21 Blood Sugar Diagnostic [Glucometer 1 each QID #100 strip 09/08/21 Strips] Blood-Glucose Meter [Glucometer] 1 each QID #1 each 09/08/21 Cholecalciferol [Vitamin D3] 25 mcg PO QPM 09/08/21 09/08/21 Gabapentin [Neurontin] 100 mg PO TID #90 cap 09/08/21 Insulin Aspart [NovoLOG] 3 - 11 unit SUBQ 09/08/21 0800,1200,1700,2100 #5 pe Insulin Glargine [Lantus Solostar] 8 unit SUBQ BID #3 pe 09/08/21 Lancets 1 each QID #100 each 09/08/21 Losartan Potassium 25 mg PO DAILY 09/08/21 09/08/21 Sumatriptan Succinate [Imitrex] 100 mg PO PRN PRN 09/08/21 09/08/21 diphenhydrAMINE [Benadryl] 25 mg PO DAILY PRN 09/08/21 09/08/21 - PHYSICAL EXAM AT DISCHARGE General Appearance: positive: No acute distress, Alert. negative: Lethargic Eyes Bilateral: positive: Normal inspection, No lid inflammation ENT: positive: ENT inspection nml, No signs of dehydration. negative: Purulent nasal drainage Neck: positive: Nml inspection, Trachea midline. negative: Tracheal deviation Respiratory: positive: Chest non-tender, No respiratory distress. negative: Wheezes, Rhonchi Cardiovascular: positive: Regular rate & rhythm. negative: Tachycardia, Bradycardia, Systolic murmur Peripheral Pulses: positive: 2+ Abdomen: positive: Non-tender, Nml bowel sounds, No distention. negative: Tenderness Back: positive: Nml inspection Skin: positive: Color nml, Warm, Dry. negative: Cyanosis Extremities: positive: Non-tender, Full ROM, Nml appearance Neurologic/Psychiatric: positive: Oriented x3, Motor nml, Sensation nml. negative: Weakness, Sensory loss, Facial droop, Slurred/abnml speech, Depressed mood/affect - LABS Result Diagrams: 09/08/21 05:21 09/08/21 13:51 - FOLLOW UP Follow Up: Your A1C is 14.3. You are prescribed Insulin and device to check your glucose level. You are found to have hyperlipidemia, you are prescribed Lipitor. Strongly advise for you to keep your medical compliance. Your MRI of brain reveal no acute stroke. your acute focal neurological deficits are resolved. You are Prescribed gabapentin for control of your neuropathy You may follow-up with your PCP in 1 week, recheck BMP in one week, follow-up with radiologist and neurologist as outpatient. should your symptoms return or worsen, you may present to the ER or call 911 for help - TIME SPENT Time Spent in Discharge (Minutes): 30
[2021-09-08 16:59] VITALS: BP 134/85
[2021-09-08] MEDS ORDERED: ATORVASTATIN 40 MG TABLET PO SCH (21:00)
== END 2021-09-08 17:25 | disposition home or self-care (01) ==
LOC: EDUNIT# → ED 16:07 → MS2 20:30
PROVIDERS: ADMIT Internal Medicine; ATTEND Nurse Practitioner Gerontology
DX: G45.9 Transient cerebral ischemic attack, unspecified (principal); R47.1 Dysarthria and anarthria; N17.9 Acute kidney failure, unspecified; E11.42 Type 2 diabetes mellitus with diabetic polyneuropathy; E11.65 Type 2 diabetes mellitus with hyperglycemia; E78.5 Hyperlipidemia, unspecified; I10 Essential (primary) hypertension; I67.2 Cerebral atherosclerosis; M19.90 Unspecified osteoarthritis, unspecified site; L40.9 Psoriasis, unspecified; F17.210 Nicotine dependence, cigarettes, uncomplicated; Z20.822 Contact with and (suspected) exposure to COVID-19; Z32.02 Encounter for pregnancy test, result negative; Z79.4 Long term (current) use of insulin; Z79.82 Long term (current) use of aspirin; Z79.899 Other long term (current) drug therapy; Z82.3 Family history of stroke; Z82.49 Family history of ischemic heart disease and other diseases of the circulatory system; Z88.5 Allergy status to narcotic agent; Z88.8 Allergy status to other drugs, medicaments and biological substances; Z91.14 Patient's other noncompliance with medication regimen
CPT/HCPCS: 36415; 70450; 70496; 70498; 70551; 80048; 80053; 80061; 80306; 83036; 84703; 85025; 85610; 87635; 93005; 96374; 96375; 99284; 99285; A9270; G0378; J1815; Q9967; 83721

== ENCOUNTER 2022-05-15 08:52 | Emergency (ER) | payer MEDICAID ==
[2022-05-15 09:02] VITALS: BP 124/91
--- NOTE | 2022-05-15 09:24 | ED Physician Documentation ---
PD HPI OPHTHO - Stated complaint Stated Complaint: BLURRY VISION - Chief complaint Chief Complaint: General - History obtained from History obtained from: Patient - History of Present Illness Timing - onset: Yesterday Timing - details: Abrupt onset (she states had nausea and vomiting yesterday morning, which has become rather common occurrence in mornings the past month or so. After vomiting, noted visual disturbacne right eye with dentral vision shadowing in shape of a 'beta fish'. She then developed hazy/foggy vision through the day/evening.), Still present (seems increased blurring last evening and into today.) Location: Right Quality / character: Other (denies eye pain nor pressure.). No: Itching, Burning Associated symptoms: Decreased vision. No: Redness, Swelling, FB sensation, Photophobia, Double vision, Headache Contributing factors: No: Recent URI, Blunt trauma, Wears contacts Similar symptoms before: Has not had sx before Recently seen: Not recently seen (is patient of [facility] in [place]. Had been referred to [facility] in [place] for diabetic retinopathy evsd last year. 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: Other : Indwelling catheter HEENT: Other Psych: Other Musculoskeletal: Osteoarthritis Derm: Psoriasis - Past Surgical History Past Surgical History: Yes Ortho: Arthroscopic surgery /MEDICAL LAB SCIENTIST: Dilation and currettage - Present Medications Home Medications: Ambulatory Orders Medication Instructions Recorded Confirmed Ibuprofen [Motrin] 400 mg PO BID PRN 12/29/20 09/08/21 Ascorbic Acid [Vitamin C] 500 mg PO QPM 09/08/21 09/08/21 Aspirin [Aspirin EC] 81 mg PO DAILY 09/08/21 09/08/21 Atorvastatin [Lipitor] 40 mg PO QPM #30 tablet 09/08/21 Blood Sugar Diagnostic [Glucometer 1 each QID #100 strip 09/08/21 Strips] Blood-Glucose Meter [Glucometer] 1 each QID #1 each 09/08/21 Cholecalciferol [Vitamin D3] 25 mcg PO QPM 09/08/21 09/08/21 Gabapentin [Neurontin] 100 mg PO TID #90 cap 09/08/21 Insulin Aspart [NovoLOG] 3 - 11 unit SUBQ 09/08/21 0800,1200,1700,2100 #5 pe Insulin Glargine [Lantus Solostar] 8 unit SUBQ BID #3 pe 09/08/21 Lancets 1 each QID #100 each 09/08/21 Losartan Potassium 25 mg PO DAILY 09/08/21 09/08/21 Sumatriptan Succinate [Imitrex] 100 mg PO PRN PRN 09/08/21 09/08/21 diphenhydrAMINE [Benadryl] 25 mg PO DAILY PRN 09/08/21 09/08/21 - Allergies Allergies/Adverse Reactions: Allergies Allergy/AdvReac Type Severity Reaction Status Date / Time hydrocodone bitartrate * Allergy Intermediate Hives Verified 05/15/22 09:02 [From Vicodin] oxycodone HCl * Allergy Intermediate Hives Verified 05/15/22 09:02 [From Percocet] metformin AdvReac Unknown Verified 05/15/22 09:02 - Social History Does the pt smoke?: Yes Smoking Status: Current every day smoker Does the pt drink ETOH?: No Does the pt have substance abuse?: Yes - Immunizations Immunizations are current?: Yes - POLST Patient has POLST: No POLST Status: Full Code PD ED PE NORMAL - Vitals Vital signs reviewed: Yes - General General: Alert and oriented X 3, No acute distress, Well developed/nourished - HEENT HEENT: PERRL, EOMI, Other (fundus left is normal. Right eye with clear anterior chamber. Has cloudy "muddy water' appearance of posterior chamber. Poorly seen posterior wall. quadrant visual testing shows similar decreassed acuity right side diffusely with exception of some better peripheral lateral visual field is clearer. ) - Neck Neck: Supple, no meningeal sign, No adenopathy Results - Vitals Vitals: Vital Signs - 24 hr 05/15/22 08:57 Temperature 36.8 C Heart Rate 97 Respiratory 16 Rate Blood Pressure 124/91 H O2 Saturation 98 Oxygen O2 Source Room air - Labs Labs: Laboratory Tests 05/15/22 05/15/22 05/15/22 09:53 09:53 10:56 WBC 7.8 RBC 3.48 L Hgb 9.8 L Hct 29.7 L MCV 85.3 MCH 28.2 MCHC 33.0 RDW 13.1 Plt Count 308 MPV 10.6 Neut # (Auto) 4.2 Lymph # (Auto) 2.7 [place] # (Auto) 0.5 Eos # (Auto) 0.4 Baso # (Auto) 0.1 Absolute Nucleated RBC 0.00 Nucleated RBC % 0.0 Sodium 131 L Potassium 4.2 Chloride 98 L Carbon Dioxide 23 Anion Gap 10.0 BUN 26 H Creatinine 1.9 H Estimated GFR (MDRD) 29 L Glucose 398 H Calcium 8.7 Total Bilirubin 0.4 AST 14 ALT 15 Alkaline Phosphatase 82 Total Protein 6.0 L Albumin 2.7 L Globulin 3.3 Albumin/Globulin Ratio 0.8 L Lipase 31 Urine Color YELLOW Urine Clarity CLEAR Urine pH 7.0 Ur Specific [place] 1.020 Urine Protein >=300 H Urine Glucose (UA) >=1000 H Urine Ketones NEGATIVE Urine Occult Blood LARGE H Urine Nitrite NEGATIVE Urine Bilirubin NEGATIVE Urine Urobilinogen 0.2 (NORMAL) Ur Leukocyte Esterase NEGATIVE Urine RBC 0-5 Urine WBC 0-3 Ur Squamous Epith Cells RARE Squamous Urine Bacteria Rare Ur Microscopic Review INDICATED Urine Culture Comments NOT INDICATED Urine HCG, Qual NEGATIVE PD MEDICAL DECISION MAKING - ED course Complexity details: considered differential (onset and symptoms sound like vitreous hemorrhage. Bedside U/S by me did not show any noted retinal detachment. ), d/w patient, d/w health and wellness sales consultant (I talked with [employer] instructor ironworker machine operator, who felt Dx was most likely vitreous hemorrhage, but who directed me/pt to call the Retinal specialist. We left message with their office but had not heard back after 1 1/2 hours. ) Departure - Departure Disposition: 01 Home, Self Care Clinical Impression: Blurred vision, right eye, Retinal hemorrhage of right eye Condition: Stable Record reviewed to determine appropriate education?: Yes Comments: It appears that you have had a small hemorrhage in blood vessel in the back chamber of the eye (vitreous hemorrhage). This leads to the clouding and vision abnormality. It does not sound neurologic such as TIA or stroke. I did not see any obvious retinal detachment on bedside ultrasound but that would still be a concern for partial. However more Genesis is small blood vessel leaking a drop or 2 of blood. Think of the eye and the back chamber is the glitter in a snow globe. The goal is to have the blood settle down to the lower portion of the globe and clear the vitreous fluid so an exam can be better done. Try to stay reclined or sitting up in no rapid head movements and no bending over and standing back up (essentially trying not to shake the snow globe). Follow-up with your [employer] instructor on Tuesday or Tuesday, call for a fo llow-up appointment. I did talk to the on-orthopedically impaired teacher today. They would like you to try to see your retinal specialist in [place]. The on- call provider for that group has not called back as of this time. When they do I will pass on the information for them to contact you. Otherwise I would have you call their after-hours number again later today and tomorrow and Tuesday if you have not heard back from them. I would like you to see one of the eye specialists in a few days. Discharge Date/Time: 05/15/22 11:51
[2022-05-15 09:59] LABS: BASOPHILS # (AUTO) 0.1 10^3/uL (0.0-0.1); BASOPHILS % (AUTO) 1.2 %; EOSINOPHILS # (AUTO) 0.4 10^3/uL (0.0-0.7); EOSINOPHILS % (AUTO) 5.1 %; HCT - HEMATOCRIT 29.7 % (37.0-47.0); HGB - HEMOGLOBIN 9.8 g/dL (12.0-16.0); LYMPHOCYTES # (AUTO) 2.7 10^3/uL (1.5-3.5); MEAN CORPUSCULAR HEMOGLOBIN 28.2 pg (27.0-31.0); MEAN CORPUSCULAR VOLUME 85.3 fL (81.0-99.0); MEAN PLATELET VOLUME 10.6 fL (7.9-10.8); MONOCYTES # (AUTO) 0.5 10^3/uL (0.0-1.0); MONOCYTES % (AUTO) 5.9 %; NEUTROPHILS # (AUTO) 4.2 10^3/uL (1.5-6.6); NEUTROPHILS % (AUTO) 53.7 %; PLT - PLATELET COUNT 308 10^3/uL (130-450); RED BLOOD COUNT 3.48 10^6/uL (4.20-5.40); RED CELL DISTRIBUTION WIDTH 13.1 % (12.0-15.0); WHITE BLOOD COUNT 7.8 x10^3/uL (4.8-10.8)
[2022-05-15 10:12] LABS: ALBUMIN 2.7 g/dL (3.2-5.5); ALBUMIN/GLOBULIN RATIO 0.8 (1.0-2.2); BILIRUBIN,TOTAL 0.4 mg/dL (0.2-1.0); CALCIUM 8.7 mg/dL (8.5-10.3); CREATININE 1.9 mg/dL (0.4-1.0); POTASSIUM 4.2 mmol/L (3.5-5.0)
[2022-05-15 11:11] LABS: BILIRUBIN,URINE NEGATIVE (NEGATIVE); GLUCOSE, URINE (UA) >=1000 mg/dL (NEGATIVE); KETONES,URINE (UA) NEGATIVE (NEGATIVE); LEUKOCYTE ESTERASE, URINE NEGATIVE (NEGATIVE); NITRITE,URINE NEGATIVE (NEGATIVE); OCCULT BLOOD,URINE LARGE (NEGATIVE); PROTEIN,URINE >=300 mg/dL (NEGATIVE); UROBILINOGEN,URINE 0.2 (NORMAL) E.U./dL (NORMAL)
[2022-05-15 11:13] LABS: CLARITY,URINE CLEAR (CLEAR); HCG UR QUAL NEGATIVE
[2022-05-15 11:29] LABS: BACTERIA,URINE Rare /HPF (None Seen); RBC,URINE 0-5 /HPF (0-5); SQUAMOUS EPITHELIAL CELL,UR RARE Squamous (<= Few); WBC,URINE 0-3 /HPF (0-5)
== END 2022-05-15 11:51 | disposition home or self-care (01) ==
LOC: EDUNIT# → ED 08:52
DX: H35.61 Retinal hemorrhage, right eye (principal); H43.11 Vitreous hemorrhage, right eye; F17.200 Nicotine dependence, unspecified, uncomplicated
CPT/HCPCS: 36415; 80053; 81001; 81003; 81025; 83690; 85025; 87086; 99283; 99284

== ENCOUNTER → 2022-05-15 | Outpatient (CLI) | payer MEDICAID | END | disposition critical access hospital (66) | LOC: EMS 08:38 | DX: H53.8 Other visual disturbances (principal); E11.65 Type 2 diabetes mellitus with hyperglycemia | CPT/HCPCS: A0425; A0429; A0999 ==

== ENCOUNTER 2022-05-29 09:39 | Outpatient (CLI) | payer MEDICAID ==
[2022-05-29 09:56] LABS: BASOPHILS # (AUTO) 0.1 10^3/uL (0.0-0.1); BASOPHILS % (AUTO) 0.8 %; EOSINOPHILS # (AUTO) 0.4 10^3/uL (0.0-0.7); HCT - HEMATOCRIT 30.7 % (37.0-47.0); HGB - HEMOGLOBIN 9.7 g/dL (12.0-16.0); LYMPHOCYTES # (AUTO) 2.8 10^3/uL (1.5-3.5); LYMPHOCYTES % (AUTO) 27.9 %; MEAN CORPUSCULAR HEMOGLOBIN 27.7 pg (27.0-31.0); MEAN CORPUSCULAR HGB CONC 31.6 g/dL (32.0-36.0); MEAN CORPUSCULAR VOLUME 87.7 fL (81.0-99.0); MEAN PLATELET VOLUME 10.8 fL (7.9-10.8); MONOCYTES # (AUTO) 0.6 10^3/uL (0.0-1.0); MONOCYTES % (AUTO) 5.7 %; NEUTROPHILS # (AUTO) 6.1 10^3/uL (1.5-6.6); NEUTROPHILS % (AUTO) 61.2 %; PLT - PLATELET COUNT 322 10^3/uL (130-450); RED CELL DISTRIBUTION WIDTH 13.1 % (12.0-15.0); WHITE BLOOD COUNT 9.9 x10^3/uL (4.8-10.8)
[2022-05-29 10:14] LABS: ALBUMIN 2.9 g/dL (3.2-5.5); ALBUMIN/GLOBULIN RATIO 0.8 (1.0-2.2); ALKALINE PHOSPHATASE 87 IU/L (42-121); ALT ALANINE AMINOTRANSFERASE 17 IU/L (10-60); AST ASPARTATE AMINOTRANSFERASE 15 IU/L (10-42); BILIRUBIN,TOTAL < 0.2 mg/dL (0.2-1.0); BUN - BLOOD UREA NITROGEN 28 mg/dL (6-20); CALCIUM 8.4 mg/dL (8.5-10.3); CARBON DIOXIDE - CO2 24 mmol/L (21-32); CHLORIDE 98 mmol/L (101-111); CHOL/HDL RATIO 4.9 (<4.4); CHOLESTEROL 260 mg/dL; CREATININE 2.1 mg/dL (0.4-1.0); GFR - MDRD 26 (>89); GLUCOSE 374 mg/dL (70-100); HDL CHOLESTEROL 53 mg/dL; LDL CHOLESTEROL,CALCULATED 148 mg/dL; LDL/HDL RATIO 2.8 (<4.4); POTASSIUM 4.5 mmol/L (3.5-5.0); SODIUM 131 mmol/L (135-145); TOTAL PROTEIN 6.5 g/dL (6.7-8.2); TRIGLYCERIDES 294 mg/dL; VLDL CHOLESTEROL 59 mg/dL
[2022-05-29 10:25] LABS: THYROID STIMULATING HORMONE 2.52 uIU/mL (0.34-5.60)
[2022-05-29 11:53] LABS: ESTIMATED AVERAGE GLUCOSE 324 mg/dL (70-100); HEMOGLOBIN A1c% 12.9 % (4.27-6.07)
== END 2022-05-29 09:40 | disposition home or self-care (01) ==
LOC: LAB 09:39
PROVIDERS: ATTEND Registered Nurse
DX: I10 Essential (primary) hypertension (principal); E11.8 Type 2 diabetes mellitus with unspecified complications
CPT/HCPCS: 36415; 80050; 80061; 83036; 83721

== ENCOUNTER 2022-08-22 11:50 | Emergency (ER) | payer MEDICAID ==
[2022-08-22] MEDS ORDERED: MIDAZOLAM 2 MG/2 ML VIAL IVP STA (12:18)
[2022-08-22] MEDS ORDERED: KETOROLAC 15 MG/ML VIAL IVP STA (12:18)
[2022-08-22] MEDS ORDERED: BUFFERED LIDOCAINE 10 ML SYRINGE SUBQ STA (12:18)
[2022-08-22] MEDS ORDERED: SODIUM CHLORIDE 0.9% 1,000 ML IV STA (12:18)
[2022-08-22] MEDS ORDERED: AMPICILLIN/SULBACTAM 3 GM in SODIUM CHLORIDE 0.9% MINIBAG 100 ML IV STA (12:18)
--- NOTE | 2022-08-22 12:20 | ED Physician Documentation ---
History of Present Illness - Stated complaint Stated Complaint: LOW BACK PX - Chief complaint Chief Complaint: General - History obtained from History obtained from: Patient - Additonal information Additional information: 42-year-old woman with history of uncontrolled diabetes, not currently taking any insulin but planning to see endocrinology next month. She has a history of Tamia's gangrene/NSTI status post multiple surgeries. 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 Since her Tamia's gangrene it hurts during her periods, now it hurts much worse over the last week. It is quite tender. No fevers or chills. 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 : Indwelling catheter HEENT: Other Psych: Other Musculoskeletal: Osteoarthritis Derm: Psoriasis - Past Surgical History Past Surgical History: Yes Ortho: Arthroscopic surgery /COMPUTER GRAPHIC ARTIST: Dilation and currettage - Present Medications Home Medications: Ambulatory Orders Medication Instructions Recorded Confirmed Ibuprofen [Motrin] 400 mg PO BID PRN 12/29/20 09/08/21 Ascorbic Acid [Vitamin C] 500 mg PO QPM 09/08/21 09/08/21 Aspirin [Aspirin EC] 81 mg PO DAILY 09/08/21 09/08/21 Atorvastatin [Lipitor] 40 mg PO QPM #30 tablet 09/08/21 Blood Sugar Diagnostic [Glucometer 1 each QID #100 strip 09/08/21 Strips] Blood-Glucose Meter [Glucometer] 1 each QID #1 each 09/08/21 Cholecalciferol [Vitamin D3] 25 mcg PO QPM 09/08/21 09/08/21 Gabapentin [Neurontin] 100 mg PO TID #90 cap 09/08/21 Insulin Aspart [NovoLOG] 3 - 11 unit SUBQ 09/08/21 0800,1200,1700,2100 #5 pe Insulin Glargine [Lantus Solostar] 8 unit SUBQ BID #3 pe 09/08/21 Lancets 1 each QID #100 each 09/08/21 Losartan Potassium 25 mg PO DAILY 09/08/21 09/08/21 Sumatriptan Succinate [Imitrex] 100 mg PO PRN PRN 09/08/21 09/08/21 diphenhydrAMINE [Benadryl] 25 mg PO DAILY PRN 09/08/21 09/08/21 Amox/Clav 875/125 [Augmentin] 1 each PO Q12H #20 tablet 08/22/22 Insulin Aspart [Novolog] 5 unit SQ AC #3 ea 08/22/22 Insulin Glargine [Lantus Solostar] 8 unit SUBQ BID #3 ea 08/22/22 - Allergies Allergies/Adverse Reactions: Allergies Allergy/AdvReac Type Severity Reaction Status Date / Time hydrocodone bitartrate * Allergy Intermediate Hives Verified 08/22/22 12:02 [From Vicodin] oxycodone HCl * Allergy Intermediate Hives Verified 08/22/22 12:02 [From Percocet] oxycodone Allergy Rash Verified 08/22/22 12:02 metformin AdvReac Unknown Verified 08/22/22 12:02 - Social History Does the pt smoke?: Yes Smoking Status: Current every day smoker Does the pt drink ETOH?: No Does the pt have substance abuse?: Yes - Immunizations Immunizations are current?: Yes - POLST Patient has POLST: No POLST Status: Full Code PD ED PE NORMAL - Vitals Vital signs reviewed: Yes - General General: Alert and oriented X 3, No acute distress - Abdomen Abdomen: Normal bowel sounds, Soft, Non tender - Female Female : Other (She has a pointed pilonidal cyst abscess at the top of the g luteal crease.) - Neuro Neuro: Alert and oriented X 3, Normal speech Results - Vitals Vitals: Vital Signs - 24 hr 08/22/22 08/22/22 08/22/22 11:55 13:07 13:50 Temperature 36.9 C Heart Rate 95 93 85 Respiratory 16 16 17 Rate Blood Pressure 176/92 H 183/99 H 174/87 H O2 Saturation 100 100 99 Oxygen O2 Source Room air - Labs Labs: Laboratory Tests 08/22/22 08/22/22 08/22/22 12:08 12:55 12:55 WBC 10.3 RBC 3.12 L Hgb 8.8 L Hct 27.2 L MCV 87.2 MCH 28.2 MCHC 32.4 RDW 12.9 Plt Count 339 MPV 10.6 Neut # (Auto) 7.1 H Lymph # (Auto) 2.2 [place] # (Auto) 0.6 Eos # (Auto) 0.4 Baso # (Auto) 0.1 Absolute Nucleated RBC 0.00 Nucleated RBC % 0.0 Sodium 132 L Potassium 4.4 Chloride 98 L Carbon Dioxide 26 Anion Gap 8.0 BUN 26 H Creatinine 2.0 H Estimated GFR (MDRD) 27 L Glucose 368 H POC Whole Bld Glucose 375 H Calcium 8.5 08/22/22 13:20 WBC RBC Hgb Hct MCV MCH MCHC RDW Plt Count MPV Neut # (Auto) Lymph # (Auto) [place] # (Auto) Eos # (Auto) Baso # (Auto) Absolute Nucleated RBC Nucleated RBC % Sodium Potassium Chloride Carbon Dioxide Anion Gap BUN Creatinine Estimated GFR (MDRD) Glucose POC Whole Bld Glucose 356 H Calcium Procedures - Abscess I&D (location) Pilonidal cyst abscess Preparation: Lidocaine 1%, Other (Anxiolysis with 2 mg IV Versed) Incision: Incised with scalpel, Purulent drainage, Loculations broken, Packed, Culture obtained Other: Pt tolerated well, Dressing applied, Antibiotic prescribed PD Medical Decision Making - ED course ED course: This is a 42-year-old woman who for her age has a relatively complicated medical history including NSTI of the pelviS, Uncontrolled diabetes and now has a pilonidal cyst. She is ancillary complaints of chronically heavy periods that are difficult to control with usual menstrual pads because of now abnormal anatomy. The pilonidal cyst was incised and drained. She was administered IV fluids and insulin here as well as a dose of Unasyn. The cyst was cultured given her uncontrolled diabetes. Her CBC is notable for chronic anemia, likely of chronic disease. CMP reviewed for chronic renal insufficiency and hyperglycemia. She we will follow-up with her PCP for consideration for surgical referral as well as gynecology referral for the above issues. She has an appointment with endocrinology later this month and we will start Lantus and mealtime insulin in the interim. Departure - Departure Disposition: 01 Home, Self Care Clinical Impression: Type 2 diabetes mellitus, uncontrolled, with neuropathy, Pilonidal abscess CKD (chronic kidney disease) Qualifiers: Chronic kidney disease stage: unspecified stage Qualified Code(s): N18.9 - Chronic kidney disease, unspecified Condition: Stable Record reviewed to determine appropriate education?: Yes Instructions: ED Hyperglycemia Diabetic, ED Cyst Pilonidal Infected IandD Follow-Up: [facility] [Provider Group] [facility] [Provider Group] Prescriptions: Amox/Clav 875/125 [Augmentin] 1 each PO Q12H #20 tablet Insulin Glargine [Lantus Solostar] 8 unit SUBQ BID #3 ea Insulin Aspart [Novolog] 5 unit SQ AC #3 ea Comments: You were seen today for pilonidal cyst. We note that your blood sugars are uncontrolled and your kidney function is not doing so good because of that as well. You do have chronic anemia and your labs and this is stable. You should follow-up with SAJI Agustin. Discussed referrals to a surgeon for definitive care for the pilonidal cyst. Also referral to gynecology for evaluation for your uncontrolled heavy menses. May be consider endometrial ablation since you are not interested in having children. Finally definitely important to see the mill operator later this month as scheduled. In the meantime I am sending prescriptions for antibiotics and your insulins up to [facility] in [place]. Avoid NSAIDs such as Advil, Aleve, ibuprofen. This is because your kidney function is not doing so good. Packing removal in 2 days, preferably in the shower. We are performing a wound culture, the results should be done in 48-72 hours. If antibiotic change is necessary we will call you. Return if worse in the meantime, especially if you develop increased pain, fevers, cannot keep down the medication. Otherwise follow-up with your physician in approximately 2-3 days. Until you see the mill operator, reasonable to go up on the Lantus by 2 units each day if your blood sugars are over 200 persistently. For example if your blood sugar is over 200 tomorrow, you can increase the Lantus to 10 units twice a day, and then 12 units twice a day on Tuesday if persistently over that level.
[2022-08-22] MEDS ORDERED: INSULIN REGULAR HUMAN 100 UNIT/1 ML 10 ML MDV IVP STA (12:45)
[2022-08-22 13:09] LABS: BASOPHILS # (AUTO) 0.1 10^3/uL (0.0-0.1); BASOPHILS % (AUTO) 0.6 %; EOSINOPHILS # (AUTO) 0.4 10^3/uL (0.0-0.7); EOSINOPHILS % (AUTO) 3.4 %; HCT - HEMATOCRIT 27.2 % (37.0-47.0); HGB - HEMOGLOBIN 8.8 g/dL (12.0-16.0); LYMPHOCYTES # (AUTO) 2.2 10^3/uL (1.5-3.5); LYMPHOCYTES % (AUTO) 20.8 %; MEAN CORPUSCULAR HEMOGLOBIN 28.2 pg (27.0-31.0); MEAN CORPUSCULAR HGB CONC 32.4 g/dL (32.0-36.0); MEAN CORPUSCULAR VOLUME 87.2 fL (81.0-99.0); MEAN PLATELET VOLUME 10.6 fL (7.9-10.8); MONOCYTES # (AUTO) 0.6 10^3/uL (0.0-1.0); MONOCYTES % (AUTO) 5.9 %; NEUTROPHILS # (AUTO) 7.1 10^3/uL (1.5-6.6); PLT - PLATELET COUNT 339 10^3/uL (130-450); RED BLOOD COUNT 3.12 10^6/uL (4.20-5.40); RED CELL DISTRIBUTION WIDTH 12.9 % (12.0-15.0); WHITE BLOOD COUNT 10.3 x10^3/uL (4.8-10.8)
[2022-08-22 13:36] LABS: CALCIUM 8.5 mg/dL (8.5-10.3); POTASSIUM 4.4 mmol/L (3.5-5.0)
[2022-08-22 14:12] LABS: ESTIMATED AVERAGE GLUCOSE 344 mg/dL (70-100); HEMOGLOBIN A1c% 13.6 % (4.27-6.07)
[2022-08-22 14:29] VITALS: BP 161/86
== END 2022-08-22 14:29 | disposition home or self-care (01) ==
LOC: ED 11:50
DX: L05.01 Pilonidal cyst with abscess (principal); I12.9 Hypertensive chronic kidney disease with stage 1 through stage 4 chronic kidney disease, or unspecified chronic kidney disease; E11.22 Type 2 diabetes mellitus with diabetic chronic kidney disease; E11.65 Type 2 diabetes mellitus with hyperglycemia; N18.9 Chronic kidney disease, unspecified; E11.40 Type 2 diabetes mellitus with diabetic neuropathy, unspecified; F17.200 Nicotine dependence, unspecified, uncomplicated; Z79.82 Long term (current) use of aspirin; Z79.4 Long term (current) use of insulin; Z79.899 Other long term (current) drug therapy
CPT/HCPCS: 10080; 36415; 80048; 83036; 85025; 87070; 87205; 96361; 96365; 96375; 99284; J1815

== ENCOUNTER 2023-01-13 10:57 | Outpatient (CLI) | payer MEDICAID, OTHER | END 2023-01-13 10:58 | disposition critical access hospital (66) | LOC: EMS 10:57 | DX: R51.9 Headache, unspecified (principal); S09.93XA Unspecified injury of face, initial encounter; Y04.2XXA Assault by strike against or bumped into by another person, initial encounter; Y92.89 Other specified places as the place of occurrence of the external cause | CPT/HCPCS: A0425; A0429; A0999 ==

== ENCOUNTER 2023-01-13 11:22 | Emergency (ER) | payer MEDICAID, OTHER ==
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
[2023-01-13 14:53] VITALS: BP 150/88
== END 2023-01-13 15:02 | disposition home or self-care (01) ==
LOC: EDUNIT# → ED 11:22
DX: S09.93XA Unspecified injury of face, initial encounter (principal); Y04.2XXA Assault by strike against or bumped into by another person, initial encounter; Y93.89 Activity, other specified; Y92.521 Bus station as the place of occurrence of the external cause; F17.200 Nicotine dependence, unspecified, uncomplicated
CPT/HCPCS: 99283; 99284

== ENCOUNTER 2023-02-08 04:30 | Outpatient (CLI) | payer MEDICAID | END 2023-02-08 04:31 | disposition short-term general hospital (02) | LOC: EMS 04:30 | DX: R07.89 Other chest pain (principal); R06.00 Dyspnea, unspecified | CPT/HCPCS: A0425; A0427; A0999 ==

== ENCOUNTER 2023-02-16 10:42 | Outpatient (CLI) | payer MEDICAID ==
[2023-02-16 15:14] LABS: BASOPHILS # (AUTO) 0.1 10^3/uL (0.0-0.1); BASOPHILS % (AUTO) 0.8 %; EOSINOPHILS # (AUTO) 0.8 10^3/uL (0.0-0.7); HCT - HEMATOCRIT 29.6 % (37.0-47.0); HGB - HEMOGLOBIN 9.1 g/dL (12.0-16.0); LYMPHOCYTES # (AUTO) 2.7 10^3/uL (1.5-3.5); MEAN CORPUSCULAR HEMOGLOBIN 27.6 pg (27.0-31.0); MEAN CORPUSCULAR HGB CONC 30.7 g/dL (32.0-36.0); MEAN CORPUSCULAR VOLUME 89.7 fL (81.0-99.0); MEAN PLATELET VOLUME 10.9 fL (7.9-10.8); MONOCYTES # (AUTO) 0.8 10^3/uL (0.0-1.0); MONOCYTES % (AUTO) 4.8 %; NEUTROPHILS # (AUTO) 11.4 10^3/uL (1.5-6.6); PLT - PLATELET COUNT 379 10^3/uL (130-450); RED CELL DISTRIBUTION WIDTH 15.2 % (12.0-15.0); WHITE BLOOD COUNT 15.8 x10^3/uL (4.8-10.8)
== END 2023-02-16 10:43 | disposition home or self-care (01) ==
LOC: LAB.S 10:42
DX: N92.0 Excessive and frequent menstruation with regular cycle (principal)
CPT/HCPCS: 36415; 85025

== ENCOUNTER 2023-03-25 20:28 | Emergency (ER) | payer MEDICAID ==
[2023-03-25] MEDS ORDERED: BUFFERED LIDOCAINE 10 ML SYRINGE SUBQ STA (21:17)
[2023-03-25] MEDS ORDERED: MIDAZOLAM 2 MG/2 ML VIAL IVP STA (21:18)
--- NOTE | 2023-03-25 21:23 | ED Physician Documentation ---
PD HPI MHE - Stated complaint Stated Complaint: SI - Chief complaint Chief Complaint: MHE - History obtained from History obtained from: Patient - Additional information Additional information: 42-year-old woman with chronic depression, history of necrotizing fasciitis, TIA, seizure, and demand ischemia causing heart attack related to anemia from heavy menses presents with suicidal ideation. She is under a lot of stress both chronically more acutely because of relationship issues with her mom and the homeowners association. She also wonders if her pilonidal cyst is infected, but she notes that it becomes inflamed every month during her menses when she has to wear pull-ups. She is suicidal with thoughts of creating a smoothie with all of her meds and taking it. 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 : Indwelling catheter HEENT: Other Psych: Other Musculoskeletal: Osteoarthritis Derm: Psoriasis - Past Surgical History Past Surgical History: Yes Ortho: Arthroscopic surgery /COMMERCIAL BAKING TEACHER: Dilation and currettage - Present Medications Home Medications: Ambulatory Orders Medication Instructions Recorded Confirmed Ibuprofen [Motrin] 400 mg PO BID PRN 12/29/20 09/08/21 Ascorbic Acid [Vitamin C] 500 mg PO QPM 09/08/21 09/08/21 Aspirin [Aspirin EC] 81 mg PO DAILY 09/08/21 09/08/21 Atorvastatin [Lipitor] 40 mg PO QPM #30 tablet 09/08/21 Blood Sugar Diagnostic [Glucometer 1 each QID #100 strip 09/08/21 Strips] Blood-Glucose Meter [Glucometer] 1 each QID #1 each 09/08/21 Cholecalciferol [Vitamin D3] 25 mcg PO QPM 09/08/21 09/08/21 Gabapentin [Neurontin] 100 mg PO TID #90 cap 09/08/21 Insulin Aspart [NovoLOG] 3 - 11 unit SUBQ 09/08/21 0800,1200,1700,2100 #5 pe Insulin Glargine [Lantus Solostar] 8 unit SUBQ BID #3 pe 09/08/21 Lancets 1 each QID #100 each 09/08/21 Losartan Potassium 25 mg PO DAILY 09/08/21 09/08/21 Sumatriptan Succinate [Imitrex] 100 mg PO PRN PRN 09/08/21 09/08/21 diphenhydrAMINE [Benadryl] 25 mg PO DAILY PRN 09/08/21 09/08/21 Amox/Clav 875/125 [Augmentin] 1 each PO Q12H #20 tablet 08/22/22 Insulin Aspart [Novolog] 5 unit SQ AC #3 ea 08/22/22 Insulin Glargine [Lantus Solostar] 8 unit SUBQ BID #3 ea 08/22/22 - Allergies Allergies/Adverse Reactions: Allergies Allergy/AdvReac Type Severity Reaction Status Date / Time hydrocodone bitartrate * Allergy Intermediate Hives Verified 03/25/23 20:40 [From Vicodin] oxycodone HCl * Allergy Intermediate Hives Verified 03/25/23 20:40 [From Percocet] oxycodone Allergy Rash Verified 03/25/23 20:40 metformin AdvReac Unknown Verified 03/25/23 20:40 - Social History Does the pt smoke?: Yes Smoking Status: Current every day smoker Does the pt drink ETOH?: No Does the pt have substance abuse?: Yes - Immunizations Immunizations are current?: Yes - POLST Patient has POLST: No POLST Status: Full Code PD ED PE NORMAL - Vitals Vital signs reviewed: Yes - General General: Alert and oriented X 3, No acute distress, Other (Intermittently tearful, well kempt with good eye contact) - HEENT HEENT: PERRL, EOMI - Neck Neck: Supple, no meningeal sign, No bony TTP - Female Female : Other (No obvious inflamed pilonidal cyst. There is a divot from her prior pilonidal cyst.) - Neuro Neuro: Alert and oriented X 3, Normal speech - Psych Psych: Normal mood, Normal affect Results - Vitals Vitals: Vital Signs - 24 hr 03/25/23 20:31 Temperature 36.0 C L Heart Rate 101 H Respiratory 20 Rate Blood Pressure 166/93 H O2 Saturation 98 Oxygen O2 Source Room air - Labs Labs: Laboratory Tests 03/25/23 03/25/23 03/25/23 21:30 21:39 21:39 WBC 8.6 RBC 3.84 L Hgb 10.9 L Hct 33.5 L MCV 87.2 MCH 28.4 MCHC 32.5 RDW 15.4 H Plt Count 334 MPV 10.1 Neut # (Auto) 5.3 Lymph # (Auto) 2.2 Nolan # (Auto) 0.4 Eos # (Auto) 0.6 Baso # (Auto) 0.1 Absolute Nucleated RBC 0.00 Nucleated RBC % 0.0 Sodium 135 Potassium 4.1 Chloride 101 Carbon Dioxide 27 Anion Gap 7.0 BUN 48 H Creatinine 2.9 H Estimated GFR (MDRD) 18 L Glucose 253 H Calcium 8.7 Total Bilirubin 0.2 AST 14 ALT 26 Alkaline Phosphatase 70 Total Protein 6.4 Albumin 3.6 Globulin 2.8 Albumin/Globulin Ratio 1.3 Lipase 18 Urine Color YELLOW Urine Clarity CLEAR Urine pH 7.0 Ur Specific [place] 1.015 Urine Protein >=300 H Urine Glucose (UA) >=1000 H Urine Ketones NEGATIVE Urine Occult Blood LARGE H Urine Nitrite NEGATIVE Urine Bilirubin NEGATIVE Urine Urobilinogen 0.2 (NORMAL) Ur Leukocyte Esterase NEGATIVE Urine RBC TNTC H Urine WBC 0-3 Ur Squamous Epith Cells RARE Squamous Urine Bacteria Rare Ur Microscopic Review INDICATED Urine Culture Comments NOT INDICATED Salicylates < 1.5 Urine Opiates Screen NEGATIVE Ur Oxycodone Screen NEGATIVE Urine Methadone Screen NEGATIVE Ur Propoxyphene Screen NEGATIVE Acetaminophen 0.1 Ur Barbiturates Screen NEGATIVE Ur Tricyclics Screen NEGATIVE Ur Phencyclidine Scrn NEGATIVE Ur Amphetamine Screen NEGATIVE U Methamphetamines Scrn NEGATIVE U Benzodiazepines Scrn NEGATIVE Urine Cocaine Screen NEGATIVE U Cannabinoids Screen POSITIVE H Ethyl Alcohol < 10.0 PD Medical Decision Making - ED course ED course: 42-year-old woman presents with suicidal ideation. She is medically stable for psychiatric evaluation and telepsych consultation is placed. Care to Dr. Jackson at shift change, 10 PM pending hopeful acceptance by higher level of care. She was declined by [facility] given lack of beds. Departure - Departure Clinical Impression: Depression Qualifiers: Depression Type: major depressive disorder Major depression recurrence: recurrent Active/Remission status: currently active Major depression episode severity: severe Psychotic features: with psychotic features Qualified Code(s): F33.3 - Major depressive disorder, recurrent, severe with psychotic symptoms Condition: Stable Forms: PCP List
[2023-03-25 21:45] LABS: MUDS CUTOFF CONCENTRATIONS CUTOFF CONC BELOW:
[2023-03-25 21:46] LABS: BASOPHILS # (AUTO) 0.1 10^3/uL (0.0-0.1); BASOPHILS % (AUTO) 0.8 %; EOSINOPHILS # (AUTO) 0.6 10^3/uL (0.0-0.7); EOSINOPHILS % (AUTO) 6.4 %; HCT - HEMATOCRIT 33.5 % (37.0-47.0); HGB - HEMOGLOBIN 10.9 g/dL (12.0-16.0); LYMPHOCYTES # (AUTO) 2.2 10^3/uL (1.5-3.5); LYMPHOCYTES % (AUTO) 26.2 %; MEAN CORPUSCULAR HEMOGLOBIN 28.4 pg (27.0-31.0); MEAN CORPUSCULAR HGB CONC 32.5 g/dL (32.0-36.0); MEAN CORPUSCULAR VOLUME 87.2 fL (81.0-99.0); MEAN PLATELET VOLUME 10.1 fL (7.9-10.8); MONOCYTES # (AUTO) 0.4 10^3/uL (0.0-1.0); MONOCYTES % (AUTO) 4.3 %; NEUTROPHILS # (AUTO) 5.3 10^3/uL (1.5-6.6); NEUTROPHILS % (AUTO) 62.1 %; PLT - PLATELET COUNT 334 10^3/uL (130-450); RED BLOOD COUNT 3.84 10^6/uL (4.20-5.40); RED CELL DISTRIBUTION WIDTH 15.4 % (12.0-15.0); WHITE BLOOD COUNT 8.6 x10^3/uL (4.8-10.8)
[2023-03-25 21:47] LABS: BILIRUBIN,URINE NEGATIVE (NEGATIVE); GLUCOSE, URINE (UA) >=1000 mg/dL (NEGATIVE); KETONES,URINE (UA) NEGATIVE (NEGATIVE); LEUKOCYTE ESTERASE, URINE NEGATIVE (NEGATIVE); NITRITE,URINE NEGATIVE (NEGATIVE); OCCULT BLOOD,URINE LARGE (NEGATIVE); PROTEIN,URINE >=300 mg/dL (NEGATIVE); UROBILINOGEN,URINE 0.2 (NORMAL) E.U./dL (NORMAL)
[2023-03-25 21:51] LABS: CLARITY,URINE CLEAR (CLEAR)
[2023-03-25 22:00] LABS: AMPHETAMINE SCREEN,URINE NEGATIVE (NEGATIVE); BACTERIA,URINE Rare /HPF (None Seen); BARBITURATE SCREEN,UR NEGATIVE (NEGATIVE); BENZODIAZEPINES SCREEN, URINE NEGATIVE (NEGATIVE); COCAINE SCREEN URINE NEGATIVE (NEGATIVE); METHADONE SCREEN, URINE NEGATIVE (NEGATIVE); METHAMPHETAMINES SCREEN, URINE NEGATIVE (NEGATIVE); OPIATE SCREEN, URINE NEGATIVE (NEGATIVE); OXYCODONE SCREEN, URINE NEGATIVE (NEGATIVE); PROPOXYPHENE SCREEN, URINE NEGATIVE (NEGATIVE); RBC,URINE TNTC /HPF (0-5); SQUAMOUS EPITHELIAL CELL,UR RARE Squamous (<= Few); THC CANNABINOID SCREEN, URINE POSITIVE (NEGATIVE); TRICYCLIC ANTIDEPRESSANT,URINE NEGATIVE (NEGATIVE); WBC,URINE 0-3 /HPF (0-5)
[2023-03-25 22:04] LABS: ACETAMINOPHEN 0.1 ug/mL; ALBUMIN 3.6 g/dL (3.2-5.5); ALBUMIN/GLOBULIN RATIO 1.3 (1.0-2.2); ALKALINE PHOSPHATASE 70 IU/L (42-121); ALT ALANINE AMINOTRANSFERASE 26 IU/L (10-60); AST ASPARTATE AMINOTRANSFERASE 14 IU/L (10-42); BILIRUBIN,TOTAL 0.2 mg/dL (0.2-1.0); BUN - BLOOD UREA NITROGEN 48 mg/dL (6-20); CALCIUM 8.7 mg/dL (8.5-10.3); CARBON DIOXIDE - CO2 27 mmol/L (21-32); CHLORIDE 101 mmol/L (101-111); CREATININE 2.9 mg/dL (0.6-1.3); ETOH - ETHANOL < 10.0 mg/dL; GFR - MDRD 18 (>89); GLUCOSE 253 mg/dL (74-104); LIPASE 18 U/L (11-82); POTASSIUM 4.1 mmol/L (3.5-4.5); SODIUM 135 mmol/L (135-145); TOTAL PROTEIN 6.4 g/dL (6.4-8.9)
[2023-03-25 22:05] LABS: SALICYLATE < 1.5 mg/dL
[2023-03-25 22:15] LABS: THYROID STIMULATING HORMONE 3.23 uIU/mL (0.34-5.60)
[2023-03-25] MEDS ORDERED: FUROSEMIDE 20 MG TABLET PO STA (23:51)
[2023-03-25] MEDS ORDERED: ATORVASTATIN 40 MG TABLET PO STA (23:52)
[2023-03-25] MEDS ORDERED: hydrALAZINE 10 MG TABLET PO STA (23:52)
[2023-03-25] MEDS ORDERED: GABAPENTIN 100 MG CAPSULE PO STA (23:53)
[2023-03-26] MEDS ORDERED: INSULIN GLARGINE-YFGN 300 UNIT/3 ML PEN SUBQ ONE (00:27)
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
[2023-03-26 02:32] LABS: HCG UR QUAL NEGATIVE
--- NOTE | 2023-03-26 07:40 | ED Physician Documentation ---
ED Addendum - Addendum Addendum: 03/26/23 07:35 I received signout/turnover of care on this patient from Dr. Ledezma; please see his note for complete H&P. No issues on my overnight shift. Telepsychiatric consult was completed and the recommendation is inpatient treatment. At the end of my shift, we are still awaiting availability of a bed at an appropriate facility and thus the care of this patient is turned over to the oncoming ED physician (Dr. Emmanuel)
--- NOTE | 2023-03-26 08:22 | ED Physician Documentation ---
ED Addendum - Addendum Addendum: 03/26/23 08:20 The patient has spent the night without any problems. Telepsych provider had talked with her and suggested initiating Seroquel. Recommended inpatient. The patient was good with that. Supposedly the telepsych provider was looking for placements. We will have clinical social work therapist assuming that as well this morning. This morning the patient is having breakfast. She states she is more inclined to request discharge rather than waiting for bed to be found. She denies suic idal ideation at the moment. Social work has arrived at the hospital recently we will have them come down and talk with her to reassess and safety plan given the possible redirection for discharge instead. I can prescribe the Seroquel. I will order the morning dose to initiate the medications as suggested by telepsych. 03/26/23 09:06 Social work talked with the patient who is now feeling that she does not want to be hospitalized. However she is reluctant to talk about any differences compared to yesterday and social work felt safety planning was difficult. Social work is going to call the DCR. At this point we will have the patient observed for safety and consider involuntary until reviewed by DCR. 03/26/23 10:00 The patient had breakfast well. She is feeling okay this morning. We will check blood sugar. She declined her usual daily medicines. Social work is talking with the DCR at this point. The patient still appears medically cleared. We will check with the DCR if they need any new labs evaluated. She is slightly anemic from yesterday with it being about baseline. Her creatinine is elevated at 2.9 with previous ones being 2.1 and 2.0 so in the similar range. Her electrolytes are good.
[2023-03-26] MEDS ORDERED: QUEtiapine 25 MG TABLET PO STA (08:23)
[2023-03-26] MEDS ORDERED: hydrALAZINE 10 MG TABLET PO SCH (09:00)
[2023-03-26] MEDS ORDERED: INSULIN LISPRO 300 UNIT/3 ML PEN SUBQ SCH (09:00)
[2023-03-26] MEDS ORDERED: FUROSEMIDE 40 MG TABLET PO SCH (09:00)
[2023-03-26] MEDS ORDERED: METOPROLOL SUCCINATE 25 MG TABLET PO SCH (09:00)
[2023-03-26 09:22] VITALS: BP 160/95; O2SAT 99
[2023-03-26] MEDS ORDERED: ISOSORBIDE MONONITRATE ER 30 MG TABLET PO SCH (10:00)
[2023-03-26] MEDS ORDERED: POTASSIUM CHLORIDE 10 MEQ CAPSULE PO SCH (10:00)
[2023-03-26] MEDS ORDERED: GABAPENTIN 100 MG CAPSULE PO SCH (10:00)
[2023-03-26] MEDS: INSULIN LISPRO 300 UNIT/3 ML PEN SUBQ SCH ×2 (11:10→12:00)
[2023-03-26 11:20] LABS: BASOPHILS # (AUTO) 0.1 10^3/uL (0.0-0.1); BASOPHILS % (AUTO) 0.9 %; EOSINOPHILS # (AUTO) 0.7 10^3/uL (0.0-0.7); EOSINOPHILS % (AUTO) 9.1 %; HCT - HEMATOCRIT 32.2 % (37.0-47.0); HGB - HEMOGLOBIN 10.4 g/dL (12.0-16.0); LYMPHOCYTES # (AUTO) 1.9 10^3/uL (1.5-3.5); LYMPHOCYTES % (AUTO) 25.8 %; MEAN CORPUSCULAR HEMOGLOBIN 28.2 pg (27.0-31.0); MEAN CORPUSCULAR HGB CONC 32.3 g/dL (32.0-36.0); MEAN CORPUSCULAR VOLUME 87.3 fL (81.0-99.0); MONOCYTES # (AUTO) 0.3 10^3/uL (0.0-1.0); MONOCYTES % (AUTO) 4.3 %; NEUTROPHILS # (AUTO) 4.4 10^3/uL (1.5-6.6); NEUTROPHILS % (AUTO) 59.8 %; PLT - PLATELET COUNT 283 10^3/uL (130-450); RED BLOOD COUNT 3.69 10^6/uL (4.20-5.40); RED CELL DISTRIBUTION WIDTH 15.4 % (12.0-15.0); WHITE BLOOD COUNT 7.4 x10^3/uL (4.8-10.8)
[2023-03-26 11:33] LABS: ALBUMIN 3.2 g/dL (3.2-5.5); ALBUMIN/GLOBULIN RATIO 1.2 (1.0-2.2); ALKALINE PHOSPHATASE 64 IU/L (42-121); ALT ALANINE AMINOTRANSFERASE 23 IU/L (10-60); AST ASPARTATE AMINOTRANSFERASE 14 IU/L (10-42); BILIRUBIN,TOTAL 0.2 mg/dL (0.2-1.0); BUN - BLOOD UREA NITROGEN 48 mg/dL (6-20); CALCIUM 8.4 mg/dL (8.5-10.3); CARBON DIOXIDE - CO2 27 mmol/L (21-32); CHLORIDE 105 mmol/L (101-111); CK- CREATINE KINASE 204 IU/L (30-223); ETOH - ETHANOL < 10.0 mg/dL; GFR - MDRD 17 (>89); GLUCOSE 258 mg/dL (74-104); LIPASE 19 U/L (11-82); POTASSIUM 4.3 mmol/L (3.5-4.5); SODIUM 137 mmol/L (135-145); TOTAL PROTEIN 5.9 g/dL (6.4-8.9)
[2023-03-26] MEDS ORDERED: INSULIN GLARGINE-YFGN 300 UNIT/3 ML PEN SUBQ SCH ×2 (21:00)
== END 2023-03-26 13:21 | disposition home or self-care (01) ==
LOC: ED 20:28
DX: F33.3 Major depressive disorder, recurrent, severe with psychotic symptoms (principal); I10 Essential (primary) hypertension; E11.9 Type 2 diabetes mellitus without complications; Z79.4 Long term (current) use of insulin; F17.200 Nicotine dependence, unspecified, uncomplicated; Z63.8 Other specified problems related to primary support group; Z62.820 Parent-biological child conflict
CPT/HCPCS: 36415; 80053; 80306; 80307; 80320; 80329; 81001; 81025; 82550; 83690; 84443; 85025; 87635; 99283; 99285; A9270; J1815; 81003; 87086

== ENCOUNTER 2023-05-01 21:00 | Outpatient (CLI) | payer MEDICAID | END 2023-05-01 21:01 | disposition home or self-care (01) | LOC: EMS 21:00 | DX: R07.9 Chest pain, unspecified (principal) | CPT/HCPCS: A0425; A0429; A0999 ==

== ENCOUNTER 2023-05-01 21:13 | Emergency (ER) | payer MEDICAID ==
--- NOTE | 2023-05-01 21:43 | ED Physician Documentation ---
History of Present Illness - Stated complaint Stated Complaint: CHEST PX - Chief complaint Chief Complaint: Cardiac - History obtained from History obtained from: Patient - Additonal information Additional information: The patient comes to the emergency department with chief complaint of chest pain for the last 3 days. She states that she felt a tightness in the musculature of her left neck and shoulder but then also had a tight pain coming across the front of her chest on both sides and radiating into exactly the same place in her back. The patient states she has a history of something similar this past late January, when she was doing a lot of vaginal bleeding and had developed severe anemia from it. She had called EMS for similar chest discomfort and at that time, and been found to have EKG changes and was transported straight to [facility] instead of being brought here. She states she was admitted for several days and received transfusions. She also had a negative stress test during that time and was evaluated by a locker room clerk. She states that she was told that most likely, the anemia had placed some strain on her heart and had caused some heart failure because of that. The patient states that she went on Depo-Provera and that she had no period in February, that had a 15-day period in March. However, this month she has only menstruated lightly. The patient states that she has been under very heavy stress recently and thinks that this may be part of the symptoms she is having. However, with her history, she states she just wants to be sure that there is nothing else going on. The patient is a smoker. She is currently on metoprolol and aspirin. No other complaints at this time. She denies any nausea, shortness of breath, diaphoresis, or lightheadedness. 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 catheter HEENT: Other Psych: Other Musculoskeletal: Osteoarthritis Derm: Psoriasis - Past Surgical History Past Surgical History: Yes Ortho: Arthroscopic surgery /RV SERVICE TECHNICIAN: Dilation and currettage - Present Medications Home Medications: Ambulatory Orders Medication Instructions Recorded Confirmed Atorvastatin [Lipitor] 40 mg PO QPM #30 tablet 09/08/21 05/01/23 Gabapentin [Neurontin] 100 mg PO TID #90 cap 09/08/21 05/01/23 Insulin Glargine [Lantus Solostar] 8 unit SUBQ BID #3 pe 09/08/21 05/01/23 Insulin Aspart [Novolog] 5 unit SQ AC #3 ea 08/22/22 05/01/23 Furosemide [Lasix] 40 mg PO BID 05/01/23 05/01/23 Isosorbide Dinitrate [Isordil] 10 mg PO TID 05/01/23 05/01/23 Metoprolol Succinate [Toprol Xl] 12.5 mg PO DAILY 05/01/23 05/01/23 Potassium Chloride [K-Tab ER] 10 meq PO DAILY 05/01/23 05/01/23 hydrALAZINE [Apresoline] 10 mg PO Q8HR 05/01/23 05/01/23 - Allergies Allergies/Adverse Reactions: Allergies Allergy/AdvReac Type Severity Reaction Status Date / Time hydrocodone bitartrate * Allergy Intermediate Hives Verified 05/01/23 21:30 [From Vicodin] oxycodone HCl * Allergy Intermediate Hives Verified 05/01/23 21:30 [From Percocet] oxycodone Allergy Rash Verified 05/01/23 21:30 metformin AdvReac Unknown Verified 05/01/23 21:30 - Social History Does the pt smoke?: Yes Smoking Status: Current every day smoker Does the pt drink ETOH?: No Does the pt have substance abuse?: Yes Substance Use and Type: Marijuana - Immunizations Immunizations are current?: Yes - POLST Patient has POLST: No POLST Status: Full Code PD ED PE NORMAL - Vitals Vital signs reviewed: Yes - General General: Alert and oriented X 3, No acute distress, Well developed/nourished - HEENT HEENT: Atraumatic, PERRL, EOMI, Moist mucous membranes - Neck Neck: Supple, no meningeal sign - Cardiac Cardiac: RRR, No murmur, Strong equal pulses - Respiratory Respiratory: No respiratory distress, Clear bilaterally - Abdomen Abdomen: Soft, Non tender, Non distended - Derm Derm: Normal color, Warm and dry, No rash - Extremities Extremities: No deformity, No edema, No calf tenderness / cord - Neuro Neuro: Alert and oriented X 3, Other (Grossly intact) - Psych Psych: Normal mood, Normal affect Results - Vitals Vitals: Vital Signs - 24 hr 05/01/23 05/01/2305/01/23 21:20 21:30 22:00 Temperature 36.8 C Heart Rate 79 82 83 Respiratory 18 15 14 Rate Blood Pressure 152/86 H 151/79 H 161/87 H O2 Saturation 99 100 05/01/23 05/01/23 05/01/23 22:30 23:02 23:31 Temperature Heart Rate 86 84 86 Respiratory 22 18 15 Rate Blood Pressure 149/76 H 159/96 H O2 Saturation 100 100 100 05/01/23 23:46 Temperature Heart Rate 84 Respiratory 13 Rate Blood Pressure 153/86 H O2 Saturation 98 Oxygen O2 Source Room air - EKG (time done) 7 EKG releavant findings:: EKG personally interpreted by author of this note. Relevant findings are: Rate: Rate (enter#) (81) Rhythm: NSR [place]: Normal Intervals: Normal [place] QRS: Normal Ischemia: Normal ST segments Compare to prior EKG: Old EKG unavailable Computer interpretation: Agree with computer - Labs Labs: Laboratory Tests 05/01/23 05/01/23 05/01/23 21:58 21:58 23:00 WBC 8.9 RBC 3.69 L Hgb 10.3 L Hct 31.8 L MCV 86.2 MCH 27.9 MCHC 32.4 RDW 14.6 Plt Count 248 MPV 10.8 Neut # (Auto) 5.5 Lymph # (Auto) 2.3 [place] # (Auto) 0.6 Eos # (Auto) 0.5 Baso # (Auto) 0.1 Absolute Nucleated RBC 0.00 Nucleated RBC % 0.0 INR (Fingerstick) 1.0 Sodium 131 L Potassium 4.5 Chloride 100 L Carbon Dioxide 26 Anion Gap 5.0 L BUN 57 H Creatinine 3.0 H Estimated GFR (MDRD) 17 L Glucose 347 H Calcium 8.9 Total Bilirubin 0.2 AST 35 ALT 32 Alkaline Phosphatase 66 Troponin I High Sens 9599.8 H* Total Protein 6.0 L Albumin 3.4 Globulin 2.6 Albumin/Globulin Ratio 1.3 Lipase 19 - Rads (name of study) chest XR Relevant Findings:: Final report received, See rad report (neg) PD Medical Decision Making - ED course Complexity details: reviewed results, re-evaluated patient, considered differential, d/w patient ED course: The fact that the patient had had a recent cardiology evaluation and negative stress test was certainly reassuring. However, given the patient's complicated history, I did go ahead and order labs including CBC, ER abdominal panel, and troponin, as well as EKG and a chest x-ray. The patient's EKG was unremarkable, as was the chest x-ray. Her CBC showed a hemoglobin of 10.3, which was on par with the patient's recent baseline. We did have comparison hemoglobins in the low to mid tens from about 1 month ago. The patient's creatinine was found to be 3 with a BUN of 57, which is about where the patient has been over the last few months. Her troponin was found to be 9599. I discussed the case with Dr. Dodge of cardiology at [facility] and she stated that at this point, we should treat the patient as a non-ST elevation AR and start a heparin drip. I discussed the case also with Dr. Jack, the on-call hospitalist at [facility], and she did accept the patient in transfer. The patient was started on a heparin drip and given doses of aspirin and nitroglycerin during her stay in the emergency department. Her pain was minimal upon reevaluation. The patient understands that because of her findings, she will need to be transferred to [facility] and she is agreeable to this plan. Departure - Departure Disposition: 02 Transfer Acute Care Hosp Clinical Impression: Non-ST elevated myocardial infarction Chronic renal failure Qualifiers: Chronic kidney disease stage: unspecified stage Qualified Code(s): N18.9 - Chronic kidney disease, unspecified Condition: Serious Forms: PCP List
[2023-05-01 22:07] LABS: BASOPHILS # (AUTO) 0.1 10^3/uL (0.0-0.1); BASOPHILS % (AUTO) 0.8 %; EOSINOPHILS # (AUTO) 0.5 10^3/uL (0.0-0.7); EOSINOPHILS % (AUTO) 5.5 %; HCT - HEMATOCRIT 31.8 % (37.0-47.0); HGB - HEMOGLOBIN 10.3 g/dL (12.0-16.0); LYMPHOCYTES # (AUTO) 2.3 10^3/uL (1.5-3.5); LYMPHOCYTES % (AUTO) 25.3 %; MEAN CORPUSCULAR HEMOGLOBIN 27.9 pg (27.0-31.0); MEAN CORPUSCULAR HGB CONC 32.4 g/dL (32.0-36.0); MEAN CORPUSCULAR VOLUME 86.2 fL (81.0-99.0); MEAN PLATELET VOLUME 10.8 fL (7.9-10.8); MONOCYTES # (AUTO) 0.6 10^3/uL (0.0-1.0); MONOCYTES % (AUTO) 6.3 %; NEUTROPHILS # (AUTO) 5.5 10^3/uL (1.5-6.6); NEUTROPHILS % (AUTO) 61.8 %; PLT - PLATELET COUNT 248 10^3/uL (130-450); RED BLOOD COUNT 3.69 10^6/uL (4.20-5.40); RED CELL DISTRIBUTION WIDTH 14.6 % (12.0-15.0); WHITE BLOOD COUNT 8.9 x10^3/uL (4.8-10.8)
[2023-05-01 22:36] LABS: ALBUMIN 3.4 g/dL (3.2-5.5); ALBUMIN/GLOBULIN RATIO 1.3 (1.0-2.2); BILIRUBIN,TOTAL 0.2 mg/dL (0.2-1.0); CALCIUM 8.9 mg/dL (8.5-10.3); POTASSIUM 4.5 mmol/L (3.5-4.5)
[2023-05-01] MEDS ORDERED: ASPIRIN CHEW 81 MG TABLET PO STA (22:51)
--- NOTE | 2023-05-01 22:54 | XRAY Report ---
PROCEDURE: Chest 1 View X-Ray INDICATIONS: chest pain TECHNIQUE: One view of the chest was acquired. COMPARISON: None. FINDINGS: Surgical changes and devices: None. Lungs and pleura: No pleural effusions or pneumothorax. Lungs are clear. Mediastinum: Mediastinal contours appear normal. Heart size is normal. Bones and chest wall: No suspicious bony lesions. Overlying soft tissues appear unremarkable. IMPRESSION: No acute cardiopulmonary process. Reviewed by: Isabella Roy MD on 05/01/2023 10:53 PM [facility] Approved by: Isabella Roy MD on 05/01/2023 10:53 PM [facility] Station ID: [id number]
[2023-05-01] MEDS ORDERED: HEPARIN 25000UNITS/500ML (D5W) 25,000 UNIT/500 ML BAG IV SCH (23:00)
[2023-05-01] MEDS ORDERED: NITROGLYCERIN SL 0.4 MG TABLET SL STA (23:19)
[2023-05-02 00:47] VITALS: BP 167/87; O2SAT 100
== END 2023-05-02 00:38 ==
LOC: EDUNIT# → ED 21:13
DX: I21.4 Non-ST elevation (NSTEMI) myocardial infarction (principal); I12.9 Hypertensive chronic kidney disease with stage 1 through stage 4 chronic kidney disease, or unspecified chronic kidney disease; N18.9 Chronic kidney disease, unspecified; Z79.3 Long term (current) use of hormonal contraceptives; F17.200 Nicotine dependence, unspecified, uncomplicated
CPT/HCPCS: 36415; 71045; 80053; 83690; 84484; 85025; 85610; 93005; 96374; 99285; A9270

== ENCOUNTER 2023-05-02 00:40 | Outpatient (CLI) | payer MEDICAID | END 2023-05-02 00:41 | disposition short-term general hospital (02) | LOC: EMS 00:40 | PROVIDERS: ATTEND Emergency Medicine | DX: I21.4 Non-ST elevation (NSTEMI) myocardial infarction (principal) | CPT/HCPCS: A0425; A0426 ==

== ENCOUNTER 2023-05-20 10:42 | Outpatient (CLI) | payer MEDICAID | END 2023-05-20 23:59 | disposition critical access hospital (66) | LOC: EMS 10:42 | DX: I95.9 Hypotension, unspecified (principal); R42 Dizziness and giddiness; R07.9 Chest pain, unspecified | CPT/HCPCS: A0425; A0427; A0999 ==

== ENCOUNTER 2023-05-20 10:57 | Emergency (ER) | payer MEDICAID ==
[2023-05-20 11:46] LABS: BASOPHILS # (AUTO) 0.1 10^3/uL (0.0-0.1); BASOPHILS % (AUTO) 1.2 %; EOSINOPHILS # (AUTO) 0.4 10^3/uL (0.0-0.7); EOSINOPHILS % (AUTO) 5.5 %; HCT - HEMATOCRIT 34.9 % (37.0-47.0); HGB - HEMOGLOBIN 11.2 g/dL (12.0-16.0); LYMPHOCYTES # (AUTO) 2.2 10^3/uL (1.5-3.5); LYMPHOCYTES % (AUTO) 28.5 %; MEAN CORPUSCULAR HEMOGLOBIN 28.6 pg (27.0-31.0); MEAN CORPUSCULAR HGB CONC 32.1 g/dL (32.0-36.0); MEAN CORPUSCULAR VOLUME 89.3 fL (81.0-99.0); MEAN PLATELET VOLUME 10.2 fL (7.9-10.8); MONOCYTES # (AUTO) 0.4 10^3/uL (0.0-1.0); MONOCYTES % (AUTO) 5.3 %; NEUTROPHILS # (AUTO) 4.6 10^3/uL (1.5-6.6); NEUTROPHILS % (AUTO) 59.1 %; PLT - PLATELET COUNT 243 10^3/uL (130-450); RED BLOOD COUNT 3.91 10^6/uL (4.20-5.40); WHITE BLOOD COUNT 7.8 x10^3/uL (4.8-10.8)
[2023-05-20 11:59] LABS: ALBUMIN 3.3 g/dL (3.2-5.5); ALBUMIN/GLOBULIN RATIO 1.1 (1.0-2.2); BILIRUBIN,TOTAL 0.2 mg/dL (0.2-1.0); CALCIUM 8.7 mg/dL (8.5-10.3); TOTAL PROTEIN 6.2 g/dL (6.4-8.9)
[2023-05-20 12:14] LABS: TROPONIN I HIGH SENSITIVITY 26.2 ng/L (2.3-14.8)
--- NOTE | 2023-05-20 12:14 | ED Physician Documentation ---
PD HPI CHEST PAIN - Stated complaint Stated Complaint: DIZZY - Chief complaint Chief Complaint: Cardiac - History obtained from History obtained from: Patient - Additional information Additional information: 42-year-old woman with complex medical history especially in light of age. History of NSTI several years ago, chronic kidney disease and was told recently she would end up on dialysis, brittle and somewhat poorly controlled diabetes, and most recently was seen here May 01 with non-STEMI and sent to [facility] where she received a single stent. Over the last couple days has had episodic nonexertional stabbing chest pains not similar to prior anginal equivalents. These are very brief stabbing pains as opposed to her anginal course previously was like a band around her whole chest. Today she noted her blood pressure was low in the range of 90/60 this morning and was feeling like everything was brighter than usual. Currently not complaining of pain. 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 HEENT: Other Psych: Other Musculoskeletal: Osteoarthritis Derm: Psoriasis - Past Surgical History Past Surgical History: Yes Ortho: Arthroscopic surgery /INSTRUMENTATION INSTRUCTOR: Dilation and currettage Cardiovascular: Coronary stent - Present Medications Home Medications: Ambulatory Orders Medication Instructions Recorded Confirmed Atorvastatin [Lipitor] 40 mg PO QPM #30 tablet 09/08/21 05/01/23 Gabapentin [Neurontin] 100 mg PO TID #90 cap 09/08/21 05/01/23 Insulin Glargine [Lantus Solostar] 8 unit SUBQ BID #3 pe 09/08/21 05/01/23 Insulin Aspart [Novolog] 5 unit SQ AC #3 ea 08/22/22 05/01/23 Furosemide [Lasix] 40 mg PO BID 05/01/23 05/01/23 Isosorbide Dinitrate [Isordil] 10 mg PO TID 05/01/23 05/01/23 Metoprolol Succinate [Toprol Xl] 12.5 mg PO DAILY 05/01/23 05/01/23 Potassium Chloride [K-Tab ER] 10 meq PO DAILY 05/01/23 05/01/23 hydrALAZINE [Apresoline] 10 mg PO Q8HR 05/01/23 05/01/23 - Allergies Allergies/Adverse Reactions: Allergies Allergy/AdvReac Type Severity Reaction Status Date / Time hydrocodone bitartrate * Allergy Intermediate Hives Verified 05/01/23 21:30 [From Vicodin] oxycodone HCl * Allergy Intermediate Hives Verified 05/01/23 21:30 [From Percocet] oxycodone Allergy Rash Verified 05/01/23 21:30 metformin AdvReac Unknown Verified 05/01/23 21:30 - Social History Does the pt smoke?: Yes Smoking Status: Current every day smoker Does the pt drink ETOH?: No Does the pt have substance abuse?: Yes - Immunizations Immunizations are current?: Yes - POLST Patient has POLST: No POLST Status: Full Code PD ED PE NORMAL - Vitals Vital signs reviewed: Yes - General General: Alert and oriented X 3, No acute distress - Neck Neck: Supple, no meningeal sign, No bony TTP - Cardiac Cardiac: RRR, No murmur - Respiratory Respiratory: No respiratory distress, Clear bilaterally - Abdomen Abdomen: Non tender - Extremities Extremities: No edema, No calf tenderness / cord - Neuro Neuro: Alert and oriented X 3, Normal speech Results - Vitals Vitals: Vital Signs - 24 hr 05/20/23 05/20/23 11:01 13:07 Temperature 36.8 C 36.8 C Heart Rate 82 80 Respiratory 18 16 Rate Blood Pressure 115/70 116/68 O2 Saturation 99 100 Oxygen O2 Source Room air - EKG (time done) 1232 EKG releavant findings:: EKG personally interpreted by author of this note. Relevant findings are: Rate: Rate (enter#) Rhythm: NSR [place]: Normal Intervals: Normal [place] QRS: LVH Ischemia: Normal ST segments Computer interpretation: Agree with computer - Labs Labs: Laboratory Tests 05/20/23 05/20/23 05/20/23 11:42 11:42 13:54 WBC 7.8 RBC 3.91 L Hgb 11.2 L Hct 34.9 L MCV 89.3 MCH 28.6 MCHC 32.1 RDW 14.0 Plt Count 243 MPV 10.2 Neut # (Auto) 4.6 Lymph # (Auto) 2.2 [place] # (Auto) 0.4 Eos # (Auto) 0.4 Baso # (Auto) 0.1 Absolute Nucleated RBC 0.00 Nucleated RBC % 0.0 Sodium 136 Potassium 4.0 Chloride 103 Carbon Dioxide 24 Anion Gap 9.0 BUN 62 H Creatinine 3.0 H Estimated GFR (MDRD) 17 L Glucose 187 H Calcium 8.7 Total Bilirubin 0.2 AST 18 ALT 25 Alkaline Phosphatase 62 Troponin I High Sens 26.2 H* 23.2 H* Total Protein 6.2 L Albumin 3.3 Globulin 2.9 Albumin/Globulin Ratio 1.1 Lipase 10 L - Rads (name of study) Single view chest x-ray is unremarkable Relevant Findings:: Final report received, EMP independent interpretation of test PD Medical Decision Making - ED course ED course: 42-year-old woman with complex medical history for age as above and recent non- STEMI with stenting presents with pain episodically different than her prior anginal equivalent. She is noted to have lab work showing mild stable normocytic anemia actually better than prior, stable poor renal function on CMP with positive troponin but nowhere near what it was when she had her NSTEMI. And the troponin could be due to her renal dysfunction. Her EKG is nonischemic. Plan to repeat troponin and then consult cardiology. As far as the blood pressure prehospital that seems to have resolved without specific intervention. The troponin was repeated and slightly lower. At that point I discussed her case by phone with Dr. Demetra Kathleen, cardiology at [facility] who agreed that this does not represent ischemia and is likely from her renal insufficiency and will have her follow-up with her residential property tax appraiser. Departure - Departure Disposition: 01 Home, Self Care Clinical Impression: Atypical chest pain Condition: Good Record reviewed to determine appropriate education?: Yes Instructions: ED Chest Pain Atypical Unkn Cause Comments: Your blood pressure resolved on its own. Your other labs were stable, with a mildly elevated troponin which we think is related to your decreased renal function. I did discuss it with Dr. Kathleen, [address] Dr[address] Ordaz's partners. You should follow-up with him but do not need to be transferred today. Return if worse. Forms: PCP List
--- NOTE | 2023-05-20 13:07 | XRAY Report ---
PROCEDURE: Chest 1 View X-Ray INDICATIONS: cp TECHNIQUE: One view of the chest was acquired. COMPARISON: None. FINDINGS: Surgical changes and devices: None. Lungs and pleura: No pleural effusions or pneumothorax. Lungs are clear. Mediastinum: Mediastinal contours appear normal. Heart size is normal. Bones and chest wall: No suspicious bony lesions. Overlying soft tissues appear unremarkable. IMPRESSION: No acute cardiopulmonary process. Reviewed by: Kentrell Acosta on 05/20/2023 12:06 PM [facility] Approved by: Kentrell Acosta on 05/20/2023 12:06 PM [facility] Station ID: [id number]
[2023-05-20 15:12] VITALS: BP 132/82; O2SAT 99
== END 2023-05-20 15:10 | disposition home or self-care (01) ==
LOC: EDUNIT# → ED 10:57
DX: R07.89 Other chest pain (principal); R42 Dizziness and giddiness; I13.0 Hypertensive heart and chronic kidney disease with heart failure and stage 1 through stage 4 chronic kidney disease, or unspecified chronic kidney disease; I50.9 Heart failure, unspecified; N18.9 Chronic kidney disease, unspecified; E11.22 Type 2 diabetes mellitus with diabetic chronic kidney disease; F17.200 Nicotine dependence, unspecified, uncomplicated; Z79.4 Long term (current) use of insulin; Z79.899 Other long term (current) drug therapy
CPT/HCPCS: 36415; 80053; 83690; 84484; 85025; 93005; 99283; 99284

== ENCOUNTER 2023-08-05 18:50 | Outpatient (CLI) | payer MEDICAID | END 2023-08-05 18:51 | disposition critical access hospital (66) | LOC: EMS 18:50 | DX: R55 Syncope and collapse (principal); R42 Dizziness and giddiness; R07.89 Other chest pain | CPT/HCPCS: A0425; A0429; A0999 ==

== ENCOUNTER 2023-08-05 19:06 | Emergency (ER) | payer MEDICAID ==
--- NOTE | 2023-08-05 19:31 | ED Physician Documentation ---
History of Present Illness - Stated complaint Stated Complaint: CHEST TIGHTNESS - Chief complaint Chief Complaint: Cardiac - History obtained from History obtained from: Patient - History of Present Illness Timing: Today Pain level max: 3 Pain level now: 2 - Additonal information Additional information: Patient is a 43-year-old female who presents to the emergency department with intermittent chest tightness. Ongoing for the past 2 to 3 days, occurred a few times today and felt near syncopal. She states that she has had this several times in the past. In April 2023 she had an NSTEMI and received 1 stent at [facility]. She had a another episode similar to this in May in which her troponin was around 20-24. She is not having any chest tightness now. She states that mainly is when she stands up. She has had elevated blood sugars at home, 2 50-300. She states that is not uncommon for her. She is down to smoking approximately 1/2-3/4 of a pack per day. She states she is no longer smoking any marijuana. Does not have any chest pain at rest. No fevers. No chills. No cough. No congestion. Nothing makes it better or worse. 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 HEENT: Other Psych: Other Musculoskeletal: Osteoarthritis Derm: Psoriasis - Past Surgical History Past Surgical History: Yes Ortho: Arthroscopic surgery /EXPANDER MACHINE OPERATOR: Dilation and currettage Cardiovascular: Coronary stent - Present Medications Home Medications: Ambulatory Orders Medication Instructions Recorded Confirmed Atorvastatin [Lipitor] 40 mg PO QPM #30 tablet 09/08/21 05/01/23 Gabapentin [Neurontin] 100 mg PO TID #90 cap 09/08/21 05/01/23 Insulin Glargine [Lantus Solostar] 8 unit SUBQ BID #3 pe 09/08/21 05/01/23 Insulin Aspart [Novolog] 5 unit SQ AC #3 ea 08/22/22 05/01/23 Furosemide [Lasix] 40 mg PO BID 05/01/23 05/01/23 Isosorbide Dinitrate [Isordil] 10 mg PO TID 05/01/23 05/01/23 Metoprolol Succinate [Toprol Xl] 12.5 mg PO DAILY 05/01/23 05/01/23 Potassium Chloride [K-Tab ER] 10 meq PO DAILY 05/01/23 05/01/23 hydrALAZINE [Apresoline] 10 mg PO Q8HR 05/01/23 05/01/23 - Allergies Allergies/Adverse Reactions: Allergies Allergy/AdvReac Type Severity Reaction Status Date / Time hydrocodone bitartrate * Allergy Intermediate Hives Verified 08/05/23 19:12 [From Vicodin] oxycodone HCl * Allergy Intermediate Hives Verified 08/05/23 19:12 [From Percocet] oxycodone Allergy Rash Verified 08/05/23 19:12 metformin AdvReac Unknown Verified 08/05/23 19:12 - Social History Does the pt smoke?: Yes Smoking Status: Current every day smoker Does the pt drink ETOH?: No Does the pt have substance abuse?: Yes - Immunizations Immunizations are current?: Yes - POLST Patient has POLST: No POLST Status: Full Code PD ED PE NORMAL - Vitals Vital signs reviewed: Yes - General General: Alert and oriented X 3, No acute distress - HEENT HEENT: PERRL, Moist mucous membranes - Neck Neck: Supple, no meningeal sign, No bony TTP, No JVD, No bruit - Cardiac Cardiac: RRR, No murmur, Strong equal pulses - Respiratory Respiratory: No respiratory distress, Clear bilaterally - Abdomen Abdomen: Normal bowel sounds, Soft, Non tender, Non distended - Derm Derm: Warm and dry - Extremities Extremities: No edema, No calf tenderness / cord - Neuro Neuro: Alert and oriented X 3 - Psych Psych: Normal mood, Normal affect Results - Vitals Vitals: Vital Signs - 24 hr 08/05/23 08/05/23 08/05/23 19:09 19:15 20:00 Temperature 36.7 C Heart Rate 86 82 78 Respiratory 18 13 12 Rate Blood Pressure 107/78 107/68 120/68 O2 Saturation 98 98 96 08/05/23 08/05/23 23:00 23:10 Temperature Heart Rate 80 80 Respiratory 19 17 Rate Blood Pressure 174/84 H 174/84 H O2 Saturation 100 100 Oxygen O2 Source Room air - EKG (time done) 1911 EKG releavant findings:: EKG personally interpreted by author of this note. Relevant findings are: Rate: Rate (enter#) (80) Rhythm: NSR [place]: Normal Intervals: Normal [place] QRS: Normal, LVH Ischemia: Non specific changes - Labs Labs: Laboratory Tests 08/05/23 08/05/23 08/05/23 19:28 19:28 21:18 WBC 7.9 RBC 3.61 L Hgb 10.7 L Hct 30.9 L MCV 85.6 MCH 29.6 MCHC 34.6 RDW 11.8 L Plt Count 271 MPV 10.6 Neut # (Auto) 4.6 Lymph # (Auto) 2.5 [place] # (Auto) 0.4 Eos # (Auto) 0.3 Baso # (Auto) 0.1 Absolute Nucleated RBC 0.00 Nucleated RBC % 0.0 Sodium 132 L Potassium 4.0 Chloride 100 L Carbon Dioxide 25 Anion Gap 7.0 BUN 47 H Creatinine 3.1 H Estimated GFR (MDRD) 16 L Glucose 295 H Calcium 8.7 Total Bilirubin 0.4 AST 14 ALT 21 Alkaline Phosphatase 69 Troponin I High Sens 24.8 H* 23.9 H* Total Protein 5.9 L Albumin 3.2 Globulin 2.7 Albumin/Globulin Ratio 1.2 Lipase 11 - Rads (name of study) cxr Relevant Findings:: Final report received, See rad report PD Medical Decision Making - ED course Complexity details: reviewed results, re-evaluated patient, considered differential, d/w patient ED course: Patient is well-appearing, nontoxic. Afebrile. No acute findings on chest x- ray, laboratory testing, EKG. She does have an elevated blood glucose which is chronic for her. She feels much better after IV fluids. High-sensitivity troponin is negative x 2. That level is her normal baseline given her chronic kidney disease which is also not significantly changed. No evidence of NSTEMI at this time. Recommend that she follow-up closely with her doctor to discuss her glucose management. She states that she has an appointment with her rv service technician to discuss a continuous glucose monitor and possible insulin pump. Counseled to stop smoking. Patient is well-appearing, nontoxic. Tolerating p.o. without difficulty. Patient counseled regarding signs and symptoms for which I believe and urgent re-evaluation would be necessary. Patient with good understanding of and agreement to plan and is comfortable going home at this time This document was made in part using voice recognition software. While efforts are made to proofread this document, sound alike and grammatical errors may occur. Departure - Departure Disposition: Home, Self Care Clinical Impression: Light-headed feeling, Type 2 diabetes mellitus, uncontrolled, with neuropathy Condition: Good Instructions: ED Hyperglycemia Diabetic, ED Dizziness [facility] Follow-Up: Your,doctor in 1 week [Other] Comments: Please follow-up with your doctor for further care. Please return if you worsen. Your blood sugar was elevated at almost 300 today. Is importantly follow-up closely with your doctor to work on better control of your blood sugar. This will also cause dehydration which can lead to dizziness and lightheadedness. Your heart tests appear normal. Your troponin is negative x 2. Forms: PCP List Discharge Date/Time: 08/05/23 23:10
[2023-08-05 19:37] LABS: BASOPHILS # (AUTO) 0.1 10^3/uL (0.0-0.1); EOSINOPHILS # (AUTO) 0.3 10^3/uL (0.0-0.7); EOSINOPHILS % (AUTO) 4.2 %; HCT - HEMATOCRIT 30.9 % (37.0-47.0); HGB - HEMOGLOBIN 10.7 g/dL (12.0-16.0); LYMPHOCYTES # (AUTO) 2.5 10^3/uL (1.5-3.5); LYMPHOCYTES % (AUTO) 32.2 %; MEAN CORPUSCULAR HEMOGLOBIN 29.6 pg (27.0-31.0); MEAN CORPUSCULAR HGB CONC 34.6 g/dL (32.0-36.0); MEAN CORPUSCULAR VOLUME 85.6 fL (81.0-99.0); MEAN PLATELET VOLUME 10.6 fL (7.9-10.8); MONOCYTES # (AUTO) 0.4 10^3/uL (0.0-1.0); MONOCYTES % (AUTO) 4.9 %; NEUTROPHILS # (AUTO) 4.6 10^3/uL (1.5-6.6); NEUTROPHILS % (AUTO) 57.6 %; PLT - PLATELET COUNT 271 10^3/uL (130-450); RED BLOOD COUNT 3.61 10^6/uL (4.20-5.40); RED CELL DISTRIBUTION WIDTH 11.8 % (12.0-15.0); WHITE BLOOD COUNT 7.9 x10^3/uL (4.8-10.8)
[2023-08-05 19:55] LABS: ALBUMIN 3.2 g/dL (3.2-5.5); ALBUMIN/GLOBULIN RATIO 1.2 (1.0-2.2); BILIRUBIN,TOTAL 0.4 mg/dL (0.2-1.0); CALCIUM 8.7 mg/dL (8.5-10.3); CREATININE 3.1 mg/dL (0.6-1.3); TOTAL PROTEIN 5.9 g/dL (6.4-8.9)
[2023-08-05 20:03] LABS: TROPONIN I HIGH SENSITIVITY 24.8 ng/L (2.3-14.8)
--- NOTE | 2023-08-05 20:29 | XRAY Report ---
PROCEDURE: Chest 1V INDICATIONS: Chest pain TECHNIQUE: One view of the chest was acquired. COMPARISON: 05/20/2023. FINDINGS: Surgical changes and devices: None. Lungs and pleura: No pleural effusions or pneumothorax. Lungs are clear. Mediastinum: Mediastinal contours appear normal. Heart size is normal. Bones and chest wall: No suspicious bony lesions. Overlying soft tissues appear unremarkable. IMPRESSION: No acute cardiopulmonary process. Reviewed by: Eloy Freeman MD on 08/05/2023 8:28 PM PST Approved by: Eloy Freeman MD on 08/05/2023 8:28 PM PST Station ID: [id number]
[2023-08-05] MEDS: SODIUM CHLORIDE 0.9% 1,000 ML IV STA ×2 (20:34→20:35)
[2023-08-05 23:17] VITALS: BP 174/84; O2SAT 100
== END 2023-08-05 23:10 | disposition home or self-care (01) ==
LOC: EDUNIT# → ED 19:06
DX: R55 Syncope and collapse (principal); N18.9 Chronic kidney disease, unspecified; E11.65 Type 2 diabetes mellitus with hyperglycemia; E11.42 Type 2 diabetes mellitus with diabetic polyneuropathy; Z79.4 Long term (current) use of insulin; F17.200 Nicotine dependence, unspecified, uncomplicated
CPT/HCPCS: 36415; 80053; 83690; 84484; 85025; 93005; 96360; 96361; 99284

== ENCOUNTER 2023-09-06 09:40 | Outpatient (CLI) | payer MEDICAID ==
[2023-09-06 09:57] LABS: HCT - HEMATOCRIT 31.2 % (37.0-47.0); HGB - HEMOGLOBIN 10.3 g/dL (12.0-16.0)
[2023-09-06 10:13] LABS: CALCIUM 8.7 mg/dL (8.5-10.3); CREATININE 3.8 mg/dL (0.6-1.3); POTASSIUM 4.1 mmol/L (3.5-4.5)
[2023-09-06 10:51] LABS: CREATININE,URINE 64.8 mg/dL
[2023-09-06 11:02] LABS: TOTAL PROTEIN,URINE TIMED 651 mg/dL
[2023-09-06 11:03] LABS: MICROALBUMIN,URINE > 225.0 mg/dL
[2023-09-06 14:22] LABS: ESTIMATED AVERAGE GLUCOSE 358 mg/dL (70-100); HEMOGLOBIN A1c% 14.1 % (4.27-6.07)
== END 2023-09-06 09:41 | disposition home or self-care (01) ==
LOC: LAB 09:40
PROVIDERS: ATTEND Internal Medicine Nephrology
DX: E11.22 Type 2 diabetes mellitus with diabetic chronic kidney disease (principal); N18.32 Chronic kidney disease, stage 3b; E11.65 Type 2 diabetes mellitus with hyperglycemia
CPT/HCPCS: 36415; 80048; 81599; 82043; 82570; 83036; 84156; 85014; 85018

== ENCOUNTER 2023-10-07 12:59 | Outpatient (CLI) | payer MEDICAID ==
[2023-10-07 13:17] LABS: BASOPHILS # (AUTO) 0.1 10^3/uL (0.0-0.1); BASOPHILS % (AUTO) 0.6 %; EOSINOPHILS # (AUTO) 0.4 10^3/uL (0.0-0.7); EOSINOPHILS % (AUTO) 4.8 %; HCT - HEMATOCRIT 29.7 % (37.0-47.0); HGB - HEMOGLOBIN 9.5 g/dL (12.0-16.0); LYMPHOCYTES % (AUTO) 23.2 %; MEAN CORPUSCULAR HEMOGLOBIN 29.2 pg (27.0-31.0); MEAN CORPUSCULAR VOLUME 91.4 fL (81.0-99.0); MONOCYTES # (AUTO) 0.5 10^3/uL (0.0-1.0); NEUTROPHILS # (AUTO) 5.7 10^3/uL (1.5-6.6); NEUTROPHILS % (AUTO) 65.2 %; PLT - PLATELET COUNT 253 10^3/uL (130-450); RED BLOOD COUNT 3.25 10^6/uL (4.20-5.40); RED CELL DISTRIBUTION WIDTH 12.4 % (12.0-15.0); WHITE BLOOD COUNT 8.7 x10^3/uL (4.8-10.8)
[2023-10-07 13:39] LABS: ALBUMIN 3.4 g/dL (3.2-5.5); CREATININE 3.6 mg/dL (0.6-1.3); MAGNESIUM 1.9 mg/dL (1.7-2.3); PHOSPHORUS 5.2 mg/dL (2.5-5.0); POTASSIUM 4.5 mmol/L (3.5-4.5)
[2023-10-07 13:54] LABS: FERRITIN 61.2 ng/mL (11.0-306.8)
== END 2023-10-07 13:00 | disposition home or self-care (01) ==
LOC: LAB 12:59
PROVIDERS: ATTEND Internal Medicine Nephrology
DX: N18.5 Chronic kidney disease, stage 5 (principal)
CPT/HCPCS: 36415; 80048; 82040; 82306; 82728; 83540; 83735; 83970; 84100; 84466; 85025

== ENCOUNTER 2023-10-25 09:57 | Outpatient (CLI) | payer MEDICAID ==
[2023-10-25 10:42] LABS: FERRITIN 74.3 ng/mL (11.0-306.8)
== END 2023-10-25 09:58 | disposition home or self-care (01) ==
LOC: LAB 09:57
PROVIDERS: ATTEND Internal Medicine Nephrology
DX: N18.5 Chronic kidney disease, stage 5 (principal)
CPT/HCPCS: 36415; 82728; 83540; 84466

== ENCOUNTER 2023-12-07 09:52 | Outpatient (CLI) | payer MEDICAID | END 2023-12-07 23:59 | disposition left against medical advice (07) | LOC: EMS 09:52 | DX: H57.11 Ocular pain, right eye (principal); H54.7 Unspecified visual loss ==

== ENCOUNTER 2024-01-26 11:01 | Outpatient (CLI) | payer MEDICAID ==
[2024-01-26 11:17] LABS: HCT - HEMATOCRIT 30.4 % (37.0-47.0); HGB - HEMOGLOBIN 9.4 g/dL (12.0-16.0); MEAN CORPUSCULAR HEMOGLOBIN 29.1 pg (27.0-31.0); MEAN CORPUSCULAR HGB CONC 30.9 g/dL (32.0-36.0); MEAN CORPUSCULAR VOLUME 94.1 fL (81.0-99.0); MEAN PLATELET VOLUME 10.9 fL (7.9-10.8); RED BLOOD COUNT 3.23 10^6/uL (4.20-5.40); RED CELL DISTRIBUTION WIDTH 13.4 % (12.0-15.0); WHITE BLOOD COUNT 7.1 x10^3/uL (4.8-10.8)
[2024-01-26 11:27] LABS: ALBUMIN 3.4 g/dL (3.2-5.5); CALCIUM 8.7 mg/dL (8.5-10.3); CREATININE 3.4 mg/dL (0.6-1.3); MAGNESIUM 1.7 mg/dL (1.7-2.3); PHOSPHORUS 4.6 mg/dL (2.5-5.0); POTASSIUM 4.7 mmol/L (3.5-4.5)
[2024-01-26 11:39] LABS: ESTIMATED AVERAGE GLUCOSE 163 mg/dL (70-100); HEMOGLOBIN A1c% 7.3 % (4.27-6.07)
== END 2024-01-26 11:02 | disposition home or self-care (01) ==
LOC: LAB 11:01
PROVIDERS: ATTEND Internal Medicine Nephrology
DX: N18.5 Chronic kidney disease, stage 5 (principal); E11.65 Type 2 diabetes mellitus with hyperglycemia
CPT/HCPCS: 36415; 80048; 82040; 82306; 83036; 83735; 83970; 84100; 85027

== ENCOUNTER 2024-03-01 13:25 | Outpatient (CLI) | payer MEDICAID | END 2024-03-01 13:26 | disposition short-term general hospital (02) | LOC: EMS 13:25 | DX: N93.9 Abnormal uterine and vaginal bleeding, unspecified (principal); R53.1 Weakness; R53.83 Other fatigue | CPT/HCPCS: A0425; A0429; A0999 ==

== ENCOUNTER 2024-03-14 15:31 | Observation (INO) ==
[2024-03-14 17:46] LABS: BASOPHILS # (AUTO) 0.1 10^3/uL (0.0-0.1); BASOPHILS % (AUTO) 0.8 %; EOSINOPHILS # (AUTO) 0.5 10^3/uL (0.0-0.7); EOSINOPHILS % (AUTO) 7.2 %; HCT - HEMATOCRIT 25.6 % (37.0-47.0); HGB - HEMOGLOBIN 8.2 g/dL (12.0-16.0); LYMPHOCYTES # (AUTO) 1.8 10^3/uL (1.5-3.5); MEAN CORPUSCULAR HEMOGLOBIN 29.8 pg (27.0-31.0); MEAN CORPUSCULAR VOLUME 93.1 fL (81.0-99.0); MEAN PLATELET VOLUME 10.5 fL (7.9-10.8); MONOCYTES # (AUTO) 0.4 10^3/uL (0.0-1.0); MONOCYTES % (AUTO) 5.4 %; NEUTROPHILS # (AUTO) 4.4 10^3/uL (1.5-6.6); NEUTROPHILS % (AUTO) 61.3 %; PLT - PLATELET COUNT 225 10^3/uL (130-450); RED BLOOD COUNT 2.75 10^6/uL (4.20-5.40); RED CELL DISTRIBUTION WIDTH 13.3 % (12.0-15.0); WHITE BLOOD COUNT 7.2 x10^3/uL (4.8-10.8)
[2024-03-14 18:04] LABS: ALBUMIN 3.3 g/dL (3.2-5.5); ALBUMIN/GLOBULIN RATIO 1.4 (1.0-2.2); BILIRUBIN,TOTAL 0.2 mg/dL (0.2-1.0); CALCIUM 8.5 mg/dL (8.5-10.3); CREATININE 3.8 mg/dL (0.6-1.3); MAGNESIUM 1.8 mg/dL (1.7-2.3); POTASSIUM 3.9 mmol/L (3.5-4.5); TOTAL PROTEIN 5.7 g/dL (6.4-8.9)
[2024-03-14 18:10] LABS: TROPONIN I HIGH SENSITIVITY 20.5 ng/L (2.3-14.8)
--- NOTE | 2024-03-14 18:10 | CT Report ---
PROCEDURE: CT Head WO INDICATIONS: right extremity tingling TECHNIQUE: Noncontrast 4.5 mm thick angled axial sections acquired from the foramen magnum to the vertex. For r adiation dose reduction, the following was used: automated exposure control, adjustment of mA and/or kV according to patient size. COMPARISON: CT head 08/30/2021, MRI brain 09/08/2021 FINDINGS: Image quality: Excellent. CSF spaces: Basal cisterns are patent. No extra-axial fluid collections. Ventricles are normal in size and shape. Brain: No midline shift. No intracranial masses or hemorrhage. Molina-white matter interface is norm al. Mild atrophy and chronic microvascular ischemic changes are present greater than expected for pa tient age although relatively stable compared to prior exam. Skull and face: Calvarium and visualized facial bones are intact, without suspicious lesions. Sinuses: Visualized sinuses and mastoids are clear. IMPRESSION: No acute intracranial pathology. Mild atrophy and chronic microvascular ischemic changes, greater than expected for patient age as abo ve. Reviewed by: Isabella Roy MD on 03/14/2024 6:08 PM PDT Approved by: Isabella Roy MD on 03/14/2024 6:08 PM PDT Station ID: [id number]
--- NOTE | 2024-03-14 19:36 | ED Physician Documentation ---
History of Present Illness Stated complaint Stated Complaint: TINGLING/NUMBNESS R SIDE Chief complaint Chief Complaint: Neuro Additonal information Additional information: Suzie is a 43 yo female presenting to the ER with tingling and decreased sensation to the right side of her body. Symptoms started when she woke up this morning at 8 am and Lkwt was 10 pm last night. patient notes it has been persistent. Symptoms feel similar to when she had a TIA a few years ago and was seen in this ER. PMHx remarkable for CKD stage 5 not on dailysis and hx of Type 2 diabetes on insulin. BS was stable on arrival. Patient is on clopidogrel and did take dose this morning. PFSH Social History Social History Smoking Status: Current every day smoker If you are a former smoker, when did you quit? (Date/Year): 2020 Number of Years Smoked: 12 How many cigarettes a day do you smoke? (20 cigarettes=1 Pk): 10 Second hand tobacco smoke exposure: Yes Do you dip or chew tobacco?: No Do you vape?: No Patient requests smoking cessation consult: No Initiate information on smoking cessation: No Living arrangement: At home Living Condition: With family (she lives w mom and takes care of her) Relationship: Level: Assisted Home Mobility Equipment: Wheeled walker Do you feel safe in your home environment?: Yes Suffered physical, verbal, emotional, or financial abuse?: No History of Abuse: No Substance Use: former substance user and cannabis (any form) POLST Patient has POLST: No POLST Status: Full Code Results Vitals Vitals: Oxygen O2 Source Room air Labs Labs: Laboratory Tests 03/14/24 17:39 WBC 7.2 RBC 2.75 L Hgb 8.2 L Hct 25.6 L MCV 93.1 MCH 29.8 MCHC 32.0 RDW 13.3 Plt Count 225 MPV 10.5 Neut # (Auto) 4.4 Lymph # (Auto) 1.8 Elk # (Auto) 0.4 Eos # (Auto) 0.5 Baso # (Auto) 0.1 Absolute Nucleated RBC 0.00 Nucleated RBC % 0.0 Sodium 138 Potassium 3.9 Chloride 106 Carbon Dioxide 27 Anion Gap 5.0 L BUN 52 H Creatinine 3.8 H Estimated GFR (MDRD) 13 L Glucose 140 H Calcium 8.5 Magnesium 1.8 Total Bilirubin 0.2 AST 14 ALT 18 Alkaline Phosphatase 66 Troponin I High Sens 20.5 H* Total Protein 5.7 L Albumin 3.3 Globulin 2.4 Albumin/Globulin Ratio 1.4 PD Medical Decision Making ED course Complexity details: reviewed old records, reviewed results and re-evaluated patient ED course: Patient is a 43-year-old female presenting to the emergency department with right face arm and leg tingling. Patient symptoms have been going on since 8 AM this morning and she woke up with her symptoms. Last known well time was 10 PM last night. She has chronic neuropathy in her legs but vitals are stable on arrival. Physical exam does show decreased sensation to right arm and right chad e of face. 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 Labs here remarkable for hemoglobin of 8.2 but this appears close to patient's baseline based on previous labs. Troponin at 20.5 this is improved from previous with her baseline closer to 23. Creatinine elevated at3.8 additionally close to patient's baseline with history of CKD stage V no significant CONOR. Given symptoms are outside the 12-hour yosvany on arrival patient had CT scan with no neuro alert called. CT scan did show ischemia but chronic and significant for patient's age. Patient's symptoms are persistent here she did take her Plavix dose this morning. Discussed case with teleneurologist who recommends patient hold off on dual platelet treatment at this time. Patient should be admitted for further echo and carotid ultrasound Discussed at length secondary options as patient has significant kidney disease is not on dialysis I cannot give contrast to patient for CTA for further evaluation patient additionally has defibrillator in place and unsure of compatibility with MRI or feed research technician did come down and evaluate patient and reports she is not compatible for MRI today. I discussed case with patient who is agreeable with this plan and is agreeable with admission. Discussed case with tele- hospitalist who is agreeable with admission given patient is not able to have MRI done and will continue with recommendations per teleneurology. Discharge Plan Discharge Patient Disposition: [facility] DC/Xfer Condition: Stable Clinical Impression: Cerebrovascular accident (CVA) Interventions: ED Admission Assessment Last Done: 03/15/24 01:40
[2024-03-14] MEDS ORDERED: ONDANSETRON 4 MG/2 ML VIAL IVP PRN (22:20)
[2024-03-14] MEDS ORDERED: SODIUM CHLORIDE FLUSH 0.9% 10 ML SYRINGE IVP PRN (22:20)
[2024-03-14] MEDS ORDERED: ACETAMINOPHEN 325 MG TABLET PO PRN (22:20)
--- NOTE | 2024-03-15 00:13 | HISTORY & PHYSICAL EXAMINATION ---
Chief Complaint Chief Complaint Chief Complaint: right sided facial numbness History of Present Illness Admitted From Admitted From:: home History Obtained From Records Reviewed: ED, past charts from previous admissions History obtained from: patient Exam Limitations: n/a History of Present Illness HPI Comment/Other: Mrs. Pastor is a 43yo F with a history of hypertension, DM2, CKD stage V (not on dialysis), CAD. patient presented to the ED for evaluation of facial numbness. She explained that she had increased numbness and tingling in her right upper and lower extremity. This was only slightly worse from her baseline caused by her neuropathy. This progressed overnight and then on the morning of presentation she notice facial numbness and tingling, including the inside of her mouth. She presented to the ED this evening for further evaluation. In the ED, CT head was obtained and demonstrated chronic ischemic changes. patient was out of the window for tPA. Teleneurology was consulted in the Ed and advised to continue her Plavix adn statin. It was also recommended that patient be admitted for further evalaution, stroke workup. Hospitalist was consulted for admission. During my evalaution. patient was resting in no acute distress. She had full range of motion of her upper and lower extremity. she did not exhibit slurred speech or tongue deviation. She explained that the numbness and tingling was still present. Plan will be to admit and complete stroke workup. Due to her CKD and presence of a pacemaker, additional imaging is limited and will not include CTA or MRI (noncompatible). Plan for admission was discussed with the patient and she was in agreement with admission. This visit was obtained using tele-medicine tools including phone and live video. Informed consent was obtained from patient to proceed with this tele- medicine visit. [facility] Social History Social History Smoking Status: Current every day smoker If you are a former smoker, when did you quit? (Date/Year): 2020 Number of Years Smoked: 10 How many cigarettes a day do you smoke? (20 cigarettes=1 Pk): 9 Do you dip or chew tobacco?: No Do you vape?: No Patient requests smoking cessation consult: No Initiate information on smoking cessation: No Living arrangement: At home Living Condition: With family (she lives w mom and takes care of her) Relationship: Home Mobility Equipment: Wheeled walker Do you feel safe in your home environment?: Yes Suffered physical, verbal, emotional, or financial abuse?: No History of Abuse: No POLST Patient has POLST: No POLST Status: Full Code Meds/Allgy Home Medications Ambulatory Orders Medication Instructions Recorded Confirmed atorvastatin 40 mg tablet 40 mg PO QPM #30 tabs 09/08/21 01/05/24 gabapentin 100 mg capsule 100 mg PO TID #90 caps 09/08/21 01/05/24 furosemide 40 mg tablet 40 mg PO BID 05/01/23 01/05/24 hydralazine 10 mg tablet 10 mg PO Q8HR 05/01/23 01/05/24 isosorbide dinitrate 10 mg tablet 10 mg PO TID 05/01/23 01/05/24 metoprolol succinate 25 mg 12.5 mg PO DAILY 05/01/23 01/05/24 tablet,extended release 24 hr potassium chloride 10 mEq 10 meq PO DAILY 05/01/23 01/05/24 tablet,extended release (K-Tab) insulin aspart U-100 100 unit/mL 6 unit SQ AC 01/05/24 01/05/24 subcutaneous solution (Novolog U-100 Insulin aspart) insulin glargine 100 unit/mL (3 16 unit subcut BID 01/05/24 01/05/24 mL) subcutaneous pen (Lantus Solostar U-100 Insulin) Allergies Allergies Allergy/AdvReac Type Severity Reaction Status Date / Time hydrocodone bitartrate * Allergy Intermediate Hives Verified 03/14/24 16:10 (From Vicodin) oxycodone HCl * (From Allergy Intermediate Hives Verified 03/14/24 16:10 Percocet) oxycodone Allergy Rash Verified 03/14/24 16:10 metformin AdvReac Unknown Verified 03/14/24 16:10 Prior Level of Functionality: patient requires a walker at home due to physical debility secondary to severe lower extremity neuropathy. Conclusion/Plan Problem List (1) Numbness and tingling of right face: Plan: multiple comorbidities place patient at high risk for stroke. -CT imaging reviewed by myself, restricted from MRI due to pacemaker incompatibility and CTA due to CKD -will proceed with ECHO and carotid dopplers -neurochecks q4h -physical therapy -bedside swallow and advance diet as tolerted, any signs of dyphagia further evalaution by speech therapy may be warranted. -Plavix and statin continued (2) Type 2 diabetes mellitus, uncontrolled, with neuropathy: Plan: -lantus resumed. -will continue to monitor with acuchecks and slidng scale -advance to ADA diet as tolerated. (3) Hypertension: Plan: home regimen reviewed and resumed close monitor of vitals with continuous telmetry, serial bloodpressure checks. Qualifiers: Hypertension type: unspecified Qualified Code(s): I10 - Essential (primary) hypertension Lab Results Lab results reviewed: Yes 03/14/24 17:39 03/14/24 17:39 Diagnostic Imaging Results Diagnostic Imaging Results: positive Final report reviewed and See rad report Core Measures Anticipated LOS I expect patient to be DC'd or transferred within 96 hours.: Yes DVT/VTE - Prophylaxis VTE/DVT Device ordered at admit?: Yes Stroke - Rehab Assessment Rehab services assessment to be ordered?: Yes AMI - Statin at Admit Aspirin Prescribed on Admit: No Not Ordered - Medical Reason: Treatment modification (patient on plavix. dual antiplatelet therapy not recommended by neurologist at this time. ) Telemedicine Consult Details Provider Location & Consult Time Telemedicine consultation conducted via videoconferencing?: Yes Review of Systems Status of ROS: 10 or more systems reviewed and unremarkable except as noted in history and below Neurological Reports: Numbness in extremities, Pre-existing deficit and Lack of coordination Exam Exam physical examination, as recorded, is based on patient reported information or obtained through peripheral. Constitutional normal general appearance and no apparent distress HENMT normocephalic Eyes EOMs intact bilaterally Chest inspection of chest normal Respiratory breath sounds equal bilaterally, normal respiratory effort and no wheezes Cardiovascular normal heart rate noted, regular rhythm noted and no edema Gastrointestinal abdomen normal to inspection, nontender to palpation and nondistended Extremities normal to inspection, no tenderness and full ROM Neurology lead software engineer II-XII intact, sensory deficit noted, speech normal and GCS normal Skin skin color normal
[2024-03-15] MEDS: SODIUM CHLORIDE FLUSH 0.9% 10 ML SYRINGE IVP SCH (02:54)
[2024-03-15] MEDS: hydrALAZINE 10 MG TABLET PO SCH (06:06)
[2024-03-15] MEDS: GABAPENTIN 100 MG CAPSULE PO SCH (06:06)
[2024-03-15] MEDS: ISOSORBIDE DINITRATE 10 MG TABLET PO SCH (06:06)
[2024-03-15 06:37] LABS: CALCIUM 8.3 mg/dL (8.5-10.3); CREATININE 3.8 mg/dL (0.6-1.3); POTASSIUM 3.9 mmol/L (3.5-4.5)
[2024-03-15] MEDS: INSULIN LISPRO 300 UNIT/3 ML PEN SUBQ SCH (08:32)
[2024-03-15] MEDS: INSULIN GLARGINE-YFGN 300 UNIT/3 ML PEN SUBQ SCH (08:33)
[2024-03-15] MEDS: FUROSEMIDE 40 MG TABLET PO SCH (08:35)
[2024-03-15] MEDS: CLOPIDOGREL 75 MG TABLET PO SCH (08:35)
[2024-03-15] MEDS: METOPROLOL SUCCINATE 25 MG TABLET PO SCH (08:48)
--- NOTE | 2024-03-15 10:36 | PROVIDER PROGRESS NOTE ---
Subjective Prog Note Date Prog Note Date: 03/15/24 Prog Note Time: 10:35 Subjective Subjective: Patient presented yesterday with right-sided numbness and tingling located in her face, arm, leg. She stated that this is also localized on the right side of her mouth, lips, as well as the back of her mouth. She denies any weaknesses, pain at this time. The numbness and tingling has improved in her face, but continues in her arm and leg. She stated that she did have a TIA in the past. She also has an extensive cardiac history requiring an AICD. Additionally, she has stage V kidney disease and is in the process of starting dialysis. She has a peritoneal dialysis catheter already placed. Current Medications Current Medications Current Medications: Current Medications Generic Name Dose Route Start Last Admin Trade Name Freq PRN Reason Stop Dose Admin Acetaminophen 650 mg 03/14/24 22:20 Acetaminophen 325 Mg Tablet PO Q4HR PRN Pain 1 to 4, or Fever Atorvastatin Calcium 40 mg 03/15/24 21:00 Atorvastatin 40 Mg Tablet PO QPM KAREN Clopidogrel Bisulfate 75 mg 03/15/24 09:00 03/15/24 08:35 Clopidogrel 75 Mg Tablet PO 75 mg DAILY KAREN Administration Furosemide 40 mg 03/15/24 09:00 03/15/24 08:35 Furosemide 40 Mg Tablet PO 40 mg BID KAREN Administration Gabapentin 100 mg 03/15/24 06:00 03/15/24 06:06 Gabapentin 100 Mg Capsule PO 100 mg TID KAREN Administration Hydralazine HCl 10 mg 03/15/24 06:00 03/15/24 06:06 Hydralazine 10 Mg Tablet PO 10 mg Q8HR KAREN Administration Insulin Glargine-yfgn 16 unit 03/15/24 09:00 03/15/24 08:33 Insulin Glargine-Yfgn 300 Unit/3 Ml Pen SUBQ 16 unit BID KAREN Administration Insulin Human Lispro 0 unit 03/15/24 07:00 03/15/24 08:32 Insulin Lispro 300 Unit/3 Ml Pen SUBQ 1 unit ACHS KAREN Administration Protocol Isosorbide Dinitrate 10 mg 03/15/24 07:00 03/15/24 06:06 Isosorbide Dinitrate 10 Mg Tablet PO 10 mg AC KAREN Administration Metoprolol Succinate 12.5 mg 03/15/24 09:00 03/15/24 08:48 Metoprolol Succinate 25 Mg Tablet PO Not Given DAILY [facility] Ondansetron HCl 4 mg 03/14/24 22:20 Ondansetron 4 Mg/2 Ml Vial IVP Q6HR PRN Nausea / Vomiting Sodium Chloride 10 ml 03/14/24 22:20 Sodium Chloride Flush 0.9% 10 Ml Syringe IVP PRN PRN NEEDED PER PROVIDER ORDERS Sodium Chloride 10 ml 03/15/24 01:00 03/15/24 02:54 Sodium Chloride Flush 0.9% 10 Ml Syringe IVP Not Given 0100,0900,1700 [facility] Objective Vital Signs/Intake & Output Reviewed Vital Signs: Yes Vital Signs: Vital Signs x48h Temp Pulse Resp BP Pulse Ox 03/15/24 07:45 36.8 C 84 16 140/69 H 97 03/15/24 06:10 36.7 C 78 16 138/74 H 97 Intake & Output: Intake & Output 03/13/24 03/14/24 03/15/24 03/16/24 05:59 05:59 05:59 05:59 Intake Total 240 / 240 Balance 240 / 240 Weight (kg) 73 kg Objective General Appearance: positive No acute distress and Alert Eyes: OS: Abnormal pupil (hx of acute angle closure glaucoma; dilation noted) ENT: positive ENT inspection nml and Pharynx nml Respiratory: positive Chest non-tender and No respiratory distress Cardiovascular: positive Regular rate & rhythm and No murmur Abdomen: positive Non-tender and No distention Skin: positive Other (multiple tattoos) Extremities: positive Non-tender and Full ROM Neurologic/Psychiatric: positive Oriented x3; negative Sensation nml (decreased sensation ("pins & needles, as described by patient" - in R arm and R leg) Lab Results 03/14/24 17:39 03/15/24 06:10 Other Labs: Lab Results x24hrs 03/15/24 03/15/24 03/14/24 Range/Units 07:47 06:10 17:39 WBC 7.2 (4.8-10.8) x10^3/uL RBC 2.75 L (4.20-5.40) 10^6/uL Hgb 8.2 L (12.0-16.0) g/dL Hct 25.6 L (37.0-47.0) % MCV 93.1 (81.0-99.0) fL MCH 29.8 (27.0-31.0) pg MCHC 32.0 (32.0-36.0) g/dL RDW 13.3 (12.0-15.0) % Plt Count 225 (130-450) 10^3/uL MPV 10.5 (7.9-10.8) fL Neut # (Auto) 4.4 (1.5-6.6) 10^3/uL Lymph # (Auto) 1.8 (1.5-3.5) 10^3/uL Bland # (Auto) 0.4 (0.0-1.0) 10^3/uL Eos # (Auto) 0.5 (0.0-0.7) 10^3/uL Baso # (Auto) 0.1 (0.0-0.1) 10^3/uL Absolute Nucleated RBC 0.00 x10^3/uL Nucleated RBC % 0.0 /100WBC Sodium 139 138 (135-145) mmol/L Potassium 3.9 3.9 (3.5-4.5) mmol/L Chloride 108 106 (101-111) mmol/L Carbon Dioxide 26 27 (21-32) mmol/L Anion Gap 5.0 L 5.0 L (6-13) BUN 49 H 52 H (6-20) mg/dL Creatinine 3.8 H 3.8 H (0.6-1.3) mg/dL Estimated GFR (MDRD) 13 L 13 L (>89) Glucose 164 H 140 H (74-104) mg/dL POC Whole Bld Glucose 164 (70-100) mg/dL Calcium 8.3 L 8.5 (8.5-10.3) mg/dL Magnesium 1.8 (1.7-2.3) mg/dL Total Bilirubin 0.2 (0.2-1.0) mg/dL AST 14 (10-42) IU/L ALT 18 (10-60) IU/L Alkaline Phosphatase 66 (42-121) IU/L Troponin I High Sens 20.5 H* (2.3-14.8) ng/L Total Protein 5.7 L (6.4-8.9) g/dL Albumin 3.3 (3.2-5.5) g/dL Globulin 2.4 (2.1-4.2) g/dL Albumin/Globulin Ratio 1.4 (1.0-2.2) Diagnostic Imaging Diagnostic Imaging Results: positive Final report reviewed Diagnostic Imaging Comments: Head CT showed no acute intracranial pathology; did show mild atrophy and chronic microvascular ischemic changes, greater than expected for patient's age. MRI was unable to be completed as patient's AICD is not compatible with magnetic imaging. Ultrasound of the carotid arteries, ECHO remains pending. Assessment/Plan Problem List (1) Numbness and tingling of right face: Impression: Initial concern for cerebrovascular event. Head CT showed no acute change. MRI cannot be performed due to AICD placement. Duplex ultrasound pending of carotids. Echo ordered, pending. Physical therapy, Occupational Therapy ordered, pending. Patient is on Plavix for CAD; continued at this time. Continue high dose statin. Talked to patient about being on aspirin as well with history of CAD, as well as former TIA - agreeable to start at this time. Plavix to stop next month. (2) Type 2 diabetes mellitus, uncontrolled, with neuropathy: Impression: Patient on home dose of 6 units of glargine at night, insulin lispro sliding scale. (3) Hypertension: Impression: Continue hydralazine, isosorbide dinitrate, Lasix daily. Qualifiers: Hypertension type: unspecified Qualified Code(s): I10 - Essential (primary) hypertension (4) Chronic kidney disease, stage 5: Impression: Continue Lasix daily. Monitor urine output. Avoid nephrotoxic agents. Patient has peritoneal dialysis catheter in place, plan to start PD outpatient. (5) AICD (automatic cardioverter/defibrillator) present: Impression: Patient has a history of heart failure necessitating AICD. She follows up with a glass crusher. Unknown last EF. Patient appears to be on appropriate GDMT with metoprolol succinate, hydralazine. She is not currently on an VISHAL- inhibitor. Patient has a cardiac stent. Continue aspirin and Plavix. Was advised to be on Plavix for a year (ending in 05/06).
[2024-03-15 11:18] LABS: MAGNESIUM 1.7 mg/dL (1.7-2.3); PHOSPHORUS 5.4 mg/dL (2.5-5.0)
[2024-03-15] MEDS: ASPIRIN EC 81 MG TABLET PO SCH (12:22)
--- NOTE | 2024-03-15 14:00 | PHARMACY PROGRESS NOTE ---
Best Possible Medication History Admit Date and Time: 03/14/24 2220 [facility] Statement: Completed per [employer] prescription records and pt interview (PhT). As the person ultimately responsible for medication therapy, providers are able to order a medication from an existing home medication list in [facility] via the "Reconcile Routine" prior to Confirmation of that medication by technical support consultant. Such practice is discouraged except when the physician, in their clinical judgment, deems that a medical need exists for a medication without regard to previous use.
--- NOTE | 2024-03-15 14:05 | PHARMACY PROGRESS NOTE ---
Best Possible Medication History Admit Date and Time: 03/14/24 2220 [facility] Statement: Completed per [employer] records review and pt interview (PhT) As the person ultimately responsible for medication therapy, providers are able to order a medication from an existing home medication list in [facility] via the "Reconcile Routine" prior to Confirmation of that medication by business support professional. Such practice is discouraged except when the physician, in their clinical judgment, deems that a medical need exists for a medication without regard to previous use.
--- NOTE | 2024-03-15 21:15 | Ultrasound Report ---
PROCEDURE: US Carotid Doppler Complete INDICATIONS: stroke follow up TECHNIQUE: Color and pulse Doppler interrogation was performed of both carotid systems, with image documentation and velocity measurements. COMPARISON: None. FINDINGS: Right side: Brachial blood pressure: 167/80 mm Hg. Common carotid artery peak systolic velocity: 82.9 cm/sec. Internal carotid artery peak systolic velocity: 92.0 cm/sec. Internal carotid artery end diastolic velocity: 28.7 cm/sec. External carotid artery peak systolic velocity: 129 cm/sec. ICA/CCA peak systolic ratio: 1.1 . Molina scale imaging description: Mild to moderate atherosclerotic plaques are seen in proximal right internal carotid artery. Percent internal carotid artery stenosis: Less than 50 percent stenosis. Vertebral artery: Flow direction is antegrade. Left side: Brachial blood pressure: 153/82 mm Hg. Common carotid artery peak systolic velocity: 96.5 cm/sec. Internal carotid artery peak systolic velocity: 99.1 cm/sec. Internal carotid artery end diastolic velocity: 33.7 cm/sec. External carotid artery peak systolic velocity: 90.8 cm/sec. ICA/CCA peak systolic ratio: 1.0 . Molina scale imaging description: Mild to moderate atherosclerotic plaque. Percent internal carotid artery stenosis: Less than 50 percent stenosis. Vertebral artery: Flow direction is antegrade. IMPRESSION: 1. In the right internal carotid artery, there is less than 50 percent stenosis based on peak systoli c velocity criteria. 2. In the left internal carotid artery, there is less than 50 percent stenosis based on peak systolic velocity criteria. 3. Antegrade blood flow within the right vertebral artery. 4. Antegrade blood flow within the left vertebral artery. The estimate of stenosis included in the report of the imaging study was calculated using the [facility]-end orsed standards of carotid artery stenosis. Reviewed by: Jovani Tabares MD on 03/15/2024 9:13 PM PDT Approved by: Jovani Tabares MD on 03/15/2024 9:13 PM PDT Station ID: [id number]
[2024-03-15] MEDS: ATORVASTATIN 40 MG TABLET PO SCH (21:47)
[2024-03-16 04:58] VITALS: O2SAT 97
[2024-03-16 06:36] LABS: CALCIUM 8.5 mg/dL (8.5-10.3); CREATININE 4.1 mg/dL (0.6-1.3); POTASSIUM 3.9 mmol/L (3.5-4.5)
--- NOTE | 2024-03-16 08:49 | CT Report ---
PROCEDURE: CT Head W/O Stroke Protocol INDICATIONS: increasing RLE and RUE numbness TECHNIQUE: Noncontrast 4.5 mm thick angled axial sections acquired from the foramen magnum to the vertex, with c oronal reformats. For radiation dose reduction, the following was used: automated exposure control, adjustment of mA and/or kV according to patient size. COMPARISON: None. FINDINGS: Image quality: Excellent. CSF spaces: Basal cisterns are patent. No extra-axial fluid collections. Ventricles are normal in size and shape. Brain: No midline shift. No intracranial masses or hemorrhage. Molina-white matter interface is norm al. Mild global parenchymal volume loss with concordant ex vacuo dilatation of the ventricular system . Intracranial atherosclerotic calcifications. Skull and face: Calvarium and visualized facial bones are intact, without suspicious lesions. Ununit ed posterior arch of C1 (4/2) Sinuses: Visualized sinuses and mastoids are clear. IMPRESSION: No acute intracranial abnormality. Findings were discussed with the patient's physician, Dr Huitron, on 03/16/2024 at 8:47 AM Reviewed by: Benedict Dowling MD on 03/16/2024 8:47 AM PDT Approved by: Benedict Dowling MD on 03/16/2024 8:47 AM PDT Station ID: [id number]
--- NOTE | 2024-03-16 08:53 | Discharge Summary ---
"Discharge Summary Admit Date: 03/14/24 Discharge Date: 03/16/24 Discharging Provider: Dr. Huitron Primary Care Provider: Dr. Adarsh Walsh Discharge Facility Name: Home DIAGNOSES Admission Diagnoses: Numbness and tingling of right face Type 2 diabetes mellitus, uncontrolled, with neuropathy Hypertension Discharge Diagnoses with Status of Each Condition: Numbness and tingling of right facecontinued, but now waxing and waning. Initial head CT showed no acute change. Did worsen after the first night; CT repeated, with no acute abnormalities. MRI cannot be performed due to AICD placement and incompatibility with machines. Duplex ultrasound of the carotids was done which showed no significant stenosis. Patient was advised to follow-up with a neurologist outpatient. Aspirin was added to Plavix, patient states she did not need a prescription, she had it at home. Type 2 diabetes mellitus, uncontrolled, with neuropathy Stable, continue home insulin regimen. Hypertensionstable, continue home medications. CKD stage Vstable. Continue Lasix daily, PD catheter already in place, continue follow-up with location man to initiate PD in the outpatient setting. Heart failure with AICD presentstable. Continue follow-up with cardiology outpatient continue aspirin, Plavix, metoprolol, hydralazine, isosorbide dinitrate. HPI History of Present Illness: Per Dr. Goldsmith: Mrs. Pastor is a 43yo F with a history of hypertension, DM2, CKD stage V (not on dialysis), CAD. patient presented to the ED for evaluation of facial numbness. She explained that she had increased numbness and tingling in her right upper and lower extremity. This was only slightly worse from her baseline caused by her neuropathy. This progressed overnight and then on the morning of presentation she notice facial numbness and tingling, including the inside of her mouth. She presented to the ED this evening for further evaluation. In the ED, CT head was obtained and demonstrated chronic ischemic changes. patient was out of the window for tPA. Teleneurology was consulted in the Ed and advised to continue her Plavix adn statin. It was also recommended that patient be admitted for further evalaution, stroke workup. Hospitalist was consulted for admission. During my evalaution. patient was resting in no acute distress. She had full range of motion of her upper and lower extremity. she did not exhibit slurred speech or tongue deviation. She explained that the numbness and tingling was still present. Plan will be to admit and complete stroke workup. Due to her CKD and presence of a pacemaker, additional imaging is limited and will not include CTA or MRI (noncompatible). Plan for admission was discussed with the patient and she was in agreement with admission. This visit was obtained using tele-medicine tools including phone and live video. Informed consent was obtained from patient to proceed with this tele- medicine visit. CONSULTS | PROCEDURES Consultations: Teleneurologist, PT, OT Procedures: Head CT, carotid bladder study, head CT, ECHO HOSPITAL COURSE Hospital Course: Patient is a 43-year-old female with a history of hypertension, CKD stage V about to start peritoneal dialysis, CAD s/p stent, CHF, unknown ejection fraction with AICD who presented for evaluation of right sided facial, arm, as well as leg numbness and tingling. She said this was waxing and waning. She does have a history of peripheral neuropathy due to her diabetes mellitus, but she stated that it was usually confined to her leg. In the ED, patient was evaluated for stroke. CT head was done which showed chronic ischemic changes. She was already out of the window for tPA. Teleneurology was consulted and advised to continue her Plavix and statin. Initial plan was to do MRI but medic technician was spoken with, and her AICD was not compatible with the machines. As such, carotid Doppler study was done; it showed less than 50% stenosis in the right and left internal carotid arteries. There was antegrade blood flow within the right vertebral artery as well as left vertebral artery. The morning after her admission, she stated that her right sided facial numbness appeared to be worse, as well as her right hand numbness. CT head was repeated; it showed no acute changes. She was advised to follow-up with neurology outpatient for further testing, including possible EMG study. She is advised to return if her symptoms worsened or she noticed any new weaknesses. She demonstrated good understanding. ALLERGIES Allergies Allergy/AdvReac Type Severity Reaction Status Date / Time hydrocodone bitartrate * Allergy Intermediate Hives Verified 03/14/24 16:10 (From Vicodin) oxycodone HCl * (From Allergy Intermediate Hives Verified 03/14/24 16:10 Percocet) oxycodone Allergy Rash Verified 03/14/24 16:10 metformin AdvReac Unknown Verified 03/14/24 16:10 MEDICATIONS Ambulatory Orders Medication Instructions Recorded Confirmed atorvastatin 40 mg tablet 40 mg PO QPM #30 tabs 09/08/21 03/15/24 gabapentin 100 mg capsule 100 mg PO TID #90 caps 09/08/21 03/15/24 furosemide 40 mg tablet 40 mg PO BID 05/01/23 03/15/24 hydralazine 10 mg tablet 10 mg PO Q8HR 05/01/23 03/15/24 isosorbide dinitrate 10 mg tablet 10 mg PO TID 05/01/23 03/15/24 metoprolol succinate 25 mg 12.5 mg PO DAILY 05/01/23 03/15/24 tablet,extended release 24 hr insulin aspart U-100 100 unit/mL 6 unit SQ AC 01/05/24 03/15/24 subcutaneous solution (Novolog U-100 Insulin aspart) insulin glargine 100 unit/mL (3 16 unit subcut BID 01/05/24 03/15/24 mL) subcutaneous pen (Lantus Solostar U-100 Insulin) brinzolamide 1 %-brimonidine 0.2 % drp 03/15/24 eye drops,suspension (Simbrinza) clopidogrel 75 mg tablet 75 mg PO DAILY 03/15/24 03/15/24 ergocalciferol (vitamin D2) 1,250 1,250 mcg PO .once a week 03/15/24 03/15/24 mcg (50,000 unit) capsule ferrous sulfate 325 mg (65 mg 325 mg PO DAILYWM 03/15/24 03/15/24 iron) tablet insulin glargine 100 unit/mL (3 16 unit subcut BID 03/15/24 03/15/24 mL) subcutaneous pen (Basaglar KwikPen U-100 Insulin) timolol maleate 0.25 % eye gel 03/15/24 forming solution aspirin 81 mg tablet,delayed 81 mg PO DAILY #30 tabs 03/16/24 release PHYSICAL EXAM AT DISCHARGE General Appearance: positive No acute distress and Alert Eyes Bilateral: positive EOMI; negative PERRL (L pupil dilated but reactive ) ENT: positive ENT inspection nml, Pharynx nml and No signs of dehydration Neck: positive Nml inspection Respiratory: positive Chest non-tender, No respiratory distress and Breath sounds nml Cardiovascular: positive Regular rate & rhythm and No murmur Abdomen: positive Non-tender and No distention; negative Tenderness Skin: positive Color nml and No rash Extremities: positive Non-tender and Full ROM (Strength 5/5 in all extremities) Neurologic/Psychiatric: positive Oriented x3; negative Sensation nml (decreased sensation in R arm, R leg, R side of face; Phalen and Tinnel negative on R hand), Weakness (Strength 5/5 in all extremities) or Facial droop LABS 03/14/24 17:39 03/16/24 05:27 DIAGNOSTIC IMAGING Diagnostic Imaging Results: Final report reviewed Diagnostic Imaging Results Comments: Initial CT head showed no acute intracranial pathology. Carotid duplex showed less than 50% stenosis in all vessels. Repeat CT head showed no acute intracranial abnormalities as well. ECHO is complete, read is pending. FOLLOW UP Follow Up: Patient advised to follow-up with her primary care physician as well as a neurologist. TIME SPENT Time Spent in Discharge (Minutes): 30 Discharge Plan Discharge Patient Disposition: 01 Home, Self Care Condition: Stable Medically Cleared Date:: 03/16/24 Prescriptions: New aspirin 81 mg Tablet,Delayed Release (Dr/Ec) 81 mg PO DAILY Qty: 30 0RF Continued atorvastatin 40 MG tablet 40 mg PO QPM Qty: 30 0RF gabapentin 100 MG capsule 100 mg PO TID Qty: 90 0RF furosemide 40 MG tablet 40 mg PO BID isosorbide dinitrate 10 MG tablet 10 mg PO TID hydralazine 10 MG tablet 10 mg PO Q8HR metoprolol succinate 25 MG tablet extended release 24 hr 12.5 mg PO DAILY Patient Comments: TAKE 1/2 (ONE-HALF) TABLET BY MOUTH ONCE DAILY insulin aspart U-100 [Novolog U-100 Insulin aspart] 100 UNIT/ML solution 6 unit SQ AC insulin glargine [Lantus Solostar U-100 Insulin] 100 UNIT/ML insulin pen 16 unit subcut BID insulin glargine [Basaglar KwikPen U-100 Insulin] 100 unit/mL (3 mL) insulin pen 16 unit subcut BID clopidogrel 75 mg tablet 75 mg PO DAILY Patient Comments: TAKE 1 TABLET BY MOUTH ONCE DAILY Simbrinza 1-0.2 % drops,suspension ferrous sulfate 325 mg (65 mg iron) tablet 325 mg PO DAILYWM ergocalciferol (vitamin D2) 1,250 mcg (50,000 unit) capsule 1,250 mcg PO .once a week Rx Instructions: Take 1 tablet weekly timolol maleate 0.25 % gel forming solution Discontinued potassium chloride [K-Tab] 10 MEQ tablet extended release 10 meq PO DAILY Patient Comments: TAKE 1 TABLET BY MOUTH ONCE DAILY carvedilol 6.25 mg tablet 6.25 mg PO BID Rx Instructions: Take 1 tablet BID Diet: Cardiac Health Concerns: (Initially presented with right-sided facial, arm, as well as leg numbness and tingling which she described as [id number]. You thought it was worse than your normal neuropathy that you have, for which you take gabapentin. We were concerned about a stroke, so initially a CT head was done. This was negative for any acute stroke. We talked about how the best test to visualize smaller strokes is an MRI, however due to your AICD (the device in your chest), we were unable to complete this test as the MRI machine is made above magnets which would make this dangerous for you. Alternatively, we did check an ultrasound of your carotid arteries to make sure that they were patent, and that there were no clots or narrowing there that may have broken off and caused a stroke. This was negative. This morning, you noted that overnight you had some worsening of the numbness and tingling on the right side of your face. As such, we did repeat the CT scan of your head, and likely, this did not show any new strokes or bleeds. We talked about how the ultrasound of your heart was completed, and how, if there were any notable abnormalities, we would follow-up with you. We talked about establishing a care with a new neurologist for further testing in the outpatient of this numbness and tingling. You are also encouraged to follow-up with your primary care physician. We also talked about how because you have had a TIA or a tiny stroke in the past, as well as your history of a cardiac stent, you should be on a baby aspirin daily. You are encouraged to follow-up with your yard switcher next month to make sure you are able to come off the Plavix. You are also encouraged to follow-up with a location man for the initiation of dialysis as they see fit. You stated that you had all your medications at home, no refills were provided. You are advised to return if your symptoms worsened or if you are concerned. Thank you for entrusting us with your care. We hope you continue to feel better. Assessment: You demonstrated good understanding of the above and our discussion. Plan of Treatment: 1. Please make a follow-up appointment with the neurologist for further testing of this numbness and tingling. 2. Please continue to take all medications as prescribed. Please continue aspirin and Plavix until you see your yard switcher next month and he instructs you further on whether to stop the Plavix. We will follow-up the results of your echo, the ultrasound of your heart. 3. Please follow-up with your primary care physician so they are aware of this hospital stay and the workup that was completed. 4. Please continue to follow-up with the location man for initiation of peritoneal dialysis. 5. Please return if symptoms worsen. Patient Instructions: TIA Stand Alone Forms: PCP List Follow-up Care: DREAD RUBIO DO [Primary Care Provider] -"
--- NOTE | 2024-03-16 10:12 | PHARMACY PROGRESS NOTE ---
Best Possible Medication History Admit Date and Time: 03/14/24 2220 [facility] Statement: Per [employer] records and Pt Interview (PhT) As the person ultimately responsible for medication therapy, providers are able to order a medication from an existing home medication list in [facility] via the "Reconcile Routine" prior to Confirmation of that medication by patient support partner. Such practice is discouraged except when the physician, in their clinical judgment, deems that a medical need exists for a medication without regard to previous use.
== END 2024-03-16 12:05 | disposition home or self-care (01) ==
LOC: MS2 15:31 → ED 15:31 → SUATTDRO 22:20 → MS2 03-15 01:46
PROVIDERS: ADMIT Hospitalist; ATTEND Internal Medicine
DX: Z95.5 Presence of coronary angioplasty implant and graft; I25.10 Atherosclerotic heart disease of native coronary artery without angina pectoris; Z95.810 Presence of automatic (implantable) cardiac defibrillator; I50.9 Heart failure, unspecified; E11.65 Type 2 diabetes mellitus with hyperglycemia; E11.42 Type 2 diabetes mellitus with diabetic polyneuropathy; I13.2 Hypertensive heart and chronic kidney disease with heart failure and with stage 5 chronic kidney disease, or end stage renal disease; R20.0 Anesthesia of skin; N18.5 Chronic kidney disease, stage 5; E11.22 Type 2 diabetes mellitus with diabetic chronic kidney disease; F17.210 Nicotine dependence, cigarettes, uncomplicated; Z79.4 Long term (current) use of insulin; Z79.02 Long term (current) use of antithrombotics/antiplatelets; Z86.73 Personal history of transient ischemic attack (TIA), and cerebral infarction without residual deficits